=== PATIENT | female | born 1995 | race Caucasian/White ===

== ENCOUNTER 2022-12-24 21:18 | Emergency (ER) | payer OTHER, SELFPAY ==
[2022-12-24 21:26] VITALS: BP 116/85; PULSE 91; RESP 16; TEMP 37.3; O2SAT 99; BMI 40.0
--- NOTE | 2022-12-24 21:36 | ED_ITS ---
HPI - URI/Sore Throat General Chief Complaint: Upper Respiratory Infection Stated Complaint: URTI ISSUES Time Seen by Provider: 12/24/22 21:34 History of Present Illness HPI Narrative: one day history of sore throat. burning sensation in her throat. Low grade fever. dry cough. Not short of breath but chest feels heavy. No abdominal pain, nausea or vomiting. MD elicited complaint: Reports fever and cough Related Data Allergies Allergy/AdvReac Type Severity Reaction Status Date / Time acetaminophen [From Percocet] Allergy Mild Hives Verified 12/24/22 21:29 oxycodone [From Percocet] Allergy Mild Hives Verified 12/24/22 21:29 Review of Systems ROS Status of ROS 10 or more systems reviewed and unremarkable except as noted in history and below Constitutional Reports: fever Ears, nose, mouth, and throat Reports: throat pain Respiratory Reports: cough Exam Constitutional Vital Signs - 24 hr 12/24/22 21:26 Temperature 99.2 F Pulse Rate [Monitor] 91 H Respiratory Rate 16 Blood Pressure [Right Arm] 116/85 H Pulse Oximetry 99 Common normals: no apparent distress, oriented x3, alert and well nourished [facility] Common normals: normocephalic and head/scalp atraumatic Eye Common normals: PERRL, EOMs intact bilaterally and conjunctivae normal Chest Common normals: inspection of chest normal and palpation of chest normal Respiratory Common normals: normal respiratory effort, no retractions, no use of accessory muscles and clear to auscultation bilaterally Cardio Common normals: regular rate, regular rhythm, S1 normal heart sound and S2 normal heart sound GI Common normals: Normal to inspection, nondistended, normoactive bowel sounds present and non-tender Extremity Common normals: normal to inspection and full ROM Neuro Common normals: oriented x3, CN's II-XII intact bilaterally, moves all extremities and no focal motor deficits Psych Appearance: grossly normal Course Vital Signs Vital signs: Vital Signs Temperature 99.2 F 12/24/22 21:26 Pulse Rate 91 H 12/24/22 21:26 Respiratory Rate 16 12/24/22 21:26 Blood Pressure 116/85 H 12/24/22 21:26 Pulse Oximetry 99 12/24/22 21:26 Temperature 99.2 F 12/24/22 21:26 Pulse Rate 91 H 12/24/22 21:26 Respiratory Rate 16 12/24/22 21:26 Blood Pressure 116/85 H 12/24/22 21:26 Pulse Oximetry 99 12/24/22 21:26 MDM - URI/Sore Throat MDM Narrative Medical decision making narrative: patient presents complaining of mild cough and sore throat. left work to come in for evaluation. exam neg including her posterior pharynx. respiratory panel and strep screen neg. Patient informed of the neg workup . Discharged home with diagnosis of pharyngitis and is to follow up with her doctor Lab Data Labs: Lab Results 12/24/22 12/24/22 Range/Units 22:08 22:20 Adenovirus (PCR) Not detected (NOT DETECTE) C. pneumoniae DNA (PCR) Not detected (NOT DETECTE) Coronavirus Type OC43 Not detected (NOT DETECTE) Coronavirus Type HKU1 Not detected (NOT DETECTE) Coronavirus Type 229E Not detected (NOT DETECTE) Coronavirus Type NL63 Not detected (NOT DETECTE) Human Metapneumovir PCR Not detected (NOT DETECTE) M. pneumoniae (PCR) Not detected (NOT DETECTE) Parainfluenza PCR Not detected (NOT DETECTE) Parainfluenza 2 (PCR) Not detected (NOT DETECTE) Parainfluenza 3 (PCR) Not detected (NOT DETECTE) Parainfluenza 4 (PCR) Not detected (NOT DETECTE) RSV (RT-PCR) Not detected (NOT DETECTE) Entero/Rhino (PCR) Not detected (NOT DETECTE) SARS-CoV-2 (PCR) Not detected (NOT DETECTE) Streptococcus Screen Negative Bordetella pertussis (PCR) Not detected (NOT DETECTE) B parapertussis DNA PCR Not detected (NOT DETECTE) Influenza Type A (PCR) Not detected (NOT DETECTE) Influenza Type B (PCR) Not detected (NOT DETECTE) Discharge Plan Discharge Chief Complaint: Upper Respiratory Infection Clinical Impression: Pharyngitis Patient Disposition: Home, Self-Care Condition: Good Instructions: Pharyngitis (ED) Additional Instructions: follow up with family doctor for recheck Stand Alone Forms: Portal Instructions Referrals: Physician,Non-Staff, MD [Primary Care Provider] - 1 week
--- NOTE | 2022-12-24 21:59 | XR_ITS ---
The [address] [address] Patient Name: KAREN DODGE MRN: [id number] date: 1995 Sex: F Assigned Patient Location: ER Current Patient Location: ER Accession/Order Number: [id number] Exam Date: 12/24/2022 21:55 Report Date: 12/24/2022 22:08 At the request of: RANDA REYES Procedure: XR chest 2V EXAM: XR chest 2V REASON FOR EXAM: Female, 27 years, cough. TECHNIQUE: PA and lateral views of the chest are performed. COMPARISON: 06/11/2022. FINDINGS: The lungs are expanded and clear. Normal pleura. Normal size heart. Normal mediastinum and esau. Normal visualized pulmonary arteries. Normal visualized aortic arch and descending thoracic aorta. Normal visualized thoracic spine. Normal visualized ribs, clavicles, and shoulders. There is no demonstrated abnormality of the visualized soft tissue structures of the upper abdomen. IMPRESSION: Normal examination of the chest. Electronically authenticated by: DANAY VANG Date: 12/24/2022 22:08
--- NOTE | 2022-12-24 22:11 | PC.NURSE ---
pt presents to ED c/o runny nose, congestion, msucle aches, and sore throat. 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
[2022-12-24 22:15] LABS: Adenovirus NOT DETECTED (NOT DETECTE); Bordetella parapertussis NOT DETECTED (NOT DETECTE); Coronavirus 229E NOT DETECTED (NOT DETECTE); Coronavirus HKU1 NOT DETECTED (NOT DETECTE); Coronavirus NL63 NOT DETECTED (NOT DETECTE); Coronavirus OC43 NOT DETECTED (NOT DETECTE); Human Metapneumovirus NOT DETECTED (NOT DETECTE); Human Rhinovirus/Enterovirus NOT DETECTED (NOT DETECTE); Influenza A NOT DETECTED (NOT DETECTE); Influenza B NOT DETECTED (NOT DETECTE); Mycoplasma pneumoniae NOT DETECTED (NOT DETECTE); Parainfluenza Virus 1 NOT DETECTED (NOT DETECTE); Parainfluenza Virus 2 NOT DETECTED (NOT DETECTE); Parainfluenza Virus 3 NOT DETECTED (NOT DETECTE); Parainfluenza Virus 4 NOT DETECTED (NOT DETECTE); Respiratory Syncytial Virus NOT DETECTED (NOT DETECTE); SARS-CoV-2 NOT DETECTED (NOT DETECTE)
[2022-12-25] LABS: Internal Control Within Normal Limits; Strep A Antigen Screen Negative
== END 2022-12-25 00:21 | disposition home or self-care (01) ==
PROVIDERS: Emergency Provider Internal Medicine
DX: J02.9 Acute pharyngitis, unspecified (principal); Z20.822 Contact with and (suspected) exposure to COVID-19
CPT/HCPCS: 0202U; 71046; 87070; 87880; 99285

== ENCOUNTER 2023-09-02 00:56 | Emergency (ER) | payer OTHER, SELFPAY ==
[2023-09-02 01:06] VITALS: BP 142/97; PULSE 94; RESP 32; TEMP 36.8; O2SAT 97; BMI 41.8
--- NOTE | 2023-09-02 01:44 | ED_ITS ---
HPI - Abdominal Pain General Chief Complaint: Abdominal Pain Stated Complaint: vomiting abd pain Time Seen by Provider: 09/02/23 01:09 Source: patient Mode of arrival: walk-in Limitations: no limitations History of Present Illness HPI narrative: This 28-year-old female presents for evaluation of severe upper abdominal pain that radiates up into her chest and into her back. Symptoms started tonight around 8:30 PM. She had 4-5 episodes of vomiting. Prior to becoming sick with nausea, vomiting and abdominal pain she had a pork chop and corn for dinner. She denies that there was any heavy spices or gravy on the pork chop. She states that she has been on a semiglutide preparation prescribed by her weight management doctor, Kendall Song in [place], [place]. She states that she was told by Dr. Song that in her chart showed that she had fatty liver disease and a history of pancreatitis. She states that is the only time she has ever been told either of those things and does not recall ever having pancreatitis before. She has never had her gallbladder removed. She has not had any fever or cough. She has only been having small episodes of hard stool and has been only passing a small amount of gas. While in the emergency department she stated that she needed to use the restroom and had passage of a large amount of stool. She does not drink alcohol or smoke cigarettes. Related Data Home Medications Medication Instructions Recorded Confirmed ondansetron 4 mg disintegrating mg 09/02/23 tablet quetiapine 50 mg tablet,extended mg PO 09/02/23 release 24 hr Allergies Allergy/AdvReac Type Severity Reaction Status Date / Time acetaminophen [From Percocet] Allergy Mild Hives Verified 09/02/23 01:12 oxycodone [From Percocet] Allergy Mild Hives Verified 09/02/23 01:12 Review of Systems ROS Status of ROS 10 or more systems reviewed and unremark able except as noted in history and below PFSH PFSH Social History Smoking status: Current every day smoker Exam Narrative Exam Narrative: Nurses note and vital signs reviewed; She is afebrile with an elevated pulse, elevated respiratory rate and elevated blood pressure, she is not hypoxic with pulse ox of 97 percent on room air General: Anxious overweight female, upon arrival to the emergency department she is yelling and moaning with active vomiting of food products, no respiratory distress Skin: Warm, dry, no pallor noted. There is no rash noted. Head: Normocephalic, atraumatic Eye: Normal conjunctiva, no drainage, EOMI. PERRL. No scleral icterus Ears, Nose, Mouth, and Throat: oral mucosa is moist. Cardiovascular: Regular Rate and Rhythm S1S2, pulses are brisk and equal bilaterally Respiratory: Patient is in no distress, no accessory muscle use, lungs are clear to auscultation, no wheezing, rales or rhonchi Back: non-tender, no CVA tenderness bilaterally to percussion. GI: Obese, soft, non-distended, diffusely tender in RUQ, Epigastrium and LUQ Musculoskeletal: The patient has no evidence of calf tenderness, no pitting edema, symmetrical pulses noted bilaterally Neurological: A&O x4, normal speech Psychiatric: Cooperative, anxious, tearful Constitutional Vital Signs, click to edit/add: Last Vital Signs Temp 98.2 F 09/02/23 01:06 Pulse 94 H 09/02/23 01:06 Resp 32 H 09/02/23 01:06 BP 142/97 H 09/02/23 01:06 Pulse Ox 97 09/02/23 01:06 O2 Del Method Room Air 09/02/23 01:06 Course Vital Signs Vital signs: Vital Signs Temperature 98.2 F 09/02/23 01:06 Pulse Rate 94 H 09/02/23 01:06 Respiratory Rate 32 H 09/02/23 01:06 Blood Pressure 142/97 H 09/02/23 01:06 Pulse Oximetry 97 09/02/23 01:06 Oxygen Delivery Method Room Air 09/02/23 01:06 Temperature 98.2 F 09/02/23 01:06 Pulse Rate 94 H 09/02/23 01:06 Respiratory Rate 32 H 09/02/23 01:06 Blood Pressure 142/97 H 09/02/23 01:06 Pulse Oximetry 97 09/02/23 01:06 Oxygen Delivery Method Room Air 09/02/23 01:06 MDM - Abdominal Pain MDM Narrative Medical decision making narrative: This 28-year-old female presents for evaluation of upper abdominal pain with nausea vomiting. She has recently been on semiglutide medications and has lost 20 pounds. She was told that she has Pancreatitis after review of her chart on my chart at [facility] and she was also told that she has chronic pancreatitis. She has never been diagnosed with pancreatitis in the past. Her symptoms came on approximately 2 hours after eating dinner. She states she has not had a bowel movement recently but has been passing a small amount of gas. Upon arrival she was retching and moaning and yelling out. An IV was placed and she was medicated with Zofran and IV fluids and a dose of Dilaudid. Should clinical improvement with this. Routine labs are reviewed. She has a normal white count and hemoglobin. She was not . Urinalysis was negative. Liver function tests and lipase are normal. Lactic acid is normal. CT scan of the abdomen and pelvis was ordered and does not show any acute findings besides hepatic steatosis and assist in the patient's kidney. The results of CT scan were discussed at length with the patient and her . She is given a copy of the CAT scan to share with her family physician. After the CT scan she had recurrent nausea and episode of vomiting and pain and was remedicated with a dose of Zofran and Toradol. She states the Toradol helped her more than the Dilaudid and she will take ibuprofen at home. She will be discharged home with prescription for Zofran and Bentyl to use as needed. She does not plan on going back on the semiglutide medications and she was given reference materials on the side effects of these medications Medical Records Medical records narrative: The [address] [address] [address] Scan Report Signed Patient: Karen Liu MR#: [id number] : 1995 Acct:[id number] Age/Sex: 28 / F ADM Date: 09/02/23 Loc: ER Attending Dr: Ordering Physician: Estelita Mcneal Date of Service: 09/02/23 Procedure(s): CT abdomen pelvis w con Accession Number(s): [id number] cc: Physician,Non-Staff Olaf~ The [address] [address] Patient Name: KAREN LIU MRN: [id number] date: 1995 Sex: F Assigned Patient Location: ER Current Patient Location: ER Accession/Order Number: [id number] Exam Date: 09/02/2023 02:50 Report Date: 09/02/2023 04:51 At the request of: ESTELITA MARKER Procedure: CT abdomen pelvis w con CT OF THE ABDOMEN AND PELVIS WITH CONTRAST: 09/02/2023 2:50 AM EST CLINICAL HISTORY: abdpain ? pancreatitis COMPARISONS: None. TECHNIQUE: Thin section axial CT images were obtained from the lung bases to the pubis symphysis. This CT exam was performed using one or more of the following dose reduction techniques: Automated exposure control, adjustment of the mA and/or kV according to patient size, or use of iterative reconstruction technique. Thin section coronal and sagittal images were reconstructed from the axial data set. All images were reviewed and interpreted. CONTRAST: Intravenous contrast was administered. Type and amount is documented at the local institution. FINDINGS: LUNG BASES: No consolidation or pleural fluid. LIVER: Severe diffuse hepatic steatosis. No liver lesion otherwise. Normal portal vein enhancement. GALLBLADDER: Normal. BILIARY TREE: No ductal dilatation. PANCREAS: Normal. SPLEEN: Normal. ADRENALS: Normal. KIDNEYS: Simple right renal cyst measuring up to 2.5 cm. URINARY BLADDER: Grossly unremarkable. PELVIC STRUCTURES: Reproductive organs are within normal limits. BOWEL: No evidence of obstruction, gross mass, or inflammatory change. There is no significant diverticulosis. There is no evidence of diverticulitis. APPENDIX: Negative. LYMPH NODES: No pathologically enlarged lymph nodes identified. PERITONEUM: No intraperitoneal free air. No free intraperitoneal fluid. MESENTERY: Unremarkable. RETROPERITONEUM: The retroperitoneum is unremarkable. AORTA: Normal in caliber. BODY WALL: No body wall mass. OSSEOUS STRUCTURES: No destructive osseous lesion or displaced fracture. CT/CT abdomen pelvis w con IMPRESSION: 1. No acute abdominal or pelvic pathology. 2. Simple right renal cyst. 3. Severe hepatic steatosis. Lab Data Attestation: I reviewed the patient's lab results. Labs: Lab Results 09/02/23 09/02/23 Range/Units 02:00 02:34 WBC 9.1 (4.0-11.0) 10^3/uL RBC 4.36 (4.20-5.40) 10^6/uL Hgb 11.7 L (12.0-16.0) g/dL Hct 35.8 L (36.0-48.0) % MCV 82.1 (81.0-99.0) fL MCH 26.8 (26.7-34.0) pg MCHC 32.7 (29.9-35.2) g/dL RDW 14.6 (11.0-15.0) % Plt Count 193 (150-450) 10^3/uL MPV 14.1 H (9.5-13.5) fL Neut % (Auto) 61.8 (43.0-75.0) % Lymph % (Auto) 26.1 (20.5-60.0) % [place] % (Auto) 8.4 (1.7-12.0) % Eos % (Auto) 3.1 (0.9-7.0) % Baso % (Auto) 0.4 (0.2-2.0) % Neut # (Auto) 5.6 (1.4-6.5) 10^3/uL Lymph # (Auto) 2.4 (1.2-3.8) 10^3/uL [place] # (Auto) 0.8 (0.3-0.8) 10^3/uL Eos # (Auto) 0.3 (0.0-0.7) 10^3/uL Baso # (Auto) 0.0 (0.0-0.1) 10^3/uL Abs Immat Gran (auto) 0.02 (0.00-0.03) 10^3/uL Imm/Tot Granulo (auto) 0.2 (0.0-0.5) % Sodium 140 (136-145) mmol/L Potassium 3.5 (3.5-5.1) mmol/L Chloride 105 (98-107) mmol/L Carbon Dioxide 25.7 (21.0-32.0) mmol/L Anion Gap 12.8 BUN 16.0 (7.0-18.0) mg/dL Creatinine 0.78 (0.55-1.02) mg/dL Est GFR ( Amer) >60 (>=60) Est GFR (Non-Af Amer) >60 (>=60) BUN/Creatinine Ratio 20.5 Glucose 98 (74-106) mg/dL Lactate 1.6 (0.4-2.0) mmol/L Calcium 9.4 (8.5-10.1) mg/dL Total Bilirubin 0.7 (0.2-1.0) mg/dL AST 30 (15-37) U/L ALT 97 H (14-59) U/L Alkaline Phosphatase 71 (46-116) U/L Total Protein 7.6 (6.4-8.2) g/dL Albumin 3.9 (3.4-5.0) g/dL Globulin 3.7 g/dL Albumin/Globulin Ratio 1.1 Lipase 54.0 (16.0-77.0) U/L Urine Color Yellow (YELLOW) Urine Clarity Clear (CLEAR) Urine pH 6.0 (5.0-9.0) Ur Specific [place] 1.025 (1.005-1.025) Urine Protein Trace (NEG/TRACE) mg/dL Urine Glucose (UA) Negative (NEGATIVE) mg/dL Urine Ketones Trace A (NEGATIVE) mg/dL Urine Occult Blood Negative (NEGATIVE) Urine Nitrite Negative (NEGATIVE) Urine Bilirubin Negative (NEGATIVE) Urine Urobilinogen 0.2 (0.2-1.0) EU/dL Ur Leukocyte Esterase Trace A (NEGATIVE) Urine RBC 0-2 (0-2) #/HPF Urine WBC 0-2 A (NONE SEEN) #/HPF Ur Squamous Epith Cells Rare (NONE/RARE) #/LPF Urine Crystals None seen (None Seen) #/HPF Urine Bacteria None seen (NONE SEEN) #/HPF Urine Casts None seen (NONE SEEN) #/LPF Urine Mucus None seen (NONE SEEN) Urine HCG, Qual Negative (NEGATIVE) Discharge Plan Discharge Chief Complaint: Abdominal Pain Clinical Impression: Fatty liver disease, nonalcoholic, Abdominal pain, Constipation Patient Disposition: Home, Self-Care Time of Disposition Decision: 05:07 Condition: Good Prescriptions / Home Meds: No Action ondansetron 4 mg tablet,disintegrating quetiapine 50 mg tablet extended release 24 hr PO Instructions: Constipation (DC), Liver Disease Diet (DC), Non-Alcoholic Fatty Liver Disease (ED), Abdominal Pain (ED) Referrals: Physician,Non-Staff, MD [Primary Care Provider] - 1 week Stand Alone Forms: Portal Instructions
--- NOTE | 2023-09-02 01:52 | CT_ITS ---
The [address] [address] Patient Name: KAREN DODGE MRN: [id number] date: 1995 Sex: F Assigned Patient Location: ER Current Patient Location: Accession/Order Number: [id number] Exam Date: 09/02/2023 02:50 Report Date: 09/02/2023 04:51 At the request of: DUY MARKER Procedure: CT abdomen pelvis w con CT OF THE ABDOMEN AND PELVIS WITH CONTRAST: 09/02/2023 2:50 AM EST CLINICAL HISTORY: abdpain ? pancreatitis COMPARISONS: None. TECHNIQUE: Thin section axial CT images were obtained from the lung bases to the pubis symphysis. This CT exam was performed using one or more of the following dose reduction techniques: Automated exposure control, adjustment of the mA and/or kV according to patient size, or use of iterative reconstruction technique. Thin section coronal and sagittal images were reconstructed from the axial data set. All images were reviewed and interpreted. CONTRAST: Intravenous contrast was administered. Type and amount is documented at the local institution. FINDINGS: LUNG BASES: No consolidation or pleural fluid. LIVER: Severe diffuse hepatic steatosis. No liver lesion otherwise. Normal portal vein enhancement. GALLBLADDER: Normal. BILIARY TREE: No ductal dilatation. PANCREAS: Normal. SPLEEN: Normal. ADRENALS: Normal. KIDNEYS: Simple right renal cyst measuring up to 2.5 cm. URINARY BLADDER: Grossly unremarkable. PELVIC STRUCTURES: Reproductive organs are within normal limits. BOWEL: No evidence of obstruction, gross mass, or inflammatory change. There is no significant diverticulosis. There is no evidence of diverticulitis. APPENDIX: Negative. LYMPH NODES: No pathologically enlarged lymph nodes identified. PERITONEUM: No intraperitoneal free air. No free intraperitoneal fluid. MESENTERY: Unremarkable. RETROPERITONEUM: The retroperitoneum is unremarkable. AORTA: Normal in caliber. BODY WALL: No body wall mass. OSSEOUS STRUCTURES: No destructive osseous lesion or displaced fracture. CT/CT abdomen pelvis w con IMPRESSION: 1. No acute abdominal or pelvic pathology. 2. Simple right renal cyst. 3. Severe hepatic steatosis. 1. Electronically authenticated by: ALICE LOVETT Date: 09/02/2023 04:51
[2023-09-02] MEDS: 0.9 % SODIUM CHLORIDE 1,000 ML 1000 ML IV (02:20)
[2023-09-02] MEDS: ONDANSETRON PF 4 MG/2 ML VIAL IV ×2 (02:22→04:00)
[2023-09-02] MEDS: HYDROMORPHONE HCL 1 MG/ML CARTRIDGE IV (02:22)
[2023-09-02] MEDS: FAMOTIDINE/PF 20 MG/2 ML VIAL 40 MG IV (02:26)
[2023-09-02 02:41] LABS: Bilirubin Urine NEGATIVE (NEGATIVE); Blood Urine NEGATIVE (NEGATIVE); Clarity Urine CLEAR (CLEAR); Color Urine YELLOW (YELLOW); Glucose Urine UA NEGATIVE (NEGATIVE); Ketones Urine TRACE mg/dL (NEGATIVE); Leukocyte Esterase Urine TRACE (NEGATIVE); Nitrite Urine NEGATIVE (NEGATIVE); Protein Urine TRACE mg/dL (NEG/TRACE); Specific Gravity Urine 1.025 (1.005-1.025); Urobilinogen Urine 0.2 EU/dL (0.2-1.0)
[2023-09-02 02:43] LABS: HCG Qualitative Urine* NEGATIVE (NEGATIVE)
[2023-09-02 02:48] LABS: Bacteria Urine NONE SEEN #/HPF (NONE SEEN); Cast Seen? NONE SEEN #/LPF (NONE SEEN); Crystals Seen? None Seen #/HPF (None Seen); Mucus Urine NONE SEEN (NONE SEEN); RBC Urine 0-2 #/HPF (0-2); Squamous Epithelial Cell Urine RARE #/LPF (NONE/RARE); WBC Urine 0-2 #/HPF (NONE SEEN)
[2023-09-02 02:59] LABS: Basophils Percent Auto 0.4 % (0.2-2.0); Eosinophils Absolute Auto 0.3 10^3/uL (0.0-0.7); Eosinophils Percent Auto 3.1 % (0.9-7.0); Hematocrit 35.8 % (36.0-48.0); Hemoglobin 11.7 g/dL (12.0-16.0); Immature Granulocytes Abs Auto 0.02 10^3/uL (0.00-0.03); Immature Granulocytes Pct Auto 0.2 % (0.0-0.5); Lymphocytes Absolute Auto 2.4 10^3/uL (1.2-3.8); Lymphocytes Percent Auto 26.1 % (20.5-60.0); Mean Corpuscular HGB Conc 32.7 g/dL (29.9-35.2); Mean Corpuscular Hemoglobin 26.8 pg (26.7-34.0); Mean Corpuscular Volume 82.1 fL (81.0-99.0); Mean Platelet Volume 14.1 fL (9.5-13.5); Monocytes Absolute Auto 0.8 10^3/uL (0.3-0.8); Monocytes Percent Auto 8.4 % (1.7-12.0); Neutrophils Absolute Auto 5.6 10^3/uL (1.4-6.5); Neutrophils Percent Auto 61.8 % (43.0-75.0); Platelet Count 193 10^3/uL (150-450); Red Blood Count 4.36 10^6/uL (4.20-5.40); Red Cell Distribution Width 14.6 % (11.0-15.0); White Blood Count 9.1 10^3/uL (4.0-11.0)
[2023-09-02 03:08] LABS: Alanine Aminotransferase 97 U/L (14-59); Albumin Globulin Ratio 1.1; Albumin Level 3.9 g/dL (3.4-5.0); Alkaline Phosphatase 71 U/L (46-116); Anion Gap 12.8; Aspartate Amino Transferase 30 U/L (15-37); BUN Creatinine Ratio 20.5; Bilirubin Total 0.7 mg/dL (0.2-1.0); Calcium 9.4 mg/dL (8.5-10.1); Carbon Dioxide 25.7 mmol/L (21.0-32.0); Chloride 105 mmol/L (98-107); Estimated GFR (African America >60 (>=60); Estimated GFR (Non-African Ame >60 (>=60); Globulin 3.7 g/dL; Glucose 98 mg/dL (74-106); Potassium 3.5 mmol/L (3.5-5.1); Sodium 140 mmol/L (136-145); Total Protein 7.6 g/dL (6.4-8.2)
[2023-09-02 03:11] LABS: Lactate/Lactic Acid 1.6 mmol/L (0.4-2.0)
[2023-09-02] MEDS: KETOROLAC TROMETHAMINE 30 MG/ML VIAL IVP (04:04)
== END 2023-09-02 05:22 | disposition home or self-care (01) ==
PROVIDERS: Emergency Provider Emergency Medicine; PCP Nurse Practitioner Family
DX: R10.10 Upper abdominal pain, unspecified (principal); K59.00 Constipation, unspecified; K76.0 Fatty (change of) liver, not elsewhere classified; F17.200 Nicotine dependence, unspecified, uncomplicated; R11.2 Nausea with vomiting, unspecified; N28.1 Cyst of kidney, acquired
CPT/HCPCS: 36415; 74177; 80053; 81001; 83605; 83690; 84703; 85025; 96361; 96374; 96375; 96376; 99284; J1170; Q9967

== ENCOUNTER 2023-11-26 15:21 | Emergency (ER) | payer OTHER, SELFPAY ==
[2023-11-26 15:29] VITALS: BP 107/69; PULSE 94; TEMP 37.4; O2SAT 98; BMI 38.9
--- NOTE | 2023-11-26 15:34 | ED.GENADUL1 ---
HPI HPI - General Adult General Chief complaint: Abdominal Pain Stated complaint: Flank Pain Time Seen by Provider: 11/26/23 15:23 History of Present Illness HPI narrative: Patient is a 28-year-old female who presents to the emergency department for the evaluation of left flank pain that began this morning. She denies fevers, chills, nausea, vomiting, diarrhea. She states she did have urinary frequency last night and today seems to be urinating less than normal. She has not had any hematuria or dysuria. She is not concerned for . She took naproxen earlier this morning without improvement. She had a CT scan in this emergency department earlier this year showing a right renal cyst with no other evidence of kidney stones. She has had previous C-sections and no other abdominal surgeries. Related Data Home Medications ?Medication ?Instructions ?Recorded ?Confirmed ondansetron 4 mg disintegrating mg 09/02/23 tablet dicyclomine 20 mg tablet 20 mg PO .q8 PRN abdominal pain 11/26/23 11/26/23 lamotrigine 25 mg tablet (Lamictal) 50 mg PO DAILY 11/26/23 11/26/23 pantoprazole 20 mg tablet,delayed 20 mg PO QDAY 11/26/23 11/26/23 release Previous Rx's ?Medication ?Instructions ?Recorded dicyclomine 20 mg tablet 20 mg PO QID PRN abdominal pain 11/26/23 #12 tabs ketorolac 10 mg tablet 10 mg PO TID PRN pain #10 tabs 11/26/23 ondansetron 4 mg disintegrating 4 mg PO Q6H PRN nausea and 11/26/23 tablet vomiting #12 tabs Allergies Allergy/AdvReac Type Severity Reaction Status Date / Time acetaminophen [From Percocet] Allergy Mild Hives Verified 11/26/23 15:28 oxycodone [From Percocet] Allergy Mild Hives Verified 11/26/23 15:28 Opioid HPI Opioid Management Most Recent Opioid Data: Last Pain Scale 6 11/26/23 15:52 Last MAR Pain Assessment 11/26/23 15:53 Review of Systems ROS Constitutional Denies: fever or chills Ears, nose, mouth, and throat Denies: throat pain or nasal congestion Cardiovascular Denies: chest pain Respiratory Denies: shortness of breath Gastrointestinal Reports: abdominal pain; Denies: nausea, vomiting or diarrhea Genitourinary Reports: urinary frequency; Denies: painful urination Musculoskeletal Reports: back pain; Denies: neck pain Integumentary/Breast Denies: rash Neurological Denies: headache Hematologic/Lymphatic Denies: easy bruising or easy bleeding [facility] Social History Smoking status: Current every day smoker Exam Narrative Exam Narrative: Gen.: Awake, alert, in no distress Head: Normocephalic, atraumatic ENT: Moist mucous membranes Respiratory: No respiratory distress, lungs clear bilaterally Cardio: Regular rate and rhythm Gastrointestinal: Abdomen is soft, nondistended and nontender to palpation Back: No CVA tenderness Extremities: Moves extremities equally Psych: Normal mood and affect Neuro: No focal neuro deficit Skin: Warm, dry, intact Constitutional Vital Signs, click to edit/add: Last Vital Signs Temp 99.4 F 11/26/23 15:29 Pulse 94 H 11/26/23 15:29 Resp 14 11/26/23 15:29 BP 107/69 11/26/23 15:29 Pulse Ox 98 11/26/23 15:29 O2 Del Method Room Air 11/26/23 15:29 Course Vital Signs Vital signs: Vital Signs Temperature 99.4 F 11/26/23 15:29 Pulse Rate 94 H 11/26/23 15:29 Respiratory Rate 14 11/26/23 15:29 Blood Pressure 107/69 11/26/23 15:29 Pulse Oximetry 98 11/26/23 15:29 Oxygen Delivery Method Room Air 11/26/23 15:29 Temperature 99.4 F 11/26/23 15:29 Pulse Rate 94 H 11/26/23 15:29 Respiratory Rate 14 11/26/23 15:29 Blood Pressure 107/69 11/26/23 15:29 Pulse Oximetry 98 11/26/23 15:29 Oxygen Delivery Method Room Air 11/26/23 15:29 Medical Decision Making MDM Narrative Medical decision making narrative: Patient treated with IV Dilaudid, Zofran, Toradol and reported a return of her pain although she was noted to be resting comfortably on her cell phone when nursing remedicated her with Levsin. She had no episodes of emesis in the ER and her CT scan shows no evidence of acute process. Patient is discharged home with Zofran, Toradol, Levsin. Follow-up PCP and return to the ER if symptoms change or worsen Medical Records Medical records reviewed: Yes I reviewed the patient's medical records Lab Data Lab results reviewed: Yes I reviewed the patient's lab results Labs: Lab Results 11/26/23 11/26/23 Range/Units 15:44 15:46 WBC 11.2 H (4.0-11.0) 10^3/uL RBC 4.46 (4.20-5.40) 10^6/uL Hgb 11.7 L (12.0-16.0) g/dL Hct 36.1 (36.0-48.0) % MCV 80.9 L (81.0-99.0) fL MCH 26.2 L (26.7-34.0) pg MCHC 32.4 (29.9-35.2) g/dL RDW 14.2 (11.0-15.0) % Plt Count 257 (150-450) 10^3/uL MPV 12.9 (9.5-13.5) fL Neut % (Auto) 59.6 (43.0-75.0) % Lymph % (Auto) 29.6 (20.5-60.0) % Pepin % (Auto) 7.8 (1.7-12.0) % Eos % (Auto) 2.3 (0.9-7.0) % Baso % (Auto) 0.4 (0.2-2.0) % Neut # (Auto) 6.7 H (1.4-6.5) 10^3/uL Lymph # (Auto) 3.3 (1.2-3.8) 10^3/uL Pepin # (Auto) 0.9 H (0.3-0.8) 10^3/uL Eos # (Auto) 0.3 (0.0-0.7) 10^3/uL Baso # (Auto) 0.1 (0.0-0.1) 10^3/uL Abs Immat Gran (auto) 0.03 (0.00-0.03) 10^3/uL Imm/Tot Granulo (auto) 0.3 (0.0-0.5) % Sodium 136 (136-145) mmol/L Potassium 3.9 (3.5-5.1) mmol/L Chloride 103 (98-107) mmol/L Carbon Dioxide 24.0 (21.0-32.0) mmol/L Anion Gap 12.9 BUN 15.0 (7.0-18.0) mg/dL Creatinine 0.69 (0.55-1.02) mg/dL Est GFR ( Amer) >60 (>=60) Est GFR (Non-Af Amer) >60 (>=60) BUN/Creatinine Ratio 21.7 Glucose 91 (74-106) mg/dL Lactate 1.2 (0.4-2.0) mmol/L Calcium 8.6 (8.5-10.1) mg/dL Total Bilirubin 0.7 (0.2-1.0) mg/dL AST 33 (15-37) U/L ALT 64 H (14-59) U/L Alkaline Phosphatase 83 (46-116) U/L Total Protein 7.5 (6.4-8.2) g/dL Albumin 4.0 (3.4-5.0) g/dL Globulin 3.5 g/dL Albumin/Globulin Ratio 1.1 Lipase 69.0 (16.0-77.0) U/L Serum HCG, Qual Negative (NEGATIVE) Urine Color Lt. yellow (YELLOW) Urine Clarity Clear (CLEAR) Urine pH 6.0 (5.0-9.0) Ur Specific [place] 1.010 (1.005-1.025) Urine Protein Negative (NEG/TRACE) mg/dL Urine Glucose (UA) Negative (NEGATIVE) mg/dL Urine Ketones Negative (NEGATIVE) mg/dL Urine Occult Blood Negative (NEGATIVE) Urine Nitrite Negative (NEGATIVE) Urine Bilirubin Negative (NEGATIVE) Urine Urobilinogen 0.2 (0.2-1.0) EU/dL Ur Leukocyte Esterase Negative (NEGATIVE) Imaging Data CT scan - abdomen: Attestation: I have reviewed the pertinent imaging results. Radiologist's impression: ITS Impressions Abdomen/Pelvis CT 11/26/23 15:36 IMPRESSION: No acute abnormality in the abdomen or pelvis. No obstructive uropathy. Electronically authenticated by: PAOLA WISE Date: 11/26/2023 17:27 Discharge Plan Discharge Stand Alone Forms: Portal Instructions Chief Complaint: Abdominal Pain Clinical Impression: Abdominal pain Patient Disposition: Home, Self-Care Time of Disposition Decision: 17:37 Condition: Good Prescriptions / Home Meds: New ketorolac 10 mg tablet 10 mg PO TID PRN (Reason: pain) Qty: 10 0RF dicyclomine 20 mg tablet 20 mg PO QID PRN (Reason: abdominal pain) Qty: 12 0RF ondansetron 4 mg tablet,disintegrating 4 mg PO Q6H PRN (Reason: nausea and vomiting) Qty: 12 0RF No Action lamotrigine [Lamictal] 25 mg tablet 50 mg PO DAILY pantoprazole 20 mg tablet,delayed release (DR/EC) 20 mg PO QDAY dicyclomine 20 mg tablet 20 mg PO .q8 PRN (Reason: abdominal pain) Hold Instructions: has not taken it yet ondansetron 4 mg tablet,disintegrating Print Language: [place] African Instructions: Acute Abdominal Pain (ED) Referrals: Penny Aldrich NP [Primary Care Provider] - 1 week
--- NOTE | 2023-11-26 15:36 | CT_ITS ---
The [address] [address] Patient Name: KAREN DODGE MRN: [id number] date: 1995 Sex: F Assigned Patient Location: ER Current Patient Location: ER Accession/Order Number: [id number] Exam Date: 11/26/2023 16:46 Report Date: 11/26/2023 17:27 At the request of: ALBERTA RODNEY Procedure: CT abdomen pelvis wo con CT ABDOMEN/PELVIS WITHOUT IV CONTRAST. INDICATION: Left flank pain COMPARISON: There are no other studies available for comparison. TECHNIQUE: Contiguous axial images were obtained from the lung bases to the pelvic floor without intravenous or oral contrast. Coronal and sagittal reformations are provided. FINDINGS: LOWER LUNGS: Clear. LIVER/BILIARY TREE: No discrete lesion. No intrahepatic ductal dilatation. GALLBLADDER: No significant gallbladder wall thickening. No radiopaque stone. CBD: Normal CBD. SPLEEN: Normal in size. PANCREAS: No appreciable peripancreatic fluid. No pancreatic ductal dilatation. No discrete lesion. ADRENALS: Normal. KIDNEYS: No hydronephrosis. No radiopaque calculus. STOMACH AND BOWEL: Stomach is unremarkable. No dilated bowel loops. No bowel wall thickening. APPENDIX: Normal appendix. PERITONEAL CAVITY: No fluid. No fat stranding. ABDOMINAL WALL: No subcutaneous stranding. No subcutaneous fluid collection. There is a small umbilical hernia containing fat. LYMPH NODES: No mesenteric or retroperitoneal lymphadenopathy by CT criteria. ABDOMINAL AORTA: No aneurysm. PELVIS: No acute abnormality. MUSCULOSKELETAL: No acute osseous abnormality. CT/CT abdomen pelvis wo con IMPRESSION: No acute abnormality in the abdomen or pelvis. No obstructive uropathy. Electronically authenticated by: PAOLA WISE Date: 11/26/2023 17:27
[2023-11-26] MEDS: KETOROLAC TROMETHAMINE 30 MG/ML VIAL IVP (15:52)
[2023-11-26] MEDS: 0.9 % SODIUM CHLORIDE 1,000 ML 999 ML IV (15:52)
[2023-11-26] MEDS: HYDROMORPHONE HCL 0.5 MG/0.5 ML SYRINGE IVP (15:53)
[2023-11-26] MEDS: ONDANSETRON PF 4 MG/2 ML VIAL IV (15:53)
[2023-11-26 15:57] LABS: Basophils Absolute Auto 0.1 10^3/uL (0.0-0.1); Basophils Percent Auto 0.4 % (0.2-2.0); Eosinophils Absolute Auto 0.3 10^3/uL (0.0-0.7); Eosinophils Percent Auto 2.3 % (0.9-7.0); Hematocrit 36.1 % (36.0-48.0); Hemoglobin 11.7 g/dL (12.0-16.0); Immature Granulocytes Abs Auto 0.03 10^3/uL (0.00-0.03); Immature Granulocytes Pct Auto 0.3 % (0.0-0.5); Lymphocytes Absolute Auto 3.3 10^3/uL (1.2-3.8); Lymphocytes Percent Auto 29.6 % (20.5-60.0); Mean Corpuscular HGB Conc 32.4 g/dL (29.9-35.2); Mean Corpuscular Hemoglobin 26.2 pg (26.7-34.0); Mean Corpuscular Volume 80.9 fL (81.0-99.0); Mean Platelet Volume 12.9 fL (9.5-13.5); Monocytes Absolute Auto 0.9 10^3/uL (0.3-0.8); Monocytes Percent Auto 7.8 % (1.7-12.0); Neutrophils Absolute Auto 6.7 10^3/uL (1.4-6.5); Neutrophils Percent Auto 59.6 % (43.0-75.0); Platelet Count 257 10^3/uL (150-450); Red Blood Count 4.46 10^6/uL (4.20-5.40); Red Cell Distribution Width 14.2 % (11.0-15.0); White Blood Count 11.2 10^3/uL (4.0-11.0)
[2023-11-26 15:58] LABS: Bilirubin Urine NEGATIVE (NEGATIVE); Blood Urine NEGATIVE (NEGATIVE); Clarity Urine CLEAR (CLEAR); Color Urine LT. YELLOW (YELLOW); Glucose Urine UA NEGATIVE (NEGATIVE); Ketones Urine NEGATIVE (NEGATIVE); Leukocyte Esterase Urine NEGATIVE (NEGATIVE); Nitrite Urine NEGATIVE (NEGATIVE); Protein Urine NEGATIVE (NEG/TRACE); Urobilinogen Urine 0.2 EU/dL (0.2-1.0)
[2023-11-26 16:00] LABS: Urine Microscopic Indicated NO
[2023-11-26 16:10] LABS: HCG Qualitative NEGATIVE (NEGATIVE)
[2023-11-26 16:15] LABS: Alanine Aminotransferase 64 U/L (14-59); Albumin Globulin Ratio 1.1; Alkaline Phosphatase 83 U/L (46-116); Anion Gap 12.9; Aspartate Amino Transferase 33 U/L (15-37); BUN Creatinine Ratio 21.7; Bilirubin Total 0.7 mg/dL (0.2-1.0); Calcium 8.6 mg/dL (8.5-10.1); Chloride 103 mmol/L (98-107); Estimated GFR (African America >60 (>=60); Estimated GFR (Non-African Ame >60 (>=60); Globulin 3.5 g/dL; Glucose 91 mg/dL (74-106); Potassium 3.9 mmol/L (3.5-5.1); Sodium 136 mmol/L (136-145); Total Protein 7.5 g/dL (6.4-8.2)
[2023-11-26 16:18] LABS: Lactate/Lactic Acid 1.2 mmol/L (0.4-2.0)
[2023-11-26] MEDS: HYOSCYAMINE SULFATE 0.125 MG TAB.SUBL SL (16:59)
[2023-11-26 18:00] VITALS: PULSE 78; O2SAT 96
== END 2023-11-26 18:02 | disposition home or self-care (01) ==
PROVIDERS: Physician Assistant; Emergency Provider Emergency Medicine; PCP Nurse Practitioner Family
DX: R10.9 Unspecified abdominal pain (principal)
CPT/HCPCS: 36415; 74176; 80053; 81003; 83605; 83690; 84703; 85025; 96374; 96375; 99285; J1170

== ENCOUNTER 2024-03-22 08:25 | Emergency (ER) | payer OTHER, SELFPAY ==
[2024-03-22 08:29] VITALS: BP 120/90; PULSE 114; TEMP 37.1; O2SAT 98; BMI 41.6
--- NOTE | 2024-03-22 08:40 | XR_ITS ---
The [address] [address] Patient Name: KAREN DODGE MRN: [id number] date: 1995 Sex: F Assigned Patient Location: ER Current Patient Location: ER Accession/Order Number: [id number] Exam Date: 03/22/2024 09:18 Report Date: 03/22/2024 09:48 At the request of: NOEL CASTELLANOS Procedure: XR chest 1V EXAM: XR chest 1V HISTORY: . cough . COMPARISON: 16/01/2023 TECHNIQUE: Single view of the chest FINDINGS: Heart and vascularity are unremarkable. Lungs are free of focal infiltrates. Grossly no acute bony abnormality is appreciated. XR/XR chest 1V IMPRESSION: No acute heart or lung disease identified. Electronically authenticated by: SHANIA PALMER Date: 03/22/2024 09:48
--- NOTE | 2024-03-22 08:49 | ED.GENADUL1 ---
HPI HPI - General Adult General Chief complaint: Upper Respiratory Infection Stated complaint: WET COUGH Time Seen by Provider: 03/22/24 08:36 Source: patient Mode of arrival: walk-in Limitations: no limitations History of Present Illness HPI narrative: The patient presented to us with almost 1 week history of cough associated with shortness of breath, she has been having history of asthma and she is wheezing she mentioned that she presented to an urgent care and she was not provided with anything other than antibiotic, the patient has been taking the antibiotic with no improvement and she stopped using her inhaler because it not helping The patient has been having a productive cough of whitish sputum No nausea no vomiting and no abdominal pain Related Data Home Medications ?Medication ?Instructions ?Recorded ?Confirmed albuterol sulfate 90 mcg/actuation 2 puff inhalation Q4H PRN SOB 03/22/24 03/22/24 aerosol inhaler amoxicillin 500 mg capsule 1,000 mg PO BID 03/22/24 03/22/24 Previous Rx's ?Medication ?Instructions ?Recorded prednisone 50 mg tablet 50 mg PO DAILY 5 days #5 tabs 03/22/24 Allergies Allergy/AdvReac Type Severity Reaction Status Date / Time acetaminophen [From Percocet] Allergy Mild Hives Verified 03/22/24 08:36 oxycodone [From Percocet] Allergy Mild Hives Verified 03/22/24 08:36 Opioid HPI Opioid Management Most Recent Opioid Data: Last Pain Scale 6 11/26/23 15:52 Review of Systems ROS Status of ROS 10 or more systems reviewed and unremarkable except as noted in history and below PFSH PFSH Social History Smoking status: Current every day smoker Little interest or pleasure in doing things: not at all Feeling down, depressed, or hopeless: not at all Exam Narrative Exam Narrative: Nurses notes and vital signs reviewed and patient is not hypoxic. General: Well-appearing and in no apparent distress. Skin: Warm, dry, no pallor noted. No rash. Head: Normocephalic, atraumatic. Neck: Supple, non-tender. Eye: Pupils are equal, round and EOMI. No scleral icterus. Ears, Nose, Mouth, and Throat: TM are clear, no nasal mucosal hypertrophy. Oral mucosa is moist, no posterior oropharynx erythema, uvula is mid-line Cardiovascular: Regular Rate and Rhythm without murmur, gallop or rub. Respiratory: No accessory muscle use or respiratory distress. Lungs bilateral expiratory lung wheezes in both lung catnrell Chest Wall: no tenderness Back: No midline thoracic or lumbar vertebral tenderness. No CVA tenderness Musculoskeletal: normal ROM, no calf or popliteal tenderness, no lower extremity edema/swelling GI: Abdomen is soft, non-distended. Normal bowel sounds. No masses appreciated. No tenderness to palpation. No rebound, guarding, or rigidity noted. Neurological: A&O x4. No cranial nerve dysfunction observed. No truncal ataxia. Moves all extremities. Sensation intact. Psychiatric: Cooperative and interactive. Normal mood and affect. Constitutional Vital Signs, click to edit/add: Last Vital Signs Temp 98.7 F 03/22/24 08:29 Pulse 110 H 03/22/24 09:46 Resp 20 03/22/24 09:46 BP 120/90 03/22/24 08:29 Pulse Ox 97 03/22/24 09:46 O2 Del Method Room Air 03/22/24 08:29 Course Vital Signs Vital signs: Vital Signs Temperature 98.7 F 03/22/24 08:29 Pulse Rate 114 H 03/22/24 08:29 Respiratory Rate 20 03/22/24 08:29 Blood Pressure 120/90 03/22/24 08:29 Pulse Oximetry 98 03/22/24 08:29 Oxygen Delivery Method Room Air 03/22/24 08:29 Temperature 98.7 F 03/22/24 08:29 Pulse Rate 110 H 03/22/24 09:46 Respiratory Rate 20 03/22/24 09:46 Blood Pressure 120/90 03/22/24 08:29 Pulse Oximetry 97 03/22/24 09:46 Oxygen Delivery Method Room Air 03/22/24 08:29 Medical Decision Making MDM Narrative Medical decision making narrative: The patient CBC and chemistry showed no acute significant pathology X-ray of the chest showed no acute pathology as well Patient was feeling much better after being treated with the steroids as she was instructed to continue supportive care in addition to using her inhaler with prednisone The patient is to follow up with primary care physician in next 2-3 days or to return to the emergency department should any of the signs or symptoms worsen or new symptoms develop. The patient agrees with the following Diagnosis and Treatment plan and the patient will be discharged home. Lab Data Labs: Lab Results 03/22/24 Range/Units 08:50 WBC 7.1 (4.0-11.0) 10^3/uL RBC 4.51 (4.20-5.40) 10^6/uL Hgb 11.7 L (12.0-16.0) g/dL Hct 35.8 L (36.0-48.0) % MCV 79.4 L (81.0-99.0) fL MCH 25.9 L (26.7-34.0) pg MCHC 32.7 (29.9-35.2) g/dL RDW 14.1 (11.0-15.0) % Plt Count 273 (150-450) 10^3/uL MPV 11.8 (9.5-13.5) fL Neut % (Auto) 65.7 (43.0-75.0) % Lymph % (Auto) 25.1 (20.5-60.0) % [place] % (Auto) 4.2 (1.7-12.0) % Eos % (Auto) 4.3 (0.9-7.0) % Baso % (Auto) 0.4 (0.2-2.0) % Neut # (Auto) 4.7 (1.4-6.5) 10^3/uL Lymph # (Auto) 1.8 (1.2-3.8) 10^3/uL [place] # (Auto) 0.3 (0.3-0.8) 10^3/uL Eos # (Auto) 0.3 (0.0-0.7) 10^3/uL Baso # (Auto) 0.0 (0.0-0.1) 10^3/uL Abs Immat Gran (auto) 0.02 (0.00-0.03) 10^3/uL Imm/Tot Granulo (auto) 0.3 (0.0-0.5) % Sodium 136 (136-145) mmol/L Potassium 3.9 (3.5-5.1) mmol/L Chloride 103 (98-107) mmol/L Carbon Dioxide 26.7 (21.0-32.0) mmol/L Anion Gap 10.2 BUN 11.0 (7.0-18.0) mg/dL Creatinine 0.78 (0.55-1.02) mg/dL Est GFR ( Amer) >60 (>=60) Est GFR (Non-Af Amer) >60 (>=60) BUN/Creatinine Ratio 14.1 Glucose 140 H (74-106) mg/dL Calcium 9.2 (8.5-10.1) mg/dL Total Bilirubin 1.0 (0.2-1.0) mg/dL AST 27 (15-37) U/L ALT 51 (14-59) U/L Alkaline Phosphatase 92 (46-116) U/L Total Protein 7.2 (6.4-8.2) g/dL Albumin 3.8 (3.4-5.0) g/dL Globulin 3.4 g/dL Albumin/Globulin Ratio 1.1 Discharge Plan Discharge Chief Complaint: Upper Respiratory Infection Clinical Impression: Bronchitis Asthma exacerbation Qualifiers: Asthma severity: mild Asthma persistence: persistent Qualified Code(s): J45.31 - Mild persistent asthma with (acute) exacerbation Patient Disposition: Home, Self-Care Time of Disposition Decision: 09:54 Condition: Good Prescriptions / Home Meds: New prednisone 50 mg tablet 50 mg PO DAILY 5 Days Qty: 5 0RF No Action amoxicillin 500 mg capsule 1,000 mg PO BID albuterol sulfate 90 mcg/actuation HFA aerosol inhaler 2 puff INHALATION Q4H PRN (Reason: SOB) Print Language: Upper Sorbian Instructions: Asthma (ED), Acute Bronchitis (ED) Referrals: Penny Aldrich NP [Primary Care Provider] - 1 week
[2024-03-22 09:02] LABS: Basophils Percent Auto 0.4 % (0.2-2.0); Eosinophils Absolute Auto 0.3 10^3/uL (0.0-0.7); Eosinophils Percent Auto 4.3 % (0.9-7.0); Hematocrit 35.8 % (36.0-48.0); Hemoglobin 11.7 g/dL (12.0-16.0); Immature Granulocytes Abs Auto 0.02 10^3/uL (0.00-0.03); Immature Granulocytes Pct Auto 0.3 % (0.0-0.5); Lymphocytes Absolute Auto 1.8 10^3/uL (1.2-3.8); Lymphocytes Percent Auto 25.1 % (20.5-60.0); Mean Corpuscular HGB Conc 32.7 g/dL (29.9-35.2); Mean Corpuscular Hemoglobin 25.9 pg (26.7-34.0); Mean Corpuscular Volume 79.4 fL (81.0-99.0); Mean Platelet Volume 11.8 fL (9.5-13.5); Monocytes Absolute Auto 0.3 10^3/uL (0.3-0.8); Monocytes Percent Auto 4.2 % (1.7-12.0); Neutrophils Absolute Auto 4.7 10^3/uL (1.4-6.5); Neutrophils Percent Auto 65.7 % (43.0-75.0); Platelet Count 273 10^3/uL (150-450); Red Blood Count 4.51 10^6/uL (4.20-5.40); Red Cell Distribution Width 14.1 % (11.0-15.0); White Blood Count 7.1 10^3/uL (4.0-11.0)
[2024-03-22] MEDS: IPRATROPIUM/ALBUTEROL SULFATE 3 ML AMPUL.NEB IH (09:02)
[2024-03-22 09:18] VITALS: PULSE 97; O2SAT 98
[2024-03-22] MEDS: METHYLPREDNISOLONE SOD SUCC PF 125 MG/2 ML VIAL IVP (09:21)
[2024-03-22] MEDS: 0.9 % SODIUM CHLORIDE 1,000 ML 500 ML IV (09:21)
[2024-03-22 09:32] LABS: Alanine Aminotransferase 51 U/L (14-59); Albumin Globulin Ratio 1.1; Albumin Level 3.8 g/dL (3.4-5.0); Alkaline Phosphatase 92 U/L (46-116); Anion Gap 10.2; Aspartate Amino Transferase 27 U/L (15-37); BUN Creatinine Ratio 14.1; Calcium 9.2 mg/dL (8.5-10.1); Carbon Dioxide 26.7 mmol/L (21.0-32.0); Chloride 103 mmol/L (98-107); Estimated GFR (African America >60 (>=60); Estimated GFR (Non-African Ame >60 (>=60); Globulin 3.4 g/dL; Glucose 140 mg/dL (74-106); Potassium 3.9 mmol/L (3.5-5.1); Sodium 136 mmol/L (136-145); Total Protein 7.2 g/dL (6.4-8.2)
[2024-03-22] MEDS: FAMOTIDINE/PF 20 MG/2 ML VIAL IV (09:42)
[2024-03-22] MEDS: KETOROLAC TROMETHAMINE 30 MG/ML VIAL 15 MG IVP (09:42)
[2024-03-22 09:46] VITALS: PULSE 110; O2SAT 97
[2024-03-22 10:07] VITALS: BP 127/85; PULSE 105; O2SAT 99
== END 2024-03-22 10:07 | disposition home or self-care (01) ==
PROVIDERS: Emergency Provider Emergency Medicine; PCP Nurse Practitioner Family
DX: J45.31 Mild persistent asthma with (acute) exacerbation (principal); F17.200 Nicotine dependence, unspecified, uncomplicated
CPT/HCPCS: 36415; 71045; 80053; 85025; 94640; 96374; 96375; 99284; J1885; J2919

== ENCOUNTER 2024-04-21 08:32 | Emergency (ER) | payer OTHER, SELFPAY ==
[2024-04-21 08:36] VITALS: BP 117/85; PULSE 115; TEMP 37; O2SAT 97; BMI 41.6
--- OUTSIDE RECORDS SUMMARY | 2024-04-21 08:49 | XMS_ITS | CCD ---
Author Organization [facility] Care Team Providers Care Fluorescent Lighting Model Maker Name Role Phone Link, Russell Burnett Primary Care Physician [phone] Lou Arceo Primary Care Physician [phone] Florecita Haynes Primary Care Physician Unavail able Juarez Wang Attending Unavailable RONEL .SILVER Consulting UnavailDR NICOLLE Post Primary Care Unavailable DIAB ., NOEL Attending Unavailable DIAB ., NOEL Admitting Unavailable FLORECITA FROST Consulting Unavailable DIAB ., NOEL Consulting Unavailable DEVIN ., RAMAN Admitting Unavailable DR VANESSA ALVARADO Consulting Unavailable DEVIN ., RAMAN Attending Unavailable DEVIN Padron, RAMAN Consulting Unavailable ZEYAD FAM Admitting Unavailable REQUEST, NONE LISTED Primary Care Unavaila ble ZEYAD FAM Attending Unavailable ZEYAD FAM Consulting Unavailable REQUEST, NONE LISTED Primary Care Unavaila ble FREDDY YOUNG Admitting Unavailable FREDDY YOUNG Attending Unavailable FREDDY YOUNG Consulting Unavailable NONE, XXXX Primary Care Physician Unavailab le NO, PCP Primary Care Unavailable [place] NEGOTIATOR-JAILYN, Gaetano Primary Care Provider Easterwood, Gaetano Unavailable EASTERWOOD, GAETANO Primary Care Unavailable LUCINDA ARIAS Attending Unavailable EASTERWOOD, GAETANO Referring Unavailable EASTERWOOD, GAETANO Primary Care Unavailable EASTERWOOD, GAETANO Referring Unavailable EASTERWOOD, GAETANO Primary Care Unavailable LUCINDA ARIAS Attending Unavailable EASTERWOOD, GAETANO Referring Unavailable EASTERWOOD, GAETANO Primary Care Unavailable KARLA PEGUERO Attending Unavailable LUCINDA ARIAS Referring Unavailable EASTERWOOD, GAETANO Primary Care Unavailable Luna Alvarez Attending Unavailable EASTERWOOD, GAETANO Primary Care Unavailable TEDDY PEREZ Attending Unavailable BRODY YUAN Admitting Unavailable TEDDY PEREZ Attending Unavailable TEDDY PEREZ Referring Unavailable EASTERWOOD, GAETANO Primary Care Unavailable NO PCP, NO PCP Primary Care Unavailable DIA TAM Referring Unavailable EASTERWOOD, GAETANO Primary Care Unavailable DIA TAM Attending Unavailable DIA TAM Referring Unavailable EASTERWOOD, GAETANO Primary Care Unavailable EASTERWOOD, GAETANO Primary Care Unavailable NADINE AU Attending Unavailable YASMANY COLBERT Attending UnavailYASMANY Mendez Referring Unavailabl e EASTERWOOD, GAETANO Primary Care Unavailable DIA TAM Referring Unavailable EASTERWOOD, GAETANO Primary Care Unavailable Easterwood, NEGOTIATOR Gaetano J Primary Care Provider MD Jos Lund Attending Provider Easterrafaela, Gaetano J Primary Care Unavailable Asaad, Imad Admitting Unavailable Asaad, Imad Attending Unavailable Easterwood, Gaetano J Primary Care Unavailable Asaad, Imad Admitting Unavailable Asaad, Imad Attending Unavailable Allergies Allergy Classification Reported Allergen(s) Allergy Type Date of Onset Reaction(s) Facility Acetaminophen (1 source) Acetaminophen Drug Allergy 4 [facility] Aminoketones (1 source) buPROPion Drug Allergy 4 [facility] Opioid Agonists (1 source) [facility] Acetaminophen / oxyCODONE; Translations: [acetaminophen-ox ycodone] Drug Allergy 2 [facility] (3 sources) Acetaminophen / oxyCODONE; Translations: [Percocet] Drug Allergy 2 [facility] (4 sources) Acetaminophen / oxyCODONE; Translations: [OXYCODONE-ACETAM INOPHEN] Drug Allergy 2 [facility] Rep[facility] (5 sources) Acetaminophen; Translations: [acetaminophen] [facility] bu[facility]ion; Translations: [bupropion] Drug Allergy 4 Agitated [facility] (5 sources) oxyCODONE; Translations: [oxycodone] Drug Allergy 4 hives, itching [facility] (6 sources) semaglutide; Translations: [semaglutide] Allergy to substance 4 pancreatitis [facility] Medications Current Medications Medication Drug Class(es) Dates Sig (Normalized) Sig (Original) acetaminophen 325 mg / butalbital 50 mg / caffeine 40 mg oral tablet (3 sources) Barbiturate, Central Nervous System Stimulant, Methylxanthine Start: 09-25-2021 take 1 tablet by mouth every four hours for headache APAP/butalbital /caffeine 325 mg-50 mg-40 mg Tab 1 tab(s), Oral, q4hr for headache, 15 tab(s), Refill(s) 0 Start Date: 09/25/21 Status: Ordered acetaminophen 300 mg / codeine phosphate 30 mg oral tablet (3 sources) Opioid Agonist Start: 06-20-2020 Tylenol with Codeine 300 mg-30 mg Tab 1 tab(s), Oral, q6hr as needed for pain, 7 tab(s), Refill(s) 0 Start Date: 06/20/20 Status: Ordered brompheniramine maleate 0.4 mg/ml / dextromethorphan hydrobromide 2 mg/ml / pseudoephedrine hydrochloride 6 mg/ml oral solution (1 source) alpha-Adrenergic Agonist, Uncompetitive N-xpjwca-[id number]-aspartate Receptor Antagonist, Sigma-1 Agonist Start: 06-14-2022 End: 06-21-2022 take 10 mL by mouth four times daily for cough and congestion Bromfed DM oral syrup 10 mL, Oral, QID for cough and congestion for 7 day(s), 280 mL, Refill(s) 0, [facility]/pharmacy #[id number], 165, cm, 06/14/22 8:50:00 EST, Height/Length Dosing, 105, kg, 06/14/22 8:50:00 EST, Weight Dosing Start Date: 06/14/22 Stop Date: 06/21/22 Status: Ordered 12 hr buPROPion hydrochloride 150 mg extended release oral tablet (3 sources) Aminoketone Start: 05-31-2022 take 1 tablet by mouth once daily Wellbutrin SR 150 mg Tab-ER 150 mg = 1 tab(s), Oral, Daily, # 30 tab(s), Refills(s) 2, Pharmacy: [facility]/pharmacy #[id number], 165, cm, 04/05/22 9:43:00 EDT, Height/Length Dosing, 111.3, kg, 04/05/22 9:43:00 EDT, Weight Dosing Start Date: 05/31/22 Status: Ordered Start: 03-06-2022 take 1 tablet by lisa th once daily, then take 2 tablets by mouth once daily Wellbutrin SR 150 mg Tab-ER See Instructions, 1 tab(s) Oral once daily for one week, then increase to 2 tabs oral daily, # 60 tab(s), Refills(s) 1, Pharmacy: [facility]/pharmacy #[id number], 165, aurelia, 03/06/22 14:45:00 EDT, Height/Length Dosing, 113.7, kg, 03/06/22 14:45:00 EDT, Weight Dosing Start Date: 03/06/22 Status: Ordered cyclobenzaprine hydrochloride 10 mg oral tablet (3 sources) Muscle Relaxant Start: 12-09-2023 take 10 mg by mouth once daily at bedtime Cyclobenzaprine Active 10 MG PO Daily at bedtime 14 14 December 09, 2023 12:00am dicyclomine hydrochloride 20 mg oral tablet (5 sources) Anticholinergic Start: 12-09-2023 take 20 mg by mouth twice daily Dicyclomine Active 20 MG PO Twice daily December 09, 2023 12:00am Start: 11-13-2021 End: 11-20-2021 take 1 capsule by mouth four times daily as needed for pain Bentyl 10 mg Cap 10 mg = 1 cap(s), Oral, QID, PRN Pain, X 7 day(s), # 12 cap(s), Refills(s) 0 Start Date: 11/13/21 Stop Date: 11/20/21 Status: Ordered famotidine 40 mg oral tablet (3 sources) Histamine-2 Receptor Antagonist Start: 05-02-2020 take 1 tablet by mouth once daily at bedtime Pepcid 40 mg Tab 40 mg = 1 tab(s), Oral, Once a day (at bedtime), # 20 tab(s), Refills(s) 0, Pharmacy: [facility]/pharmacy #[id number], 165, cm, 05/02/20 11:30:00 EST, Height/Length Dosing, 109, kg, 05/02/20 11:30:00 EST, Weight Dosing Start Date: 05/02/20 Status: Ordered FLUoxetine 40 mg oral capsule (3 sources) Serotonin Reuptake Inhibitor Start: 11-09-2018 take 1 capsule by mouth once daily FLUoxetine 40 mg Cap TAKE 1 CAPSULE BY MOUTH EVERY DAY Start Date: 11/09/18 Status: Ordered hydrOXYzine hydrochloride 10 mg oral tablet (3 sources) Antihistamine Start: 04-05-2022 take 1 tablet by mouth four times daily as needed for anxiety hydrOXYzine hydrochloride 10 mg Tab 10 mg = 1 tab(s), Oral, QID, PRN as needed for anxiety, # 56 tab(s), Refills(s) 2, Pharmacy: [facility]/pharmacy #[id number], 165, cm, 04/05/22 9:43:00 EDT, Height/Length Dosing, 111.3, kg, 04/05/22 9:43:00 EDT, Weight Dosing Start Date: 04/05/22 Status: Ordered Start: 03-06-2022 End: 03-27-2022 take 1 tablet by mouth four times daily as needed for anxiety hydrOXYzine hydrochloride 10 mg Tab 10 mg = 1 tab(s), Oral, QID, PRN as needed for anxiety, X 21 day(s), # 86 tab(s), Refills(s) 0, Pharmacy: [facility]/pharmacy #[id number], 165, cm, 03/06/22 14:45:00 EDT, Height/Length Dosing, 113.7, kg, 03/06/22 14:45:00 EDT, Weight Dosing Start Date: 03/06/22 Stop Date: 03/27/22 Status: Ordered ibuprofen 600 mg oral tablet (3 sources) Nonsteroidal Anti-inflammatory Drug Start: 12-17-2020 take 1 tablet by mouth every six hours ibuprofen 600 mg Tab 600 mg = 1 tab(s), Oral, q6hr, # 10 tab(s), Refills(s) 0, Pharmacy: [facility]/pharmacy #[id number], 165.1, cm, 12/15/20 4:59:00 EDT, Height/Length Dosing, 128.2, kg, 12/15/20 5:39:00 EDT, Weight Dosing Start Date: 12/17/20 Status: Ordered lamoTRIgine 100 mg oral tablet (13 sources) Mood Stabilizer, Anti-epileptic Agent Start: 01-05-2024 take 100 mg by mouth once daily Lamotrigine Active 100 MG PO Daily January 05, 2024 4:48pm Start: 09-25-2023 End: 01-05-2024 take 3 tablets by mouth once daily, then take 4 tablets by mouth once daily Lamotrigine Discontinued 0 PO Daily November 25, 2023 9:36am January 05, 2024 4:48pm 3 tabs QD x 14 days then 4 tabs QD x 14 days orally daily; lidocaine 0.05 mg/mg medicated patch (1 source) Antiarrhythmic, Amide Local Anesthetic Start: 12-11-2022 Lidoderm 5% Patch 1 patch(es), Topical, Daily, 7 EA, Refill(s) 0, apply 12 hours on and 12 hours off daily, [facility]/pharmacy #[id number], 165, cm, 12/11/22 20:29:00 EDT, Height/Length Dosing, 120, kg, 12/11/22 20:29:00 EDT, Weight Dosing Start Date: 12/11/22 Status: Ordered naproxen sodium 550 mg oral tablet (9 sources) Nonsteroidal Anti-inflammatory Drug Start: 11-06-2023 End: 11-27-2023 take 550 mg by mouth every twelve hours Naproxen Sodium Active 550 MG PO Every 12 hours 20 November 27, 2023 4:59pm Start: 12-11-2022 take 1 tablet by ilsa th twice daily Naprosyn 500 mg Tab 500 mg = 1 tab(s), Oral, BID, # 20 tab(s), Refills(s) 0, Pharmacy: [facility]/pharmacy #[id number], 165, cm, 12/11/22 20:29:00 EDT, Height/Length Dosing, 120, kg, 12/11/22 20:29:00 EDT, Weight Dosing Start Date: 12/11/22 Status: Ordered NON FORMULARY (1 source) NON FORMULARY SEMIGLUTIDE INJECTIONS WEEKLY 0 Active ondansetron 4 mg disintegrating oral tablet (11 sources) Serotonin-3 Receptor Antagonist Start: 12-09-2023 Ondansetron Active 4 MG PO As Directed December 09, 2023 12:00am Start: 08-20-2023 take 1 tablet by lisa th every eight hours as needed for nausea ondansetron ODT (ZOFRAN ODT) 4 mg disintegrating tablet Dissolve 1 tablet (4 mg total) on tongue every 8 (eight) hours as needed for nausea for up to 10 doses. 10 tablet 0 08/20/2023 Active Start: 11-13-2021 take 1 tablet by lisa th every eight hours as needed for nausea Zofran 4 mg Tab 4 mg = 1 tab(s), Oral, q8hr, PRN Nausea/Vomiting, # 12 tab(s), Refills(s) 0 Start Date: 11/13/21 Status: Ordered Start: 12-04-2017 End: 12-23-2017 take 4 mg by mouth twice daily Ondansetron Discontinue d 4 MG PO Twice daily December 04, 2017 12:00am December 23, 2017 9:18pm penicillin V potassium 500 mg Tab (3 sources) Start: 06-20-2020 take 1 tablet by mouth every six hours penicillin V potassium 500 mg Tab 500 mg = 1 tab(s), Oral, q6hr, # 40 tab(s), Refills(s) 0 Start Date: 06/20/20 Status: Ordered Complete with DHA (3 sources) Start: 11-05-2020 Compl ete with DHA Refill(s) 0 Start Date: 11/05/20 Status: Ordered promethazine hydrochloride 25 mg rectal suppository (4 sources) Phenothiazine Start: 11-13-2021 take 25 mg rectal route every six hours as needed for nausea Phenergan 25 mg Supp 25 mg = 1 supp, Rectal, q6hr, PRN Nausea/Vomiting, # 6 EA, Refills(s) 0 Start Date: 11/13/21 Status: Ordered Start: 04-08-2020 take 1 tablet by lisa th four times daily as needed for nausea promethazine 25 mg Tab 25 mg = 1 tab(s), Oral, QID, PRN for nausea/vomiting, # 12 tab(s), Refills(s) 0 Start Date: 04/08/20 Status: Ordered Semaglutide(0.25 or 0.5MG/DOS) 2 MG/3ML (1 source) inject 0.5 mg by subcutaneous injection every week Semaglutide(0.25 or 0.5MG/DOS) 2 MG/3ML as directed Subcutaneous weekly Active silver sulfADIAZINE 10 mg/ml topical cream (3 sources) Sulfonamide Antibacterial Start: 2023 Silver Sulfadiazine (Silvadene) 1 % cream Active 1 APPLIC TOPICAL Twice daily 25 7 December 09, 2023 12:00am Completed/Discontinued Medications Medication Drug Class(es) Dates Sig (Normalized) Sig (Original) Biotin (4 sources) Start: 11-13-2023 End: 12-09-2023 take 3 tablets by mouth once daily biotin (Hair, Skin and Nails (biotin)) Discontinued PO November 13, 2023 12:00am December 09, 2023 10:06am 3 tablets Once daily cephalexin 500 mg oral capsule (8 sources) Cephalosporin Antibacterial Start: 03-15-2019 take 1 capsule by mouth three times daily Keflex 500 mg Cap 500 mg = 1 cap(s), Oral, TID, Take one capsule by mouth three times a day for ten days, # 30 cap(s), Refills(s) 0, Pharmacy: [facility]/pharmacy #[id number] Start Date: 03/15/19 Status: Ordered Start: 12-04-2017 End: 12-14-2017 take 500 mg by mouth four times daily Cephalexin Discontinued 500 MG PO Four times daily 40 10 December 04, 2017 12:00am December 14, 2017 12:02am ciprofloxacin 500 mg oral tablet (5 sources) Quinolone Antimicrobial Start: 12-04-2017 End: 12-23-2017 take 500 mg by mouth twice daily Ciprofloxacin Hcl Discontinued 500 MG PO Twice daily December 04, 2017 12:00am December 23, 2017 9:18pm clindamycin 150 mg oral capsule (5 sources) Lincosamide Antibacterial Start: 12-29-2017 End: 08-25-2023 take 450 mg by mouth three times daily Clindamycin Hcl Discontinued 450 MG PO Three times daily 90 10 December 29, 2017 12:00am August 25, 2023 1:04pm Milk Thistle (4 sources) Start: 11-13-2023 End: 12-09-2023 take 2000 mg by mouth once daily Milk Thistle Discontinued 2000 MG PO Daily November 13, 2023 12:00am December 09, 2023 10:06am give with meal/snack mupirocin 20 mg/ml topical cream (5 sources) RNA Synthetase Inhibitor Antibacterial Start: 12-04-2017 End: 12-23-2017 Mupirocin Calcium (Bactroban) 2 % cream Discontinued 1 APPLIC TOPICAL Twice daily 15 December 04, 2017 12:00am December 23, 2017 9:18pm nitrofurantoin, macrocrystals 25 mg / nitrofurantoin, monohydrate 75 mg oral capsule (5 sources) Nitrofuran Antibacterial Start: 12-24-2017 End: 12-29-2017 take 1 capsule by mouth every twelve hours at mealtime Nitrofurantoin Monohyd/M-Cryst (Macrobid) 100 mg capsule Discontinued 100 MG PO Q12H December 24, 2017 12:00am December 29, 2017 5:09pm administer with a meal/food; swallow whole; do not open, crush, dissolve , or chew pantoprazole 20 mg delayed release oral tablet (8 sources) Proton Pump Inhibitor Start: 11-06-2023 End: 01-08-2024 take 1 tablet by mouth once daily Pantoprazole (Protonix) 20 mg tablet,delayed release (DR/EC) Discontinued 20 MG PO Daily December 01, 2023 9:33am January 08, 2024 12:38pm Pnv Cmb#95-Ferrous Fumarate-Fa () 28 mg iron- 800 mcg Tablet (5 sources) Start: 12-23-2017 End: 08-25-2023 take 1 tablet by mouth once daily Pnv Cmb#95-Ferrous Fumarate-Fa () 28 mg iron- 800 mcg Tablet Discontinued 28 MG PO Daily December 23, 2017 12:00am August 25, 2023 1:04pm 24 hr QUEtiapine 50 mg extended release oral tablet (10 sources) Atypical Antipsychotic Start: 08-25-2023 End: 09-25-2023 take 2 tablets by mouth once daily Quetiapine Discontinued 50 MG PO Daily August 25, 2023 1:00am September 25, 2023 4:48pm 2 tablets daily Start: 07-29-2023 take 5 tablets by mo uth once daily QUEtiapine fumarate ER (SEROquel XR) 50 mg tablet extended release 24 hr Take 5 tablets (250 mg total) by mouth nightly. 0 07/29/2023 Active Start: 04-04-2023 End: 07-28-2023 take 1 tablet by mouth once daily QUEtiapine fumarate ER (SEROquel XR) 50 mg tablet extended release 24 hr Take 1 tablet (50 mg total) by mouth nightly. 0 04/04/2023 07/28/2023 Discontinued take 2 tablets by mo ut once daily QUEtiapine Fumarate ER 50 MG 2 tabs Orally Once a day for 30 days Active Semaglutide (5 sources) Start: 08-25-2023 End: 09-25-2023 inject 0.25 mg by subcutaneous injection every week Semaglutide Discontinued 0.25 MG SUBCUT every week August 25, 2023 1:00am September 25, 2023 4:20pm for 4 weeks sulfamethoxazole 800 mg / trimethoprim 160 mg oral tablet (5 sources) Dihydrofolate Reductase Inhibitor Antibacterial, Sulfonamide Antimicrobial Start: 12-04-2017 End: 12-14-2017 take 1 tablet by mouth twice daily Sulfamethoxazole -Trimethoprim (Bactrim Ds) 800-160 mg tablet Discontinued 1 TAB PO Twice daily 18 04December 04, 2017 12:00am December 14, 2017 12:02am Problems Active Problems Problem Classification Problem Date Documented Da te Episodic/Chronic Abdominal pain (8 sources) Abdominal pain; Translations: [Unspecified abdominal pain] Onset: 07-21-2022 Episodic Administrative/social admission (4 sources) Social exclusion and rejection; Translations: [Other psychological or physical stress, not elsewhere classified] 11-13-2023 Episodic Anal and rectal conditions (12 sources) Anal fissure; Translations: [Anal fissure, unspecified] 08-26-2016 Episodic Anxiety disorders (20 sources) Anxiety; Translations: [Anxiety disorder] Onset: 03-06-2022 01-24-2017 Chronic Attention-deficit, conduct, and disruptive behavior disorders (6 sources) Attention deficit hyperactivity disorder; Translations: [Attention-deficit hyperactivity disorder, unspecified type] 08-25-2023 Chronic Bacterial infection; unspecified site (6 sources) History of methicillin resistant Staphylococcus aureus infection; Translations: [Personal history of Methicillin resistant Staphylococcus aureus infection] 08-25-2023 Episodic Diabetes mellitus without complication (6 sources) Prediabetes; Translations: [Other abnormal glucose] 08-25-2023 Episodic E Codes: Cut/pierceb (2 sources) Contact with contaminated hypodermic needle, initial encounter; Translations: [Contact with hypodermic needle, initial encounter] Onset: 11-21-2022 07-15-2023 Episodic Gastritis and duodenitis (6 sources) Gastritis; Translations: [Gastritis, unspecified, without bleeding] 12-10-2023 Episodic Headache; including migraine (2 sources) Headache; Translations: [Headache, unspecified] Onset: 09-25-2021 Episodic Hepatitis (14 sources) Viral hepatitis C; Translations: [Unspecified viral hepatitis C without hepatic coma] Onset: 12-12-2023 Episodic Immunizations and screening for infectious disease (8 sources) Encounter for immunization; Translations: [Patient encounter status] Onset: 11-21-2022 07-15-2023 Episodic Mood disorders (20 sources) Bipolar I disorder; Translations: [Bipolar disorder, unspecified] Chronic Nonmalignant breast conditions (6 sources) Large breast; Translations: [Hypertrophy of breast] 12-10-2023 Episodic Open wounds of extremities (4 sources) Puncture wound without foreign body of right middle finger without damage to nail, initial encounter; Translations: [PW W/O FB RT MF W/O DMG NAIL INIT] Onset: 11-20-2022 Episodic Other bone disease and musculoskeletal deformities (7 sources) Idiopathic scoliosis of thoracic and lumbar spine; Translations: [Other idiopathic scoliosis, thoracolumbar region] Onset: 07-14-2023 07-14-2023 Chronic Other complications of (18 sources) Maternal tobacco use 08-25-2020 Episodic Other connective tissue disease (7 sources) Myofascial pain; Translations: [Myalgia, other site] Onset: 07-14-2023 07-14-2023 Episodic Other diseases of kidney and ureters (5 sources) Cyst of kidney; Translations: [Cyst of kidney, acquired] 09-25-2023 Episodic Other female genital disorders (7 sources) Abnormal uterine bleeding; Translations: [Abnormal uterine and vaginal bleeding, unspecified] 07-14-2023 Chronic Other female genital disorders (2 sources) Abnormal uterine and vaginal bleeding, unspecified; Translations: [Abnormal uterine and vaginal bleeding, unspecified] Onset: 07-14-2023 Chronic Other injuries and conditions due to external causes (6 sources) Nerve injury; Translations: [Other injury of unspecified body region, initial encounter] 08-25-2023 Episodic Other injuries and conditions due to external causes (1 source) Other injury of unspecified body region, initial encounter Episodic Other liver diseases (11 sources) Fatty (change of) liver, not elsewhere classified; Translations: [Nonalcoholic fatty liver disease] 08-25-2023 Chronic Other nervous system disorders (6 sources) Paresthesia; Translations: [Paresthesia of skin] 08-25-2023 Episodic Other nutritional; endocrine; and metabolic disorders (7 sources) Obese class II; Translations: [Obesity, unspecified] Onset: 07-14-2023 07-14-2023 Chronic Other nutritional; endocrine; and metabolic disorders (7 sources) Severe obesity; Translations: [Morbid (severe) obesity due to excess calories] 07-28-2023 Chronic Other nutritional; endocrine; and metabolic disorders (2 sources) Body mass index 40+ - severely obese; Translations: [Body mass index (BMI) 45.0-49.9, adult] Onset: 07-14-2023 07-30-2023 Chronic Other nutritional; endocrine; and metabolic disorders (6 sources) Morbid (severe) obesity due to excess calories; Translations: [Morbid obesity] Onset: 07-28-2023 Chronic Other nutritional; endocrine; and metabolic disorders (1 source) Body mass index (BMI) 45.0-49.9, adult; Translations: [Body mass index (BMI) 45.0-49.9, adult] Onset: 07-28-2023 Chronic Other nutritional; endocrine; and metabolic disorders (1 source) Weight loss Onset: 07-28-2023 Episodic Other screening for suspected conditions (not mental disorders or infectious disease) (6 sources) Culture positive for methicillin resistant Staphylococcus aureus 01-01-2018 Episodic Comment on above: MRSA chest abscess Other upper respiratory infections (2 sources) Acute pharyngitis; Translations: [Acute pharyngitis, unspecified] Onset: 06-14-2022 Episodic Pancreatic disorders (not diabetes) (15 sources) Pancreatitis; Translations: [Acute pancreatitis without necrosis or infection, unspecified] 08-25-2023 Episodic Personality disorders (6 sources) Borderline personality disorder; Translations: [Borderline personality disorder] 08-25-2023 Chronic Residual codes; unclassified (1 source) Chill; Translations: [Chills (without fever)] Onset: 11-13-2021 Episodic Residual codes; unclassified (1 source) Contact with and (suspected) exposure to potentially hazardous body fluids; Translations: [CONTACT AND EXPOS POTENTL HAZ BDY FLUID] Onset: 11-21-2022 Episodic Residual codes; unclassified (7 sources) Nicotine-filled electronic cigarette user; Translations: [Tobacco use] Onset: 07-14-2023 07-14-2023 Episodic Residual codes; unclassified (1 source) Other specified personal risk factors, not elsewhere classified; Translations: [Other specified personal risk factors, not elsewhere classified] Onset: 11-20-2023 Episodic Screening and history of mental health and substance abuse codes (1 source) Standardized adult depression screening tool completed ; Translations: [Encounter for screening for depression] 08-21-2023 Episodic Spondylosis; intervertebral disc disorders; other back problems (13 sources) Degeneration of lumbosacral intervertebral disc; Translations: [Other intervertebral disc degeneration, lumbosacral region] Onset: 07-14-2023 07-14-2023 Chronic Spondylosis; intervertebral disc disorders; other back problems (11 sources) Dorsalgia, unspecified; Translations: [Sciatica] Onset: 07-17-2022 Episodic Substance-related disorders (16 sources) Nicotine dependence; Translations: [Nicotine dependence, unspecified, uncomplicated] Onset: 07-19-2022 Chronic Comment on above: Added secondary to d ocumentation in Social History. Substance-related disorders (1 source) Cannabis use, unspecified, uncomplicated; Translations: [Cannabis use, unspecified, uncomplicated] Onset: 11-20-2023 Episodic Unclassified (4 sources) Late care( Confirmed ) 09-19-2015 Unclassified (4 sources) Previous uterine scarring( Confirmed ) 11-05-2020 Unclassified (2 sources) Late care 09-19-2015 Unclassified (2 sources) Previous uterine scarring 11-05-2020 Unclassified (1 source) LOW BACK PAIN, UNSPECIFIED; Translations: [LOW BACK PAIN, UNSPECIFIED] Onset: 07-19-2022 Unclassified (2 sources) COUGH, UNSPECIFIED; Translations: [COUGH, UNSPECIFIED] Onset: 06-13-2022 Unclassified (1 source) UNVACCINATED FOR COVID-19; Translations: [UNVACCINATED FOR COVID-19] Onset: 06-13-2022 Unclassified (1 source) CONTACT W/AND (SUSP) EXPOS COVID-19; Translations: [CONTACT W/AND (SUSP) EXPOS COVID-19] Onset: 06-13-2022 Unclassified (1 source) Gynecologic Exam Onset: 08-21-2023 Unclassified (6 sources) Superficial injury; Translations: [Superficial wound] 12-10-2023 Past or Other Problems Problem Classification Problem Date Documented Da te Episodic/Chronic Acute bronchitis (1 source) Acute bronchitis, unspecified; Translations: [ACUTE BRONCHITIS UNSPECIFIED] Onset: 06-13-2022 Episodic E Codes: Adverse effects of medical drugs (1 source) Adverse effect of unspecified drugs, medicaments and biological substances, initial encounter; Translations: [Adverse effect of unspecified drugs, medicaments and biological substances, initial encounter] Onset: 08-20-2023 Episodic Mood disorders (1 source) Mood disorders Onset: 08-21-2023 08-21-2023 Nausea and vomiting (5 sources) Nausea and vomiting; Translations: [Nausea with vomiting, unspecified] Onset: 11-13-2021 Episodic Other gastrointestinal disorders (2 sources) Diarrhea; Translations: [Diarrhea, unspecified] Onset: 11-13-2021 Episodic Other lower respiratory disease (1 source) Shortness of breath; Translations: [SHORTNESS OF BREATH] Onset: 06-13-2022 Episodic Other nervous system disorders (1 source) Paresthesia of skin; Translations: [PARESTHESIA OF SKIN] Onset: 07-19-2022 Episodic Unclassified (1 source) History of SARS-CoV-2; Translations: [Personal history of COVID-19] Unclassified (18 sources) Onset: 12-19-2014 Resolved: 12-15-2020 10-09-2020 Unclassified (1 source) Exposure to 2019 novel coronavirus; Translations: [Contact with and (suspected) exposure to COVID19] Unclassified (1 source) COUGH, UNSPECIFIED; Translations: [COUGH, UNSPECIFIED] Onset: 06-11-2022 Unclassified (1 source) Onset: 08-21-2023 08-21-2023 Results Test Name Value Interpretation Reference Range Facility Amphetamine Screen Ql (U)Ord ered By: Jos Lund on 07-11-2024 Amphetamines Ql (U) Negative Negative [facility] Barbiturates [Presence] in U rine by Screen methodOrdered By: Imad Asaad on 01-08-2024 Barbiturates Screen Ql (U) Negative Negative [facility] Benzodiazepines Screen Ql (U )Ordered By: Imad Asaad on 01-08-2024 Benzodiazepines Ql (U) Negative Negative [facility] Benzoylecgonine [Presence] i n Urine by Screen methodOrdered By: Imad Asaad on 01-08-2024 Benzoylecgonine Screen Ql (U) Negative Negative [facility] Cannabinoids [Presence] in U rine by Screen methodOrdered By: Imad Asaad on 01-08-2024 Cannabinoids Screen Ql (U) Positive High Negative [facility] Comment on above: These are unconfirme d results and should not be used for legal purposes. Drug Cut-Off Concentration: AMPH 1000 ng/mL SARAH 200 ng/mL FRANCISCO J 200 ng/mL COCM 300 ng/mL OP 300 ng/mL PCP 25 ng/mL THC 20 ng/mL Drug Screen,Urineon 01-08-20 24 Amphetamine Screen,Urine Negative Normal Negative [facility] Comment on above: Performed By: #### U RDS #### [address] Barbiturate Screen,Urine Negative Normal Negative [facility] Comment on above: Performed By: #### U RDS #### [facility] [address] [place] [address] [place] Benzodiazepines Screen,Urine Negative Normal Negative [facility] Comment on above: Performed By: #### U RDS #### [facility] [address] [place] [address] [place] Cannabinoid Screen,Urine Positive High Negative [facility] Comment on above: Result Comment: Thes e are unconfirmed results and should not be used for legal purposes. Drug Cut-Off Concentration: AMPH 1000 ng/mL SARAH 200 ng/mL FRANCISCO J 200 ng/mL COCM 300 ng/mL OP 300 ng/mL PCP 25 ng/mL THC 20 ng/mL PERFORMED BY: [place] [address] PATHOLOGIST FIRE HOSE CURER CORA SLATER M.D. Performed By: #### U RDS #### [address] Cocaine Screen,Urine Negative Normal Negative [facility] Comment on above: Performed By: #### U RDS #### [facility] [address] Opiate Screen,Urine Negative Normal Negative [facility] Comment on above: Performed By: #### U RDS #### [address] Phencyclidine Screen,Urine Negative Normal Negative [facility] Comment on above: Performed By: #### U RDS #### [address] HCG ( test) IA.rapi d Ql (U)Ordered By: Jos Lund on 01-08-2024 HCG ( test) Ql (U) Negative [facility] HCG,Urineon 01-08-2024 Beta HCG ( test) Ql (U) Negative Normal [facility] Comment on above: Result Comment: PERF ORMED BY: [place] [address] PATHOLOGIST FIRE HOSE CURER CORA SLATER M.D. Performed By: #### U HCG #### [address] Theodore 01-08-2024 L Specimen: [id number] Received: 01/09/24 Status: JACQUI Fowler Num: [id number] Spec Type: Surgical Subm Dr: Jos Lund MD Tissues: A GASTRIC FOR HP (GASTRIC HP) B Esophagus Biopsy (ESOPHAGUS) Procedures: HE/4, Gross/Micro L4/2, H PYLORI, IHC First AB Age/ Patient Sex Location Account Attending Physician Karen Liu 28/F [id number] Jos Lund MD SPEC NUM: [id number] RECD: 01/09/24 STATUS: JACQUI FOWLER NUM: [id number] KELSEY: 01/08/24- [facility] DR: Jos Lund MD ENTERED: 01/09/[address] [facility] [address]: SPEC TYPE: Surgical DEPT: S ORDERED: HE/4, Gross/Micro L4/2, H PYLORI, IHC First AB ORDERED: HE/4, Gross/Micro L4/2, H PYLORI, IHC First AB Pathological Diagnosis A, gastric biopsy: -Antral mucosa with mild chronic gastritis of the mild active type, including minor associated active erosion in both fragments, otherwise without any other specific mor phological alteration observed -H. pylori immunostain with appropriate control is negative for identified Helicobacter organism or infection B, esophagus biopsy: -Squamocolumnar mucosa with at least occasional eosinophilic exocytosis on the squamous epithelial surface, consistent with mild chronic GERD with minor associated active reflux activity, otherwise without any other specific or significant histopathological alterations identified Clinical Information Abdominal pain, nausea/vomiting. Rule out H. pylori. -------- Specimen: [id number] Received: 01/09/24 Status: JACQUI Moniqueandrzej Num: [id number] Spec Type: Surgical Subm Dr: Jos Lund MD Tissues: A GASTRIC FOR HP (GASTRIC HP) B Esophagus Biopsy (ESOPHAGUS) Procedures: HE/4, Gross/Micro L4/2, H PYLORI, IHC First AB -------- Patient: Karen Liu [id number] (Continued) -------- Specimen: [id number] Received: 01/09/24 (Continued) Signed (signature on file) Jose Guillermo MD 01/12/24 1907 -------- Specimen: [id number] Received: 01/09/24 Status: JACQUI Moniqueandrzej Num: [id number] Spec Type: Surgical Subm Dr: Jos Lund MD Tissues: A GASTRIC FOR HP (GASTRIC HP) B Esophagus Biopsy (ESOPHAGUS) Procedures: HE/4, Gross/Micro L4/2, H PYLORI, IHC First AB -------- Patient: Karen Liu [id number] (Continued) -------- Specimen: [id number] Received: 01/09/24 (Continued) Gross Description Received are 2 formalin filled containers each labeled with the patient's name, date of and specific specimen site. A. Further labeled gastric biopsy are 2 owen mucosal tissue fragments each measuring 0.2 x 0.2 x 0.1 cm, entirely submitted in A1. B. Further labeled esophagus biopsy is a 0.2 x 0.1 x 0.1 cm owen mucosal tissue fragment, entirely submitted in B1. Microscopic Description Microscopic examinations are performed supporting the above interpretation CPT Codes [id number] -------- -------- Specimen: [id number] Received: 01/09/24 Status: JACQUI Moniqueandrzej Num: [id number] Spec Type: Surgical Subm Dr: Jos Lund MD Tissues: A GASTRIC FOR HP (GASTRIC HP) B Esophagus Biopsy (ESOPHAGUS) Procedures: HE/4, Gross/Micro L4/2, H PYLORI, IHC First AB -------- Patient: Karen Liu [id number] (Continued) -------- Signed (signature on file) Jose Guillermo MD 01/12/24 1907 Normal [facility] Opiates [Presence] in Urine by Screen methodOrdered By: Imad Kevon on 01-08-2024 Opiates Screen Ql (U) Negative Negative [facility] Phencyclidine Screen Ql (U)O rdered By: Imshruti Lund on 01-08-2024 Phencyclidine Ql (U) Negative Negative [facility] Diagnostic impression [Inter pretation] in Specimen NarrativeOrdered By: Jos Lund on 12-12-2023 Diagnostic impression Mol[employer] Param (Unsp spec) [Interp] See comment . [facility] Comment on above: Positive HCV antibod y screen without the presence of HCVRNA is consistent with a resolved past infection or a falsepositive HCV antibody. Consider repeat testing after onemonth.Performed at: [facility] [id number] Director: Ronen Potts PhD, Phone: [phone] at: [address] [id number] Director: Nolan Desir MD, Phone: [phone] HIV 1/O/2 Antigen/Antibodyon 12-12-2023 HIV Screen 4th Generation Non-Reactive Normal Non Reactive [facility] Comment on above: Result Comment: HIV Negative HIV-1/HIV-2 antibodies and HIV-1 p24 antigen were NOT detected. There is no laboratory evidence of HIV infection. Performed at: [facility] [id number] Family Health Nurse Practitioner: Ronen Potts PhD, Phone: [phone] PERFORMED BY: [place] [address] [place] [address] PATHOLOGIST FIRE HOSE CURER CORA SLATER M.D. Performed By: #### H IV SCREEN, HAABT, HBSAG, HBCAB, HCV RX PCR, HBSAB #### [facility] , HIV 1 and HIV-2 antibody ass ay with HIV-1 p24 antigen detectionOrdered By: Jos Lund on 12-12-2023 HIV 1+2 Ab+HIV1 p24 Ag IA Ql Non-Reactive Non Reactive [facility] Comment on above: HIV NegativeHIV-1/HI V-2 antibodies and HIV-1 p24 antigen were NOTdetected. There is no laboratory evidence of HIV infection.Performed at: [facility] [id number] Director: Ronen Potts PhD, Phone: [phone] Hep C Ab wRfx to Qnt PCRon 0 12-12-2023 Hepatitis C Quantitation Not detected Normal . [facility] Comment on above: Performed By: #### H IV SCREEN, HAABT, HBSAG, HBCAB, HCV RX PCR, HBSAB #### [facility] , Hepatitis C Virus Antibody Reactive Critically abnormal Non Reactive [facility] Comment on above: Performed By: #### H IV SCREEN, HAABT, HBSAG, HBCAB, HCV RX PCR, HBSAB #### [facility] , Interpretation Normal . [facility] Comment on above: Result Comment: Posi tive HCV antibody screen without the presence of HCV RNA is consistent with a resolved past infection or a false positive HCV antibody. Consider repeat testing after one month. Performed at: [facility] [address] [place] [id number] Family Health Nurse Practitioner: Ronen Potts PhD, Phone: [phone] Performed at: [facility] [employer] [id number] Family Health Nurse Practitioner: Nolan Desir MD, Phone: [phone] Performed By: #### H IV SCREEN, HAABT, HBSAG, HBCAB, HCV RX PCR, HBSAB #### [facility] , Test Information: Normal . [facility] Comment on above: Result Comment: The quantitative range of this assay is 15 IU/mL to 100 million IU/mL. Performed By: #### H IV SCREEN, HAABT, HBSAG, HBCAB, HCV RX PCR, HBSAB #### [facility] , Hepatitis A Antibody Totalon 12-12-2023 Hepatitis A Antibody Total Positive Critically abnormal Negative [facility] Comment on above: Result Comment: Comm ent: The HAV total antibody assay detects both IgG and IgM but does not differentiate between them. A negative result suggests susceptibility to infection. A positive result could be due to vaccination, previously resolved infection or active infection. Testing for HAV IgM should be performed if active HAV infection is suspected. [facility] offers profiles that will automatically reflex positive HAV total antibody results to IgM (e.g., panel #[id number] HAV Antibody w/ Rfx). Performed at: [facility] [id number] Family Health Nurse Practitioner: Ronen Potts PhD, Phone: [phone] Performed By: #### H IV SCREEN, HAABT, HBSAG, HBCAB, HCV RX PCR, HBSAB #### [facility] , Hepatitis A virus Ab [Presen ce] in Serum by ImmunoassayOrdered By: Jos Lund on 12-12-2023 HAV Ab IA Ql (S) Positive Abnormal Negative [facility] Comment on above: Comment: The HAV tot al antibody assay detects both IgG andIgM but does not differentiate between them. A negativeresult suggests susceptibility to infection. A positiveresult could be due to vaccination, previously resolvedinfection or active infection. Testing for HAV IgM shouldbe performed if active HAV infection is suspected. [facility] that will automatically reflex positive HAVtotal antibody results to IgM (e.g., panel #[id number] HAVAntibody w/ Rfx).Performed at: [facility] [id number] Director: Ronen Potts PhD, Phone: [phone] Hepatitis B Core Antibodyon 12-12-2023 Hepatitis B Core Antibody Negative Normal Negative [facility] Comment on above: Performed By: #### H IV SCREEN, HAABT, HBSAG, HBCAB, HCV RX PCR, HBSAB #### [facility] , Hepatitis B Surface Antibody on 12-12-2023 Hepatitis B Surface Antibody Reactive Normal . [facility] Comment on above: Result Comment: Non Reactive: Inconsistent with immunity, less than 10 mIU/mL Reactive: Consistent with immunity, greater than 9.9 mIU/mL Performed By: #### H IV SCREEN, HAABT, HBSAG, HBCAB, HCV RX PCR, HBSAB #### [facility] , Hepatitis B Surface Antigeno n 12-12-2023 HBsAg Screen Negative Normal Negative [facility] Comment on above: Result Comment: PERF ORMED BY: [facility] [address] [place] [address] PATHOLOGIST FIRE HOSE CURER CORA SLATER M.D. Performed By: #### H IV SCREEN, HAABT, HBSAG, HBCAB, HCV RX PCR, HBSAB #### [facility] , Hepatitis B virus surface Ab [Presence] in SerumOrdered By: Imad Asaad on 12-12-2023 HBV surface Ab Ql (S) Reactive . [facility] Comment on above: Non Reactive: Incons istent with immunity, less than 10 mIU/mL Reactive: Consistent with immunity, greater than 9.9 mIU/mL Hepatitis B virus surface Ag [Presence] in Serum or Plasma by ImmunoassayOrdered By: Imad Asaad on 12-12-2023 HBV surface Ag IA Ql Negative Negative [facility] Hepatitis C virus IgG Ab [Pr esence] in Serum or Plasma by ImmunoassayOrdered By: Imad Asaad on 12-12-2023 HCV IgG IA Ql Reactive Abnormal Non Reactive [facility] Hepatitis C virus RNA [log u nits/volume] (viral load) in Serum or Plasma by CHELE withOrdered By: Imshruti Fungad on 12-12-2023 HCV RNA CHELE+probe [Log units/Vol] Not detected . [facility] No Panel InformationOrdered By: Imshruti Fungad on 12-12-2023 Hepatitis B Core Total Antibody Negative Negative [facility] Hepatitis C RNA Qnt (PCR) Test Info See comment . [facility] Comment on above: The quantitative ran ge of this assay is 15 IU/mL to 100million IU/mL. Basophils Auto (Bld) [#/Vol] on 11-26-2023 Basophils (Bld) [#/Vol] 0.1 10 3/uL 0.0-0.1 [facility] Basophils/100 WBC Auto (Bld) on 11-26-2023 Basophils/100 WBC (Bld) 0.4 % 0.2-2.0 [facility] Eosinophils/100 WBC Auto (Bl d)on 11-26-2023 Eosinophils/100 WBC (Bld) 2.3 % 0.9-7.0 [facility] Erythrocyte distribution wid th Auto (RBC) [Ratio]on 11-26-2023 Erythrocyte distribution width (RBC) [Ratio] 14.2 % 11.0-15.0 [facility] Estimated glomerular filtrat ion rate (GFR) non- Americanon 11-26-2023 GFR/1.73 sq M.predicted among non-blacks MDRD (S/P/Bld) [Vol rate/Area] mL/min/{1.73_m2} >=60 [facility] Globulin Calc (S) [Mass/Vol] on 11-26-2023 Globulin (S) [Mass/Vol] 3.5 g/dL [facility] HCG ( test) IA.rapi d Ql (U)on 11-26-2023 Beta HCG ( test) Ql (U) Negative NEGATIVE [facility] Hematocrit Auto (Bld) [Volum e fraction]on 11-26-2023 Hematocrit (Bld) [Volume fraction] 36.1 % 36.0-48.0 [facility] Hemoglobin [Mass/volume] in Bloodon 11-26-2023 Hemoglobin (Bld) [Mass/Vol] 11.7 g/dL Low 12.0-16.0 [facility] Laboratory - Chemistry and C hemistry - challengeon 11-26-2023 Albumin [Mass/Vol] 4.0 g/dL 3.4-5.0 [facility] ALP [Catalytic activity/Vol] 83 U/L 46-116 [facility] ALT [Catalytic activity/Vol] 64 U/L High 14-59 [facility] AST [Catalytic activity/Vol] 33 U/L 15-37 [facility] Bilirubin [Mass/Vol] 0.7 mg/dL 0.2-1.0 [facility] Calcium [Mass/Vol] 8.6 mg/dL 8.5-10.1 [facility] Chloride [Moles/Vol] 103 mmol/L 98-107 [facility] CO2 [Moles/Vol] 24.0 mmol/L 21.0-32.0 [facility] Creatinine [Mass/Vol] 0.69 mg/dL 0.55-1.02 [facility] GFR/1.73 sq M.predicted MDRD (S/P/Bld) [Vol rate/Area] mL/min/{1.73_m2} >=60 [facility] Glucose [Mass/Vol] 91 mg/dL 74-106 [facility] Lactate [Moles/Vol] 1.2 mmol/L 0.4-2.0 [facility] Lipase [Catalytic activity/Vol] 69.0 U/L 16.0-77.0 [facility] Potassium [Moles/Vol] 3.9 mmol/L 3.5-5.1 [facility] Protein [Mass/Vol] 7.5 g/dL 6.4-8.2 [facility] Sodium [Moles/Vol] 136 mmol/L 136-145 [facility] Urea nitrogen [Mass/Vol] 15.0 mg/dL 7.0-18.0 [facility] Urea nitrogen/Creatinine [Mass ratio] 21.7 mg/mg [facility] Bilirubin Ql (U) Negative NEGATIVE [facility] Glucose (U) [Mass/Vol] Negative NEGATIVE [facility] Ketones Ql (U) Negative NEGATIVE [facility] pH (U) 6.0 [pH] 5.0-9.0 [facility] Specific gravity (U) [Rel density] 1.010 1.005-1.025 [facility] Urobilinogen Qn (U) 0.2 {Onur'U}/dL 0.2-1.0 [facility] - Hematology and Cell countson 11-26-2023 Immature granulocytes/100 WBC (Bld) 0.3 % 0.0-0.5 [facility] - Specimen inform ationon 11-26-2023 Appearance (U) CLEAR CLEAR [facility] Color (U) LT. YELLOW YELLOW [facility] - Urinalysison Leukocyte esterase Test strip Ql (U) Negative NEGATIVE [facility] Nitrite Ql (U) Negative NEGATIVE [facility] Protein Ql (U) Negative NEG/TRACE [facility] Leukocytes [#/volume] correc lyudmila for nucleated erythrocytes in Blood by Automated counon 11-26-2023 WBC corrected for nucl RBC Auto (Bld) [#/Vol] 11.2 10 3/uL High 4.0-11.0 [facility] Lymphocytes Auto (Bld) [#/Vo l]on 11-26-2023 Lymphocytes (Bld) [#/Vol] 3.3 10 3/uL 1.2-3.8 [facility] Lymphocytes/100 WBC Auto (Bl d)on 11-26-2023 Lymphocytes/100 WBC (Bld) 29.6 % 20.5-60.0 [facility] MCH Auto (RBC) [Entitic mass ]on 11-26-2023 MCH (RBC) [Entitic mass] 26.2 pg Low 26.7-34.0 [facility] MCHC Auto (RBC) [Mass/Vol]on 11-26-2023 MCHC (RBC) [Mass/Vol] 32.4 g/dL 29.9-35.2 [facility] MCV Auto (RBC) [Entitic vol] on 11-26-2023 MCV (RBC) [Entitic vol] 80.9 fL Low 81.0-99.0 [facility] Monocytes Auto (Bld) [#/Vol] on 11-26-2023 Monocytes (Bld) [#/Vol] 0.9 10 3/uL High 0.3-0.8 [facility] Monocytes/100 WBC Auto (Bld) on 11-26-2023 Monocytes/100 WBC (Bld) 7.8 % 1.7-12.0 [facility] Neutrophils Auto (Bld) [#/Vo l]on 11-26-2023 Neutrophils (Bld) [#/Vol] 6.7 10 3/uL High 1.4-6.5 [facility] Neutrophils/100 WBC Auto (Bl d)on 11-26-2023 Neutrophils/100 WBC (Bld) 59.6 % 43.0-75.0 [facility] No Panel Informationon 11-25 Eosinophils # (Auto) 0.3 10 3/uL 0.0-0.7 [facility] Immature Granulocyte # (Auto) 0.03 10 3/uL 0.00-0.03 [facility] Urine Microscopic Review NO [facility] Urine Occult Blood Negative NEGATIVE [facility] Platelet mean volume Auto (B ld) [Entitic vol]on 11-26-2023 Platelet mean volume (Bld) [Entitic vol] 12.9 fL 9.5-13.5 [facility] Platelets Auto (Bld) [#/Vol] on 11-26-2023 Platelets (Bld) [#/Vol] 257 10 3/uL 150-450 [facility] RBC Auto (Bld) [#/Vol]on RBC (Bld) [#/Vol] 4.46 10 6/uL 4.20-5.40 [facility] Serum or plasma albumin/glob ulin mass ratioon 11-26-2023 Albumin/Globulin [Mass ratio] 1.1 {ratio} [facility] Serum or plasma anion gap de terminationon 11-26-2023 Anion gap [Moles/Vol] 12.9 mmol/L [facility] AND AUTO DIFFon 11-20-19 24 ABSOLUTE BASOPHIL 0.1 X10E9/L Normal 0.0-0.2 [facility] Comment on above: Performed By: #### C BC, CMP, 69474-1, 2986-8, THYR, 2842-3 #### [facility] ([id number]) [address], [address] [place] [address] ABSOLUTE NEUTROPHIL 6.5 X10E9/L Normal 1.5-6.6 [facility] Comment on above: Performed By: #### C BC, CMP, 42567-6, 2986-8, THYR, 2842-3 #### [facility] ([id number]) [address], [address] [place] [address] Basophils/100 WBC (Bld) 0.5 % Normal [place] Comment on above: Performed By: #### C BC, CMP, 66383-9, 2986-8, THYR, 2842-3 #### [facility] ([id number]) [address], [address] [place] [address] Eosinophils (Bld) [#/Vol] 0.1 10*3/uL Normal 0.0-0.4 [place] Comment on above: Performed By: #### C BC, CMP, 84057-0, 2986-8, THYR, 2842-3 #### [facility] ([id number]) [address], [address] [place] [address] Eosinophils/100 WBC (Bld) 1.2 % Normal [place] Comment on above: Performed By: #### C BC, CMP, 10765-0, 2986-8, THYR, 2842-3 #### [facility] ([id number]) [address], [address] [place] [address] Erythrocyte distribution width (RBC) [Ratio] 14.7 % Normal 11.5-15.0 [place] Comment on above: Performed By: #### C BC, CMP, 58448-9, 2986-8, THYR, 2842-3 #### [facility] ([id number]) [address] [address] [place] [address] Hematocrit (Bld) [Volume fraction] 34.2 % Low 35-47 [place] Comment on above: Performed By: #### C BC, CMP, 21862-8, 2986-8, THYR, 2842-3 #### [facility] ([id number]) [address], [address] [place] [address] Hemoglobin (Bld) [Mass/Vol] 11.4 g/dL Low 11.7-15.5 [place] Comment on above: Performed By: #### C BC, CMP, 46773-0, 2986-8, THYR, 2842-3 #### [facility] ([id number]) [address], [address] [place] [address] Lymphocytes (Bld) [#/Vol] 3.1 10*3/uL Normal 1.0-3.5 [place] Comment on above: Performed By: #### C BC, CMP, 25575-4, 2986-8, THYR, 2842-3 #### [facility] ([id number]) [address] [address] [place] [address] Lymphocytes/100 WBC (Bld) 29.6 % Normal [place] Comment on above: Performed By: #### C BC, CMP, 39449-3, 2986-8, THYR, 2842-3 #### [facility] ([id number]) [address] [address] [place] [address] MCH (RBC) [Entitic mass] 26.3 pg Low 27-34 [place] Comment on above: Performed By: #### C BC, CMP, 98446-9, 2986-8, THYR, 2842-3 #### [facility] ([id number]) [address] [place] [address] MCHC (RBC) [Mass/Vol] 33.2 g/dL Normal 32-36 [facility] Comment on above: Performed By: #### C BC, CMP, 99778-1, 2986-8, THYR, 2842-3 #### [facility] ([id number]) [address], [address] [place] [address] MCV (RBC) [Entitic vol] 79 fL Low 80-100 [place] Comment on above: Performed By: #### C BC, CMP, 84546-9, 2986-8, THYR, 2842-3 #### [facility] ([id number]) [address], [address] [place] [address] Monocytes (Bld) [#/Vol] 0.8 10*3/uL Normal 0-0.9 [place] Comment on above: Performed By: #### C BC, CMP, 86945-2, 2986-8, THYR, 2842-3 #### [facility] ([id number]) [address], [address] [place] [address] Monocytes/100 WBC (Bld) 7.3 % Normal [place] Comment on above: Performed By: #### C BC, CMP, 00351-9, 2986-8, THYR, 2842-3 #### [facility] ([id number]) [address], [address] [place] [address] Neutrophils/100 WBC (Bld) 61.4 % Normal [place] Comment on above: Performed By: #### C BC, CMP, 35036-1, 2986-8, THYR, 2842-3 #### [facility] ([id number]) [address], [address] [place] [address] Platelet mean volume (Bld) [Entitic vol] 11.7 fL Normal 7-12 [place] Comment on above: Performed By: #### C BC, CMP, 08868-2, 2986-8, THYR, 2842-3 #### [facility] ([id number]) [address], [address] [place] [address] Platelets (Bld) [#/Vol] 235 10*3/uL Normal 150-450 [place] Comment on above: Performed By: #### C BC, CMP, 46424-4, 2986-8, THYR, 2842-3 #### [facility] ([id number]) [address], [address] [place] [address] RBC COUNT 4.32 X10E12/L Normal 3.80-5.20 [place] Comment on above: Performed By: #### C BC, CMP, 62266-6, 2986-8, THYR, 2842-3 #### [facility] ([id number]) [address], [address] [place] [address] WBC (Bld) [#/Vol] 10.6 10*3/uL Normal 4.0-11.0 [facility] Comment on above: Performed By: #### C BC, CMP, 40992-6, 2986-8, THYR, 2842-3 #### [facility] ([id number]) [address], [address] [place] [address] COMPREHENSIVE METABOLIC PANE Theodore 11-20-2023 Albumin [Mass/Vol] 4.4 g/dL Normal 3.2-5.3 [facility] Comment on above: Performed By: #### 2 106-3 #### [facility] ([id number]) [address] [place] [address] ALP [Catalytic activity/Vol] 76 U/L Normal 39-130 [place] Comment on above: Performed By: #### 2 106-3 #### [facility] ([id number]) [address] [place] [address] [place] [address] ALT [Catalytic activity/Vol] 67 U/L High 0-31 [place] Comment on above: Performed By: #### 2 106-3 #### [facility] ([id number]) [address] [place] [address] Anion gap [Moles/Vol] 6 mmol/L Normal 5-15 [facility] Comment on above: Performed By: #### 2 106-3 #### [facility] ([id number]) [address] [place] [address]83 AST [Catalytic activity/Vol] 36 U/L Normal 0-41 [place] Comment on above: Performed By: #### 2 106-3 #### [facility] ([id number]) [address] [place] [address]709 Bilirubin [Mass/Vol] 0.6 mg/dL Normal 0.3-1.2 [facility] Comment on above: Performed By: #### 2 106-3 #### [facility] ([id number]) [address] [place] [address] Calcium [Mass/Vol] 8.7 mg/dL Normal 8.5-10.5 [facility] Comment on above: Performed By: #### 2 106-3 #### [facility] ([id number]) [address] [place] [address] Chloride [Moles/Vol] 108 mmol/L Normal 98-109 [facility] Comment on above: Performed By: #### 2 106-3 #### [facility] ([id number]) [address] [place] [address]157 CO2 [Moles/Vol] 26 mmol/L Normal 22-32 [place] Comment on above: Performed By: #### 2 106-3 #### [facility] ([id number]) [address] [place] [address] Creatinine [Mass/Vol] 0.54 mg/dL Normal 0.40-1.00 [facility] Comment on above: Result Comment: METH OD TRACEABLE TO IDMS STANDARD Performed By: #### 2 106-3 #### [facility] ([id number]) [address] [place] [address] eGFR (CKD-EPI) NON-RACE DEPENDENT >90 Normal >59 [place] Comment on above: Result Comment: Reported eGFR is based on the CKD-EPI 2020 equation that does not use a race coefficient. Performed By: #### 2 106-3 #### [facility] ([id number]) [address] [place] [address] Glucose [Mass/Vol] 107 mg/dL High 65-99 [facility] Comment on above: Performed By: #### 2 106-3 #### [facility] ([id number]) [address] [place] [address]274 Potassium [Moles/Vol] 3.5 mmol/L Normal 3.5-5.0 [facility] Comment on above: Performed By: #### 2 106-3 #### [facility] ([id number]) [address] [place] [address] Protein [Mass/Vol] 7.8 g/dL Normal 6.0-8.0 [facility] Comment on above: Performed By: #### 2 106-3 #### [facility] ([id number]) [address] [place] [address] Sodium [Moles/Vol] 140 mmol/L Normal 134-146 [facility] Comment on above: Performed By: #### 2 106-3 #### [facility] ([id number]) [address] [place] [address] 47017 Urea nitrogen [Mass/Vol] 14 mg/dL Normal 5-23 [place] Comment on above: Performed By: #### 2 106-3 #### [facility] ([id number]) [address] [place] [address] ABDOMEN AND PELVIS W CONT on 11-20-2023 CT ABDOMEN AND PELVIS W CONT CT ABDOMEN AND PELVIS W CONT History: Abdominal pain Technique: Contiguous axial images through the abdomen pelvis were obtained following the administration of intravenous contrast material. Automated exposure control was utilized. Comparison: 08/20/2023 Findings: There is no evidence of any hepatic, splenic, adrenal, renal, pancreatic, or gallbladder abnormalities. No abdominal or retroperitoneal masses or adenopathy are seen. No pelvic masses, adenopathy, or fluid collections are identified. The appendix is normal in appearance. Limited images of lung bases are unremarkable. Impression: Normal CT abdomen and pelvis. All CT scans at this facility use dose modulation, iterative reconstruction, and/or weight based dosing when appropriate to reduce radiation dose to as low as reasonably achievable Finalized by Prasad Myrick MD on 11/20/2023 1:25 AM Normal [place] DRUG SCREEN, URINEon 024 AMPHETAMINE/METHAMP Negative Normal NEG [facility] Comment on above: Result Comment: AMPH /METH screening cut off = 1000 ng/mL Performed By: #### C BC, CMP, 60587-0, 2986-8, THYR, 2842-3 #### [facility] ([id number]) [address], [address] [place] [address] BARBITURATES Negative Normal NEG [place] Comment on above: Result Comment: Sarah iturates screening cut off value = 200 ng/mL Performed By: #### C BC, CMP, 61345-8, 2986-8, THYR, 2842-3 #### [facility] ([id number]) [address], [address] [place] [address] BENZODIAZEPINES Negative Normal NEG [place] Comment on above: Result Comment: Francisco J odiazepines screening cut off value = 200 ng/mL Performed By: #### C BC, CMP, 44629-8, 2986-8, THYR, 2842-3 #### [facility] ([id number]) [address], [address] [place] [address] CANNABINOIDS Positive Abnormal NEG [place] Comment on above: Result Comment: Conf irmation available upon request. Cannabinoids/THC screening cut off value = 50 ng/mL Performed By: #### C BC, CMP, 59605-5, 2986-8, THYR, 2842-3 #### [facility] ([id number]) [address], [address] [place] [address] COCAINE METABOLITE Negative Normal NEG [facility] Comment on above: Result Comment: Coca ine screening cut off value = 300 ng/mL Performed By: #### Lex BC, CMP, 72493-4, 2986-8, THYR, 2842-3 #### [facility] ([id number]) [address] [place] [address] ECSTASY Negative Normal NEG [place] Comment on above: Result Comment: Ecst asy screening cut off value = 500 ng/mL This report is intended for use in clinical monitoring or management of patients. Performed By: #### Lex CARSON, CMP, 41338-6, 2986-8, THYR, 2842-3 #### [facility] ([id number]) [address], [address] [place] [address] METHADONE Negative Normal [facility] Comment on above: Result Comment: Meth adone screening cut off value = 300 ng/mL. Performed By: #### Lex CARSON, [facility], 69974-7, 2986-8, THYR, 2842-3 #### [facility] ([id number]) [address], [address] [place] [address] OPIATES Negative Normal NEG [place] Comment on above: Result Comment: Opia aletha screening cut off value = 300 ng/mL NOTE: This test is used for the detection of codeine, hydrocodone (>1000 ng/mL), morphine and hydromorphone (>900 ng/mL) in urine. Performed By: #### Lex BC, CMP, 60551-4, 2986-8, THYR, 2842-3 #### [facility] ([id number]) [address], [address] [place] [address] OXYCODONE Negative Normal NEG [place] Comment on above: Result Comment: Oxyc odone screening cut off value = 300 ng/mL NOTE: This test is used for the detection of oxycodone and oxymorphone in urine. Performed By: #### C BC, [facility], 77614-5, 2986-8, THYR, 2842-3 #### [facility] ([id number]) [address], [address] [place] [address] PHENCYCLIDINE Negative Normal NEG [place] Comment on above: Result Comment: Phen cyclidine screening cut off value = 25 ng/mL Performed By: #### C BC, CMP, 74278-7, 2986-8, THYR, 2842-3 #### [facility] ([id number]) [address], [address] [place] [address] HCG ( test) Ql (U)o n 11-20-2023 Beta HCG ( test) Ql (U) Negative Normal NEG [place] Comment on above: Performed By: #### 2 106-3 #### [facility] ([id number]) [address] [place] [address] LIPASEon 11-20-2023 Lipase [Catalytic activity/Vol] 39 U/L Normal 17-40 [place] Comment on above: Performed By: #### 2 106-3 #### [facility] ([id number]) [address] [place] [address] URINALYSISon 11-20-2023 Bilirubin Ql (U) REQUEST CREDITED Abnormal NEG [facility] Comment on above: Result Comment: Hoda ected on 11/20 AT 1024: Previously reported as DUPLICATE ORDER BLOOD/HGB REQUEST CREDITED Abnormal NEG [facility] Comment on above: Result Comment: Hoda ected on 11/20 AT 1024: Previously reported as DUPLICATE ORDER Color (U) REQUEST CREDITED Abnormal YELLOW [facility] Comment on above: Result Comment: Hoda ected on 11/20 AT 1024: Previously reported as DUPLICATE ORDER Glucose Ql (U) REQUEST CREDITED Abnormal NEG [facility] Comment on above: Result Comment: Hoda ected on 11/20 AT 1024: Previously reported as DUPLICATE ORDER Ketones Ql (U) REQUEST CREDITED Abnormal NEG [facility] Comment on above: Result Comment: Hoda ected on 11/20 AT 1024: Previously reported as DUPLICATE ORDER Leukocyte esterase Test strip Ql (U) REQUEST CREDITED Abnormal NEG [place] Comment on above: Result Comment: Hoda ected on 11/20 AT 1024: Previously reported as DUPLICATE ORDER Nitrite Ql (U) REQUEST CREDITED Abnormal NEG [facility] Comment on above: Result Comment: Hoda ected on 11/20 AT 1024: Previously reported as DUPLICATE ORDER PH,URINE REQUEST CREDITED Normal 5.0-8.5 [facility] Comment on above: Result Comment: Hoda ected on 11/20 AT 1024: Previously reported as DUPLICATE ORDER Protein Ql (U) REQUEST CREDITED Abnormal NEG [facility] Comment on above: Result Comment: Hoda ected on 11/20 AT 1024: Previously reported as DUPLICATE ORDER Specific gravity (U) [Rel density] REQUEST CREDITED Normal 1.003-1.035 [place] Comment on above: Result Comment: Hoda ected on 11/20 AT 1024: Previously reported as DUPLICATE ORDER TURBIDITY REQUEST CREDITED Abnormal CLEAR [facility] Comment on above: Result Comment: Hoda ected on 11/20 AT 1024: Previously reported as DUPLICATE ORDER Urinalysis dipstick W Reflex Microscopic panel (U) REQUEST CREDITED Normal [place] Comment on above: Result Comment: Hoda ected on 11/20 AT 1024: Previously reported as DUPLICATE ORDER UROBILINOGEN REQUEST CREDITED Normal <1.1 [facility] Comment on above: Result Comment: Hoda ected on 11/20 AT 1024: Previously reported as DUPLICATE ORDER Bilirubin Ql (U) Negative Normal NEG [facility] Comment on above: Performed By: #### C BC, CMP, 78482-8, 2986-8, THYR, 2842-3 #### [facility] ([id number]) [address] [place] [address] BLOOD/HGB Negative Normal NEG [place] Comment on above: Performed By: #### C BC, CMP, 60965-2, 2986-8, THYR, 2842-3 #### [facility] ([id number]) [address], [address] [place] [address] Color (U) YELLOW Normal YELLOW [place] Comment on above: Performed By: #### C BC, CMP, 23774-2, 2986-8, THYR, 2842-3 #### [facility] ([id number]) [address], [address] [place] [address] Glucose Ql (U) Negative Normal NEG [place] Comment on above: Performed By: #### Lex BC, CMP, 56836-6, 2986-8, THYR, 2842-3 #### [facility] ([id number]) [address], [address] [place] [address] Ketones Ql (U) Negative Normal NEG [place] Comment on above: Performed By: #### Lex BC, CMP, 44103-1, 2986-8, THYR, 2842-3 #### [facility] ([id number]) [address], [address] [place] [address] Leukocyte esterase Test strip Ql (U) Negative Normal NEG [place] Comment on above: Performed By: #### Lex BC, CMP, 14760-4, 2986-8, THYR, 2842-3 #### [facility] ([id number]) [address], [address] [place] [address] Nitrite Ql (U) Negative Normal NEG [place] Comment on above: Performed By: #### C BC, CMP, 72601-6, 2986-8, THYR, 2842-3 #### [facility] ([id number]) [address], [address] [place] [address] pH (U) 6.0 [pH] Normal 5.0-8.5 [place] Comment on above: Performed By: #### C BC, CMP, 16117-6, 2986-8, THYR, 2842-3 #### [facility] ([id number]) [address], [address] [place] [address] Protein Ql (U) Negative Normal NEG [place] Comment on above: Performed By: #### C BC, CMP, 41867-2, 2986-8, THYR, 2842-3 #### [facility] ([id number]) [address], [address] [place] [address] Specific gravity (U) [Rel density] >1.030 Normal 1.003-1.035 [place] Comment on above: Performed By: #### C BC, CMP, 65431-3, 2986-8, THYR, 2842-3 #### [facility] ([id number]) [address] [address] [address] [place] [address] TURBIDITY CLEAR Normal CLEAR [place] Comment on above: Performed By: #### C BC, CMP, 80908-1, 2986-8, THYR, 2842-3 #### [facility] ([id number]) [address] [place] [address] Urobilinogen Qn (U) 0.2 {Onur'U}/dL Normal <1.1 [place] Comment on above: Performed By: #### C BC, CMP, 28332-8, 2986-8, THYR, 2842-3 #### [facility] ([id number]) [address], [address] [place] [address] Cytologyon 08-21-2023 Cytology Normal [place] Comment on above: Result Comment: [facility] [address] [place] [address] Gynecologic Cytology Consultation Patient Name:KAREN LIU.:1995 (Age: 28)Gender:FTaken:4Reported:09/01/2023hysician(s):Dia Tam APRN-CNPCopy To: Rec. #:[id number]: #[id number] Final Cytologic Interpretation ThinPrep Pap Test (Cervical): Satisfactory for evaluation. A transformation zone component is present. NEGATIVE FOR INTRAEPITHELIAL LESION OR MALIGNANCY. [facility]/09/01/2023 Interpretation performed at [facility], [address] [place] [address], License number: [id number]. 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 Source of Specimen ThinPrep Pap Test (Cervical) Thin Prep Pap ([employer]) Fee Code(s): G0145 CBC AND AUTO DIFFon 08-20-19 ABSOLUTE BASOPHIL 0.1 X10E9/L Normal 0.0-0.2 [facility] Comment on above: Performed By: #### 2 106-3 #### [facility] ([id number]) [address] [place] [address] ABSOLUTE NEUTROPHIL 3.4 X10E9/L Normal 1.5-6.6 [facility] Comment on above: Performed By: #### 2 106-3 #### [facility] ([id number]) [address] [place] [address]453 Basophils/100 WBC (Bld) 0.8 % Normal [place] Comment on above: Performed By: #### 2 106-3 #### [facility] ([id number]) [address] [place] [address]00 Eosinophils (Bld) [#/Vol] 0.5 10*3/uL High 0.0-0.4 [place] Comment on above: Performed By: #### 2 106-3 #### [facility] ([id number]) [address] [place] [address]8729 Eosinophils/100 WBC (Bld) 7.0 % Normal [place] Comment on above: Performed By: #### 2 106-3 #### [facility] ([id number]) [address] [place] [address]336 Erythrocyte distribution width (RBC) [Ratio] 15.0 % Normal 11.5-15.0 [place] Comment on above: Performed By: #### 2 106-3 #### [facility] ([id number]) [address] [place] [address]136 Hematocrit (Bld) [Volume fraction] 35.2 % Normal 35-47 [place] Comment on above: Performed By: #### 2 106-3 #### [facility] ([id number]) [address] [place] [address]183 Hemoglobin (Bld) [Mass/Vol] 11.9 g/dL Normal 11.7-15.5 [place] Comment on above: Performed By: #### 2 106-3 #### [facility] ([id number]) [address] [place] [address]27 Lymphocytes (Bld) [#/Vol] 2.6 10*3/uL Normal 1.0-3.5 [place] Comment on above: Performed By: #### 2 106-3 #### [facility] ([id number]) [address] [place] [address] 18212 Lymphocytes/100 WBC (Bld) 37.0 % Normal [place] Comment on above: Performed By: #### 2 106-3 #### [facility] ([id number]) [address] [place] [address]13 MCH (RBC) [Entitic mass] 26.9 pg Low 27-34 [place] Comment on above: Performed By: #### 2 106-3 #### [facility] ([id number]) [address] [place] [address]882 MCHC (RBC) [Mass/Vol] 33.9 g/dL Normal 32-36 [facility] Comment on above: Performed By: #### 2 106-3 #### [facility] ([id number]) [address] [place] [address]2451 MCV (RBC) [Entitic vol] 79 fL Low 80-100 [place] Comment on above: Performed By: #### 2 106-3 #### [facility] ([id number]) [address] [place] [address]9577 Monocytes (Bld) [#/Vol] 0.5 10*3/uL Normal 0-0.9 [place] Comment on above: Performed By: #### 2 106-3 #### [facility] ([id number]) [address] [place] [address] 25266 Monocytes/100 WBC (Bld) 7.1 % Normal [place] Comment on above: Performed By: #### 2 106-3 #### [facility] ([id number]) [address] [place] [address] 70285 Neutrophils/100 WBC (Bld) 48.1 % Normal [place] Comment on above: Performed By: #### 2 106-3 #### [facility] ([id number]) [address] [place] [address] 37147 Platelet mean volume (Bld) [Entitic vol] 10.8 fL Normal 7-12 [place] Comment on above: Performed By: #### 2 106-3 #### [facility] ([id number]) [address] [place] [address]504 Platelets (Bld) [#/Vol] 207 10*3/uL Normal 150-450 [place] Comment on above: Performed By: #### 2 106-3 #### [facility] ([id number]) [address] [place] [address] 21938 RBC COUNT 4.44 X10E12/L Normal 3.80-5.20 [place] Comment on above: Performed By: #### 2 106-3 #### [facility] ([id number]) [address] [place] [address] 01327 WBC (Bld) [#/Vol] 7.0 10*3/uL Normal 4.0-11.0 [facility] Comment on above: Performed By: #### 2 106-3 #### [facility] ([id number]) [address] [place] [address] COMPREHENSIVE METABOLIC PANE Theodore 08-20-2023 Albumin [Mass/Vol] 4.4 g/dL Normal 3.2-5.3 [facility] Comment on above: Performed By: #### 2 106-3 #### [facility] ([id number]) [address] [place] [address] 91618 ALP [Catalytic activity/Vol] 65 U/L Normal 39-130 [place] Comment on above: Performed By: #### 2 106-3 #### [facility] ([id number]) [address] [place] [address] 11318 ALT [Catalytic activity/Vol] 125 U/L High 0-31 [place] Comment on above: Performed By: #### 2 106-3 #### [facility] ([id number]) [address] [place] [address]7924 Anion gap [Moles/Vol] 5 mmol/L Normal 5-15 [facility] Comment on above: Performed By: #### 2 106-3 #### [facility] ([id number]) [address] [place] [address] 38080 AST [Catalytic activity/Vol] 65 U/L High 0-41 [place] Comment on above: Performed By: #### 2 106-3 #### [facility] ([id number]) [address] [place] [address] 30454 Bilirubin [Mass/Vol] 1.0 mg/dL Normal 0.3-1.2 [facility] Comment on above: Performed By: #### 2 106-3 #### [facility] ([id number]) [address] [place] [address] 19700 Calcium [Mass/Vol] 9.0 mg/dL Normal 8.5-10.5 [facility] Comment on above: Performed By: #### 2 106-3 #### [facility] ([id number]) [address] [place] [address] 12746 Chloride [Moles/Vol] 107 mmol/L Normal 98-109 [facility] Comment on above: Performed By: #### 2 106-3 #### [facility] ([id number]) [address] [place] [address] 65745 CO2 [Moles/Vol] 26 mmol/L Normal 22-32 [place] Comment on above: Performed By: #### 2 106-3 #### [facility] ([id number]) [address] [place] [address] 59618 Creatinine [Mass/Vol] 0.69 mg/dL Normal 0.40-1.00 [facility] Comment on above: Result Comment: METH OD TRACEABLE TO IDMS STANDARD Performed By: #### 2 106-3 #### [facility] ([id number]) [address] [place] [address]18 eGFR (CKD-EPI) NON-RACE DEPENDENT >90 Normal >59 [place] Comment on above: Result Comment: Reported eGFR is based on the CKD-EPI 2020 equation that does not use a race coefficient. Performed By: #### 2 106-3 #### [facility] ([id number]) [address] [place] [address] 56181 Glucose [Mass/Vol] 100 mg/dL High 65-99 [facility] Comment on above: Performed By: #### 2 106-3 #### [facility] ([id number]) [address] [place] [address] 79093 Potassium [Moles/Vol] 3.0 mmol/L Low 3.5-5.0 [facility] Comment on above: Performed By: #### 2 106-3 #### [facility] ([id number]) [address] [place] [address] 19677 Protein [Mass/Vol] 7.3 g/dL Normal 6.0-8.0 [facility] Comment on above: Performed By: #### 2 106-3 #### [facility] ([id number]) [address] [place] [address] 26550 Sodium [Moles/Vol] 138 mmol/L Normal 134-146 [facility] Comment on above: Performed By: #### 2 106-3 #### [facility] ([id number]) [address] [place] [id number] Urea nitrogen [Mass/Vol] 14 mg/dL Normal 5-23 [place] Comment on above: Performed By: #### 2 106-3 #### [facility] ([id number]) [address] [place] [id number] ABDOMEN AND PELVIS W CONT on 08-20-2023 CT ABDOMEN AND PELVIS W CONT CT ABDOMEN AND PELVIS W CONT ABDOMEN AND PELVIS CT WITH CONTRAST HISTORY: Acute epigastric pain COMPARISON: None. TECHNIQUE: CT abdomen and pelvis was performed. Axial images were obtained following the uneventful administration of 100 cc Omnipaque 300 nonionic intravenous contrast. Coronal and sagittal reformatted images were obtained and reviewed. Automated exposure control was utilized. FINDINGS: Lung bases are clear. No pleural fluid collection. Visible heart is within normal limits. Low-attenuation liver compatible with steatosis. No biliary ductal dilatation. Portal vein is patent. Contracted gallbladder. Pancreas and adrenal glands are unremarkable. Liver is enlarged, measuring 15.5 cm craniocaudal. Symmetric renal enhancement. Simple right renal cyst requires no additional evaluation. No hydronephrosis or perinephric fluid collection. Unremarkable bladder. Normal appearance of the uterus and adnexal structures. Bowel demonstrates no obstruction or acute inflammatory change. Normal appendix. No free air or fluid. No mesenteric lymphadenopathy. Mesenteric vessels are patent. Normal caliber aorta and iliac arteries. Right-sided IVC. No retroperitoneal lymph node enlargement. No pelvic adenopathy. Small fat-containing umbilical hernia. No acute osseous abnormality. IMPRESSION: * No acute pathologic process. * Splenomegaly. * Hepatic steatosis. All CT scans at this facility use dose modulation, iterative reconstruction, and/or weight based dosing when appropriate to reduce radiation dose to as low as reasonably achievable. Finalized by Armen Goldstein MD on 08/20/2023 9:22 PM Normal [place] LIPASEon 08-20-2023 Lipase [Catalytic activity/Vol] 45 U/L High 17-40 [place] Comment on above: Performed By: #### 2 106-3 #### [facility] ([id number]) [address] [place] [address] Lactate (P shaneka) [Moles/Vol]o n 08-20-2023 LACTATE W/REFLEX 0.9 mmol/L Normal 0.4-2.0 [facility] Comment on above: Result Comment: Result did not trigger repeat Lactate, re-order if needed. Performed By: #### 2 106-3 #### [facility] ([id number]) [address] [place] [address] US PELVIC WITH TRANSVAGINALo n 07-15-2023 US PELVIC WITH TRANSVAGINAL US PELVIC WITH TRANSVAGINAL PELVIC ULTRASOUND INCLUDING TRANSVAGINAL COMPARISON: None. HISTORY: Abnormal uterine bleeding. TECHNIQUE: Transabdominal scanning of the pelvis initially performed. Transvaginal scanning performed for better evaluation of the endometrium and adnexa. FINDINGS: Measurements are as follows: Uterus measured 10.6 x 4.0 x 5.9 cm in size. The myometrium is homogeneous. The endometrium measured 8.9 mm in thickness. The right ovary measured 3.1 x 2.6 x 2.5 cm in size in the left ovary measured 2.4 x 1.9 x 2.7 cm in size. Both ovaries are unremarkable. There is no free fluid IMPRESSION: Unremarkable pelvic ultrasound. Finalized by Tawana Peck DO on 07/15/2023 4:26 PM Normal [place] COMPLETE BLOOD COUNTon 07-14 Erythrocyte distribution width (RBC) [Ratio] 14.7 % Normal 11.5-15.0 [place] Comment on above: Performed By: #### C BC, CMP, 26978-0, 2986-8, THYR, 2842-3 #### [facility] ([id number]) [address] [place] [address] Hematocrit (Bld) [Volume fraction] 38.9 % Normal 35-47 [place] Comment on above: Performed By: #### C BC, CMP, 68574-8, 2986-8, THYR, 2842-3 #### [facility] ([id number]) [address] [place] [address] Hemoglobin (Bld) [Mass/Vol] 12.8 g/dL Normal 11.7-15.5 [place] Comment on above: Performed By: #### C BC, CMP, 57248-0, 2986-8, THYR, 2842-3 #### [facility] ([id number]) [address] [place] [address] MCH (RBC) [Entitic mass] 26.5 pg Low 27-34 [place] Comment on above: Performed By: #### C BC, CMP, 45512-1, 2986-8, THYR, 2842-3 #### [facility] ([id number]) [address] [place] [address] MCHC (RBC) [Mass/Vol] 32.9 g/dL Normal 32-36 [facility] Comment on above: Performed By: #### C BC, CMP, 38032-8, 2986-8, THYR, 2842-3 #### [facility] ([id number]) [address] [place] [address] MCV (RBC) [Entitic vol] 80 fL Normal 80-100 [place] Comment on above: Performed By: #### C BC, CMP, 48088-4, 2986-8, THYR, 2842-3 #### [facility] ([id number]) [address] [place] [address] Platelet mean volume (Bld) [Entitic vol] 11.6 fL Normal 7-12 [place] Comment on above: Performed By: #### C BC, CMP, 08266-3, 2986-8, THYR, 2842-3 #### [facility] ([id number]) [address] [place] [address] Platelets (Bld) [#/Vol] 232 10*3/uL Normal 150-450 [place] Comment on above: Performed By: #### C BC, CMP, 68211-0, 2986-8, THYR, 2842-3 #### [facility] ([id number]) [address] [place] [address] RBC COUNT 4.84 X10E12/L Normal 3.80-5.20 [place] Comment on above: Performed By: #### C BC, CMP, 98542-5, 2986-8, THYR, 2842-3 #### [facility] ([id number]) [address] [address] [place] [address] WBC (Bld) [#/Vol] 8.6 10*3/uL Normal 4.0-11.0 [facility] Comment on above: Performed By: #### C BC, CMP, 59784-1, 2986-8, THYR, 2842-3 #### [facility] ([id number]) [address] [place] [address] COMPREHENSIVE METABOLIC PANE Theodore 07-14-2023 Albumin [Mass/Vol] 4.9 g/dL Normal 3.2-5.3 [facility] Comment on above: Performed By: #### C BC, CMP, 22723-9, 2986-8, THYR, 2842-3 #### [facility] ([id number]) [address] [place] [address] ALP [Catalytic activity/Vol] 63 U/L Normal 39-130 [place] Comment on above: Performed By: #### C BC, CMP, 56348-8, 2986-8, THYR, 2842-3 #### [facility] ([id number]) [address] [place] [address] ALT [Catalytic activity/Vol] 91 U/L High 0-31 [place] Comment on above: Performed By: #### C BC, CMP, 34674-5, 2986-8, THYR, 2842-3 #### [facility] ([id number]) [address] [place] [address] Anion gap [Moles/Vol] 12 mmol/L Normal 5-15 [facility] Comment on above: Performed By: #### C BC, CMP, 77167-7, 2986-8, THYR, 2842-3 #### [facility] ([id number]) [address] [place] [address] AST [Catalytic activity/Vol] 65 U/L High 0-41 [place] Comment on above: Performed By: #### C BC, CMP, 12151-5, 2986-8, THYR, 2842-3 #### [facility] ([id number]) [address] [place] [address] Bilirubin [Mass/Vol] 0.8 mg/dL Normal 0.3-1.2 [facility] Comment on above: Performed By: #### C BC, CMP, 40488-6, 2986-8, THYR, 2842-3 #### [facility] ([id number]) [address] [place] [address] Calcium [Mass/Vol] 9.5 mg/dL Normal 8.5-10.5 [facility] Comment on above: Performed By: #### C BC, CMP, 33422-4, 2986-8, THYR, 2842-3 #### [facility] ([id number]) [address] [place] [address] Chloride [Moles/Vol] 104 mmol/L Normal 98-109 [facility] Comment on above: Performed By: #### C BC, CMP, 04127-4, 2986-8, THYR, 2842-3 #### [facility] ([id number]) [address] [place] [address] CO2 [Moles/Vol] 26 mmol/L Normal 22-32 [place] Comment on above: Performed By: #### C BC, CMP, 80257-6, 2986-8, THYR, 2842-3 #### [facility] ([id number]) [address] [place] [address] Creatinine [Mass/Vol] 0.68 mg/dL Normal 0.40-1.00 [facility] Comment on above: Result Comment: METH OD TRACEABLE TO IDMS STANDARD Performed By: #### C BC, CMP, 92795-6, 2986-8, THYR, 2842-3 #### [facility] ([id number]) [address] [address] [place] [address] eGFR (CKD-EPI) NON-RACE DEPENDENT >90 Normal >59 [place] Comment on above: Result Comment: Reported eGFR is based on the CKD-EPI 2020 equation that does not use a race coefficient. Performed By: #### C BC, CMP, 99850-3, 2986-8, THYR, 2842-3 #### [facility] ([id number]) [address] [address] [place] [address] Glucose [Mass/Vol] 87 mg/dL Normal 65-99 [facility] Comment on above: Performed By: #### Lex BC, CMP, 77891-1, 2986-8, THYR, 2842-3 #### [facility] ([id number]) [address] [address] [place] [address] Potassium [Moles/Vol] 3.1 mmol/L Low 3.5-5.0 [facility] Comment on above: Performed By: #### Lex BC, CMP, 05040-1, 2986-8, THYR, 2842-3 #### [facility] ([id number]) [address] [address] [place] [address] Protein [Mass/Vol] 7.7 g/dL Normal 6.0-8.0 [facility] Comment on above: Performed By: #### Lex BC, CMP, 67988-1, 2986-8, THYR, 2842-3 #### [facility] ([id number]) [address] [address] [place] [address] Sodium [Moles/Vol] 142 mmol/L Normal 134-146 [facility] Comment on above: Performed By: #### C BC, CMP, 89299-4, 2986-8, THYR, 2842-3 #### [facility] ([id number]) [address] [address] [place] [address] Urea nitrogen [Mass/Vol] 12 mg/dL Normal 5-23 [place] Comment on above: Performed By: #### C BC, CMP, 03215-7, 2986-8, THYR, 2842-3 #### [facility] ([id number]) [address] [place] [address] HGB A1C (GLYCO-HGB)on 2023 Glucose [Mass/Vol] 108 mg/dL Normal [facility] Comment on above: Performed By: #### C BC, CMP, 66996-8, 2986-8, THYR, 2842-3 #### [facility] ([id number]) [address] [place] [address] HbA1c (Bld) [Mass fraction] 5.4 % Normal 4.4-5.6 [place] Comment on above: Result Comment: NOTE ADA Guidelines Result HgbA1c Normal : less than 5.7 % Prediabetes : 5.7 % to 6.4 % Diabetes : > 6.4 % Use with caution in patients with abnormal hemoglobin variants as the half-life of red blood cells and in vivo glycation rates are affected. Performed By: #### C BC, CMP, 37261-4, 2986-8, THYR, 2842-3 #### [facility] ([id number]) [address] [place] [address] Lipid 1996 panelon Cholesterol [Mass/Vol] 160 mg/dL Normal 150-200 [facility] Comment on above: Performed By: #### C BC, CMP, 97150-9, 2986-8, THYR, 2842-3 #### [facility] ([id number]) [address] [place] [address] Cholesterol in HDL [Mass/Vol] 29 mg/dL Low >39 [place] Comment on above: Result Comment: HDL <40 mg/dL - High Risk HDL > or = 40mg/dL- Desirable HDL >60 mg/dL - Negative Risk Performed By: #### Lex BC, CMP, 21775-6, 2986-8, THYR, 2842-3 #### [facility] ([id number]) [address] [place] [address] Cholesterol in LDL [Mass/Vol] 105 mg/dL Normal <130 [place] Comment on above: Result Comment: LDL <100 mg/dL - Desirable LDL >160 mg/dL - High Risk Performed By: #### Lex BC, CMP, 24204-6, 2986-8, THYR, 2842-3 #### [facility] ([id number]) [address] [place] [address] Cholesterol in VLDL [Mass/Vol] 26 mg/dL Normal 0-30 [place] Comment on above: Performed By: #### Lex CARSON, CMP, 89935-5, 2986-8, THYR, 2842-3 #### [facility] ([id number]) [address] [place] [address] CHOLESTEROL:HDL 5.5 High 1.0-5.0 [place] Comment on above: Performed By: #### Lex BC, CMP, 00193-3, 2986-8, THYR, 2842-3 #### [facility] ([id number]) [address] [place] [address] Triglyceride [Mass/Vol] 132 mg/dL Normal 27-150 [place] Comment on above: Performed By: #### Lex BC, CMP, 98280-5, 2986-8, THYR, 2842-3 #### [facility] ([id number]) [address] [place] [address] Prolactin [Mass/Vol]on 07-14 PROLACTIN 10.3 ng/mL Normal 3.3-26.7 [place] Comment on above: Performed By: #### C BC, [facility], 63902-6, 2986-8, THYR, 2842-3 #### [facility] ([id number]) [address] [place] [address] THYROID PROFILEon 07-14-2023 Free T4 [Mass/Vol] 1.06 ng/dL Normal 0.61-1.60 [facility] Comment on above: Performed By: #### Lex BC, [facility], 43481-5, 2986-8, THYR, 2842-3 #### [facility] ([id number]) [address] [place] [address] TSH 0.40 uIU/mL Low 0.49-4.67 [place] Comment on above: Performed By: #### C BC, [facility], 23959-9, 2986-8, THYR, 2842-3 #### [facility] ([id number]) [address] [place] [address] Testosterone [Mass/Vol]on TESTOSTERONE 0.44 ng/mL Normal 0.00-0.70 [place] Comment on above: Performed By: #### C BC, [facility], 46745-7, 2986-8, THYR, 2842-3 #### [facility] ([id number]) [address] [place] [address] HCG ( test) Ql (U)o n 06-17-2023 Beta HCG ( test) Ql (U) Negative Normal NEG [place] Comment on above: Performed By: #### 2 106-3 #### [facility] ([id number]) [address] [place] [address] [place] [address] URN MACROSCOPIC NURon 2022 BILIRUBIN COURTNEY Negative Normal NEG [place] Comment on above: Performed By: #### N UM #### [facility] ([id number]) [address] [place] [address] [place] [address] BLOOD/HGB COURTNEY Negative Normal NEG [place] Comment on above: Performed By: #### N UM #### [facility] ([id number]) [address] [place] [address] [place] [address] GLUCOSE COURTNEY Negative Normal NEG [place] Comment on above: Performed By: #### N UM #### [facility] ([id number]) [address] [place] [address] [place] [address] KETONES COURTNEY Negative Normal NEG [place] Comment on above: Performed By: #### N UM #### [facility] ([id number]) [address] [place] [address] [place] [address] LEUKOCYTE ESTERASE COURTNEY Negative Normal NEG [facility] Comment on above: Performed By: #### N UM #### [facility] ([id number]) [address] [place] [address] [place] [address] NITRITE COURTNEY Negative Normal NEG [place] Comment on above: Performed By: #### N UM #### [facility] ([id number]) [address] [place] [address] [place] [address] PH COURTNEY 5.5 Normal 5.0-8.5 [place] Comment on above: Performed By: #### N UM #### [facility] ([id number]) [address] [place] [address] [place] [address] PROTEIN COURTNEY Negative Normal NEG [place] Comment on above: Performed By: #### N UM #### [facility] ([id number]) [address] [place] [address], [place] [address] SPECIFIC GRAVITY COURTNEY >=1.030 Normal 1.003-1.035 [facility] Comment on above: Performed By: #### N UM #### [facility] ([id number]) [address] [place] [address], [place] [address] UROBILINOGEN COURTNEY 0.2 eu/dL Normal <1.1 [facility] Comment on above: Performed By: #### N UM #### [facility] ([id number]) [address] [place] [address], [place] [address] Discharge Instructionson Discharge Instructions [id number]# 1.00CD:127 Normal [facility] Prescriptions/Work Noteson 0 12-12-2022 Prescriptions/Work Notes [id number]# 1.00CD:127 Normal [facility] Consent for Treatmenton 11-28 Consent for Treatment [id number]#1 .00CD:127 Normal [facility] ED Clinical Summaryon 2022 ED Clinical Summary [address] [address] ED Clinical Summary Person Information Name: KAREN LIU [facility]d [facility] Age: 27 Years : 1995 Sex: Female Language: Mongolian PCP: NONE, XXXX Marital Status: Phone: [phone] Visit Id: Visit Reason: Leg pain-swelling; NUMBNESS IN FEET, BURNING IN LEGS Speciality: Acuity: 3 Enc Type: Emergency Med Service: Emergency Arrival: 12/11/2022 20:17:49 Discharge: 12/11/2022 21:17:19 LOS: 000 01:00 Checkin: 12/11/2022 20:17:49 Checkout: 12/11/2022 21:17:19 Dispo Type: Home (Routine DC) EVENTS: Event Name Event Status Request Date/Time Start Date/Time Complete Date/Time Arrive Complete 12/11/2022 20:17:49 12/11/2022 20:17:49 12/11/2022 20:17:49 Document Home Meds Request 12/11/2022 20:17:49 Triage Complete 12/11/2022 20:17:49 12/11/2022 20:29:27 12/11/2022 20:29:27 Registration Complete 12/11/2022 20:23:09 12/11/2022 20:23:09 12/11/2022 20:23:09 Reg Complete Request 12/11/2022 20:23:09 Reg Bed Request Complete 12/11/2022 20:23:09 12/11/2022 20:23:09 12/11/2022 20:23:09 Isolation Screening Request 12/11/2022 20:29:28 Bed Assign Complete 12/11/2022 20:29:42 12/11/2022 20:29:42 12/11/2022 20:29:42 Dr Exam Complete 12/11/2022 20:29:42 12/11/2022 20:30:31 12/11/2022 20:30:31 RN Exam Complete 12/11/2022 20:29:42 12/11/2022 21:12:49 12/11/2022 21:12:49 Registration Complete 12/11/2022 20:30:31 12/11/2022 20:36:13 12/11/2022 20:36:13 Dr Exam Complete 12/11/2022 20:35:15 12/11/2022 20:35:15 12/11/2022 20:35:15 Meds Admin Complete 12/11/2022 20:56:16 12/11/2022 21:07:46 Discharge Complete 12/11/2022 20:58:11 12/11/2022 21:17:28 12/11/2022 21:17:28 Transfer Complete 12/11/2022 21:17:28 12/11/2022 21:17:28 12/11/2022 21:17:28 ADDRESS: [address] [place] [address] PHYS DOC NOTES: MEDICAL INFORMATION: Prescriptions Given: New Medications [id number], [address] [place] [id number], [phone] lidocaine topical (Lidoderm 5% Patch) 1 Patches Topical every day. apply 12 hours on and 12 hours off daily. Refills: 0. naproxen (Naprosyn 500 mg Tab) 1 Tablets By Mouth 2 times a day. Refills: 0. Medications to Continue with No Changes Other Medications buPROPion (Wellbutrin SR 150 mg Tab-ER) 1 Tablets By Mouth every day. Refills: 2. hydrOXYzine (hydrOXYzine hydrochloride 10 mg Tab) 1 Tablets By Mouth 4 times a day as needed as needed for anxiety. Refills: 2. PATIENT EDUCATION INFORMATION: Instructions: Sciatica Follow up: With: Address: When: XXXX NONE , [place] In 3 days DIAGNOSIS: Sciatica Normal [facility] ED Note-Physicianon 12-12-19 ED Note-Physician Basic Information Time Seen: Brian BOOTHE, Taran Burnett 12/11/2022 20:30 Chief Complaint Pt c/o bilateral leg pain, numbness, burning, and tingling that started at 1900. Pt has a h/o sciatica. Pt able to ambulate to room. 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 History of Present Illness 27-year-old female presents the ED with complaint of low back pain which radiates down her legs. Patient denies any injury, does report that she was ill over the last few days having frequent bowel movements and abdominal pain. Patient does report this resolved on a day and half ago. Yesterday, patient reports that she began to have low back pain bilaterally which radiates down her buttocks thighs and to her toes. Patient does report this is worse on the left. Patient report a past history of sciatica which felt very similar to this. Patient reports that she took ibuprofen with some relief for pain. Patient reports she does not take anything stronger than this because she is in recovery. Patient has any saddle anesthesia. Patient denies any loss of bowel or bladder function. Patient [place] any fevers or chills. Review of Systems Full 10 system ROS performed. Pt denies symptoms except as noted above in the HPI. Physical Exam Vitals & Measurements T: 36.7 ?C(Oral) HR: 104(Peripheral) RR: 20 BP: 120/81 SpO2: 99% HT: 165 cm WT: 120 kg BMI: 44.08 General: Pt is in NAD, nontoxic appearing. Afebrile. Skin: Pt skin is warm and dry, no rashes or lesions appreciated. No appreciable track lyn or any other gross sign of IV drug use. HEENT: Atraumatic, normocephalic. Pulmonary: Breathing normally, no respiratory distress Cardiovascular: Distal pulses palpable in upper and lower extremities bilaterally Gastrointestinal: +BSX4. Abdomen soft, nondistended, nontender. No peritoneal signs present. Musculoskeletal: Pt has full ROM. Patient is 5 out of 5 strength in lower extremities bilaterally. Patient has no midline bony tenderness of the spine. Patient has pain on palpation of her lumbar paraspinous muscles. Neurological: Pt is alert and oriented. Sensation grossly intact in upper and lower extremities bilaterally. Patient with intact reflexes in upper and lower extremities bilaterally. Lymphatic: No lymphadenopathy appreciated. No peripheral edema appreciated Psychiatric: Pt is cooperative, communicative, appropriately reactive Medical Decision Making Number and Complexity of Problems Differential Diagnosis: [] [facility] Data External documents reviewed: Not applicable My EKG interpretation: Not applicable My CT interpretation: Not applicable My X-ray interpretation: Not applicable My Ultrasound interpretation: Not applicable Decision rules/scores evaluated: Not applicable Discussed with: Not applicable Treatment and Disposition Patient presents the ED with acute on chronic back pain. Patient has no saddle anesthesia, loss of bowel or bladder function or other alarm symptoms of cauda equina or mass-effect on spinal cord. Patient without history of vascular disease or alarming aspects of history (such as associated abdominal pain, or syncope) to raise red flags for AAA. patient with no alarm aspects of history (no IV drug use, no history indicating immunocompromised) or signs/symptoms (fever or other symptoms of infectious illness) of systemic infectious process indicating possible infectious lesion affecting spine. Patient without history or physical exam findings concerning for possible fracture. Patient without history or physical exam findings concerning for possible cancerous process. Patient given appropriate analgesia in the ED as well as prescription and instructions on appropriate analgesia at home. Patient instructed on return precautions to the ED including any alarm symptoms of cauda equina or spinal stenosis, infectious process, malignancy, fracture, or any other alarming signs or symptoms. Patient instructed to resume normal activity as tolerated as soon as possible. Patient to follow-up with primary care for ongoing management of chronic pain if necessary. Patient discharged home. Shared decision making: As above Code status: Not addressed during this visit Assessment/Plan Sciatica (M54.30: Sciatica, unspecified side) Orders: ketorolac, 30 mg = 1 mL, Injection, IntraMuscular, Once, Stop date 12/11/22 20:55:00 EDT, STAT, Start date 12/11/22 20:55:00 EDT, 12/11/22 20:55:00 EDT lidocaine topical, 1 patch(es), Patch, TransDermal, Once, Stop date 12/11/22 20:55:00 EDT, STAT, Start date 12/11/22 20:55:00 EDT lidocaine topical, 1 patch(es), Topical, Daily, 7 EA, Refill(s) 0, apply 12 hours on and 12 hours off daily, [id number], 165, cm, 12/11/22 20:29:00 EDT, Height/Length Dosing, 120, kg, 12/11/22 20:29:00 EDT, Weight Dosing naproxen, 500 mg = 1 tab(s), Oral, BID, # 20 tab(s), Refills(s) 0, Pharmacy: [id number], 165, cm, 12/11/22 20:29:00 EDT, Height/Length Dosing, 120, kg, 12/11/22 20:29:00 EDT, Weight Dosing Dis (more content not included)... Normal [facility] Comment on above: Result Comment: Elec tronically Signed By: Taran Torres PA-C\.br\Date and Time Signed: 12/11/22 21:05 EDT\.br\Electronically Co-Signed By: Luna Alvarez DO\.br\Date and Time Co-Signed: 12/11/22 21:24 EDT ED Patient Education Noteon 12-11-2022 ED Patient Education Note Orthopedics Sciatica Sciatica is pain, numbness, weakness, or tingling along the path of the sciatic nerve. The sciatic nerve starts in the lower back and runs down the back of each leg. The nerve controls the muscles in the lower leg and in the back of the knee. It also provides feeling (sensation) to the back of the thigh, the lower leg, and the sole of the foot. Sciatica is a symptom of another medical condition that pinches or puts pressure on the sciatic nerve. Sciatica most often only affects one side of the body. Sciatica usually goes away on its own or with treatment. In some cases, sciatica may come back (recur). What are the causes? This condition is caused by pressure on the sciatic nerve or pinching of the nerve. This may be the result of: ? A disk in between the bones of the spine bulging out too far (herniated disk). ? Age-related changes in the spinal disks. ? A pain disorder that affects a muscle in the buttock. ? Extra bone growth near the sciatic nerve. ? A break (fracture) of the pelvis. ? . ? Tumor. This is rare. What increases the risk? The following factors may make you more likely to develop this condition: ? Playing sports that place pressure or stress on the spine. ? Having poor strength and flexibility. ? A history of back injury or surgery. ? Sitting for long periods of time. ? Doing activities that involve repetitive bending or lifting. ? Obesity. What are the signs or symptoms? Symptoms can vary from mild to very severe, and they may include: ? Any of these problems in the lower back, leg, hip, or buttock: ? Mild tingling, numbness, or dull aches. ? Burning sensations. ? Sharp pains. ? Numbness in the back of the calf or the sole of the foot. ? Leg weakness. ? Severe back pain that makes movement difficult. Symptoms may get worse when you cough, sneeze, or laugh, or when you sit or stand for long periods of time. How is this diagnosed? This condition may be diagnosed based on: ? Your symptoms and medical history. ? A physical exam. ? Blood tests. ? Imaging tests, such as: ? X-rays. ? MRI. ? CT scan. How is this treated? In many cases, this condition improves on its own without treatment. However, treatment may include: ? Reducing or modifying physical activity. ? Exercising and stretching. ? Icing and applying heat to the affected area. ? Medicines that help to: ? Relieve pain and swelling. ? Relax your muscles. ? Injections of medicines that help to relieve pain, irritation, and inflammation around the sciatic nerve (steroids). ? Surgery. Follow these instructions at home: Medicines ? Take pakk-flj-krygicv and prescription medicines only as told by your health care provider. ? Ask your health care provider if the medicine prescribed to you: ? Requires you to avoid driving or using heavy machinery. ? Can cause constipation. You may need to take these actions to prevent or treat constipation: ? Drink enough fluid to keep your urine pale yellow. ? Take wmqz-swe-lozjvch or prescription medicines. ? Eat foods that are high in fiber, such as beans, whole grains, and fresh fruits and vegetables. ? Limit foods that are high in fat and processed sugars, such as fried or sweet foods. Managing pain ? If directed, put ice on the affected area. ? Put ice in a plastic bag. ? Place a towel between your skin and the bag. ? Leave the ice on for 20 minutes, 2?3 times a day. ? If directed, apply heat to the affected area. Use the heat source that your health care provider recommends, such as a moist heat pack or a heating pad. ? Place a towel between your skin and the heat source. ? Leave the heat on for 20?30 minutes. ? Remove the heat if your skin turns bright red. This is especially important if you are unable to feel pain, heat, or cold. You may have a greater risk of getting burned. Activity ? Return to your normal activities as told by your health care provider. Ask your health care provider what activities are safe for you. ? Avoid activities that make your symptoms worse. ? Take brief periods of rest throughout the day. ? When you rest for longer periods, mix in some mild activity or stretching between periods of rest. This will help to prevent stiffness and pain. ? Avoid sitting for long periods of time without moving. Get up and move around at least one time each hour. ? Exercise and stretch regularly, as told by your health care provider. ? Do not lift anything that is heavier than 10 lb (4.5 kg) while you have symptoms of sciatica. When you do not have symptoms, you should still avoid heavy lifting, especially repetitive heavy lifting. ? When you lift objects, always use proper lifting technique, which includes: ? Bending your knees. ? Keeping the load close to your body. (more content not included)... Normal [facility] ED Patient Summaryon 023 ED Patient Summary [address] [address] Patient Discharge Instructions Person Information Name: KAREN LIU Age: 27 Years Arrival Date: 12/11/2022 20:17:49 Discharge Diagnosis: Sciatica Primary Care Physician: NONE, XXXX Provider Information Primary Provider: Luna Alvarez DO [employer] Teacher:Taran Torres PA-C The exam and treatment you received in the Emergency Department were for an urgent problem and are not intended as complete care. It is important that you follow up with a doctor, nurse practitioner, or physician?s assistant professor of psychology for ongoing care. If your symptoms become worse or you do not improve as expected and you are unable to reach your usual health care provider, you should return to the Emergency Department. We are available 24 hours a day. KAREN LIU has been given the following list of patient education materials, prescriptions and follow-up instructions: Follow-up Instructions: With: Address: When: XXXX NONE , [place] In 3 days In the event that this physician does not participate in your insurance network, please consult with your insurance company to find a nearby participating provider. Patient Education Materials: Sciatica A MESSAGE TO ALL PATIENTS REGARDING OPIOIDS PRESCRIPTION OPIOIDS: WHAT YOU NEED TO KNOW Prescription opioids can be used to help relieve njxqihft-ec-readse pain and are often prescribed following a surgery or injury, or for certain health conditions. These medications can be an important part of the treatment but also come with serious risks. It is important to work with your healthcare provider to make sure you are getting the safest, most effective care. WHAT ARE THE RISKS AND SIDE EFFECTS OF OPIOID USE? Prescription opioids carry serious risks of addiction and overdose, especially with prolonged use. An opioid overdose, often marked by slowed breathing, can cause sudden . The use of prescription opioids can have a number of side effects as well, even when taken as directed: ? Tolerance?meaning you might need to take more of the medication for the same pain relief ? Physical dependence?meaning you have symptoms of withdrawal when a medication is stopped ? Increased sensitivity to pain ? Constipation ? Nausea, vomiting, and dry mouth ? Sleepiness and dizziness ? Confusion ? Depression ? Low levels of testosterone that can result in lower sex drive, energy, and strength ? Itching and sweating RISKS ARE GREATER WITH: ? History of drug misuse, substance use disorder, or overdose ? Mental health conditions (such as depression or anxiety) ? Sleep apnea ? Older age (65 years and older) ? Avoid alcohol while taking prescription opioids. Also, unless specifically advised by your health care provider, medications to avoid include: ? Benzodiazepines (such as Xanax or Valium) ? Muscle relaxants (such as Soma or Flexeril) ? Hypnotics (such as Ambien or Lunesta) ? Other prescription opioids KNOW YOUR OPTIONS Talk to your health care provider about ways to manage your pain that don?t involve prescription opioids. Some of these options may actually work better and have fewer risks and side effects. Options may include: ? Pain relievers such as acetaminophen, ibuprofen, and naproxen ? Some medication that are also used for depression or seizures ? Physical therapy and exercise ? Cognitive behavioral therapy, a psychological, goal-directed approach, in which patients learn how to modify physical, behavioral, and emotional triggers of pain and stress. IF YOU ARE PRESCRIBED OPIOIDS FOR PAIN: ? Never take opioids in greater amounts or more often than prescribed. ? Follow up with your primary health care provider. o Work together to create a plan on how to manage your pain. o Talk about ways to help manage your pain that don?t involve prescription opioids. o Talk about any and all concerns and side effects. ? Help prevent misuse and abuse o Never sell or share prescription opioids. o Never use another person?s prescription opioids. ? Store prescription opioids in a secure place and out of reach of others (this may include visitors, children, friends, and family). ? Safely dispose of unused prescription opioids: Find your community drug take-back program or your pharmacy mail-back program, or flush them down the toilet, following guidance from the Food and Drug Administration (www.fda.gov/Drugs/Re sourcesForYou). ? Visit www.cdc.gov/drugoverd ose to learn about the risks of opioids abuse and overdose. ? If you believe you may be struggling with addiction, tell your health director medicare sales and ask for guidance or call SAMHSA?S National Helpline at 5-728-969-HELP. v Source: [place] Department of Health and Human Services/Center for Disease Control & Prevention [facility] (more content not included)... Normal [facility] SGPTon 11-27-2022 ALT [Catalytic activity/Vol] 53 U/L Normal 14-59 [facility] Comment on above: Performed By: #### C VDTBH #### [facility] [address] [place] [address] Dr. Melchor Guillermo HEP B SURFACE ANTIGEN SCREEN on 11-21-2022 HBsAg Screen Negative Normal Negative [facility] Comment on above: Performed By: #### H BSANS #### [facility] [address] [place] [address] Dr. Melchor Guillermo HEPATITIS C ANTIBODYon 11-21 Hep C Virus Ab Reactive Abnormal Non Reactive [facility] Comment on above: Result Comment: HCV antibody alone does not differentiate between previously resolved infection and active infection. Equivocal and Reactive HCV antibody results should be followed up with an HCV RNA test to support the diagnosis of active HCV infection. Performed By: #### C VDTBH #### [facility] [address] [address] [address] Melchor Guillermo HIV 1 AND 2 WITH REFLEXon HIV Screen 4th Generation wRfx Non-Reactive Normal Non Reactive [facility] Comment on above: Result Comment: HIV Negative HIV-1/HIV-2 antibodies and HIV-1 p24 antigen were NOT detected. There is no laboratory evidence of HIV infection. Performed By: #### H IV12 #### [facility] [address] [place] [address] Dr. Melchor Guillermo RPR QUANTon 11-21-2022 Rapid Plasma Reagin, Quant Non-Reactive Normal NonRea<1:1 [facility] Comment on above: Result Comment: Lisa mcgowan Note: This test does not meet current guidelines for screening and diagnosis of syphilis. This test is intended for following treatment response in patients being treated for syphilis infection. To screen for syphilis infection, a reflex cascade that includes both RPR and a treponema-specific assay should be utilized, such as Treponema pallidum (Syphilis) Screening [place] (542312) or Rapid Plasma Reagin (RPR) Test With Reflex to Quantitative RPR and Confirmatory Treponema pallidum Antibodies (741131). Performed By: #### R PRQ #### [facility] [address] [place], [place] [address] Dr. Melchor Guillermo Cult,Urineon 07-22-2022 Cult,Urine Specimen Description .CLEAN CATCH URINE Culture NO SIGNIFICANT GROWTH Report Status FINAL 07/22/2022 Normal [facility] Comment on above: Performed By: #### U RC #### [facility] [address] [place] [address] Family Health Nurse Practitioner: Mathew Martin MD [facility] [address] [place] [address] [place] [address] Family Health Nurse Practitioner: Prasad Matute MD CBC with Diffon 07-21-2022 Abs. Basophil 0.03 k/uL Normal 0.00-0.20 [facility] Comment on above: Performed By: #### I PF, LIP, CDP, CP #### [address] [place], [place] [id number] Family Health Nurse Practitioner: Prasad Matute MD Abs. Eosinophil <0.03 Normal 0.00-0.44 [facility] Comment on above: Performed By: #### I PF, LIP, CDP, CP #### [address] [place] [address] Family Health Nurse Practitioner: Prasad Matute MD Abs.Imm.Granulocyte 0.06 k/uL Normal 0.00-0.30 [facility] Comment on above: Performed By: #### I PF, LIP, CDP, CP #### [address] [place], [place] [id number] Family Health Nurse Practitioner: Prasad Matute MD Abs.Neutrophil (Seg) 15.01 k/uL High 1.50-8.10 [facility] Comment on above: Performed By: #### I PF, LIP, CDP, CP #### [address] [place], [facility] Family Health Nurse Practitioner: Prasad Matute MD Basophils/100 WBC (Bld) 0 % Normal 0-2 [facility] Comment on above: Performed By: #### I PF, LIP, CDP, CP #### [address] [place], [facility] [address] Family Health Nurse Practitioner: Prasad Matute MD Eosinophils/100 WBC (Bld) 0 % Low 1-4 [facility] Comment on above: Performed By: #### I PF, LIP, CDP, CP #### [address] [place], [facility] [address] Family Health Nurse Practitioner: Prasad Matute MD Erythrocyte distribution width (RBC) [Ratio] 14.4 % Normal 11.8-14.4 [facility] Comment on above: Performed By: #### I PF, LIP, CDP, CP #### [address] [place], [facility] [address] Family Health Nurse Practitioner: Prasad Matute MD Hematocrit (Bld) [Volume fraction] 42.3 % Normal 36.3-47.1 [facility] Comment on above: Performed By: #### I PF, LIP, CDP, CP #### [address] [place], [facility] [address] Family Health Nurse Practitioner: Prasad Matute MD Hemoglobin (Bld) [Mass/Vol] 14.0 g/dL Normal 11.9-15.1 [facility] Comment on above: Performed By: #### I PF, LIP, CDP, CP #### [address] [place], [facility] [address] Family Health Nurse Practitioner: Prasad Matute MD Immature granulocytes/100 WBC (Bld) 0 % Normal 0 [facility] Comment on above: Performed By: #### I PF, LIP, CDP, CP #### [address] [place], [facility] [address] Family Health Nurse Practitioner: Prasad Matute MD Lymphocytes (Bld) [#/Vol] 0.67 10*3/uL Low 1.10-3.70 [facility] Comment on above: Performed By: #### I PF, LIP, CDP, CP #### [address] [place], [place] [id number] Family Health Nurse Practitioner: Praasd Matute MD Lymphocytes/100 WBC (Bld) 4 % Low 24-43 [facility] Comment on above: Performed By: #### I PF, LIP, CDP, CP #### [address] [place], [facility] [address] Family Health Nurse Practitioner: Prasad Matute MD MCH (RBC) [Entitic mass] 26.9 pg Normal 25.2-33.5 [facility] Comment on above: Performed By: #### I PF, LIP, CDP, CP #### [address] [place], [facility] Family Health Nurse Practitioner: Prasad Matute MD MCHC (RBC) [Mass/Vol] 33.1 g/dL Normal 28.4-34.8 [facility] Comment on above: Performed By: #### I PF, LIP, CDP, CP #### [address] [place], [place] [id number] Family Health Nurse Practitioner: Prasad Matute MD MCV (RBC) [Entitic vol] 81.3 fL Low 82.6-102.9 [facility] Comment on above: Performed By: #### I PF, LIP, CDP, CP #### [address] [place], [place] [id number] Family Health Nurse Practitioner: Prasad Matute MD Monocytes (Bld) [#/Vol] 0.48 10*3/uL Normal 0.10-1.20 [facility] Comment on above: Performed By: #### I PF, LIP, CDP, CP #### [address] [place], [place] [id number] Family Health Nurse Practitioner: Prasad Matute MD Monocytes/100 WBC (Bld) 3 % Normal 3-12 [facility] Comment on above: Performed By: #### I PF, LIP, CDP, CP #### [facility] [address] [place], [place] [id number] Family Health Nurse Practitioner: Prasad Matute MD Neutrophil (Seg) 92 % High 36-65 [facility] Comment on above: Performed By: #### I PF, LIP, CDP, CP #### [facility] [address] [place], [place] [id number] Family Health Nurse Practitioner: Prasad Matute MD NRBC Automated 0.0 per 100 WBC Normal 0.0 [facility] Comment on above: Performed By: #### I PF, LIP, CDP, CP #### [address] [place], [place] [id number] Family Health Nurse Practitioner: Prasad Matute MD Platelet Count See Reflexed IPF Result Normal 138-453 [facility] Comment on above: Performed By: #### I PF, LIP, CDP, CP #### [address] [place], [place] [id number] Family Health Nurse Practitioner: Prasad Matute MD RBC (Bld) [#/Vol] 5.20 10*6/uL High 3.95-5.11 [facility] Comment on above: Performed By: #### I PF, LIP, CDP, CP #### [address] [place], [place] [id number] Family Health Nurse Practitioner: Prasad Matute MD WBC (Bld) [#/Vol] 16.3 10*3/uL High 3.5-11.3 [facility] Comment on above: Performed By: #### I PF, LIP, CDP, CP #### [address] [place], [place] [id number] Family Health Nurse Practitioner: Prasad Matute MD CT ABDOMEN PELVIS W IV CONTR [place] 07-21-2022 CT ABDOMEN PELVIS W IV CONTRAST EXAMINATION: CT OF THE ABDOMEN AND PELVIS WITH CONTRAST 07/21/2022 12:04 pm TECHNIQUE: CT of the abdomen and pelvis was performed with the administration of intravenous contrast. Multiplanar reformatted images are provided for review. Automated exposure control, iterative reconstruction, and/or weight based adjustment of the mA/kV was utilized to reduce the radiation dose to as low as reasonably achievable. COMPARISON: None. HISTORY: ORDERING SYSTEM PROVIDED HISTORY: [facility] pain TECHNOLOGIST PROVIDED HISTORY: [facility] pain Decision Support Exception - unselect if not a suspected or confirmed emergency medical condition->Emergency Medical Condition (MA) FINDINGS: Lower Chest: Visualized portion of the lower chest demonstrates no acute abnormality. Organs: Liver is unremarkable. Spleen is enlarged at 13 cm maximum diameter. No focal lesion. Pancreas adrenal glands gallbladder unremarkable. Rounded hypodensities right kidney most likely cyst. Left kidney unremarkable. No hydronephrosis. GI/Bowel: Stomach and small bowel unremarkable. Appendix normal. Large bowel not well-distended distally otherwise unremarkable. No inflammatory change, free fluid or air within the abdomen or pelvis. Pelvis: Urinary bladder not well-distended otherwise unremarkable. Uterus unremarkable. Peritoneum/Retroperit oneum: Negative Bones/Soft Tissues: Negative IMPRESSION: No acute findings. Probable right renal cysts. Splenomegaly. Interpreted by: Jose Maria Epstein DO Signed by: Jose Maria Epstein DO 07/21/22 Final result Normal [facility] Comp Metabolic Profon 2022 Albumin [Mass/Vol] 4.9 g/dL Normal 3.5-5.2 [facility] Comment on above: Performed By: #### I SHASHA CERON, RADHA, CP #### [facility] [address] [place] [address] Family Health Nurse Practitioner: Prasad Matute MD Albumin/Glob Ratio 1.5 Normal 1.0-2.5 [facility] Comment on above: Performed By: #### I SHASHA CERON, RADHA, CP #### [facility] [address] [place] [address] Family Health Nurse Practitioner: Prasad Matute MD Alkaline Phos 89 U/L Normal 35-104 [facility] Comment on above: Performed By: #### I PF, LIP, CDP, CP #### [facility] [address] [place], [place] [phone] Family Health Nurse Practitioner: Prasad Matute MD ALT [Catalytic activity/Vol] 46 U/L High 5-33 [facility] Comment on above: Performed By: #### I PF, LIP, CDP, CP #### [facility] [address] [place], [place] [id number] Family Health Nurse Practitioner: Prasad Matute MD Anion gap [Moles/Vol] 11 mmol/L Normal 9-17 [facility] Comment on above: Performed By: #### I PF, LIP, CDP, CP #### [address] [place], [place] [id number] Family Health Nurse Practitioner: Prasad Matute MD AST [Catalytic activity/Vol] 20 U/L Normal <32 [facility] Comment on above: Performed By: #### I PF, LIP, CDP, CP #### [facility] [address] [place] [address] Dr. [place], [place] [id number] Family Health Nurse Practitioner: Prasad Matute MD Bilirubin [Mass/Vol] 1.7 mg/dL High 0.3-1.2 [facility] Comment on above: Performed By: #### I PF, LIP, CDP, CP #### [address] [place], [place] [id number] Family Health Nurse Practitioner: Prasad Matute MD BUN/CRE Ratio 24 High 9-20 [facility] Comment on above: Performed By: #### I PF, LIP, CDP, CP #### [facility] [address] [place], [place] [id number] Family Health Nurse Practitioner: Prasad Matute MD Calcium [Mass/Vol] 10.1 mg/dL Normal 8.6-10.4 [facility] Comment on above: Performed By: #### I PF, LIP, CDP, CP #### [facility] [address] [place], [place] [id number] Family Health Nurse Practitioner: Prasad Matute MD Chloride [Moles/Vol] 103 mmol/L Normal 98-107 [facility] Comment on above: Performed By: #### I PF, LIP, CDP, CP #### [facility] [address] [place], [place] [phone] Family Health Nurse Practitioner: Prasad Matute MD CO2 [Moles/Vol] 23 mmol/L Normal 20-31 [facility] Comment on above: Performed By: #### I PF, LIP, CDP, CP #### [facility] [address] [place], [place] [address] Family Health Nurse Practitioner: Prasad Matute MD Creatinine [Mass/Vol] 0.70 mg/dL Normal 0.50-0.90 [facility] Comment on above: Performed By: #### I PF, LIP, CDP, CP #### [address] [place], [facility] Family Health Nurse Practitioner: Prasad Matute MD GFR/1.73 sq M.predicted among non-blacks MDRD (S/P/Bld) [Vol rate/Area] mL/min/{1.73_m2} Normal >60 [facility] Comment on above: Result Comment: Effective Apr 01, 2022 These results are not intended for use in patients <18 years of age. eGFR results are calculated without a race factor using the 2020 CKD-EPI equation. Careful clinical correlation is recommended, particularly when comparing to results calculated using previous equations. The CKD-EPI equation is less accurate in patients with extremes of muscle mass, extra-renal metabolism of creatine, excessive creatine ingestion, or following therapy that affects renal tubular secretion. Performed By: #### I PF, LIP, CDP, CP #### [facility] [address] [place] [address] Family Health Nurse Practitioner: Prasad Matute MD Glucose [Mass/Vol] 117 mg/dL High 70-99 [facility] Comment on above: Performed By: #### I PF, LIP, CDP, CP #### [facility] [address] [place], [place] [phone] Family Health Nurse Practitioner: Prasad Matute MD Potassium [Moles/Vol] 4.2 mmol/L Normal 3.7-5.3 [facility] Comment on above: Performed By: #### I PF, LIP, CDP, CP #### [facility] [address] [place], [place] [id number] Family Health Nurse Practitioner: Prasad Matute MD Protein [Mass/Vol] 8.1 g/dL Normal 6.4-8.3 [facility] Comment on above: Performed By: #### I PF, LIP, CDP, CP #### [facility] [address] [place] [address] Dr. [place], [place] [id number] Family Health Nurse Practitioner: Prasad Matute MD Sodium [Moles/Vol] 137 mmol/L Normal 135-144 [facility] Comment on above: Performed By: #### I PF, LIP, CDP, CP #### [facility] [address] [place] [address] Dr. [place], [place] [id number] Family Health Nurse Practitioner: Prasad Matute MD Urea nitrogen [Mass/Vol] 17 mg/dL Normal 6-20 [facility] Comment on above: Performed By: #### I PF, LIP, CDP, CP #### [address] [place] [address] Family Health Nurse Practitioner: Prasad Matute MD HCG, ,Urineon 07-21 Beta HCG ( test) Ql (U) Negative Normal NEG [facility] Comment on above: Result Comment: Spec imens with hCG levels near the threshold of the test (25 mIU/mL) may give a negative or indeterminate result. In such cases, another test should be performed with a new specimen in 48-72 hours. If early is suspected clinically in this setting, correlation with quantitative serum b-hCG level is suggested. [facility] the use of plasma for this test. This has not been cleared or approved by the U.S. Food and Drug Administration. The FDA has determined that such clearance is not necessary. Performed By: #### U HCG, UA, UMICAO #### [facility] [address] [place] [address] Family Health Nurse Practitioner: Prasad Matute MD Lactic Acidon 07-21-2022 Lactate [Moles/Vol] 1.6 mmol/L Normal 0.5-2.2 [facility] Comment on above: Performed By: #### L ACTIC #### [facility] [address] [place], [place] [id number] Family Health Nurse Practitioner: Prasad Matute MD Lipaseon 9 Lipase [Catalytic activity/Vol] 18 U/L Normal 13-60 [facility] Comment on above: Performed By: #### I PF, LIP, CDP, CP #### [address] [place], [place] [id number] Family Health Nurse Practitioner: Prasad Matute MD PLT, Immature Fract.on 07-21 Platelet, Fluoresc. 237 k/uL Normal 138-453 [facility] Comment on above: Performed By: #### I PF, LIP, CDP, CP #### [address] [place], [place] [id number] Family Health Nurse Practitioner: Prasad Matute MD PLT, Immature Fract. 14.9 % High 1.1-10.3 [facility] Comment on above: Performed By: #### I PF, LIP, CDP, CP #### [facility] [address] [place], [place] [id number] Family Health Nurse Practitioner: Prasad Matute MD Urinalysis, Routineon 2022 Bilirubin, SemiQt,Ur SMALL Abnormal NEG [facility] Comment on above: Performed By: #### U HCG, UA, UMICAO #### [facility] [address] [place] [address] Family Health Nurse Practitioner: Prasad Matute MD Blood, Urine Negative Normal NEG [facility] Comment on above: Performed By: #### U HCG, UA, UMICAO #### [facility] [address] [place], [place] [id number] Family Health Nurse Practitioner: Prasad Matute MD Clarity (U) SLIGHTLY CLOUDY Abnormal CLEAR [facility] Comment on above: Performed By: #### U HCG, UA, UMICAO #### [facility] [address] [place], [place] [id number] Family Health Nurse Practitioner: Prasad Matute MD Color (U) Yellow Normal YEL [facility] Comment on above: Performed By: #### U HCG, UA, UMICAO #### [address] [place], [place] [id number] Family Health Nurse Practitioner: Prasad Matute MD Glucose Ql (U) Negative Normal NEG [facility] Comment on above: Performed By: #### U HCG, UA, UMICAO #### [address] [place], [place] [id number] Family Health Nurse Practitioner: Prasad Matute MD Ketones Ql (U) Negative Normal NEG [facility] Comment on above: Performed By: #### U HCG, UA, UMICAO #### [address] [place] [address] Family Health Nurse Practitioner: Prasad Matute MD Leukocyte esterase Test strip Ql (U) Negative Normal NEG [facility] Comment on above: Performed By: #### U HCG, UA, UMICAO #### [facility] [address] [place], [place] [id number] Family Health Nurse Practitioner: Prasad Matute MD Nitrite,Ur Negative Normal [facility] Comment on above: Performed By: #### U HCG, UA, UMICAO #### [facility] [address] [place], [place] [id number] Family Health Nurse Practitioner: Prasad Matute MD PH,Ur 5.5 Normal 5.0-9.0 [facility] Comment on above: Performed By: #### U HCG, UA, UMICAO #### [facility] [address] [place], [place] [id number] Family Health Nurse Practitioner: Prasad Matute MD Protein Ql (U) TRACE Abnormal NEG [facility] Comment on above: Performed By: #### U HCG, UA, UMICAO #### [facility] [address] [place], [place] [address] Family Health Nurse Practitioner: Prasad Matute MD Spec. [place],Ur >1.030 High 1.010-1.020 [facility] Comment on above: Performed By: #### U HCG, UA, UMICAO #### [address] [place] [id number] Family Health Nurse Practitioner: Prasad Matute MD Urobilinogen,Ur Normal Normal NORM [facility] Comment on above: Performed By: #### U HCG, UA, UMICAO #### [address] [place], [facility] Family Health Nurse Practitioner: Prasad Matute MD Urinalysis,Microon 3 Bacteria 4+ Abnormal NONE [facility] Comment on above: Performed By: #### U HCG, UA, UMICAO #### [facility] [address] [place] [address] Dr. [place], [place] [address] Family Health Nurse Practitioner: Prasad Matute MD Epithelial cells LM Ql (Urine sed) 20 TO 50 Normal 0-25 [facility] Comment on above: Performed By: #### U HCG, UA, UMICAO #### [facility] [address] [place] [address] Family Health Nurse Practitioner: Prasad Matute MD Mucus Strands 2+ Abnormal [facility] Comment on above: Performed By: #### U HCG, UA, UMICAO #### [facility] [address] [place] [address] Family Health Nurse Practitioner: Prasad Matute MD Urine RBC's None Normal 0-2 [facility] Comment on above: Performed By: #### U HCG, UA, UMICAO #### [facility] [address] [place] [address] Family Health Nurse Practitioner: Prasad Matute MD Urine WBC's 0 TO 2 Normal 0-5 [facility] Comment on above: Performed By: #### U HCG, UA, UMICAO #### [facility] [address] [place] [address] Family Health Nurse Practitioner: Prasad Matute MD POINT OF CARE GLUCOSEon 06-30 Glucose [Mass/Vol] 91 mg/dL Normal 74-106 [facility] Comment on above: Performed By: #### P OCGLUC #### [facility] [address] [place], [place] [address] TSPINE WO CONon 3 CT TSPINE WO CON EXAMINATION: CT TSPINE WO CON, CT LSPINE WO CON HISTORY: DORSALGIA, UNSPECIFIED mid back pain. COMPARISON: Chest x-ray 06/11/2022 TECHNIQUE: CT examination of the thoracic spine without IV contrast. Coronal and sagittal reformations were performed. CT lumbar spine with IV contrast. Multiple axial views coronal sagittal reformats. Dose reduction techniques were achieved by using automated exposure control and/or adjustment of mA and/or kV according to patient size and/or use of iterative reconstruction technique. FINDINGS: Thoracic: No vertebral body height loss, acute fracture line, traumatic subluxation, focal osseous erosion, or aggressive lytic destructive lesion. Unremarkable thoracic alignment. Intervertebral disc space height is preserved. No severe bony canal narrowing. Lumbar: No vertebral body height loss, acute fracture line, traumatic subluxation, focal osseous erosion, or aggressive lytic destructive lesion. Unremarkable lumbar alignment. Minimal intervertebral disc space height loss at L5-S1. Mild broad-based annular disc bulge at L4-L5 without severe bony spinal canal narrowing. IMPRESSION: No CT evidence for acute thoracic or lumbar osseous injury. The thoracic and lumbar spine is normal in alignment. Mild broad-based disc bulge at L4-L5 without severe bony spinal canal or bony foraminal narrowing. If there is persistent clinical concern for any neurological symptoms, MRI can better evaluate for any cord inflammation or myelitis as clinically indicated. Electronically authenticated by: FLORECITA FROST Date: 2022-07-17 21:43 Normal [facility] ER URINE PROFILEon 3 Bilirubin Ql (U) Negative Normal NEGATIVE [facility] Comment on above: Performed By: #### P REGU, ERUR #### [facility] [address] [place] [address] [address] Melchor Guillermo Clarity (U) CLEAR Normal CLEAR [facility] Comment on above: Performed By: #### P REGU, ERUR #### [facility] [address] [place] [address] Dr. Melchor Guillermo Color (U) YELLOW Normal YELLOW [facility] Comment on above: Performed By: #### P REGU, ERUR #### [facility] [address] [place] [address] Dr. Melchor HALLAHD A micrscopic examination will be performed if indicated. Normal [facility] Comment on above: Performed By: #### P REGU, ERUR #### [facility] [address] [place] [address] [address] Melchor Guillermo Glucose Ql (U) Negative Normal NEGATIVE [facility] Comment on above: Performed By: #### P REGU, ERUR #### [facility] [address] [place] [address] [address] Melchor Guillermo Hemoglobin Ql (U) Negative Normal NEGATIVE The [facility] Comment on above: Performed By: #### P REGU, ERUR #### [facility] [address] [place] [address] [address] Melchor Guillermo Ketones Ql (U) Negative Normal NEGATIVE [facility] Comment on above: Performed By: #### P REGU, ERUR #### [facility] [address] [place] [address] Dr. Melchor Guillermo LEUKOCYTES Negative Normal NEGATIVE [facility] Comment on above: Performed By: #### P REGU, ERUR #### [facility] [address] [place] [address] Dr. Melchor Guillermo Nitrite Ql (U) Negative Normal NEGATIVE [facility] Comment on above: Performed By: #### P RMU, ERUR #### [facility] [address] [place] [address] Dr. Melchor Guillermo pH (U) 5.5 [pH] Normal 5-9 [facility] Comment on above: Performed By: #### P RMU, ERUR #### [facility] [address] [place] [address] Dr. Melchor Guillermo SPEC GRAVITY 1.025 Normal 1.005-<=1.02 5 [facility] Comment on above: Performed By: #### P RMU, ERUR #### [facility] [address] [place] [address] Dr. Melchor Guillermo UA PROTEIN Negative Normal NEGATIVE/ TRACE [facility] Comment on above: Performed By: #### P ELMA, ERUR #### [facility] [address] [place] [address] Dr. Melchor Guillermo UR MICRO IND NOT INDICATED Normal [facility] Comment on above: Performed By: #### P ELMA, ERUR #### [facility] [address] [place] [address] Dr. Melchor Guillermo Urobilinogen Qn (U) 0.2 {Onur'U}/dL Normal 0.2 - 1. 0 [facility] Comment on above: Performed By: #### P RMU, ERUR #### [facility] [address] [place] [address] Dr. Melchor Guillermo URon 07-17-2022 , QUAL Negative Normal NEGATIVE [facility] Comment on above: Performed By: #### C VDTBH #### [facility] [address] [place] [address] Dr. Melchor Guillermo Coding Summary.on 06-17-2022 Coding Summary. CD:[id number] G h0bWw+PGhlYWQ+MJ6DJKA eH93zzMOkrT9LT3gMJK3W ZKKGELXKMR4HJI5nhXM4O YzoQ2GejoSh WprtkBYzKD29NPo9FHR4y XfxIGjpsB9flDMdA7o3Mw NfRT76rI01PHswIXKoTrM 3LjZpbjsgbWFy B1qaSqLesRWtHng+PHRhY mxlIHdpZHRoPScxMDAlJy JmxCkoZD5eRd6nPWLwJHN vbGxhcHNlOiBj o4faDIUzYArzDG9voKeyM 4TfuKP6ANVtk2n3Py33mU I+IJKzOEX5dMnwHYgdk08 1EnNeb0ikXBU7 yXEzZRlgZRL6F32yj2Z9E SNjSETpEEK7mCE1lV1rxY nlffrxS5CcqUJbPaL7LNJ 1hBHokR5hrCbr dumriE9gWou+B20EHZ8WH NEKPM2IQkn4L5GnUurpsG I+UV06NIKiIT10tWEmnQH mu9ukiOw4JjKc GVBiMEO8qXafNLxuk9ZvU BAdU41njRXhk9F9YUVhhU jlhBNhScUvsKB2hL9dUWb vlqcbk4xgatfq Hcicr2edts70eZ27A42rN CnzDLVjPYV7VGXoRDOmhL lwpw3fvA0tJl4+DNycf7g mz9uiwLj2DgQs PRMcjiLmcXruNCK6k7GfI g16N7ZhsVblg8EaFju6ov 85uBZjc9I5lHR6HSvpRCU luO0qYKvyAzJ8 UKWlVjXwuT88kXWtSSttD v8cuSkhmGonLF5nJSXfts qkHREocQ1dAQDreZYlcNw vGT2nEMKpmjjc v781PyMzOLT6RCAtjBQiN 0QmhE7uVtAeOVJuCLZlD4 LcdFVgKJqrL923ACtvBgA 0EZBokuEyS4Yy MPCmlReiEaW2z0Y5Zs3Gs 4HygejqDGS6DXwmSJPpIy V3CiIeTcX5W3YiGyv0ABW xyZetCN0gN3Ii VONypjnomqwdlZN5BDOaF CAliB95uLQjWFjqKc9iu4 T8m340FBEzKUGauH84Yg9 udDogMTBwdCBU jQ1dkpgoe3mdxaoiAgMoG LLaQRb5GNg2HRWizWmqWd LaLTL8ZhJ0BDK9gSKxyD7 ctHdyhhomqR5u Oyc+P67dcP1hPPE5TXJ4n zacLDKquzUrDT45YW85X2 RyPjwvdGFibGU+PGRpdiB lvAtqLX1iAzSh f8omt6XiSPjkG0MjDMOfE MboQcp4ZHYmMAC9pEU6xK 9cBHDtRYsmw1Q6hQA7Z3A mruZlxs0ha6hm MXSbPYwzM24fdYYmd5J8Q GWebDO9VICttIjaTySfyM 93Oyc+MLZklNdjo1RfKvc tg0gzo0sfyJm1 XwYiNUFjddTxqXbyFVD5m 2AaBt49J43nNUciSPDaOV VuHAIkMEEykMysuo2hbF1 wIi8+PGNvbCB3 mZL4lJ9qFTToHdL6RLinZ 149AmKdpNJvGtspx2nsj6 krjIy5EpXhZENhzhMytSc aOFE7b2UzSc44 W72xTIntXQYqGMXtHQSgT JJmeEywnl5vyA0tNg1+PC 5ue3rtgi91vT71iFY+PHR jICJ3sHuoYPgr GTSvaS0yALozKjZ2BCLiU bMxkZ18iORlINhnMr6gnH augPayIK8mGNDbbeegu59 6HrBbd1gfCVYr yZGzSTpgPRH3R52cv3E1G FWeVWDaFSR4bXI3cB1nbT lnbjogbGVmdDsgdmVydGl aBEwqJUoiL809 IHRvcDsnPlBhdGllbnQgT kTbTOm5Q9KgBcq6WXVmhY bePC4vaTXbOJbgXr6vqIv fyMgwYE4aJFXd iryhp757MrJxo4xrQDTrb NLrRMipZPK7E44nk4E4QQ TxIPVpJPM6jLO9hX6nhYq nbjogbGVmdDsg zaCrvGgxNHauIDliX327A HRvcDsnPkJpcnRoIERhdG B6HE73QQ10oHFjk8G9vJK 5M7FlMPCsbngh mmytwMB7DDWvVABisA73U f4jbIbyJi4tYXKxRUT8AR SqlEBeO6PnzM9jEhVxNAN nWFTpI6JjgUSw SZmgZ444ZLwqLdA3HDMla fLwW4ViYYWtvNxoApL7j8 N1Ev6BG8X9AI71SX66iWJ lv8C6mCR8A9Ri MDFvdmqhprlviLZ3IPFeO PYudP13Qr8moIvzZf7tVY HjEHM4ICBqfBInD1FfmG7 yOiAjMDAwMDAw Q4ZscIErXKwuG763UMkpZ qK3CCZxvcQmO8ZxTEXhaH drGsP8f0I6Sx5IRSf6DI5 1FB75nFWxh8B9 aHV9G1DiYWCfsbzwvkydy PA2SFKxMGFuwS89Yz1jvH tzTz9zSRXmKLN2KPIjgVJ jR6SocU5cRoXx ZDTgBBHfE0DdgWStZXodA 966MJxjPzG7HWGdjoPbN1 BnKUNupIflOyD4l6G3Qu0 OXEFtQS50MWX7 nIS4MC59NV65E2BlMoykd GFibGU+PHRhYmxlIHdpZH RoPScxMDAlJyBzdHlsZT0 uGo7mLWNpVAYu zAgraENyNoVtj7sfCDWtW OhsON0xmJlxM2NdcKB2NO Zgc2z1Kc53L14bN9GcbME +SATbrUZ5hXI4 oU9tOcVzYzW3TTuzG244W sMviVFoHuzej4whs8zogI w5ExE0YAZrckYvkKyvBWH 1h9RlUt92G64g IHdpZHRoPSIxNSUiIHZhb Bjynn4shC2jNx4+PGNvbC V1aAH2uC6gIwZnPhZ2UEq oQ391SpCccXYb Myror0bny2pxuAp2KtPnE PBnmcDbjIoqXAS0i6AgFc 60N7HqpOguy9DgVuk2fu9 8dIRxa4O5qDV6 X8TwYVMahirjcVOqgQnpG I4lVHYllfweJWVaeO2kHT XlN2d7RdNdVnO8EOdkA5Q uspL9ETQebMCt IGhbSVQ7Q95xh7U2TYDkK PXmOLN1lVZ6sF2rnXssxm ogbGVmdDsgdmVydGljYWw cPKsgB389NZFi rPzaRMMfpV9aVJIfnUWjf WjiEL1lBJQkjdvhAaXUDV YMHUkOUhwmA0OYFuR6G7X kXhc5KRYtvZwj WR0lxIPdJDfsRn9qcAvtk JfeTB3hHRLjuptqUBWvqY 0lFLHbcWZnuEbhLA8xNAT jrroig740AbHq NOZ6AYNqbXSqF7RgsI6bU wHyJJBrGCVpW3DjzRWyXQ hrK174FTmnSyK9RYFjrnU nL3LrSAFljPna YcM8w2T1Ls9gUr4tUP4vO Bk5IA98XD93lQRll7P8rG W2M8BcBNRutemeqowqzPS 5ITEjYKGaqH97 jUGzCZdrWb2ir0B3i419R DAwWQRumD98Sb4pnPlgNP DolPLJyM9enbetf1flgmx gIzAwMDAwMDt0 QRw3JIAavNjvAmVcETZ2K dP1NCZ0fLVuxY4alKqmqb enmW7wAas+MjQgWWVhcnM 8H3CjMnc6SHQc iWklNU9miWVxWJpiMa0ei OwxvIgcGI5wYYOihaouRB TgmW1gSQOgaSLufFwlUZ8 pWJGgkxqfl924 VbNuCQH1WAIzcRWhV9Kbj Y7uGyQdXZUbLQSqF4TomE VqFIrxH994PLtgEuI6FMI tkgNrG9FkGHFa vFnbCbK0p3Y4Ji6YZB4ty ZB7S3ZfYut8SWZxwQrtOP 4zaXXkUMtqNh6zhIyovZd jHD7bVTXkpwwq SCZshT7cGDEgnFDmhZywB O8pCBNhufsbi146XnGiPQ A7LOMlrJGaL9CngJ7rYaD iVVGmBGBnN0Xe aRQjRFtnS245YHorHzH7R HVqikYrO0FhUBJsbQsgQm W0y4O0Wj2PmYXoS6DtX4x 2E8MiGqugaHI+ WB08TZPuQW41hIYrdCJid 3fijEa2UpElDDGvOQX9oF wjHKzeo8VmMWUsH61dtPK fj1L8RVYkuEdb fXAfRdArwND4qK7zLGlaw broc1wdixsnMmqgs4cbdu 11nF92W81wASfrHJXpPDB zMCUiIHZhbGln ma6jwH2vFv7+ZUQyzPQ7q ZI8mQ3cSeUnIxP3VMhyA6 23DbIhmYNgHwqtf8qoz5q sgWu9JjQlFEJe oaPdgMutNGT6n3IkBe25B 29sIHdpZHRoPSIyMCUiIH TlmErwfk1vsV8tKn3+PC9 ny0kljm65iX50 dHI+YMUwFGO2lLufNFigM KQocM9kQKnkNhS6SBKiSx KimY13hTWsZJnmEx8vgDa bdYytJK2rFKEs klxay178HiMrq0frVAKnq AHhTCvgHSK0R85kd5H9CJ WiDQIrTGW2fLC7mA6itCi nbjogbGVmdDsg kjPpnGcdPClbZCblK825Q YNatYwvElNxaNIwS3iwan BZAB3wHzsunQN+PHRkIHN 0eWxlPSdwYWRk xT4jQJKkF3e4RuVaNaB7Q LklN2RgcaQ0KENviJXpCV CmkESTaV3kvjmhh0lgnzz gIzAwMDAwMDt0 PNi1TDZqzLcmQjOvAPI2V eA4CDI9aBXslR9bjOimnp jfeY4lZdv+RklOOjwvdGQ +TLMoNIH3hAsv QTgaWNBbwK8xNHTiY9t7J iCzKvR0YMgwF2QjuvE9ND WxiCZiZWShyWGVhL2ilks ou8nolskzKePm MHVmJKw2MOu8THMnfEcuB xKoSES6EuE5IWE9jOZrkI 9ysIbybgaqiK0sKfu+TVJ OOjwvdGQ+PHRk AIB0kHyoBJpiGHYjmM6rW HOuH7r1TuRaShC4PZbmL6 GgtyO8SZSfeQPoHOUloDS HoD7ddwdqg7fk qcjvKdEhSDMtLCu0XTn3H GAhtHrmHeJuIKX0GwO3OH N5mQTaxQ6jcIfkwrsgjH6 wOyc+XXZ5PKO6 GC24QG09D2GmUhmvlEQuo +PHRhYmxlIHdpZHRoPS ldCVYgSsHrwAqpDQ4eBt4 yZGVyLWNvbGxh cHNl (more content not included)... Normal [facility] Consent for Treatmenton 05-30 Consent for Treatment [id number] .00CD:127 Normal [facility] Discharge Instructionson Discharge Instructions [id number]# 1.00CD:127 Normal [facility] ED Clinical Summaryon 2021 ED Clinical Summary [place] [id number] ED Clinical Summary Person Information [facility]: [facility] 26 [facility] : 1995 Sex: Female Language: Mongolian PCP: Florecita Haynes DO Marital Status: Visit Id: Visit Reason: Throat pain - Adult; Cough; SORE THROAT Speciality: Acuity: 4 Enc Type: Emergency Med Service: Emergency Arrival: 06/14/2022 08:41:22 Discharge: 06/14/2022 09:40:19 LOS: 000 00:59 Checkin: 06/14/2022 08:41:22 Checkout: 06/14/2022 09:40:19 Dispo Type: Home (Routine DC) EVENTS: Event Name Event Status Request Date/Time Start Date/Time Complete Date/Time Arrive Complete 06/14/2022 08:41:22 06/14/2022 08:41:22 06/14/2022 08:41:22 Document Home Meds Request 06/14/2022 08:41:22 Triage Complete 06/14/2022 08:41:22 06/14/2022 08:50:17 06/14/2022 08:50:17 Bed Assign Complete 06/14/2022 08:43:49 06/14/2022 08:43:49 06/14/2022 08:43:49 Dr Exam Complete 06/14/2022 08:43:49 06/14/2022 08:44:03 06/14/2022 08:44:03 RN Exam Complete 06/14/2022 08:43:49 06/14/2022 08:59:40 06/14/2022 08:59:40 Registration Complete 06/14/2022 08:44:03 06/14/2022 09:15:54 06/14/2022 09:15:54 Dr Exam Complete 06/14/2022 08:44:29 06/14/2022 08:44:29 06/14/2022 08:44:29 Isolation Screening Request 06/14/2022 08:50:18 Pending Labs Complete 06/14/2022 08:59:29 06/14/2022 09:13:29 Meds Admin Complete 06/14/2022 08:59:29 06/14/2022 09:05:55 Pending Labs Inlab 06/14/2022 09:13:30 06/14/2022 09:13:30 Reg Complete Request 06/14/2022 09:15:54 Reg Bed Request Complete 06/14/2022 09:15:54 06/14/2022 09:15:54 06/14/2022 09:15:54 Discharge Complete 06/14/2022 09:34:06 06/14/2022 09:40:23 06/14/2022 09:40:23 Transfer Complete 06/14/2022 09:40:23 06/14/2022 09:40:23 06/14/2022 09:40:23 ADDRESS: [address] [place] [id number] [facility] DOC NOTES: MEDICAL INFORMATION: Prescriptions Given: New Medications [id number], [address] [place], [place] [id number], [phone] brompheniramine/dextr omethorphan/PSE (Bromfed DM oral syrup) 10 Milliliter By Mouth 4 times a day as needed for cough and congestion for 7 Days. Refills: 0. PATIENT EDUCATION INFORMATION: Instructions: Pharyngitis; Upper Respiratory Infection, Adult Follow up: With: Address: When: [address], [place] [place] [address] In 3 days 06/17/2022 DIAGNOSIS: Pharyngitis; Upper respiratory infection Normal [facility] ED Note-Physicianon 06-14-20 ED Note-Physician Basic Information Time Seen: Ronny BOOTHE Augie 06/14/2022 08:44 Chief Complaint Cough, sore throat and congestion since friday. History of Present Illness 26-year-old female comes to the ED for evaluation of a sore throat. She has had upper respiratory infection symptoms for the last few days, and this morning awoke with a sore throat. No difficulty with speaking or swallowing. No chest pain or shortness of breath. No fever, chills, nausea or vomiting. No concern for . Review of Systems A 10 point review of systems is negative except as noted above. Medical and Surgical History: Reviewed and noted Social history: Lives at home Tobacco: Vapes Physical Exam Vitals & Measurements T: 36.8 ?C(Oral) HR: 103(Peripheral) RR: 20 BP: 126/79 SpO2: 98% HT: 165 cm WT: 105 kg BMI: 38.57 Nurses notes and vital signs reviewed and patient is not hypoxic. General: Well-appearing, does not appear ill Skin: Warm, dry. Head: Atraumatic. Neck: No JVD. Eye: Normal conjunctiva. Ears, Nose, Mouth, and Throat: Sinus congestion. Small bilateral TM effusions. No TM erythema. Mild pharyngeal erythema without tonsillar perjury exudates. Uvula is midline. No stridor, trismus drooling. No lymphadenopathy. Cardiovascular: Strong peripheral pulses Chest wall: Respiratory: Respirations are nonlabored. Back: Normal range of motion. Musculoskeletal: Normal ROM with no gross deformity. Gastrointestinal: Urological: Neurological: Awake and alert. No focal deficits. Follows commands. Psychiatric: Cooperative. Medical Decision Making Rapid strep is negative. No airway involvement. No abscess formation. Nontoxic on exam. She is treated dexamethasone here and discharged home Bromfed-DM. Patient was encouraged to return to the ED if symptoms worsen or change. Assessment/Plan Pharyngitis (J02.9: Acute pharyngitis, unspecified) Upper respiratory infection (J06.9: Acute upper respiratory infection, unspecified) Orders: brompheniramine/dextr omethorphan/PSE, 10 mL, Oral, QID for cough and congestion for 7 day(s), 280 mL, Refill(s) 0, [id number], 165, cm, 06/14/22 8:50:00 EST, Height/Length Dosing, 105, kg, 06/14/22 8:50:00 EST, Weight Dosing dexamethasone, 10 mg = 2.5 mL, Injection, Oral, Once, Stop date 06/14/22 8:59:00 EST, STAT, Start date 06/14/22 8:59:00 EST, 06/14/22 8:59:00 EST Group A Strep by PCR Rapid Strep w/rfx Disposition Plan Patient Discharge Condition Disposition: Discharged home Condition: Improved and stable Counseled: Patient and/or family were counseled to workup, results, treatment plan and follow-up recommendations Discharge Prescription List Prescriptions Bromfed DM oral syrup, 10 mL, Oral, QID, PRN Follow-up With When Contact Information Florecita Dallas In 3 days 06/17/2022 EST [address] [facility] [place] [address]- Additional Instructions: Patient Education Pharyngitis Upper Respiratory Infection, Adult Attestation Patient seen and evaluated by the physician assistant professor of psychology. Attending physician was present in the emergency department and supervised care. This visit was performed by both the physician and an APC. I performed all aspects of the MDM as documented. This report was transcribed using voice recognition software. Every effort was made to ensure accuracy, however, inadvertently computerized hand lens polisher mistakes may be present. Appropriate healthcare PPE was used in evaluating this patient. The patient was placed in a mask. The healthcare provider was wearing mask, gloves, and utilizing proper hand hygiene. All equipment was properly cleansed. Problem List/Past Medical History Ongoing No qualifying data Historical No qualifying data Medications Inpatient dexamethasone 4 mg/mL Inj 1 mL, 10 mg= 2.5 mL, Oral, Once Home No active home medications Allergies Percocet (Hives) Social History Alcohol - Denies Alcohol Use, 06/14/2022 Substance Abuse - Denies Substance Abuse, 06/14/2022 Tobacco Current vaping or e-cigarette use Smokeless Tobacco Use:., 06/14/2022 Lab Results Rapid Strep: NEGATIVE1 (06/14/22 09:00:00) Diagnostic Results No qualifying data available. Normal [facility] Comment on above: Result Comment: Elec tronically Signed By: Augie Jefferson PA-C\.br\Date and Time Signed: 06/14/22 09:34 EST\.br\Electronically Co-Signed By: Juarez Wang DO\.br\Date and Time Co-Signed: 06/14/22 18:34 EST ED Patient Education Noteon 06-14-2022 ED Patient Education Note Infectious Disease Pharyngitis Pharyngitis is redness, pain, and swelling (inflammation) of the throat (pharynx). It is a very common cause of sore throat. Pharyngitis can be caused by a bacteria, but it is usually caused by a virus. Most cases of pharyngitis get better on their own without treatment. What are the causes? This condition may be caused by: ? Infection by viruses (viral). Viral pharyngitis spreads from person to person (is contagious) through coughing, sneezing, and sharing of personal items or utensils such as cups, forks, spoons, and toothbrushes. ? Infection by bacteria (bacterial). Bacterial pharyngitis may be spread by touching the nose or face after coming in contact with the bacteria, or through more intimate contact, such as kissing. ? Allergies. Allergies can cause buildup of mucus in the throat (post-nasal drip), leading to inflammation and irritation. Allergies can also cause blocked nasal passages, forcing breathing through the mouth, which dries and irritates the throat. What increases the risk? You are more likely to develop this condition if: ? You are 5?24 years old. ? You are exposed to crowded environments such as daycare, school, or dormitory living. ? You live in a cold climate. ? You have a weakened disease-fighting (immune) system. What are the signs or symptoms? Symptoms of this condition vary by the cause (viral, bacterial, or allergies) and can include: ? Sore throat. ? Fatigue. ? Low-grade fever. ? Headache. ? Joint pain and muscle aches. ? Skin rashes. ? Swollen glands in the throat (lymph nodes). ? Plaque-like film on the throat or tonsils. This is often a symptom of bacterial pharyngitis. ? Vomiting. ? Stuffy nose (nasal congestion). ? Cough. ? Red, itchy eyes (conjunctivitis). ? Loss of appetite. How is this diagnosed? This condition is often diagnosed based on your medical history and a physical exam. Your health care provider will ask you questions about your illness and your symptoms. A swab of your throat may be done to check for bacteria (rapid strep test). Other lab tests may also be done, depending on the suspected cause, but these are rare. How is this treated? This condition usually gets better in 3?4 days without medicine. Bacterial pharyngitis may be treated with antibiotic medicines. Follow these instructions at home: ? Take swmk-yva-qlerwcg and prescription medicines only as told by your health care provider. ? If you were prescribed an antibiotic medicine, take it as told by your health care provider. Do not stop taking the antibiotic even if you start to feel better. ? Do not give children aspirin because of the association with Nupur syndrome. ? Drink enough water and fluids to keep your urine clear or pale yellow. ? Get a lot of rest. ? Gargle with a salt-water mixture 3?4 times a day or as needed. To make a salt-water mixture, completely dissolve ?-1 tsp of salt in 1 cup of warm water. ? If your health care provider approves, you may use throat lozenges or sprays to soothe your throat. Contact a health care provider if: ? You have large, tender lumps in your neck. ? You have a rash. ? You cough up green, yellow-brown, or bloody spit. Get help right away if: ? Your neck becomes stiff. ? You drool or are unable to swallow liquids. ? You cannot drink or take medicines without vomiting. ? You have severe pain that does not go away, even after you take medicine. ? You have trouble breathing, and it is not caused by a stuffy nose. ? You have new pain and swelling in your joints such as the knees, ankles, wrists, or elbows. Summary ? Pharyngitis is redness, pain, and swelling (inflammation) of the throat (pharynx). ? While pharyngitis can be caused by a bacteria, the most common causes are viral. ? Most cases of pharyngitis get better on their own without treatment. ? Bacterial pharyngitis is treated with antibiotic medicines. This information is not intended to replace advice given to you by your health care provider. Make sure you discuss any questions you have with your health care provider. Document Released: 06/16/2006 Document Revised: 05/29/2018 Document Reviewed: 07/22/2017 Elsevier Patient Education ? 2020 [employer] Upper Respiratory Infection, Adult An upper respiratory infection (URI) is a common viral infection of the nose, throat, and upper air passages that lead to the lungs. The most common type of URI is the common cold. URIs usually get better on their own, without medical treatment. What are the causes? A URI is caused by a virus. You may catch a virus by: ? Breathing in droplets from an infected person's cough or sneeze. ? Touching something that has been exposed to the virus (contaminated) and then touching your mouth, nose, or eyes. What increases the risk? You are more likely to get a URI if: ? You are very young or very old. ? It is priti or winter. ? Yo (more content not included)... Normal [facility] ED Patient Summaryon 022 ED Patient Summary [place] [id number] Patient Discharge Instructions Person Information Name: KAREN MACIEL Age: 26 Years Arrival Date: 06/14/2022 08:41:22 Discharge Diagnosis: Pharyngitis; Upper respiratory infection Primary Care Physician: Florecita Haynes DO Provider Information Primary Provider: Juarez Wang DO [employer] Teacher:Augie Jefferson PA-C The exam and treatment you received in the Emergency Department were for an urgent problem and are not intended as complete care. It is important that you follow up with a doctor, nurse practitioner, or physician?s assistant professor of psychology for ongoing care. If your symptoms become worse or you do not improve as expected and you are unable to reach your usual health care provider, you should return to the Emergency Department. We are available 24 hours a day. KAREN MACIEL has been given the following list of patient education materials, prescriptions and follow-up instructions: Follow-up Instructions: With: Address: When: Florecita Haynes [address] [place] [address] [place] [address] In 3 days 06/17/2022 In the event that this physician does not participate in your insurance network, please consult with your insurance company to find a nearby participating provider. Patient Education Materials: Pharyngitis; Upper Respiratory Infection, Adult A MESSAGE TO ALL PATIENTS REGARDING OPIOIDS PRESCRIPTION OPIOIDS: WHAT YOU NEED TO KNOW Prescription opioids can be used to help relieve qqqwhfzk-bu-pqguan pain and are often prescribed following a surgery or injury, or for certain health conditions. These medications can be an important part of the treatment but also come with serious risks. It is important to work with your healthcare provider to make sure you are getting the safest, most effective care. WHAT ARE THE RISKS AND SIDE EFFECTS OF OPIOID USE? Prescription opioids carry serious risks of addiction and overdose, especially with prolonged use. An opioid overdose, often marked by slowed breathing, can cause sudden . The use of prescription opioids can have a number of side effects as well, even when taken as directed: ? Tolerance?meaning you might need to take more of the medication for the same pain relief ? Physical dependence?meaning you have symptoms of withdrawal when a medication is stopped ? Increased sensitivity to pain ? Constipation ? Nausea, vomiting, and dry mouth ? Sleepiness and dizziness ? Confusion ? Depression ? Low levels of testosterone that can result in lower sex drive, energy, and strength ? Itching and sweating RISKS ARE GREATER WITH: ? History of drug misuse, substance use disorder, or overdose ? Mental health conditions (such as depression or anxiety) ? Sleep apnea ? Older age (65 years and older) ? Avoid alcohol while taking prescription opioids. Also, unless specifically advised by your health care provider, medications to avoid include: ? Benzodiazepines (such as Xanax or Valium) ? Muscle relaxants (such as Soma or Flexeril) ? Hypnotics (such as Ambien or Lunesta) ? Other prescription opioids KNOW YOUR OPTIONS Talk to your health care provider about ways to manage your pain that don?t involve prescription opioids. Some of these options may actually work better and have fewer risks and side effects. Options may include: ? Pain relievers such as acetaminophen, ibuprofen, and naproxen ? Some medication that are also used for depression or seizures ? Physical therapy and exercise ? Cognitive behavioral therapy, a psychological, goal-directed approach, in which patients learn how to modify physical, behavioral, and emotional triggers of pain and stress. IF YOU ARE PRESCRIBED OPIOIDS FOR PAIN: ? Never take opioids in greater amounts or more often than prescribed. ? Follow up with your primary health care provider. o Work together to create a plan on how to manage your pain. o Talk about ways to help manage your pain that don?t involve prescription opioids. o Talk about any and all concerns and side effects. ? Help prevent misuse and abuse o Never sell or share prescription opioids. o Never use another person?s prescription opioids. ? Store prescription opioids in a secure place and out of reach of others (this may include visitors, children, friends, and family). ? Safely dispose of unused prescription opioids: Find your community drug take-back program or your pharmacy mail-back program, or flush them down the toilet, following guidance from the Food and Drug Administration (www.fda.gov/Drugs/Re sourcesForYou). ? Visit www.cdc.gov/drugoverd ose to learn about the risks of opioids abuse and overdose. ? If you believe you may be struggling with addiction, tell your health director medicare sales and ask for guidance or call [facility]?S National Helpline at 8-874-239-RJ (more content not included)... Normal [facility] Grp A Strp PCRon 06-14-2022 Group A Strep Negative Normal [facility] Comment on above: Order Comment: Order Added on by Discern Rule. Result Comment: Test ing performed using DNA amplification. Performed By: #### 2 [id number] #### [facility] [address] [id number] Grp A Strp Intrl Ctrl Pass Normal [facility] Comment on above: Order Comment: Order Added on by Discern Rule. Performed By: #### 2 [id number], [id number] #### [facility] [address] [place] [address] MICRO OTHER TESTSOrdered By: Yuriy Valderrama on 06-14-2022 S. pyogenes Ag IA.rapid Ql (Throat) Negative (06/14/22 9:00 AM) Normal Negative [facility] Rapid Strep w/rfxon 06-14-20 S. pyogenes Ag IA.rapid Ql (Throat) Negative Normal Negative [facility] Comment on above: Performed By: #### 2 [id number] #### [facility] [address] [place] [address] [facility] SARS-CoV-2 (COVID-19) RNA CHELE+probe Ql (Unsp spec) Not detected Normal NOT DETECTED [facility] Comment on above: Result Comment: This test is not yet approved or cleared by the [place] FDA. When there are no FDA-approved or cleared tests available, and other criteria are met, FDA can make tests available under an emergency access mechanism called an Emergency Use Authorization (EUA). The EUA for this test is supported by the Sonoscope Operator of Health and Human Service's (HHS's) declaration that circumstances exist to justify the emergency use of in vitro diagnostics for the detection and/or diagnosis of the virus that causes COVID-19. This EUA will remain in effect (meaning this test can be used) for the duration of the COVID-19 declaration justifying emergency of IVDs, unless it is terminated or revoked by FDA (after which the test may no longer be used). When diagnostic testing is negative, the possibility of a false negative should be considered in the context of a patient's recent exposures and the presence of clinical signs and symptoms consistent with SARS-CoV-2. Performed By: #### C VDTBH #### [facility] [address] [place] [address] Dr. Melchor Guillermo INFLUENZA A AND B AGon 06-11 [facility] SEE BELOW Normal [facility] Comment on above: Result Comment: Nega tive for Flu A protein angiten. Infection due to Flu A cannot be ruled out. Flu A angiten in the sample may be below the detection limit of the test. Performed By: #### I NFLUAB #### [facility] [address] [place] [address] Dr. [facility] Normal [facility] Comment on above: Result Comment: Nega tive for Flu B protein antigen. Infection due to Flu B cannot be ruled out. Flu B antigen in the sample may be below the detection limit of the test. Performed By: #### I NFLUAB #### [facility] [address] [address] [address] Melchor Guillermo INFLUENZA A AG Negative Normal NEGATIVE SEE COMMENT [facility] Comment on above: Performed By: #### I NFLUAB #### [facility] [address] [address] [address] Melchor Guillermo INFLUENZA B AG Negative Normal NEGATIVE SEE COMMENT [facility] Comment on above: Performed By: #### I NFLUAB #### [facility] [address] [address] [address] Melchor Guillermo INTERNAL CONTROLS Within Normal Limits Normal Wi thin Normal Limits [facility] Comment on above: Performed By: #### I NFLUAB #### [facility] [address] [address] [address] Melchor Guillermo XR CHEST 1 Von 06-11-2022 XR CHEST 1 V EXAMINATION: XR CHES T 1 V HISTORY: COUGH ; acute cough, chest pain COMPARISON: No relevant comparison available. FINDINGS: LUNGS: No significant pulmonary parenchymal abnormalities. VASCULATURE: No increased pulmonary vasculature. PLEURA: No pneumothorax, effusion, or pleural thickening. CARDIAC: No cardiomegaly or cardiac silhouette abnormality. MEDIASTINUM: No visible mass or adenopathy. BONES: No fracture or visible bone lesion. OTHER: Negative. IMPRESSION: 1. No acute cardiopulmonary process. Electronically authenticated by: VANESSA ALVARADO Date: 2022-06-11 10:04 Normal [facility] No Panel Informationon 11-13 WP No Trichomonas vaginalis present No fungal elements seen. No clue cells present [facility] CHEMISTRYOrdered By: SYSTEM SYSTEM on 11-12-2021 Albumin [Mass/Vol] 4.3 g/dL Normal 3.3 - 5.0 gm/dL [facility] Albumin/Globulin [Mass ratio] 1.4 {ratio} Normal 1.1 - 2.2 [facility] ALP [Catalytic activity/Vol] 71 [iU]/d Normal 21 - 98 Int._Unit/L [facility] ALT No additional P-5'-P [Catalytic activity/Vol] 31 [iU]/d Normal 6 - 46 Int._Unit/L [facility] Anion gap [Moles/Vol] 13 mmol/L Normal 6 - 16 mEq/L F [facility] AST [Catalytic activity/Vol] 22 [iU]/d Normal 5 - 43 Int._Unit/L [facility] Bilirubin [Mass/Vol] 0.7 mg/dL Normal 0.0 - 1 .1 mg/dL [facility] Bilirubin.direct [Mass/Vol] 0.1 mg/dL Normal 0.1 - 0.4 mg/dL [facility] Bilirubin.indirect [Mass or moles/Vol] 0.6 mg/dL Normal 0.1 - 0.9 mg/dL [facility] Calcium [Mass/Vol] 9.2 mg/dL Normal 8.9 - 11. 1 mg/dL [facility] Chloride [Moles/Vol] 104 mmol/L Normal 101 - 1 11 mmol/L [facility] CO2 [Moles/Vol] 24 mmol/L Normal 21 - 31 mmol/L [facility] Creatinine [Mass/Vol] 0.6 mg/dL Normal 0.5 - 1.3 mg/dL [facility] CRP [Mass/Vol] 0.9 mg/dL Normal <=1.9mg/dL FT Remis ol GFR/1.73 sq M.predicted among blacks MDRD (S/P/Bld) [Vol rate/Area] mL/min/1.73 m2 Normal >=59mL/min/1 .73 m2 [facility] Chem S GFR/1.73 sq M.predicted among non-blacks MDRD (S/P/Bld) [Vol rate/Area] mL/min/1.73 m2 Normal >=59mL/min/1 .73 m2 [facility] Chem S Globulin (S) [Mass/Vol] 3.0 g/dL Normal 1.4 - 4.0 gm/dL [facility] Remisol Glucose [Mass/Vol] 105 mg/dL Normal 55 - 199 mg/dL [facility] HCG.beta subunit Qn mIU/mL Normal 1 - 3 mIU/mL [facility] Lipase [Catalytic activity/Vol] 34 U/L Normal 13 - 58 unit/L [facility] Potassium [Moles/Vol] 3.6 mmol/L Normal 3.5 - 5.3 mmol/L [facility] Protein [Mass/Vol] 7.3 g/dL Normal 6.0 - 7.8 gm/dL [facility] Sodium [Moles/Vol] 137 mmol/L Normal 135 - 145 mmol/L [facility] Urea nitrogen [Mass/Vol] 12 mg/dL Normal 5 - 21 mg/dL [facility] Urea nitrogen/Creatinine [Mass ratio] 20 mg/mg Normal 10 - 20 [facility] HEMATOLOGYOrdered By: SYSTEM SYSTEM on 11-12-2021 Basophils/100 WBC (Bld) 0.8 % Normal 0.0 - 2.0 % [facility]eAutoSS Basophils/Leukocytes Auto (Bld) [Pure # fraction] 0.1 E9/L Normal 0.0 - 0.2 E9/L [facility] Eosinophils/100 WBC (Bld) 1.3 % Normal 0.0 - 8.0 % [facility]Auto[facility] Eosinophils/Leukocytes Auto (Bld) [Pure # fraction] 0.1 E9/L Normal 0.0 - 0.5 E9/L [facility] Lymphocytes/100 WBC (Bld) 28.8 % Normal 14.0 - 50.0 % [facility]eAutoSS Lymphocytes/Leukocytes Auto (Bld) [Pure # fraction] 2.9 E9/L Normal 1.0 - 4.0 E9/L [facility]Auto[facility] Monocytes/100 WBC (Bld) 8.1 % Normal 4.0 - 14.0 % [facility]eAuto[facility] Monocytes/Leukocytes Auto (Bld) [Pure # fraction] 0.8 E9/L Normal 0.2 - 1.0 E9/L [facility] Neutrophils/100 WBC (Bld) 61.0 % Normal 36.0 - 75.0 % [facility] Neutrophils/Leukocytes Auto (Bld) [Pure # fraction] 6.2 E9/L Normal 2.0 - 7.5 E9/L [facility] HEMATOLOGYOrdered By: Yuni giron on 11-12-2021 Erythrocyte distribution width (RBC) [Ratio] 15.8 % High 10.9 - 14.2 % [facility] Hematocrit (Bld) [Volume fraction] 35.3 % Normal 34.0 - 46.0 % [facility] Hemoglobin (Bld) [Mass/Vol] 11.7 g/dL Low 12.0 - 16.0 gm/dL [facility] MCH (RBC) [Entitic mass] 25.6 pg Low 27.0 - 34.0 pg [facility] MCHC (RBC) [Mass/Vol] 33.2 g/dL Normal 31.4 - 36.0 gm/dL [facility] MCV (RBC) [Entitic vol] 77.3 fL Low 80.0 - 100.0 fL [facility] Platelet mean volume (Bld) [Entitic vol] 11.2 fL High 6.4 - 10.8 fL [facility] Platelets (Bld) [#/Vol] 209.0 E9/L Normal 150.0 - 500.0 E9/L [facility] RBC (Bld) [#/Vol] 4.6 E12/L Normal 4.3 - 5.9 E12/L [facility] WBC corrected for nucl RBC Auto (Bld) [#/Vol] 10.2 E9/L Normal 4.0 - 11.0 E9/L [facility] MICRO OTHER TESTSOrdered By: Abdi Mei on 11-12-2021 Influenzae A Ag Negative (11/12/21 11:16 PM) Normal Negative [facility]ero Influenzae B Ag Negative (11/12/21 11:16 PM) Normal Negative [facility] Rapid COV Int NEG Ctl Pass (11/12/21 11:16 PM) Normal [facility] Rapid COV Int POS Ctl Pass (11/12/21 11:16 PM) Normal [facility]ero SARS-CoV+SARS-CoV-2 (COVID-19) Ag IA.rapid Ql (Resp) Not Detected (11/12/21 11:16 PM) Normal Not Detected [facility] Reference Laboratory Testing Ordered By: Danelle KasperUsemarc on 07-08-2021 SARS-CoV-2 (COVID-19) RNA CHELE+probe Ql (Resp) Not detected Invalid Interpretation Code Not Detected [facility] Comment on above: Result Comment: This nucleic acid amplification test was developed and its performance characteristics determined by [employer]. Nucleic acid amplification tests include RT-PCR and TMA. This test has not been FDA cleared or approved. This test has been authorized by FDA under an Emergency Use Authorization (EUA). This test is only authorized for the duration of time the declaration that circumstances exist justifying the authorization of the emergency use of in vitro diagnostic tests for detection of SARS-CoV-2 virus and/or diagnosis of COVID-19 infection under section 564(b)(1) of the Act, 21 U.S.C. 360bbb-3(b) (1), unless the authorization is terminated or revoked sooner. When diagnostic testing is negative, the possibility of a false negative result should be considered in the context of a patient's recent exposures and the presence of clinical signs and symptoms consistent with COVID-19. An individual without symptoms of COVID-19 and who is not shedding SARS-CoV-2 virus would expect to have a negative (not detected) result in this assay. Performed at: [address] [id number] PhD Delroy Hardwick Vital Signs Date Time Vital Sign Value Performing Clinician Facility 01-08-2024 14:46-0400 Diastolic blood pressure 95 mm[Hg] NEGOTIATOR Gaetano Super[employer] Work Phone: [facility] 01-08-2024 14:46-0400 Heart rate 84 /min NEGOTIATOR Ga[employer] Work Phone: [facility] 01-08-2024 14:46-0400 Respiratory rate 16 /min NEGOTIATOR Gaetano [employer]b Work Phone: [facility] 01-08-2024 14:46-0400 SaO2% (BldA) [Mass fraction] 96 % NEGOTIATOR Gaetano Superb Work Phone: [facility] 01-08-2024 14:46-0400 Systolic blood pressure 139 mm[Hg] NEGOTIATOR [employer] Work Phone: [facility] 01-08-2024 12:41-0400 Body height 165.1 cm NEGOTIATOR [employer]anoBig Fish Work Phone: [facility] 01-08-2024 12:41-0400 Body weight 121.1 kg NEGOTIATOR Gaetano Superb Work Phone: [facility] 12-11-2023 10:34-0400 Body height 165.1 cm [facility] 12-11-2023 10:34-0400 Body mass index (BMI) [Ratio] 42.5 kg/m2 [facility] 12-11-2023 10:34-0400 Body weight 116.11 kg [facility] 12-09-2023 10:01-0400 Body height 165.1 cm [facility] 12-09-2023 10:01-0400 Body mass index (BMI) [Ratio] 43.4 kg/m2 [facility] 12-09-2023 10:01-0400 Body temperature 97.4 [degF] [facility] 12-09-2023 10:01-0400 Body weight 118.38 kg [facility] 12-09-2023 10:01-0400 Diastolic blood pressure 84 mm[Hg] [facility] 12-09-2023 10:01-0400 Heart rate 75 /min [facility] 12-09-2023 10:01-0400 Respiratory rate 20 /min [facility] 12-09-2023 10:01-0400 SaO2% (BldA) [Mass fraction] 99 % [facility] 12-09-2023 10:01-0400 Systolic blood pressure 126 mm[Hg] [facility] 11-13-2023 09:51-0400 Body height 165.1 cm [facility] 11-13-2023 09:51-0400 Body mass index (BMI) [Ratio] 42.7 kg/m2 [facility] 11-13-2023 09:51-0400 Body temperature 98 [degF] [facility] 11-13-2023 09:51-0400 Body weight 116.57 kg [facility] 11-13-2023 09:51-0400 Diastolic blood pressure 60 mm[Hg] [facility] 11-13-2023 09:51-0400 Heart rate 98 /min [facility] 11-13-2023 09:51-0400 Respiratory rate 20 /min [facility] 11-13-2023 09:51-0400 SaO2% (BldA) [Mass fraction] 98 % [facility] 11-13-2023 09:51-0400 Systolic blood pressure 100 mm[Hg] [facility] 09-25-2023 16:01-0400 Body height 165.1 cm [facility] 09-25-2023 16:01-0400 Body mass index (BMI) [Ratio] 43.4 kg/m2 [facility] 09-25-2023 16:01-0400 Body temperature 97.8 [degF] [facility] 09-25-2023 16:01-0400 Body weight 118.38 kg [facility] 09-25-2023 16:01-0400 Diastolic blood pressure 84 mm[Hg] [facility] 09-25-2023 16:01-0400 Heart rate 88 /min [facility] 09-25-2023 16:01-0400 Respiratory rate 20 /min [facility] 09-25-2023 16:01-0400 SaO2% (BldA) [Mass fraction] 98 % [facility] 09-25-2023 16:01-0400 Systolic blood pressure 130 mm[Hg] [facility] 08-21-2023 15:10-0500 Body height 165.1 cm [facility] 08-21-2023 15:10-0500 Body mass index (BMI) [Ratio] 43.43 kg/m2 [facility] 08-21-2023 15:10-0500 Body weight 118.39 kg [facility] 08-21-2023 15:10-0500 Diastolic blood pressure 62 mm[Hg] [facility] 08-21-2023 15:10-0500 Systolic blood pressure 102 mm[Hg] [facility] 07-29-2023 11:30-0500 Body height 165.1 cm Gaetano Aldrich Other [facility] 07-29-2023 11:30-0500 Body mass index (BMI) [Ratio] 44.43 kg/m2 Gaetano Easterwood Other [employer] Other 07-29-2023 11:30-0500 Body temperature 97.8 [degF] Gaetano Jhonyerwood Other [employer] Other 07-29-2023 11:30-0500 Body weight 121.11 kg Gaetano Jhonyerrafaela Other [employer] Other 07-29-2023 11:30-0500 Body weight 121.1 kg [facility] 07-29-2023 11:30-0500 Diastolic blood pressure 82 mm[Hg] Gaetano Jhonyerwood Other [facility] 07-29-2023 11:30-0500 Respiratory rate 20 /min Gaetano Jhonyerrafaela Other [employer] Other 07-29-2023 11:30-0500 SaO2% (BldA) [Mass fraction] 98 % Gaetano Jhonyerrafaela Other [facility] [employer] Other 07-29-2023 11:30-0500 Systolic blood pressure 122 mm[Hg] Gaetano Easterwood Other [facility] 07-28-2023 09:09-0500 Body mass index (BMI) [Ratio] 45.6 kg/m2 Lucinda Arias MD Work Phone: [employer] 07-28-2023 09:09-0500 Body weight 124.29 kg Lucinda Arias MD Work Phone: [employer] 07-28-2023 09:09-0500 Diastolic blood pressure 80 mm[Hg] Lucinda Arias MD Work Phone: [employer] 07-28-2023 09:09-0500 Systolic blood pressure 124 mm[Hg] Lucinda Arias MD Work Phone: [facility] 07-14-2023 08:51-0500 Body height 165.1 cm [facility] 07-14-2023 08:51-0500 Diastolic blood pressure 90 mm[Hg] [facility] 07-14-2023 08:51-0500 Systolic blood pressure 130 mm[Hg] [facility] 12-11-2022 20:26-0400 Body temperature 98.06 [degF] Andrewinn Dokken [facility] 12-11-2022 20:26-0400 Diastolic blood pressure 81 mm[Hg] Cyrusylinn Dokken [facility] 12-11-2022 20:26-0400 Heart rate 104 /min Cyrusylgaylen Dokken [facility] 12-11-2022 20:26-0400 Respiratory rate 20 /min Andrewinn Dokken [facility] 12-11-2022 20:26-0400 SaO2% (BldA) [Mass fraction] 99 % Andrewinn Dokken [facility] 12-11-2022 20:26-0400 Systolic blood pressure 120 mm[Hg] Kaylinn Dokken [facility] 06-14-2022 08:46-0500 Body temperature 98.24 [degF] Juarez Wang [facility] 06-14-2022 08:46-0500 Diastolic blood pressure 79 mm[Hg] Juarez Wang [facility] 06-14-2022 08:46-0500 Heart rate 103 /min Juarez Wang [facility] 06-14-2022 08:46-0500 Respiratory rate 20 /min Juarez Wang [facility] 06-14-2022 08:46-0500 SaO2% (BldA) [Mass fraction] 98 % Juarez Wang [facility] 06-14-2022 08:46-0500 Systolic blood pressure 126 mm[Hg] Juarez Wang [facility] 03-06-2022 14:39-0400 Blood Pressure Location Lou Klonk [facility] 03-06-2022 14:39-0400 Body temperature 97.7 [degF] Lou Klonk [facility] 03-06-2022 14:39-0400 Diastolic blood pressure 82 mm[Hg] Lou Klonk [facility] 03-06-2022 14:39-0400 Heart rate 88 /min Lou Klonk [facility] 03-06-2022 14:39-0400 SaO2% (BldA) [Mass fraction] 99 % Lou Klonk [facility] 03-06-2022 14:39-0400 Systolic blood pressure 126 mm[Hg] Lou Klonk [facility] 11-13-2021 00:49-0400 Diastolic blood pressure 86 mm[Hg] Kaylinn Dokken [facility] 11-13-2021 00:49-0400 Heart rate 78 /min Kaylinn Dokken [facility] 11-13-2021 00:49-0400 Mean blood pressure 97 mm[Hg] Kaylinn Dokken [facility] 11-13-2021 00:49-0400 Respiratory rate 15 /min Kaylinn Dokken [facility] 11-13-2021 00:49-0400 SaO2% (BldA) [Mass fraction] 98 % Kaylinn Dokken [facility] 11-13-2021 00:49-0400 Systolic blood pressure 118 mm[Hg] Kaylinn Dokken [facility] 11-12-2021 22:38-0400 Body temperature 97.88 [degF] Kaylinn Dokken [facility] 11-12-2021 22:38-0400 Diastolic blood pressure 81 mm[Hg] Kaylinn Dokken [facility] 11-12-2021 22:38-0400 Heart rate 84 /min Cyrusylinn Dokken [facility] 11-12-2021 22:38-0400 Respiratory rate 16 /min Cyrusylinn Dokken [facility] 11-12-2021 22:38-0400 SaO2% (BldA) [Mass fraction] 97 % Cyrusylinn Dokken [facility] 11-12-2021 22:38-0400 Systolic blood pressure 114 mm[Hg] Kaylinn Dokken [facility] 09-25-2021 17:19-0400 Diastolic blood pressure 82 mm[Hg] Juarez Wang [facility] 09-25-2021 17:19-0400 Heart rate 82 /min Juarez Wang [facility] 09-25-2021 17:19-0400 Mean blood pressure 95 mm[Hg] Juarez Wang [facility] 09-25-2021 17:19-0400 Respiratory rate 17 /min Juarez Wang [facility] 09-25-2021 17:19-0400 SaO2% (BldA) [Mass fraction] 98 % Juarez Wang [facility] 09-25-2021 17:19-0400 Systolic blood pressure 120 mm[Hg] Juarez Wang [facility] 09-25-2021 15:35-0400 Body temperature 98.6 [degF] Juarez Wang [facility] 09-25-2021 15:35-0400 Diastolic blood pressure 93 mm[Hg] Juarez Wang [facility] 09-25-2021 15:35-0400 Heart rate 83 /min Juarez Wang [facility] 09-25-2021 15:35-0400 Respiratory rate 18 /min Juarez Wang [facility] 09-25-2021 15:35-0400 SaO2% (BldA) [Mass fraction] 94 % Juarez Wang [facility] 09-25-2021 15:35-0400 Systolic blood pressure 148 mm[Hg] Juarez Wang [facility] Encounters Encounter Date Encounter Type Care Provider Facility Start: 01-08-2024 Non-patient / Non-visit RUSH Aldrich Work Phone: [facility] Physician [facility] Work Phone: Start: 01-08-2024 End: 01-08-2024 Admission to same day surgery center RUSH Aldrich Work Phone: [facility] Work Phone: Start: 01-08-2024 End: 01-08-2024 ambulatory NEGOTIATOR Gaetano [place] Work Phone: [facility] Work Phone: Start: 12-12-2023 End: 12-12-2023 Patient encounter [facility]: [facility] [place] Work Phone: Start: 12-12-2023 End: 12-12-2023 [facility] Work Phone: Start: 12-11-2023 End: 12-11-2023 ambulatory [facility] Work Phone: Start: 12-11-2023 End: 12-11-2023 Patient encounter procedure [facility] Physician [facility] G[facility] Work Phone: Start: 12-09-2023 End: 12-09-2023 ambulatory [facility] Work Phone: Start: 12-09-2023 End: 12-09-2023 Patient encounter procedure [facility] [place] Work Phone: Start: 12-01-2023 Non-patient / Non-visit [facility] [place] Work Phone: Start: 11-27-2023 Non-patient / Non-visit [facility] [place] Work Phone: Start: 11-26-2023 Non-patient / Non-visit [facility] Work Phone: Start: 11-20-2023 End: 11-21-2023 Emergency department patient visit TEDDY Rodriguez [facility] Start: 11-20-2023 End: 11-20-2023 ambulatory [facility] Start: 11-13-2023 End: 11-13-2023 Patient encounter procedure [facility] [place] Work Phone: Start: 09-25-2023 End: 09-25-2023 ambulatory [facility] Work Phone: Start: 09-25-2023 End: 09-25-2023 Patient encounter procedure [facility] Medicine [place] Work Phone: Start: 08-25-2023 Non-patient / Non-visit [facility] Work Phone: Start: 08-25-2023 End: 08-25-2023 [facility] Start: 08-21-2023 End: 08-21-2023 ambulatory [facility] Start: 08-21-2023 Encounter for gynecological examination (general) (routine) without abnormal findings [facility] Start: 08-21-2023 End: 08-21-2023 Encounter for gynecological examination (general) (routine) without abnormal findings [facility] Work Phone: Start: 08-21-2023 End: 08-21-2023 Patient encounter procedure [facility] Start: 08-21-2023 End: 08-21-2023 Periodic preventive med est patient 18-39 yrs [facility] Ob Spanish Literature Professor [facility] [place] Comment on above: Well woman exam with routine gynecological exam (Primary Dx); Cervical smear, as part of routine gynecological examination; Standardized adult depression screening tool completed Start: 08-21-2023 End: 08-22-2023 ambulatory DIA Ana TAM [place] Start: 08-21-2023 Encounter for gynecological examination (general) (routine) without abnormal findings [facility] Start: 08-20-2023 End: 08-21-2023 Emergency department patient visit YASMANY COLBERT [place] Start: 08-20-2023 Telephone encounter Skylar Appiah [facility] Start: 08-04-2023 End: 08-29-[address] [facility] Start: 08-01-2023 Telephone encounter [facility] Start: 07-29-2023 End: 07-29-2023 ambulatory [facility] Other [facility] [employer] Other Start: 07-29-2023 Office outpatient ne w 60 minutes [facility] [place] Start: 07-29-2023 Telephone encounter Lucinda fay MD Work Phone: [facility] Start: 07-29-2023 End: 07-29-2023 Patient encounter procedure [facility]- Start: 07-28-2023 End: 07-28-2023 ambulatory LUCINDA ARIAS [facility] Start: 07-28-2023 End: 07-28-2023 Office outpatient visit 15 minutes Lucinda Arias MD Work Phone: [facility] Comment on above: Class 3 severe obesi ty due to excess calories without serious comorbidity with body mass index (BMI) of 45.0 to 49.9 in adult (CMS-HCC) (Primary Dx) Start: 07-15-2023 End: 07-16-2023 Orders Only Dia Tam APRN-SALES REPRESENTATIVE [employer] Work Phone: [facility] Comment on above: Screen for STD (sexu ally transmitted disease) (Primary Dx); Accident caused by hypodermic needle, initial encounter Start: 07-14-2023 Encounter for genera l adult medical examination without abnormal findings [facility] Start: 07-14-2023 End: 07-15-2023 ambulatory [facility] Start: 07-14-2023 End: 07-14-2023 Office outpatient new 30 minutes [facility] Ob Spanish Literature Professor [facility] Comment on above: Abnormal uterine ble eding (AUB) (Primary Dx); Wellness examination; Obesity, Class II, BMI 35-39.9 Start: 07-14-2023 End: 07-14-2023 Patient encounter status [facility] Spanish Literature Professor [facility] Start: 06-17-2023 End: 06-17-2023 Emergency department patient visit NO PCP NO PCP [place] Start: 12-11-2022 End: 12-11-2022 Emergency department patient visit Luna Corbin Dojosesimon [facility] Start: 12-11-2022 End: 12-11-2022 Emergency department patient visit Luna Alvarez [facility] Start: 11-27-2022 ambulatory ZEYAD Schmidt y:H1 Start: 11-20-2022 End: 11-20-[address] NONE LISTED REQUEST Facility: Start: 07-21-2022 Emergency department patient visit PCP NO [facility] Start: 07-17-2022 End: 07-18-2022 ambulatory PA ALBERTA VIERA . Facility: Start: 07-05-2022 End: 07-05-2022 Patient encounter procedure Lou Arceo [facility] Start: 06-14-2022 End: 06-14-2022 Emergency department patient visit Juarez Wang [facility] Start: 06-14-2022 End: 06-14-2022 Emergency department patient visit Juarez Wang [facility] Start: 06-11-2022 End: 06-11-2022 ambulatory RAMAN BELTRAN . Facility: Start: 03-06-2022 End: 03-06-2022 Patient encounter procedure Lou Arceo [facility] Start: 11-12-2021 End: 11-13-2021 Emergency department patient visit Luna Alvarez [facility] Start: 09-25-2021 End: 09-25-2021 Emergency department patient visit Juarez Wang [facility] Start: 07-08-2021 End: 10-06-2021 Patient encounter procedure Melchor Guillermo [facility] Procedures Date Procedure Procedure Detail Performing Clinician Start: 01-08-2024 Esophagogastroduodenoscopy NEGOTIATOR Gaetano Aldrich Work Phone: Start: 08-21-2023 Adult depression screening assessment [facility] Spanish Literature Professor Start: 09-26-2015 section Juarez Wang Comment on above: x3 History of tonsillectomy Clark Wang Tonsillectomy and adenoidectomy Lou Adis Plan of Treatment Date Care Activity Detail Author Start: 12-16-2026 DTaP,Tdap and Td Vaccines (8 - Td or Tdap) DTaP,Tdap and Td Vaccines (8 - Td or Tdap) [facility] Start: 08-21-2024 Adult BMI Screening Adult BMI Screen ing [facility] Start: 08-21-2024 Depression Screening Depression Scre ening [facility] Start: 08-21-2024 Tobacco Screening Tobacco Screening [facility] Start: 08-20-2024 Tobacco Screening Tobacco Screening [facility] Start: 07-28-2024 Adult BMI Screening Adult BMI Screen ing [facility] Start: 07-28-2024 Tobacco Screening Tobacco Screening [facility] Start: 07-14-2024 Tobacco Screening Tobacco Screening [facility] Start: 01-08-2024 [facility] Start: 12-12-2023 Hepatitis A virus Ab [Presence] in Serum by Immunoassay [facility] Start: 12-12-2023 Hepatitis B core antibody measurement [facility] Start: 12-12-2023 Hepatitis B virus surface Ab [Presence] in Serum [facility] Start: 12-12-2023 [facility] Start: 09-30-2023 Patient referral [facility] Work Phone: Start: 08-25-2023 End: 08-25-2023 Patient encounter procedure 08/25/2023 9:00 AM EST Office Visit [facility] [address] [place] [id number] Lucinda Arias MD [address] [place] [address] [facility] Start: 08-21-2023 End: 08-21-2023 Patient encounter procedure 08/21/2023 3:15 PM EST Office Visit [facility] [place] [address] [place] [address] [facility] [place] Start: 08-21-2023 End: 08-21-2024 Cytopathology procedure, preparation of smear, genital source Pap Smear Pathology and Cytology Routine Cervical smear, as part of routine gynecological examination Expected: 08/21/2023 (Approximate), Expires: 08/21/2024 [facility] Work Phone: Comment on above: Expected: 08/21/2023 (Approximate), Expires: 08/21/2024 Start: 08-07-2023 End: 08-07-2023 Patient encounter procedure 08/07/2023 9:00 AM EST Office Visit [facility] [place] [address] [place] [address] [facility] [place] Start: 08-04-2023 End: 08-04-2023 Telemedicine consultation with patient 08/04/2023 9:30 AM EST Telemedicine [facility] - Outpatient Diabetes and Nutrition Education Program [address] [facility] [address] [place] [address] Karla Peguero, [place] [address] [facility] [address] [place] [phone] [facility] - Outpatient Diabetes and Nutrition Education Program Start: 07-28-2023 End: 07-28-2023 Patient encounter procedure 07/28/2023 9:30 AM EST Office Visit [facility] [address] [place] [phone] Lucinda Arias MD [address] [place] [address] [facility] Start: 07-21-2023 End: 07-21-2023 Patient encounter procedure 07/21/2023 11:30 AM EST Office Visit [facility] [address] [place] [phone] [facility] Start: 07-15-2023 End: 07-15-2023 Patient encounter procedure 07/15/2023 1:30 PM EST Appointment [facility] - Ultrasound [address] [place] [phone] Dia Tam, NEGOTIATOR-SALES REPRESENTATIVE [employer] [facility] [place] [address] [facility] Start: 07-14-2023 End: 07-14-2024 US Pelvis transabdominal and transvaginal Ultrasound pelvic with transvaginal Imaging Routine Abnormal uterine bleeding (AUB) Expected: 07/14/2023, Expires: 07/14/2024 [facility] Work Phone: Comment on above: Expected: 07/14/2023 , Expires: 07/14/2024 Start: 04-05-2023 Adult BMI Screening Adult BMI Screen ing [facility] Start: 02-28-2023 Influenza vaccination Influenza Vacc ine [facility] Start: 2018 Screening for malign ant neoplasm of cervix Pap Smear [facility] Start: 2015 Adult BMI Follow Up Plan [facility] Start: 2009 Depression Screening Depression Scre [facility]halif [facility] Start: 1997 Tobacco Counseling Tobacco Counselin darleen [facility] End: 07-14-2024 CBC panel - Blood by Automated count CBC without diff Lab Routine Abnormal uterine bleeding (AUB) 1 Occurrences starting 07/14/2023 until 07/14/2024 [facility] Comment on above: 1 Occurrences starti ng 07/14/2023 until 07/14/2024 CBC panel - Blood by Automated count CBC without diff Lab Routine Abnormal uterine bleeding (AUB) 07/14/2023 12:01 PM EST [employer] End: 07-14-2024 Comprehensive metabolic 2000 panel - Serum or Plasma Comprehensive metabolic panel Lab Routine Wellness examination 1 Occurrences starting 07/14/2023 until 07/14/2024 [employer] Comment on above: 1 Occurrences starti ng 07/14/2023 until 07/14/2024 Comprehensive metabo lic 2000 panel - Serum or Plasma Comprehensive metabolic panel Lab Routine Wellness examination 07/14/2023 12:01 PM EST [employer] End: 07-14-2024 Hemoglobin A1c/Hemoglobin.total in Blood Hemoglobin A1c Lab Routine Wellness examination 1 Occurrences starting 07/14/2023 until 07/14/2024 [facility] Comment on above: 1 Occurrences starti ng 07/14/2023 until 07/14/2024 Hemoglobin A1c/Hemoglobin.total in Blood Hemoglobin A1c Lab Routine Wellness examination 07/14/2023 12:01 PM EST [facility] Hepatitis A virus Ab [Presence] in Serum by Immunoassay [facility] Hepatitis B core antibody measurement [facility] Hepatitis B virus surface Ab [Presence] in Serum [facility] Hepatitis B virus surface Ag [Presence] in Serum or Plasma by Immunoassay [facility] Hepatitis C virus Ig G Ab [Presence] in Serum or Plasma by Immunoassay [facility] End: 07-15-2024 Hepatitis panel, acute Hepatitis panel, acute Lab Routine Accident caused by hypodermic needle, initial encounter 1 Occurrences starting 07/15/2023 until 07/15/2024 [facility] Work Phone: Comment on above: 1 Occurrences starti ng 07/15/2023 until 07/15/2024 HIV 1+2 Ab+HIV1 p24 Ag [Presence] in Serum or Plasma by Immunoassay [facility] End: 07-14-2024 Lipid 1996 panel - Serum or Plasma Lipid profile Lab Routine Wellness examination 1 Occurrences starting 07/14/2023 until 07/14/2024 [facility] Comment on above: 1 Occurrences starti ng 07/14/2023 until 07/14/2024 Lipid 1996 panel - S deon or Plasma Lipid profile Lab Routine Wellness examination 07/14/2023 12:01 PM EST [facility] Patient Education [facility] Work Phone: Patient referral [facility] Work Phone: End: 07-14-2024 Prolactin Prolactin Lab Routine Abnormal uterine bleeding (AUB) 1 Occurrences starting 07/14/2023 until 07/14/2024 [facility] Comment on above: 1 Occurrences starti ng 07/14/2023 until 07/14/2024 Prolactin [Mass/volu me] in Serum or Plasma Prolactin Lab Routine Abnormal uterine bleeding (AUB) 07/14/2023 12:01 PM EST [facility] End: 07-14-2024 Testosterone [Mass/volume] in Serum or Plasma Testosterone Lab Routine Abnormal uterine bleeding (AUB) 1 Occurrences starting 07/14/2023 until 07/14/2024 [facility] Comment on above: 1 Occurrences starti ng 07/14/2023 until 07/14/2024 Testosterone [Mass/volume] in Serum or Plasma Testosterone Lab Routine Abnormal uterine bleeding (AUB) 07/14/2023 12:01 PM EST [facility] End: 07-13-2024 Thyroid profile includes TSH FT4 Thyroid profile includes TSH FT4 Lab Routine Abnormal uterine bleeding (AUB) 1 Occurrences starting 07/14/2023 until 07/13/2024 [facility] Comment on above: 1 Occurrences starti ng 07/14/2023 until 07/13/2024 Thyroid profile incl udes TSH FT4 Thyroid profile includes TSH FT4 Lab Routine Abnormal uterine bleeding (AUB) 07/14/2023 12:01 PM EST [facility] Immunizations Immunization Date Immunization Notes Care Provider Gregorio vega 03-23-2020 influenza virus vaccine, unspecified formulation [employer] 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 2022 Medicaid [place] [employer] MEDICAID [id number] 2022-Present [phone] [address] [place] [address] [id number] 2022 Unknown [id number] 2022 Self-pay 2021 Private Health Insurance [id number] 1997 Unknown [id number] 2.840.1.291256.3.579.2. 727 1997 Unknown [id number]. 593 1997 Unknown [id number] 2.16840.1.549209.3.579.2. 593 1997 Unknown [id number] 2.16.840.1.156113.3.579.2. 593 1997 Unknown [id number] 2.16840.1.202449.3.579.2. 593 1997 Unknown [id number] 2.16840.1.136060.3.579.2. 173 1997 Unknown [id number] 2.16.840.1.907049.3.579.2. 128 1997 Unknown [id number] 2.16.840.1.764666.3.579.2. 1285 1997 Unknown [id number] 2.16.840.1.741501.3.579.2. 1285 1997 Unknown [id number] 2.16.840.1.663554.3.579.2. 1285 1997 Unknown [id number] 2.16.840.1.542500.3.579.2. 1285 1997 Unknown [id number] 2.16840.1.888264.3.579.2. 727 1997 Unknown [id number] 2.840.1.549649.3.579.2. 1285 1997 Unknown [id number] 2.16840.1.674912.3.579.2. 1285 1997 Unknown [id number] 2.16840.1.304561.3.579.2. 1285 1997 Unknown [id number] 2.16840.1.769455.3.579.2. 1285 1997 Unknown [id number] 2.16840.1.600778.3.579.2. 1285 1997 Unknown [id number] 2.840.1.793948.3.579.2. 1285 1997 Unknown [id number] 2.16840.1.645961.3.579.2. 1285 1997 Unknown [id number] 2.16840.1.573320.3.579.2. 128 1959 Unknown [id number] 1959 Unknown [id number] Unknown [id number] 2.16840.1.478579.3.579.2. 531 Unknown [id number] 2.16840.1.638085.3.579.2. 531 Social History Date Type Detail Facility Start: 06-29-2020 End: 11-13-2023 Tobacco smoking status Ex-smoker (finding) [facility] Start: 08-10-2020 End: 07-14-2023 Sex Assigned At Female [facility] Tobacco Current vaping o r e-cigarette use Smokeless Tobacco Use:. [facility] Tobacco smoking status No Smokin g Status Entered [facility] Start: 07-14-2023 Tobacco smoking stat [facility] Smokes tobacco daily [facility] History of tobacco use Tobacco U se Types Packs/Day Years Used Date Smoking Tobacco: Every Day Vaping/E-cigarettes Smokeless Tobacco: Never [facility] Start: 07-14-2023 Tobacco use and exposure Smoke less tobacco non-user [facility] Start: 07-14-2023 End: 08-21-2023 Alcohol intake Ex-drinker (finding) [facility] Start: 08-10-2020 End: 07-14-2023 History of Social function [facility] Housing Instability Unknown [facility] Start: 1997 Sex Assigned At Not on file P [facility] [employer] [facility] Start: 09-18-2023 Tobacco smoking stat [facility] Smoker (finding) [facility] Start: 1997 Sex Assigned At Female F [facility] Goals Date Patient Goal Desired Activity /State Functional Status Date Assessment Result Facility 12-11-2022 Functional Status N/A [facility] 06-14-2022 Functional Status N/A [facility] 03-06-2022 Functional Status N/A [facility] Clinical Notes 09-25-2021 to 01-08-2024 Note Date & Type Note Facility 01-08-2024 Procedure note [facility] 12-11-2023 Evaluation note Authored December 11, 2023 11:17am 28-year-old female referred to the gastroenterology clinic for evaluation of acute pancreatitis, hepatitis C and fatty liver + Recurrent episodes of abdominal pain or and vomiting requiring multiple ER visits which was initially attributed to pancreatitis secondary to semaglutide however patient stopped semaglutide in 07/2023 patient continued to have symptoms. During the last ER visit on 11/26/2023, lipase was normal and CT showed no evidence of pancreatitis and no acute abnormality in abdomen. + Recent NSAIDs use + marijuana use +history of IV drug use, last use was few years ago + History of tattoos Will arrange for EGD to evaluate for intraluminal etiologies of patient's symptoms, I recommended the patient to stop marijuana, if EGD is negative and if symptoms remain despite marijuana abstinence then will consider gastric emptying study. Regarding history of hepatitis C in the setting of history of IV drug use and tattoos, will check viral hepatitis serologies and HIV Regarding history of fatty liver, will arrange for FibroScan and check liver enzymes. Patient has obesity which is a risk factor for MASLD, Patient does not have secondary causes of hepatic fat accumulation such as significant alcohol consumption, viral hepatitis, steatogenic medications (e.g., tamoxifen, amiodarone, methotrexate), or lipodystrophy. Pt was counseled about weight loss(10%) mediterranean diet and exercise ( >45 minutes X5 per week). [facility] Work Phone: [phone]) 988-329302-22-2024 History of Present illness Narrative* Dia Tam, NEGOTIATOR-SALES REPRESENTATIVE [employer] - 08/21/2023 3:15 PM EST Annual Well Woman Visit 08/21/2023 Subjective Karen Liu is a 28 y.o. 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 Periods are regular every 28-30days, lasting 4 days. Dysmenorrhea:mild, occurring first 1-2 days of flow. Cyclic symptoms include none. Denies intermenstrual bleeding, spotting, or abnormal discharge. Denies pelvic pain. Patient declines STD testing today. Complaints today: none Relationship status: in a relationship The patient reports that there is not domestic violence in her life. Sexually active: Yes Sexual concerns: none Patient works: unemployed Patient vapes, trying to quit Children YES How many 3 c-sections Current contraception: tubal ligation History of abnormal Pap smear: no Last pap: [address] Casanova, negative per patient Regular self breast exam: no Last mammogram: NA Family history of breast cancer: yes - paternal grandmother Family history of uterine or ovarian cancer: no Family history of pancreatic or prostate cancer: no Family history of colon cancer: no Covid vaccinated: NO Flu shot this flu season: NO HPV vaccinated: yes PHQ9 depression screenin LMP 08/17/2023 OB History 5 Para 3 Term 3 AB 2 Living 3 SAB 2 IAB Ectopic Multiple Live Births 3 The following portions of the patient's history were reviewed and updated as appropriate: allergies, current medications, past family history, past medical history, past social history, past surgicalhistory and problem list. MEDICAL HX Past Medical History: Diagnosis Date ADHD (attention deficit hyperactivity disorder) Anemia September 26, 2015 deepika Bipolar 1 disorder ([facility]) Borderline personality disorder ([facility]) Chronic headache Eczema Migraine PTSD (post-traumatic stress disorder) SURGICAL HX Past Surgical History: Procedure Laterality Date SECTION 3 total TONSILLECTOMY TUBAL LIGATION FAMILY HX Family History Problem Relation Age of Onset COPD Paternal Grandfather Breast cancer Paternal Grandmother COPD Maternal Grandmother COPD Maternal Grandfather Arthritis Father Asthma Father COPD Father Diabetes Father Drug abuse Father Hypertension Father Mental illness Father Schizophrenia Father Asthma Mother Depression Mother Mental illness Mother Alcohol abuse Sister Alcohol abuse Maternal Uncle MEDS Current Outpatient Medications Medication Sig Dispense Refill NON FORMULARY SEMIGLUTIDE INJECTIONS WEEKLY ondansetron ODT (ZOFRAN ODT) 4 mg disintegrating tablet Dissolve 1 tablet (4 mg total) on tongue every 8 (eight) hours as needed for nausea for up to 10 doses. 10 tablet 0 QUEtiapine fumarate ER (SEROquel XR) 50 mg tablet extended release 24 hr Take 5 tablets (250 mg total) by mouth nightly. No current facility-administered medications for this visit. ALLERGIES Allergies Allergen Reactions Percocet [Oxycodone-Acetaminophen] Hives Review of Systems Constitutional: Negative. Respiratory: Negative. Negative for chest tightness and shortness of breath. Cardiovascular: Negative. Negative for chest pain and palpitations. Gastrointestinal: Positive for constipation. Negative for diarrhea, nausea and vomiting. Endocrine: Negative. Genitourinary: Negative. Negative for dyspareunia, menstrual problem and pelvic pain. Musculoskeletal: Negative. Skin: Negative. Allergic/Immunologic: Negative. Neurological: Negative. Hematological: Negative. Psychiatric/Behavioral: Negative. Objective BP 102/62 Ht 165.1 cm (5' 5 ) Wt 118.4 kg (261 lb) LMP 08/17/2023 (Approximate) BMI 43.43 kg/m Physical Exam Vitals and nursing note reviewed. Constitutional: Appearance: Normal appearance. HENT: Head: Normocephalic and atraumatic. Cardiovascular: Rate and Rhythm: Normal rate and regular rhythm. Pulses: Normal pulses. Heart sounds: Normal heart sounds. Pulmonary: Effort: Pulmonary effort is normal. Breath sounds: Normal breath sounds. Chest: Breasts: Breasts are symmetrical. Right: Normal. No mass, skin change or tenderness. Left: Normal. No mass, skin change or tenderness. Abdominal: General: Bowel sounds are normal. Palpations: Abdomen is soft. Genitourinary: General: Normal vulva. Labia: Right: No rash or lesion. Left: No rash or lesion. Vagina: Normal. Cervix: Normal. Musculoskeletal: General: Normal range of motion. Cervical back: Normal range of motion and neck supple. Skin: General: Skin is warm and dry. Neurological: Mental Status: She is alert and oriented to person, place, and time. Psychiatric: Mood and Affect: Mood normal. Speech: Speech normal. Behavior: Behavior normal. Thought Content: Thought content normal. Judgment: Judgment normal. Assessment/Plan: Karen was seen today for gynecologic exam. Diagnoses and all orders for this visit: Well woman exam with routine gynecological exam Cervical smear, as part of routine gynecological examination - Pap Smear; Future Standardized adult depression screening tool completed BMI is above average; Discussed eating tips for weight loss and and exercise steps. Patient is taking compounded semiglutide prescribed by Dr. Arias. Breast self exam technique reviewed and patient encouraged to perform self-exam monthly. Discussed healthy lifestyle modifications. Educational material distributed. 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 Follow up as needed. Await pap. Discussed ASCCP screening guidelines. Discussed taking a multivitamin. Recommended cessation of vaping. Discussed Calcium and Vitamin D for prevention of osteoporosis. Discussed need for yearly mammogram after 40 yo. Discussed colon cancer screening recommendations to begin at 45 yo, patient to discuss with PCP. All questions answered. ALIX Moon APRN-CNP Lisa M Franco, APRN-CNP 08/21/23 1556 documented in this encounterUniversity Of Vermont Medical CenterGigle Networks [id number] Miscellaneous Notes* Telephone Encounter - Skylar Harris LPN - 08/20/2023 11:52 AM EST Pt called office back stating she is still having severe pain, nausea and chills. I advised Pt thatis her pain is that severe then she should be evaluated at the ER. Pt verbalized understanding. documented in this encounterBarney [facility]-21-2024 Telephone encounter Note* Telephone Encounter - Skylar Harris LPN - 08/20/2023 11:52 AM EST Pt called office back stating she is still having severe pain, nausea and chills. I advised Pt thatis her pain is that severe then she should be evaluated at the ER. Pt verbalized understanding. [facility] [employer] [id number] Miscellaneous Notes* Telephone Encounter - Valentina Dent - 08/01/2023 8:21 AM EST Patient called stating her PCP increased her dosage of her Seroquel to 50mg (not extended release) to 2 pills at bedtime. Yesterday was day 2 or 3 of the increased doseage. The patient picked up her 1st semaglutide prescription from [facility] yesterday. She took her 1st injection at 4pm yesterday. When she took her Seroquel around 8pm she got a flushed feeling in her face& it felt itchy & hot. It didn't last long & she is fine today. She is concerned if this is a reaction or if she needs to be concerned & not take the medication. Please advise. Thank you. * Telephone Encounter - Dia Tam APRN-SALES REPRESENTATIVE [employer] - 08/01/2023 8:21 AM EST I would have her wait to see how she feels when taking her dose tonight and then call her PCP to see if she should continue the increased dose. * Telephone Encounter - Valentina Dent - 08/01/2023 8:21 AM EST Patient notified & voiced understanding documented in this encounterBarney [facility] Medical Center02-02-2024 Telephone encounter Note* Telephone Encounter - Valentina Dent - 08/01/2023 8:21 AM EST Patient called stating her PCP increased her dosage of her Seroquel to 50mg (not extended release) to 2 pills at bedtime. Yesterday was day 2 or 3 of the increased doseage. The patient picked up her 1st semaglutide prescription from [facility] yesterday. She took her 1st injection at 4pm yesterday. When she took her Seroquel around 8pm she got a flushed feeling in her face& it felt itchy & hot. It didn't last long & she is fine today. She is concerned if this is a reaction or if she needs to be concerned & not take the medication. Please advise. Thank you. [facility]02-02-[facility] Telephone encounter Note* Telephone Encounter - SUPRIYA Santana - 08/01/2023 8:21 AM EST I would have her wait to see how she feels when taking her dose tonight and then call her PCP to see if she should continue the increased dose. [facility]02-02-[facility] Telephone encounter Note* Telephone Encounter - Valentina Dent - 08/01/2023 8:21 AM EST Patient notified & voiced understanding [employer] [id number] Evaluation note* Encounter Date Diagnosis Assessment Notes Treatment Notes Treatment Clinical Notes Jun, Bipolar 1 disorder (ICD-10 - F31.9) Discussed increasing medication today. Lengthy discussion regarding mental health. She is stable today from a mental health perspective. Very kind patient and we do build good rapport initially. I would like her to keep up with counseling through [facility]. Patient is agreeable and without suicidal or homicidal ideation at this time Jun, Hepatitis C (ICD-10 - B19.20) Discussed the possible hep C infection. She needs to be retested to see if she has current infection. I did make her aware that some of our bodies can clear the infection on her own. I did make her aware that if left untreated can cause permanent liver damage, liver failure and long-term. Patient verbalizes understanding and will get the lab work done through [facility]. 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 Patient would like to defer echo of the heart today. Did not use heroin intravenously. Jun, Severe obesity (ICD-10 - E66.01) Discussed weight management and continuing to follow with weight management provider through [facility]. Much emotional and motivational support given today. Jun, Nerve damage (ICD-10 - T14.8XXA) Did discuss her concerns for nerve damage and pain. Not drug-seeking in nature today. We did discuss how mental health and pain are related and how they are affected in different parts of the brain. No further workup at this time. Did discuss possibly seeing neurology in the future and the possibility of differential diagnoses of fibromyalgia. We did also briefly discussed the macromastia and undergoing breast reduction in the future to alleviate some of her cervical and lumbar spine pain. Patient is very thankful for the suggestion. Will call when referral is appropriate. Jun, Other I have spent 50 minutes with this patient and over 50% of the visit was counseling done by myself, Gaetano YOO. *Progress note was completed with the assistance of voice recognition software for dictation purposes. Please excuse any grammatical errors that were not corrected during review process. [employer] Other 01-30-2024 Miscellaneous Notes* Telephone Encounter - Janice Emerald Booth - 07/29/2023 7:44 AM EST We received a referral for education on Karen Liu 1995. However per CMS Guidelines we need to have the services requested marked as such on referral. Please see pended order and sign if you are agreeable. Thank you [facility] documented in this encounterPaulding [facility] Hospital [employer] [id number] Telephone encounter Note* Telephone Encounter - Janice Booth - 07/29/2023 7:44 AM EST We received a referral for education on Karen Liu 1995. However per CMS Guidelines we need to have the services requested marked as such on referral. Please see pended order and sign if you are agreeable. Thank you [employer] [facility] [employer] [id number] History of Present illness Narrative* Lucinda Arias MD - 07/28/2023 9:30 AM EST Karen Liu is a 27 y.o.female. Patient's last menstrual period was 07/05/2023.. Shepresents today to discuss weight loss. RBAI OF ALL OTIONS DW PT AT LENGTH INCLUDING ADIPEX, ORLISTAT, WELLBUTRIN, ACUPUNCTURE, SEMIGLUTIDE DESIRES SEMIGLUTIDE CONTRAINDICATIONS REVIEWED AND ALL RBAI WELL SIDE EFFECTS ETC RX FOR BUDERERS GIVEN Current contraception:bilateral tubal ligation OB History 5 Para 3 Term 3 AB 2 Living 3 SAB 2 IAB Ectopic Multiple Live Births 3 MEDICAL HX Past Medical History: Diagnosis Date ADHD (attention deficit hyperactivity disorder) Anemia September 26, 2015 deepika Anxiety Back pain Bipolar 1 disorder ([facility]) Borderline personality disorder ([facility]) Chronic headache Depression Eczema Migraine Obesity According to my BMI PTSD (post-traumatic stress disorder) SURGICAL HX Past Surgical History: Procedure Laterality Date SECTION 3 total TONSILLECTOMY TUBAL LIGATION FAMILY HX Family History Problem Relation Age of Onset COPD Paternal Grandfather Breast cancer Paternal Grandmother COPD Maternal Grandmother COPD Maternal Grandfather Arthritis Father Asthma Father COPD Father Diabetes Father Drug abuse Father Hypertension Father Mental illness Father Schizophrenia Father Asthma Mother Depression Mother Mental illness Mother Alcohol abuse Sister Alcohol abuse Maternal Uncle MEDS Current Outpatient Medications Medication Sig Dispense Refill QUEtiapine fumarate ER (SEROquel XR) 50 mg tablet extended release 24 hr Take 1 tablet (50 mg total) by mouth nightly. (Patient not taking: Reported on 07/28/2023) No current facility-administered medications for this visit. ALLERGIES Allergies Allergen Reactions Percocet [Oxycodone-Acetaminophen] Hives Review of Systems Review of Systems Objective Wt 124.3 kg (274 lb) LMP 07/05/2023 BMI 45.60 kg/m Physical Exam BP 124/80 Wt 124.3 kg (274 lb) LMP 07/05/2023 BMI 45.60 kg/m Physical Exam GEN AAOX3, NAD HEENT UNREMARKABLE HEART RRR LUNGS CTAB ABD BENIGN, OBESE, NTND PELVIS: DEFERRED RECTAL DEFERRED EXTREM NO CCE, NO CALF TENDERNESS Assessment/Plan: OBESITY DESIRES SEMIGLUTIDE COUNSELED EXTENSIVELY RX GIVEN FOR START DOSE AT [facility] 4 WKS DOG TRACK KENNEL MANAGER [facility] MD Yojana WILLIAMSON RN documented in this [facility]01-16-2024 Miscellaneous Notes* Addendum Note - SUPRIYA Santana - 07/15/2023 3:42 PM ESTAddended by: DIA TAM on: 07/15/2023 04:08 PM Modules accepted: Orders documented in this [facility]01-16-2024 Note* Addendum Note - SUPRIYA Santana - 07/15/2023 3:42 PM ESTAddended by: DIA TAM on: 07/15/2023 04:08 PM Modules accepted: Orders [facility]01-15-2024 History of Present illness Narrative* SUPRIYA Santana - 07/14/2023 9:00 AM EST Karen Liu is a 27 y.o.female new patient. Patient's last menstrual period was 07/05/2023.. She presents with irregular vaginal bleeding. She will have heavy bleeding and then will go2 months without having a period. Patient has not been diagnosed with PCOS but she states her periods have always been irregular. She does have hirsutism. Patient also c/o weight gain despite dietarychanges and exercise. Patient tearful when discussing this. She states no matter what she does she just keeps gaining. Patient was previously on meth and is 7 years sober. She states she can not / will not take adipex but would like to discuss other medication options. Current contraception:bilateral tubal ligation OB History 5 Para 3 Term 3 AB 2 Living 3 SAB 2 IAB Ectopic Multiple Live Births 3 MEDICAL HX Past Medical History: Diagnosis Date ADHD (attention deficit hyperactivity disorder) Anemia September 26, 2015 deepika Anxiety Back pain Bipolar 1 disorder ([facility]) Borderline personality disorder ([facility]) Chronic headache Depression Eczema Migraine Obesity According to my BMI PTSD (post-traumatic stress disorder) SURGICAL HX Past Surgical History: Procedure Laterality Date SECTION 3 total TONSILLECTOMY TUBAL LIGATION FAMILY HX Family History Problem Relation Age of Onset COPD Paternal Grandfather Breast cancer Paternal Grandmother COPD Maternal Grandmother COPD Maternal Grandfather Arthritis Father Asthma Father COPD Father Diabetes Father Drug abuse Father Hypertension Father Mental illness Father Schizophrenia Father Asthma Mother Depression Mother Mental illness Mother Alcohol abuse Sister Alcohol abuse Maternal Uncle MEDS Current Outpatient Medications Medication Sig Dispense Refill QUEtiapine fumarate ER (SEROquel XR) 50 mg tablet extended release 24 hr Take 1 tablet (50 mg total) by mouth nightly. No current facility-administered medications for this visit. ALLERGIES Allergies Allergen Reactions Percocet [Oxycodone-Acetaminophen] Hives Review of Systems Constitutional: Negative. Respiratory: Negative. Negative for chest tightness and shortness of breath. Cardiovascular: Negative. Negative for chest pain and palpitations. Gastrointestinal: Negative. Genitourinary: Positive for menstrual problem. Neurological: Negative. Psychiatric/Behavioral: Negative. Objective BP 130/90 Ht 165.1 cm (5' 5 ) LMP 07/05/2023 BMI 39.94 kg/m Physical Exam Vitals and nursing note reviewed. Constitutional: Appearance: Normal appearance. Cardiovascular: Rate and Rhythm: Normal rate and regular rhythm. Pulses: Normal pulses. Heart sounds: Normal heart sounds. Pulmonary: Effort: Pulmonary effort is normal. Breath sounds: Normal breath sounds. Musculoskeletal: General: Normal range of motion. Skin: General: Skin is warm and dry. Neurological: Mental Status: She is alert and oriented to person, place, and time. Psychiatric: Mood and Affect: Mood normal. Behavior: Behavior normal. Thought Content: Thought content normal. Judgment: Judgment normal. Assessment/Plan: Diagnoses and all orders for this visit: Abnormal uterine bleeding (AUB) - Ultrasound pelvic with transvaginal; Future - CBC without diff; Future - Thyroid profile includes TSH FT4; Future - Testosterone; Future - Prolactin; Future Wellness examination - Hemoglobin A1c; Future - Comprehensive metabolic panel; Future - Lipid profile; Future Obesity, Class II, BMI 35-39.9 Discussed PCOS. Await labs and ultrasound, follow up / treat as indicated. Discussed methods to help regulate / eliminate menstrual cycles. Patient has appt with a new PCP this Friday. AUGUSTIN signed to obtain previous pap records. RTO for annual / pap. RTO with Dr. Arias for medical weight loss options. All questions answered. Educational material provided through [employer]. ROLLY Parra APRN-CNP Lisa M Franco, APRN-CNP 07/14/23 0948 documented in this encounterOhioHealth O'Bleness HospitalGlobeRanger [facility] [id number] Hospital Discharge instructions Patient Education 12/11/2022 20:58:19 Sciatica Sciatica Sciatica is pain, numbness, weakness, or tingling along the path of the sciatic nerve. The sciatic nerve starts in the lower back and runs down the back of each leg. The nerve controls the muscles inthe lower leg and in the back of the knee. It also provides feeling (sensation) to the back of the thigh, the lower leg, and the sole of the foot. Sciatica is a symptom of another medical condition th at pinches or puts pressure on the sciatic nerve. Sciatica most often only affects one side of the body. Sciatica usually goes away on its own or with treatment. In some cases, sciatica may come back (recur). What are the causes? This condition is caused by pressure on the sciatic nerve or pinching of the nerve. This may be theresult of: A disk in between the bones of the spine bulging out too far (herniated disk). Age-related changes in the spinal disks. A pain disorder that affects a muscle in the buttock. Extra bone growth near the sciatic nerve. A break (fracture) of the pelvis. . Tumor. This is rare. What increases the risk? The following factors may make you more likely to develop this condition: Playing sports that place pressure or stress on the spine. Having poor strength and flexibility. A history of back injury or surgery. Sitting for long periods of time. Doing activities that involve repetitive bending or lifting. Obesity. What are the signs or symptoms? Symptoms can vary from mild to very severe, and they may include: Any of these problems in the lower back, leg, hip, or buttock: ?Mild tingling, numbness, or dull aches. ?Burning sensations. ?Sharp pains. Numbness in the back of the calf or the sole of the foot. Leg weakness. Severe back pain that makes movement difficult. Symptoms may get worse when you cough, sneeze, or laugh, or when you sit or stand for long periods of time. How is this diagnosed? This condition may be diagnosed based on: Your symptoms and medical history. A physical exam. Blood tests. Imaging tests, such as: ?X-rays. ?MRI. ?CT scan. How is this treated? In many cases, this condition improves on its own without treatment. However, treatment may include: Reducing or modifying physical activity. Exercising and stretching. Icing and applying heat to the affected area. Medicines that help to: ?Relieve pain and swelling. ?Relax your muscles. Injections of medicines that help to relieve pain, irritation, and inflammation around the sciatic nerve (steroids). Surgery. Follow these instructions at home: Medicines Take hyhb-vjb-fqtclhe and prescription medicines only as told by your health care provider. Ask your health care provider if the medicine prescribed to you: ?Requires you to avoid driving or using heavy machinery. ?Can cause constipation. You may need to take these actions to prevent or treat constipation: ?Drink enough fluid to keep your urine pale yellow. ?Take hhnl-zrm-tzkjvrb or prescription medicines. ?Eat foods that are high in fiber, such as beans, whole grains, and fresh fruits and vegetables. ?Limit foods that are high in fat and processed sugars, such as fried or sweet foods. Managing pain If directed, put ice on the affected area. ?Put ice in a plastic bag. ?Place a towel between your skin and the bag. ?Leave the ice on for 20 minutes, 2 3 times a day. If directed, apply heat to the affected area. Use the heat source that your health care provider recommends, such as a moist heat pack or a heating pad. ?Place a towel between your skin and the heat source. ?Leave the heat on for 20 30 minutes. ?Remove the heat if your skin turns bright red. This is especially important if you are unable to feel pain, heat, or cold. You may have a greater risk of getting burned. Activity Return to your normal activities as told by your health care provider. Ask your health care provider what activities are safe for you. Avoid activities that make your symptoms worse. Take brief periods of rest throughout the day. ?When you rest for longer periods, mix in some mild activity or stretching between periods of rest.This will help to prevent stiffness and pain. ?Avoid sitting for long periods of time without moving. Get up and move around at least one time each hour. Exercise and stretch regularly, as told by your health care provider. Do not lift anything that is heavier than 10 lb (4.5 kg) while you have symptoms of sciatica. When you do not have symptoms, you should still avoid heavy lifting, especially repetitive heavy lifting. When you lift objects, always use proper lifting technique, which includes: ?Bending your knees. ?Keeping the load close to your body. ?Avoiding twisting. General instructions Maintain a healthy weight. Excess weight puts extra stress on your back. Wear supportive, comfortable shoes. Avoid wearing high heels. Avoid sleeping on a mattress that is too soft or too hard. A mattress that is firm enough to support your back when you sleep may help to reduce your pain. Keep all follow-up visits as told by your health care provider. This is important. Contact a health care provider if: You have pain that: ?Wakes you up when you are sleeping. ?Gets worse when you lie down. ?Is worse than you have experienced in the past. ?Lasts longer than 4 weeks. You have an unexplained weight loss. Get help right away if: You are not able to control when you urinate or have bowel movements (incontinence). You have: ?Weakness in your lower back, pelvis, buttocks, or legs that gets worse. ?Redness or swelling of your back. ?A burning sensation when you urinate. Summary Sciatica is pain, numbness, weakness, or tingling along the path of the sciatic nerve. This condition is caused by pressure on the sciatic nerve or pinching of the nerve. Sciatica can cause pain, numbness, or tingling in the lower back, legs, hips, and buttocks. Treatment often includes rest, exercise, medicines, and applying ice or heat. This information is not intended to replace advice given to you by your health care provider. Make sure you discuss any questions you have with your health care provider. Document Revised: 07/05/2019 Document Reviewed: 07/05/2019 [employer] Patient Education 2022 [employer]. Follow Up Care 12/11/2022 20:19:03 With:XXXX NONE Address: [place] When:Within 3 Day(s) [facility]06-14-2023 Evaluation + Plan noteExtracted from: Title:ED Note Author:Taran Torres PA-C e:12/11/22 Sciatica (M54.30: Sciatica, unspecified side) Orders: ketorolac, 30 mg = 1 mL, Injection, IntraMuscular, Once, Stop date 12/11/22 20:55:00 EDT, STAT, Start date 12/11/22 20:55:00 EDT, 12/11/22 20:55:00 EDT lidocaine topical, 1 patch(es), Patch, TransDermal, Once, Stop date 12/11/22 20:55:00 EDT, STAT, Start date 12/11/22 20:55:00 EDT lidocaine topical, 1 patch(es), Topical, Daily, 7 EA, Refill(s) 0, apply 12 hours on and 12 hours off daily, [id number], 165, cm, 12/11/22 20:29:00 EDT, Height/Length Dosing, 120, kg, 12/11/22 20:29:00 EDT, Weight Dosing naproxen, 500 mg = 1 tab(s), Oral, BID, # 20 tab(s), Refills(s) 0, Pharmacy: [id number], 165, cm, 12/11/22 20:29:00 EDT, Height/Length Dosing, 120, kg, 12/11/22 20:29:00 EDT, Weight Dosing [facility]12-16-2022 Evaluation + Plan noteExtracted from: Title:ED Note Author:Augie Jefferson PA-C te:06/14/22 Pharyngitis (J02.9: Acute ph aryngitis, unspecified) Upper respiratory infection (J06.9: Acute upper respiratory infection, unspecified) Orders: brompheniramine/dextromethorphan/PSE, 10 mL, Oral, QID for cough and congestion for 7 day(s), 280 mL, Refill(s) 0, [id number], 165, cm, 06/14/22 8:50:00 EST, Height/Length Dosing, 105, kg, 06/14/22 8:50:00 EST, Weight Dosing dexamethasone, 10 mg = 2.5 mL, Injection, Oral, Once, Stop date 06/14/22 8:59:00 EST, STAT, Start date 06/14/22 8:59:00 EST, 06/14/22 8:59:00 EST Group A Strep by PCR Rapid Strep w/rfx [facility]12-16-2022 Hospital Discharge instructions Patient Education 06/14/2022 09:40:23 Pharyngitis Pharyngitis Pharyngitis is redness, pain, and swelling (inflammation) of the throat (pharynx). It is a very common cause of sore throat. Pharyngitis can be caused by a bacteria, but it is usually caused by a virus. Most cases of pharyngitis get better on their own without treatment. What are the causes? This condition may be caused by: Infection by viruses (viral). Viral pharyngitis spreads from person to person (is contagious) through coughing, sneezing, and sharing of personal items or utensils such as cups, forks, spoons, and toothbrushes. Infection by bacteria (bacterial). Bacterial pharyngitis may be spread by touching the nose or faceafter coming in contact with the bacteria, or through more intimate contact, such as kissing. Allergies. Allergies can cause buildup of mucus in the throat (post-nasal drip), leading to inflammation and irritation. Allergies can also cause blocked nasal passages, forcing breathing through themouth, which dries and irritates the throat. What increases the risk? You are more likely to develop this condition if: You are 5 24 years old. You are exposed to crowded environments such as daycare, school, or dormitory living. You live in a cold climate. You have a weakened disease-fighting (immune) system. What are the signs or symptoms? Symptoms of this condition vary by the cause (viral, bacterial, or allergies) and can include: Sore throat. Fatigue. Low-grade fever. Headache. Joint pain and muscle aches. Skin rashes. Swollen glands in the throat (lymph nodes). Plaque-like film on the throat or tonsils. This is often a symptom of bacterial pharyngitis. Vomiting. Stuffy nose (nasal congestion). Cough. Red, itchy eyes (conjunctivitis). Loss of appetite. How is this diagnosed? This condition is often diagnosed based on your medical history and a physical exam. Your health care provider will ask you questions about your illness and your symptoms. A swab of your throat may be done to check for bacteria (rapid strep test). Other lab tests may also be done, depending on the suspected cause, but these are rare. How is this treated? This condition usually gets better in 3 4 days without medicine. Bacterial pharyngitis may be treated with antibiotic medicines. Follow these instructions at home: Take aruv-vem-vmhybyx and prescription medicines only as told by your health care provider. ?If you were prescribed an antibiotic medicine, take it as told by your health care provider. Do not stop taking the antibiotic even if you start to feel better. ?Do not give children aspirin because of the association with Nupur syndrome. Drink enough water and fluids to keep your urine clear or pale yellow. Get a lot of rest. Gargle with a salt-water mixture 3 4 times a day or as needed. To make a salt- water mixture, completely dissolve -1 tsp of salt in 1 cup of warm water. If your health care provider approves, you may use throat lozenges or sprays to soothe your throat. Contact a health care provider if: You have large, tender lumps in your neck. You have a rash. You cough up green, yellow-brown, or bloody spit. Get help right away if: Your neck becomes stiff. You drool or are unable to swallow liquids. You cannot drink or take medicines without vomiting. You have severe pain that does not go away, even after you take medicine. You have trouble breathing, and it is not caused by a stuffy nose. You have new pain and swelling in your joints such as the knees, ankles, wrists, or elbows. Summary Pharyngitis is redness, pain, and swelling (inflammation) of the throat (pharynx). While pharyngitis can be caused by a bacteria, the most common causes are viral. Most cases of pharyngitis get better on their own without treatment. Bacterial pharyngitis is treated with antibiotic medicines. This information is not intended to replace advice given to you by your health care provider. Make sure you discuss any questions you have with your health care provider. Document Released: 06/16/2006 Document Revised: 05/29/2018 Document Reviewed: 07/22/2017 [employer] Patient Education 2020 [employer]. 06/14/2022 09:40:23 Upper Respiratory Infection, Adult Upper Respiratory Infection, Adult An upper respiratory infection (URI) is a common viral infection of the nose, throat, and upper airpassages that lead to the lungs. The most common type of URI is the common cold. URIs usually get better on their own, without medical treatment. What are the causes? A URI is caused by a virus. You may catch a virus by: Breathing in droplets from an infected person's cough or sneeze. Touching something that has been exposed to the virus (contaminated) and then touching your mouth, nose, or eyes. What increases the risk? You are more likely to get a URI if: You are very young or very old. It is priti or winter. You have close contact with others, such as at a daycare, school, or health care facility. You smoke. You have long-term (chronic) heart or lung disease. You have a weakened disease-fighting (immune) system. You have nasal allergies or asthma. You are experiencing a lot of stress. You work in an area that has poor air circulation. You have poor nutrition. What are the signs or symptoms? A URI usually involves some of the following symptoms: Runny or stuffy (congested) nose. Sneezing. Cough. Sore throat. Headache. Fatigue. Fever. Loss of appetite. Pain in your forehead, behind your eyes, and over your cheekbones (sinus pain). Muscle aches. Redness or irritation of the eyes. Pressure in the ears or face. How is this diagnosed? This condition may be diagnosed based on your medical history and symptoms, and a physical exam. Your health care provider may use a cotton swab to take a mucus sample from your nose (nasal swab). This sample can be tested to determine what virus is causing the illness. How is this treated? URIs usually get better on their own within 7 10 days. You can take steps at home to relieve your symptoms. Medicines cannot cure URIs, but your health care provider may recommend certain medicines to help relieve symptoms, such as: Gsgu-syj-kkyocal cold medicines. Cough suppressants. Coughing is a type of defense against infection that helps to clear the respiratory system, so take these medicines only as recommended by your health care provider. Fever-reducing medicines. Follow these instructions at home: Activity Rest as needed. If you have a fever, stay home from work or school until your fever is gone or until your health care provider says you are no longer contagious. Your health care provider may have you wear a face mask to prevent your infection from spreading. Relieving symptoms Gargle with a salt-water mixture 3 4 times a day or as needed. To make a salt- water mixture, completely dissolve 1 tsp of salt in 1 cup of warm water. Use a cool-mist humidifier to add moisture to the air. This can help you breathe more easily. Eating and drinking Drink enough fluid to keep your urine pale yellow. Eat soups and other clear broths. General instructions Take etzg-uaz-duqbvir and prescription medicines only as told by your health care provider. These include cold medicines, fever reducers, and cough suppressants. Do not use any products that contain nicotine or tobacco, such as cigarettes and e-cigarettes. If you need help quitting, ask your health care provider. Stay away from secondhand smoke. Stay up to date on all immunizations, including the yearly (annual) flu vaccine. Keep all follow-up visits as told by your health care provider. This is important. How to prevent the spread of infection to others URIs can be passed from person to person (are contagious). To prevent the infection from spreading: ?Wash your hands often with soap and water. If soap and water are not available, use hand access coordinator. ?Avoid touching your mouth, face, eyes, or nose. ?Cough or sneeze into a tissue or your sleeve or elbow instead of into your hand or into the air. Contact a health care provider if: You are getting worse instead of better. You have a fever or chills. Your mucus is brown or red. You have yellow or brown discharge coming from your nose. You have pain in your face, especially when you bend forward. You have swollen neck glands. You have pain while swallowing. You have white areas in the back of your throat. Get help right away if: You have shortness of breath that gets worse. You have severe or persistent: ?Headache. ?Ear pain. ?Sinus pain. ?Chest pain. You have chronic lung disease along with any of the following: ?Wheezing. ?Prolonged cough. ?Coughing up blood. ?A change in your usual mucus. You have a stiff neck. You have changes in your: ?Vision. ?Hearing. ?Thinking. ?Mood. Summary An upper respiratory infection (URI) is a common infection of the nose, throat, and upper air passages that lead to the lungs. A URI is caused by a virus. URIs usually get better on their own within 7 10 days. Medicines cannot cure URIs, but your health care provider may recommend certain medicines to help relieve symptoms. This information is not intended to replace advice given to you by your health care provider. Make sure you discuss any questions you have with your health care provider. Document Released: 12/10/2001 Document Revised: 06/24/2019 Document Reviewed: 01/30/2018 [employer] Patient Education 2020 [employer]. Follow Up Care 06/14/2022 08:42:26 With:Florecita Haynes Address: [address] [place] [address] [place] [address]- When:06/17/2022 09:34:03 [facility]05-17-2022 Hospital Discharge instructions Patient Education 11/13/2021 02:11:11 Nausea and Vomiting, Adult, Rhyv-og-Jtti Nausea and Vomiting, Adult Nausea is feeling sick to your stomach or feeling that you are about to throw up (vomit). Vomiting is when food in your stomach is thrown up and out of the mouth. Throwing up can make you feel weak. It can also make you lose too much water in your body (get dehydrated). If you lose too much water in your body, you may: Feel tired. Feel thirsty. Have a dry mouth. Have cracked lips. Go pee (urinate) less often. Older adults and people with other diseases or a weak body defense system (immune system) are at higher risk for losing too much water in the body. If you feel sick to your stomach and you throw up, it is important to follow instructions from your doctor about how to take care of yourself. Follow these instructions at home: Watch your symptoms for any changes. Tell your doctor about them. Follow these instructions to carefor yourself at home. Eating and drinking Take an ORS (oral rehydration solution). This is a drink that is sold at pharmacies and stores. Drink clear fluids in small amounts as you are able, such as: ?Water. ?Ice chips. ?Fruit juice that has water added (diluted fruit juice). ?Low-calorie sports drinks. Eat bland, agml-di-uvtljn foods in small amounts as you are able, such as: ?Bananas. ?Applesauce. ?Rice. ?Low-fat (lean) meats. ?[place]. ?Crackers. Avoid drinking fluids that have a lot of sugar or caffeine in them. This includes energy drinks, sports drinks, and soda. Avoid alcohol. Avoid spicy or fatty foods. General instructions Take phvz-btz-snfzsin and prescription medicines only as told by your doctor. Drink enough fluid to keep your pee (urine) pale yellow. Wash your hands often with soap and water. If you cannot use soap and water, use hand access coordinator. Make sure that all people in your home wash their hands well and often. Rest at home while you get better. Watch your condition for any changes. Take slow and deep breaths when you feel sick to your stomach. Keep all follow-up visits as told by your doctor. This is important. Contact a doctor if: Your symptoms get worse. You have new symptoms. You have a fever. You cannot drink fluids without throwing up. You feel sick to your stomach for more than 2 days. You feel light-headed or dizzy. You have a headache. You have muscle cramps. You have a rash. You have pain while peeing. Get help right away if: You have pain in your chest, neck, arm, or jaw. You feel very weak or you pass out (faint). You throw up again and again. You have throw up that is bright red or looks like black coffee grounds. You have bloody or black poop (stools) or poop that looks like tar. You have a very bad headache, a stiff neck, or both. You have very bad pain, cramping, or bloating in your belly (abdomen). You have trouble breathing. You are breathing very quickly. Your heart is beating very quickly. Your skin feels cold and clammy. You feel confused. You have signs of losing too much water in your body, such as: ?Dark pee, very little pee, or no pee. ?Cracked lips. ?Dry mouth. ?Sunken eyes. ?Sleepiness. ?Weakness. These symptoms may be an emergency. Do not wait to see if the symptoms will go away. Get medical help right away. Call your local emergency services (911 in the [place] Do not drive yourself to the hospital. Summary Nausea is feeling sick to your stomach or feeling that you are about to throw up (vomit). Vomiting is when food in your stomach is thrown up and out of the mouth. Follow instructions from your doctor about eating and drinking to keep from losing too much water in your body. Take slld-flj-zdbuqjd and prescription medicines only as told by your doctor. Contact your doctor if your symptoms get worse or you have new symptoms. Keep all follow-up visits as told by your doctor. This is important. This information is not intended to replace advice given to you by your health care provider. Make sure you discuss any questions you have with your health care provider. Document Released: 12/02/2008 Document Revised: 10/08/2019 Document Reviewed: 11/24/2018 [employer] Patient Education 2020 [employer]. 11/13/2021 02:11:11 Diarrhea, Adult, Rrwh-so-Aplc Diarrhea, Adult Diarrhea is when you pass loose and watery poop (stool) often. Diarrhea can make you feel weak and cause you to lose water in your body (get dehydrated). Losing water in your body can cause you to: Feel tired and thirsty. Have a dry mouth. Go pee (urinate) less often. Diarrhea often lasts 2 3 days. However, it can last longer if it is a sign of something more serious. It is important to treat your diarrhea as told by your doctor. Follow these instructions at home: Eating and drinking Follow these instructions as told by your doctor: Take an ORS (oral rehydration solution). This is a drink that helps you replace fluids and mineralsyour body lost. It is sold at pharmacies and stores. Drink plenty of fluids, such as: ?Water. ?Ice chips. ?Diluted fruit juice. ?Low-calorie sports drinks. ?Milk, if you want. Avoid drinking fluids that have a lot of sugar or caffeine in them. Eat bland, pddq-zp-bpgvmd foods in small amounts as you are able. These foods include: ?Bananas. ?Applesauce. ?Rice. ?Low-fat (lean) meats. ?[place]. ?Crackers. Avoid alcohol. Avoid spicy or fatty foods. Medicines Take vmoc-zoo-wxwbyim and prescription medicines only as told by your doctor. If you were prescribed an antibiotic medicine, take it as told by your doctor. Do not stop using the antibiotic even if you start to feel better. General instructions Wash your hands often using soap and water. If soap and water are not available, use a hand access coordinator. Others in your home should wash their hands as well. Hands should be washed: ?After using the toilet or changing a diaper. ?Before preparing, cooking, or serving food. ?While caring for a sick person. ?While visiting someone in a hospital. Drink enough fluid to keep your pee (urine) pale yellow. Rest at home while you get better. Watch your condition for any changes. Take a warm bath to help with any burning or pain from having diarrhea. Keep all follow-up visits as told by your doctor. This is important. Contact a doctor if: You have a fever. Your diarrhea gets worse. You have new symptoms. You cannot keep fluids down. You feel light-headed or dizzy. You have a headache. You have muscle cramps. Get help right away if: You have chest pain. You feel very weak or you pass out (faint). You have bloody or black poop or poop that looks like tar. You have very bad pain, cramping, or bloating in your belly (abdomen). You have trouble breathing or you are breathing very quickly. Your heart is beating very quickly. Your skin feels cold and clammy. You feel confused. You have signs of losing too much water in your body, such as: ?Dark pee, very little pee, or no pee. ?Cracked lips. ?Dry mouth. ?Sunken eyes. ?Sleepiness. ?Weakness. Summary Diarrhea is when you pass loose and watery poop (stool) often. Diarrhea can make you feel weak and cause you to lose water in your body (get dehydrated). Take an ORS (oral rehydration solution). This is a drink that is sold at pharmacies and stores. Eat bland, nvdx-os-vgxvyw foods in small amounts as you are able. Contact a doctor if your condition gets worse. Get help right away if you have signs that you have lost too much water in your body. This information is not intended to replace advice given to you by your health care provider. Make sure you discuss any questions you have with your health care provider. Document Released: 12/02/2008 Document Revised: 11/20/2018 Document Reviewed: 11/20/2018 [employer] Patient Education 2020 [employer]. Follow Up Care 11/12/2021 22:15:24 With:Russell Link Address: [address] [place] [address]- Business (1) When:11/16/2021 Comments:Can use the pain medication, nausea medication as prescribed as needed for your symptoms. Please follow-up with your primary care doctor and [employer] for further evaluation of your symptoms. Please return to ED for any new or worsening symptoms. [facility]05-16-2022 Evaluation + Plan noteExtracted from: Title:ED Note Author:Kim WILLIAMSON Andrewmariaelena Corbin Date :11/12/21 Chills (R68.83: Chills (with out fever)) Diarrhea (R19.7: Diarrhea, unspecified) Nausea & vomiting (R11.2: Nausea with vomiting, unspecified) Orders: dicyclomine, 10 mg = 1 cap(s), Oral, QID, PRN Pain, X 7 day(s), # 12 cap(s), Refills(s) 0 dicyclomine, 20 mg = 2 mL, Injection, IntraMuscular, Once, Stop date 11/13/21 0:25:00 EDT, STAT, Start date 11/13/21 0:25:00 EDT, 11/13/21 0:25:00 EDT ketorolac, 30 mg = 1 mL, Injection, IV Push, Once, Stop date 11/12/21 22:55:00 EDT, STAT, Start date 11/12/21 22:55:00 EDT, 11/12/21 22:55:00 EDT metoclopramide, 10 mg = 2 mL, Injection, IV Push, Once, Stop date 11/13/21 1:56:00 EDT, STAT, Start date 11/13/21 1:56:00 EDT, 11/13/21 1:56:00 EDT ondansetron, 4 mg = 1 tab(s), Oral, q8hr, PRN Nausea/Vomiting, # 12 tab(s), Refills(s) 0 ondansetron, 4 mg = 2 mL, Injection, IV Push, Once, Stop date 11/12/21 22:55:00 EDT, STAT, Start date 11/12/21 22:55:00 EDT, 11/12/21 22:55:00 EDT promethazine, 25 mg = 1 supp, Rectal, q6hr, PRN Nausea/Vomiting, # 6 EA, Refills(s) 0 Sodium Chloride 0.9% intravenous solution 1,000 mL, 1,000 mL, IV, 983.61 mL/hr, for 30 day(s), Stop date 12/12/21 22:54:00 EDT, STAT, Start date 11/12/21 22:55:00 EDT, 61 minute(s), Total volume (mL): 1,000, 108 kg, 2.22, m2 Automated Diff Basic Metabolic Panel Beta hCG Quantitative C-Reactive Protein CBC w/ Auto Diff Cervical Culture Chlamydia/Gonococcus, CHELE CT Abdomen/Pelvis w/ Contrast eGFR Hepatic Function Panel Influenza A&B Ag Lipase Level Rapid [place] [place] With Cult Reflex Diagnostic Tests Pending * Chlamydia/Gonococcus, CHELE 11/13/21 [facility] [facility]03-29-2022 Hospital Discharge instructions Patient Education 09/25/2021 17:20:16 Migraine Headache Migraine Headache A migraine headache is an intense, throbbing pain on one side or both sides of the head. Migraine headaches may also cause other symptoms, such as nausea, vomiting, and sensitivity to light and noise. A migraine headache can last from 4 hours to 3 days. Talk with your doctor about what things may bring on (trigger) your migraine headaches. What are the causes? The exact cause of this condition is not known. However, a migraine may be caused when nerves in the brain become irritated and release chemicals that cause inflammation of blood vessels. This inflammation causes pain. This condition may be triggered or caused by: Drinking alcohol. Smoking. Taking medicines, such as: ?Medicine used to treat chest pain (nitroglycerin). ? control pills. ?Estrogen. ?Certain blood pressure medicines. Eating or drinking products that contain nitrates, glutamate, aspartame, or tyramine. Aged cheeses,chocolate, or caffeine may also be triggers. Doing physical activity. Other things that may trigger a migraine headache include: Menstruation. . Hunger. Stress. Lack of sleep or too much sleep. Weather changes. Fatigue. What increases the risk? The following factors may make you more likely to experience migraine headaches: Being a certain age. This condition is more common in people who are 25 55 years old. Being female. Having a family history of migraine headaches. Being . Having a mental health condition, such as depression or anxiety. Being obese. What are the signs or symptoms? The main symptom of this condition is pulsating or throbbing pain. This pain may: Happen in any area of the head, such as on one side or both sides. Interfere with daily activities. Get worse with physical activity. Get worse with exposure to bright lights or loud noises. Other symptoms may include: Nausea. Vomiting. Dizziness. General sensitivity to bright lights, loud noises, or smells. Before you get a migraine headache, you may get warning signs (an aura). An aura may include: Seeing flashing lights or having blind spots. Seeing bright spots, halos, or zigzag lines. Having tunnel vision or blurred vision. Having numbness or a tingling feeling. Having trouble talking. Having muscle weakness. Some people have symptoms after a migraine headache (postdromal phase), such as: Feeling tired. Difficulty concentrating. How is this diagnosed? A migraine headache can be diagnosed based on: Your symptoms. A physical exam. Tests, such as: ?CT scan or an MRI of the head. These imaging tests can help rule out other causes of headaches. ?Taking fluid from the spine (lumbar puncture) and analyzing it (cerebrospinal fluid analysis, or CSF analysis). How is this treated? This condition may be treated with medicines that: Relieve pain. Relieve nausea. Prevent migraine headaches. Treatment for this condition may also include: Acupuncture. Lifestyle changes like avoiding foods that trigger migraine headaches. Biofeedback. Cognitive behavioral therapy. Follow these instructions at home: Medicines Take ilpi-gpr-pzgyqqh and prescription medicines only as told by your health care provider. Ask your health care provider if the medicine prescribed to you: ?Requires you to avoid driving or using heavy machinery. ?Can cause constipation. You may need to take these actions to prevent or treat constipation: ?Drink enough fluid to keep your urine pale yellow. ?Take dfwm-wif-swntsdz or prescription medicines. ?Eat foods that are high in fiber, such as beans, whole grains, and fresh fruits and vegetables. ?Limit foods that are high in fat and processed sugars, such as fried or sweet foods. Lifestyle Do not drink alcohol. Do not use any products that contain nicotine or tobacco, such as cigarettes, e- cigarettes, and chewing tobacco. If you need help quitting, ask your health care provider. Get at least 8 hours of sleep every night. Find ways to manage stress, such as meditation, deep breathing, or yoga. General instructions Keep a journal to find out what may trigger your migraine headaches. For example, write down: ?What you eat and drink. ?How much sleep you get. ?Any change to your diet or medicines. If you have a migraine headache: ?Avoid things that make your symptoms worse, such as bright lights. ?It may help to lie down in a dark, quiet room. ?Do not drive or use heavy machinery. ?Ask your health care provider what activities are safe for you while you are experiencing symptoms. Keep all follow-up visits as told by your health care provider. This is important. Contact a health care provider if: You develop symptoms that are different or more severe than your usual migraine headache symptoms. You have more than 15 headache days in one month. Get help right away if: Your migraine headache becomes severe. Your migraine headache lasts longer than 72 hours. You have a fever. You have a stiff neck. You have vision loss. Your muscles feel weak or like you cannot control them. You start to lose your balance often. You have trouble walking. You faint. You have a seizure. Summary A migraine headache is an intense, throbbing pain on one side or both sides of the head. Migraines may also cause other symptoms, such as nausea, vomiting, and sensitivity to light and noise. This condition may be treated with medicines and lifestyle changes. You may also need to avoid certain things that trigger a migraine headache. Keep a journal to find out what may trigger your migraine headaches. Contact your health care provider if you have more than 15 headache days in a month or you develop symptoms that are different or more severe than your usual migraine headache symptoms. This information is not intended to replace advice given to you by your health care provider. Make sure you discuss any questions you have with your health care provider. Document Released: 06/16/2006 Document Revised: 10/08/2019 Document Reviewed: 07/29/2019 [employer] Patient Education 2020 [employer]. Follow Up Care 09/25/2021 15:29:43 With:Vanessa Araujo Address: [address] [place] [address]- Business (1) When:09/28/2021 17:15:39 With:Russell Vasquez Address: [address] [place] [address]- Business (1) When:09/28/2021 17:15:36 [facility]03-29-2022 Evaluation + Plan noteExtracted from: Title:ED Note Author:Ronny BOOTHE, Augie Luna te:09/25/21 Headache (R51.9: Headache, u nspecified) Orders: APAP/butalbital/caffeine, 1 tab(s), Oral, q4hr for headache, 15 tab(s), Refill(s) 0 diphenhydrAMINE, 25 mg = 0.5 mL, Injection, IntraMuscular, Once, Stop date 09/25/21 16:31:00 EDT, STAT, Start date 09/25/21 16:31:00 EDT, 09/25/21 16:31:00 EDT ketorolac, 60 mg = 2 mL, Injection, IntraMuscular, Once, Stop date 09/25/21 16:31:00 EDT, STAT, Start date 09/25/21 16:31:00 EDT, 09/25/21 16:31:00 EDT metoclopramide, 10 mg = 2 mL, Injection, IntraMuscular, Once, Stop date 09/25/21 16:31:00 EDT, STAT, Start date 09/25/21 16:31:00 EDT, 09/25/21 16:31:[address] Head or Brain w/o Contrast [facility] Future Appointments Appointment Date:04/05/2022 01:40:00 PM Scheduled Provider:Lou Arceo NP Location:[facility] Appointment Type:[facility] [place] Evaluation note* Diagnosis Abnormal uterine bleeding (AUB)- Primary Wellness examination Obesity, Class II, BMI 35-39.9 [facility] Diagnosis Screen for STD (sexually transmitted disease)- Primary Screening examination for venereal disease Accident caused by hypodermic needle, initial encounter [facility]* Diagnosis Class 3 severe obesity due to excess calories without serious comorbidity with body mass index (BMI) of 45.0 to 49.9 in adult ([facility])- Primary [facility]* Diagnosis BMI 45.0-49.9, adult ([facility])- Primary [facility]* Diagnosis Well woman exam with routine gynecological exam- Primary Routine gynecological examination Cervical smear, as part of routine gynecological examination Screening for malignant neoplasm of the cervix Standardized adult depression screening tool completed documented [facility] encounter [facility] noteNo assessment information available [facility] Work Phone: Evaluation note* Diagnosis Onset Date Resolution Status Bipolar 1 disorder acute Hepatitis C acute NAFLD (nonalcoholic fatty liver disease) acute Pancreatitis acute Bipolar 1 disorder acute Pancreatitis acute Severe obesity acute Social isolation in parenthood noneactive [facility] Work Phone: Evaluation note* Author [facility] Authored December 11, 2023 11:1 7am 28-year-old female referred to the gastroenterology clinic for evaluation of acute pancreatitis, hepatitis C and fatty liver + Recurrent episodes of abdominal pain or and vomiting requiring multiple ER visits which was initially attributed to pancreatitis secondary to semaglutide however patient stopped semaglutide in 07/2023 patient continued to have symptoms. During the last ER visit on 11/26/2023, lipase was normal and CT showed no evidence of pancreatitis and no acute abnormality in abdomen. + Recent NSAIDs use + marijuana use +history of IV drug use, last use was few years ago + History of tattoos Will arrange for EGD to evaluate for intraluminal etiologies of patient's symptoms, I recommended the patient to stop marijuana, if EGD is negative and if symptoms remain despite marijuana abstinence then will consider gastric emptying study. Regarding history of hepatitis C in the setting of history of IV drug use and tattoos, will check viral hepatitis serologies and HIV Regarding history of fatty liver, will arrange for FibroScan and check liver enzymes. Patient has obesity which is a risk factor for MASLD, Patient does not have secondary causes of hepatic fat accumulation such as significant alcohol consumption, viral hepatitis, steatogenic medications (e.g., tamoxifen, amiodarone, methotrexate), or lipodystrophy. Pt was counseled about weight loss(10%) mediterranean diet and exercise ( >45 minutes X5 per week). [facility] Work Phone: History and physical note Author [facility] January 08, 2024 2:06pm Note Date/Time January 08, 2024 2:06 pm [facility] [address] [place] [address] Gastroenterology H&P Signed Patient: Karen Liu MR#: [id number] : 1995 Acct:[id number] Age/Sex: 28 / F Adm Date: 4 Loc: Room: Type: [facility] Attending Dr: Jos Lund MD Copies to: RUSH Rudolph MD~ Date of Service: 01/08/2024 HISTORY & PHYSICAL: Patient's history with special attention to the cardiovascular, pulmonary systems and the current problem was reviewed with the patient immediately prior to the procedure. Present medications and doses reviewed in the EMR. Allergies and pertinent laboratory tests were also reviewedat this time in the EMR. The physical examination, as below, was then performed. Indication, assessment and HPI: 28-year-old female here for EGD for evaluation of abdominal pain and vomiting Family history of GI malignancy? No PHYSICAL EXAMINATION General appearance: NAD Skin: No jaundice Head: NC/AT Eyes: Anicteric Neck: Supple Lungs: Normal respiratory effort, no use of accessory muscles Abdomen: nondistended Neuro: Ox3. REVIEW OF SYSTEMS Constitutional: Denies malaise, fevers Cardiovascular: Denies chest pain, palpitations Respiratory: Denies shortness of breath, wheezing Gastrointestinal: As per HPI Genitourinary: Denies dysuria, polyuria Musculoskeletal: Denies joint swelling, joint stiffness Neurological: Denies confusion, numbness, tingling Endocrine: Denies fatigue Written informed consent obtained from the patient. Risks (including but not limited to perforation, infection, bloating, bleeding, need for emergent surgeryand loss of life), benefits and alternatives explained and questions answered. The patient verbalized understanding. Based on history patient is an appropriate candidate for the procedure. Jos Lund M.D. Documented By: Jos Lund MD 01/08/24 140 Signed By: <Electronically signed by Jos Lund MD> 01/08/24 140 [facility] Work Phone: History general Narrative - Reported* Type Description Date Medical History Depression Medical History Anxiety Medical History History of MRSA infection Medical History Abnormal uterine and vaginal ble eding, unspecified Medical History Paresthesia of skin Medical History Anal fissure Medical History Nerve damage Medical History Severe obesity Medical History Prediabetes Medical History Bipolar 1 disorder Medical History PTSD (post-traumatic stress diso rder) Medical History Borderline personality disorder Medical History Intravenous drug abuse in remiss ion Medical History ADHD Medical History Hepatitis C antibody positive in blood Surgical History Tonsillectomy Surgical History 09/26/2015 Surgical History 08/14/2018 Surgical History 12/15/2020 Surgical History Bilateral salpingectomy 11/2020 Hospitalization History See surgical hx Hospitalization History Reports having 7 spinal taps during childhood [employer] Other Hospital course Narrative No data available for this section [facility] No data available for this section [facility]* Attachments The following attachments cannot be sent through Care Everywhere. * Polycystic ovary syndrome (Mongolian) * Absent or irregular periods (Mongolian) * Semaglutide, ADULT (Mongolian) [facility] System[facility]ructionsNot on file documented in [facility] encounter[facility] SystemInstructionsNot on file documented in this encounterProR[facility] SystemInstructionsNot on file documented in this encounterProR[facility] SystemInstructions* Attachments The following attachments cannot be sent through Care Everywhere. * How to Perform Breast Self-Examination (Mongolian) * Vaping (Mongolian) documented in [facility] System[facility] note No data available for this section [facility] for referral (narrative) Referred by: Lou Arceo NP [facility] Reakqw for referral (narrative)* Consultation (Routine) - Pending Review Specialty Diagnoses / Procedures Referred By Contlei t Referred To Contact Nutrition Diagnoses Class 3 severe obesity due to excess calories without serious comorbidity with body mass index (BMI) of 45.0 to 49.9 in adult ([facility]) Lucinda Arias MD [address] [place] [address] [facility] Nutrition Services [address] [place] [address] Referral ID Status Reason Start Date Expiration Date V isits Requested Visits Authorized [id number] Pending Review 07/28/2023 07/27/2024 1 1 [employer] GamesReason for referral (narrative)* Consultation (Routine) - Pending Review Specialty Diagnoses / Procedures Referred By Contac t Referred To Contact Endocrinology, Diabetes & Metabolism Diagnoses BMI 45.0-49.9, adult ([facility]) Lucinda Arias MD [address] [place] [address] [facility] Diabetes/Nutrition Ed [address] [place] [address] Referral ID Status Reason Start Date Expiration Date Visits Requested Visits Authorized [id number] Pending Review Specialty Services Required 07/30/2023 07/29/2024 1 1 [facility] Summary Purpose Family History No Family History Records Found Relationship Condition Age at Onset Recorded Date/T anup brother Family history of mental disorder Unknown Unknown father Family history of mental disorder Unknown Diabetes mellitus Unknown Heart disease Unknown Hypertension Unknown Family history of other condition Unknown family member Family history of other condition Unknow n Not Specified Family history of mental disorder Unknow n sister Family history of mental disorder Unknown Drug abuse Unknown Relationship Condition Age at Onset Recorded Date/T anup brother Unknown Family history of mental disorder Unknown father Diabetes mellitus Unknown Family history of other condition Unknown Heart disease Unknown Hypertension Unknown Drug abuse Unknown family member Family history of other condition Unknow n mother Family history of other condition Unknown sister Drug abuse Unknown Advance Directives No Advanced Directives Records Found Advance Directive Response Recorded Date/ Time Advance Directives No September 17 10:11am Advance Directive Response Recorded Date/ Time Advance Directives No November 06, 2023 3:12pm Chief Complaint and Reason for Visit Chief Complaint Est Pcp Amb Documentation [facility] follow up/ Pancreatitis/Fatty liver Chief Complaint [facility] follow up/ Pancreatitis/Fatty liver Follow up several concerns Amb Documentation Amb Documentation follow up/protonix Reason for Visit Bipolar 1 disorder Hepatitis C NAFLD (nonalcoholic fatty liver disease) Pancreatitis Bipolar 1 disorder Pancreatitis Severe obesity Social isolation in parenthood Chief Complaint [facility] follow up/ Pancreatitis/Fatty liver Follow up several concerns Amb Documentation Amb Documentation follow up/protonix FATTY LIVER, HEP C, PANCREATITIS, ANAL FISSURE Reason for Visit Bipolar 1 disorder Hepatitis C NAFLD (nonalcoholic fatty liver disease) Pancreatitis Bipolar 1 disorder Pancreatitis Severe obesity Social isolation in parenthood Anxiety Gastritis Lumbar dysfunction Macromastia Superficial wound Hepatitis C NAFLD (nonalcoholic fatty liver disease) Pancreatitis Chief Complaint [facility] follow up/ Pancreatitis/Fatty liver Follow up several concerns Amb Documentation Amb Documentation follow up/protonix FATTY LIVER, HEP C, PANCREATITIS, ANAL FISSURE B19.20 Reason for Visit Bipolar 1 disorder Hepatitis C NAFLD (nonalcoholic fatty liver disease) Pancreatitis Bipolar 1 disorder Pancreatitis Severe obesity Social isolation in parenthood Anxiety Gastritis Lumbar dysfunction Macromastia Superficial wound Hepatitis C NAFLD (nonalcoholic fatty liver disease) Pancreatitis Chief Complaint Follow up several co ncerns Amb Documentation Amb Documentation follow up/protonix FATTY LIVER, HEP C, PANCREATITIS, ANAL FISSURE B19.20 abd pain/nausea/vomiting abd pain/nausea/vomiting Reason for Visit Bipolar 1 disorder Pancreatitis Severe obesity Social isolation in parenthood Anxiety Gastritis Lumbar dysfunction Macromastia Superficial wound Hepatitis C NAFLD (nonalcoholic fatty liver disease) Pancreatitis Additional Source Comments Care Team (unrecognized sect ion and content) [employer] Model Maker Relationship Specialty Start Date End Date Gaetano Aldrich NEGOTIATOR-SALES REPRESENTATIVE [employer] [address] [address] PCP - General Family Medicine 07/14/23 [employer] Model Maker Relationship Specialty Start Date End Date Gaetano Aldrich NEGOTIATOR-SALES REPRESENTATIVE [employer] [address] [address] PCP - General Family Medicine 07/14/23 [employer] Model Maker Relationship Specialty Start Date End Date Gaetano Aldrich NEGOTIATOR-SALES REPRESENTATIVE [employer] [address] [address] PCP - General Family Medicine 07/14/23 [employer] Model Maker Relationship Specialty Start Date End Date EasterLeif russoa, NEGOTIATOR-SALES REPRESENTATIVE [employer] [address] [address] PCP - General Family Medicine 07/14/23 [employer] Model Maker Relationship Specialty Start Date End Date EasterwoodLeifa, NEGOTIATOR-SALES REPRESENTATIVE [employer] [address] [address] PCP - General Family Medicine 07/14/23 [employer] Model Maker Relationship Specialty Start Date End Date JhonyerLeif russoa, NEGOTIATOR-SALES REPRESENTATIVE [employer] [address] [address] PCP - General Family Medicine 07/14/23 [employer] Model Maker Relationship Specialty Start Date End Date Leif Aldricha, NEGOTIATOR-SALES REPRESENTATIVE [employer] [address] [address] PCP - General Family Medicine 07/14/23 Team Status: Active Member Role Status Dates Gaetano Aldrich APRN Primary Care Provider Active Team Status: Inactive Member Role Status Dates Gaetano Aldrich APRN Attending Provider Active Start: July 29, 2023 End: July 29, 2023 Team Status: Active Member Role Status Dates Gaetano Aldrich APRN Primary Care Provider Active Start: August 25, 2023 HANNAH Fox Attending Provider Active St art: August 25, 2023 Team Status: Inactive Member Role Status Dates Gaetano Aldrich APRN Primary Care Pr raulito, Attending Provider Active Start: September 25, 2023 End: September 25, 2023 Team Status: Inactive Member Role Status Dates Gaetano Aldrich APRN Primary Care Pr raulito, Attending Provider Active Start: November 13, 2023 End: November 13, 2023 Team Status: Active Member Role Status Dates Gaetano Aldrich APRN Primary Care Provider Active Start: November 26, 2023 Alberta Viera PA-C Attending Provider Active Start: November 26, 2023 Team Status: Active Member Role Status Dates Gaetano Aldrich APRN Primary Care Provider Active Start: November 27, 2023 Noa Nugent CMA Attending Provider Active Sta rt: November 27, 2023 Team Status: Active Member Role Status Dates Gaetano Aldrich APRN Primary Care Provider Active Start: December 01, 2023 Bill Coreas LPN Attending Provider Active St art: December 01, 2023 Team Status: Inactive Member Role Status Dates Gaetano Aldrich APRN Primary Care Pr ovidrusty, Attending Provider Active Start: December 09, 2023 End: December 09, 2023 Team Status: Inactive Member Role Status Dates Gaetano Aldrich APRN Primary Care Provider Active Start: December 11, 2023 End: December 11, 2023 Jos Lund MD Attending Provider Active Start: December 11, 2023 End: December 11, 2023 Team Status: Inactive Member Role Status Dates Gaetano Aldrich APRN Primary Care Provider Active Start: December 12, 2023 End: December 12, 2023 Jos Lund MD Attending Provider Active Start: December 12, 2023 End: December 12, 2023 Team Status: Inactive Member Role Status Dates Gaetano Aldrich APRN Primary Care Provider Active Start: January 08, 2024 End: January 08, 2024 Jos Lund MD Attending Provider Active Start: January 08, 2024 End: January 08, 2024 Team Status: Active Member Role Status Dates Gaetano Aldrich APRN Primary Care Provider Active Start: January 08, 2024 Jos Lund MD Attending Provider, Other Provider Active Start: January 08, 2024 INFORMATION SOURCE (unrecogn ized section and content) DATE CREATED AUTHOR 06/20/2022 [facility] DATE CREATED AUTHOR AUTHOR'S ORGANIZ ATION 12/06/2022 [facility] DATE CREATED AUTHOR AUTHOR'S ORGANIZ ATION 03/31/2023 [facility] DATE CREATED AUTHOR AUTHOR'S ORGANIZ ATION 08/29/2023 [facility] DATE CREATED AUTHOR AUTHOR'S ORGANIZ ATION 08/31/2023 [facility] DATE CREATED AUTHOR AUTHOR'S ORGANIZ ATION 09/30/2023 [facility] DATE CREATED AUTHOR AUTHOR'S ORGANIZ ATION 11/22/2023 [facility] DATE CREATED AUTHOR AUTHOR'S ORGANIZ ATION 01/21/2024 [facility] Reason for Visit (unrecogniz ed section and content) Reason Comments Weight loss Reason Comments Gynecologic Exam Pt is here for annua l exam. Goals (unrecognized section and content) Goals may be documented in a n alternate section FOR RECORDS PERTAINING TO PATIENTS WHO ARE OR HAVE BEEN ENROLLED IN A CHEMICAL DEPENDENCY/SUBSTANCEABUSE PROGRAM, SOME INFORMATION MAY BE OMITTED. This clinical summary was aggregated from multiple sources. Caution should be exercised in using it in the provision of clinical care. This summary normalizes information from multiple sources, and as a consequence, information in this document may materially change the coding, format and clinical context of patient data. In addition, data may be omitted in some cases. CLINICAL DECISIONS SHOULD BE BASED ON THE PRIMARY CLINICAL RECORDS. [facility] provides no warranty or guarantee of the accuracy or completeness of information in this document.
--- NOTE | 2024-04-21 09:20 | ED.GENADUL1 ---
HPI HPI - General Adult General Chief complaint: Back Pain/Injury Stated complaint: BACK PAIN, LIMB NUMBESS Time Seen by Provider: 04/21/24 08:33 Source: patient and family Mode of arrival: walk-in Limitations: no limitations History of Present Illness HPI narrative: Patient presents to ED complaining of low back pain and mid back pain. She reports she has a longstanding history of back issues for many years. She has had multiple epidurals in the past and she reports that she has slipped disks in her back. She does go to a chiropractor. She reports that she has had increased pain in the left thoracic back and right lumbar back with some burning going down both of her legs but worse on the left leg. She also reports some pain when she breathes deep she feels like her back Bassham's and sends pain around the left side of her ribs. No injury no fall. Patient states her legs have felt a little bit weak and she has had pain down into her thighs and calves. She was ambulatory in the ED no neurological deficits that she walked back to her room without any issue. She is sitting comfortably in the bed adjusting herself with no issues. She did say a couple of weeks ago she could tell that she had to urinate but could not get to the restroom in time. She also states that she dropped her coffee cup this morning and then fell to the ground because she was in so much pain. She said in the past Toradol has helped her as well as gabapentin and steroids but she has not had any of this medication in a while. She has seen her family doctor for this in the past and she has also had referrals to neurosurgery but she used to work every day and can never get in to them. She said she just did not really know what to do and came here for help guidance and some medication to help her pain. 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 Related Data Home Medications ?Medication ?Instructions ?Recorded ?Confirmed buspirone 7.5 mg tablet 7.5 mg PO BID 04/21/24 04/21/24 lamotrigine 150 mg tablet 300 mg PO DAILY 04/21/24 04/21/24 olanzapine 10 mg tablet 5 mg PO BID 04/21/24 04/21/24 olanzapine 5 mg tablet 10 mg PO .qhs 04/21/24 04/21/24 pantoprazole 20 mg tablet,delayed 20 mg PO DAILY 04/21/24 04/21/24 release prazosin 1 mg capsule 1 mg PO .QHS 04/21/24 04/21/24 Previous Rx's ?Medication ?Instructions ?Recorded prednisone 50 mg tablet 50 mg PO DAILY 5 days #5 tabs 03/22/24 cyclobenzaprine 10 mg tablet 10 mg PO TID 10 days #30 tabs 04/21/24 gabapentin 100 mg capsule 100 mg PO Q8H 2 weeks #42 caps 04/21/24 ketorolac 10 mg tablet 10 mg PO Q8H PRN pain 7 days #20 04/21/24 tabs methylprednisolone 4 mg tablets in 4 mg PO DAILY #21 ea 04/21/24 a dose pack (Medrol ([place])) Allergies Allergy/AdvReac Type Severity Reaction Status Date / Time bupropion (From Wellbutrin) Allergy Severe Hives Verified 04/21/24 08:42 acetaminophen (From Percocet) Allergy Mild Hives Verified 04/21/24 08:42 oxycodone (From Percocet) Allergy Mild Hives Verified 04/21/24 08:42 Opioid HPI Opioid Management Most Recent Opioid Data: Last Pain Scale 6 11/26/23 15:52 11/26/23 Review of Systems ROS Status of ROS 10 or more systems reviewed and unremarkable except as noted in history and below [facility] Social History Smoking status: Current every day smoker Little interest or pleasure in doing things: not at all Feeling down, depressed, or hopeless: not at all Exam Narrative Exam Narrative: Time Seen: [] Vital Signs: [Per nurse's notes.] General: [Alert] Skin: [Warm, dry, no rash.] Head: [Normocephalic, atraumatic.] Neck: [Supple, trachea midline.] Eye: [Pupils are equal, round and reactive to light, extraocular movements are intact, normal conjunctiva.] Ears, nose, mouth and throat: oral mucosa moist. Cardiovascular: [Regular rate and rhythm, no murmur.] Respiratory: [Lungs are clear to auscultation, respirations are non-labored, breath sounds are equal.] Chest wall: [No tenderness, no deformity.] Gastrointestinal: [Soft, nontender, non distended, normal bowel sounds.] MSK: 5 out of 5 muscle strength x 4 extremities no calf pain or edema. Normal distal pulses and sensation bilateral lower extremities. Normal proprioception bilateral lower extremities. Patient was able to stand on her tiptoes walk on her heels lift each leg individually without assistance. Normal push and pull with her upper extremities normal road test examiner strength bilaterally. Normal distal pulses in the upper extremities. Lymphatics: [No lymphadenopathy.] Psychiatric: [Cooperative, appropriate mood & affect.] Neurological: [Alert and oriented to person, place, time, and situation, no focal neurological deficit observed.] Constitutional Vital Signs, click to edit/add: Last Vital Signs Temp 98.6 F 04/21/24 08:36 Pulse 115 H 04/21/24 08:36 Resp 18 04/21/24 08:36 BP 117/85 04/21/24 08:36 Pulse Ox 97 04/21/24 08:36 O2 Del Method Room Air 04/21/24 08:36 Course Vital Signs Vital signs: Vital Signs Temperature 98.6 F 04/21/24 08:36 Pulse Rate 115 H 04/21/24 08:36 Respiratory Rate 18 04/21/24 08:36 Blood Pressure 117/85 04/21/24 08:36 Pulse Oximetry 97 04/21/24 08:36 Oxygen Delivery Method Room Air 04/21/24 08:36 Temperature 98.6 F 04/21/24 08:36 Pulse Rate 115 H 04/21/24 08:36 Respiratory Rate 18 04/21/24 08:36 Blood Pressure 117/85 04/21/24 08:36 Pulse Oximetry 97 04/21/24 08:36 Oxygen Delivery Method Room Air 04/21/24 08:36 Medical Decision Making MDM Narrative Medical decision making narrative: Patient was given IM Toradol and Norflex here in ED. She will be sent home with a prescription for gabapentin Toradol Flexeril as well as a steroid taper. She was given a referral to orthospine surgery. Please continue to follow-up with family doctor and use chiropractor for pain control. Return to ED if any neurological deficits or worsening symptoms. Patient is comfortable with care plan for home and states that she will follow-up outpatient to continue to control her back pain. Differential Diagnosis Differential Diagnosis: Sciatica lumbar radiculopathy cauda equina lumbar strain thoracic strain de Discharge Plan Discharge Chief Complaint: Back Pain/Injury Clinical Impression: Lumbar radiculopathy Patient Disposition: Home, Self-Care Time of Disposition Decision: 09:05 Condition: Good Mode of Transportation: Private Vehicle Prescriptions / Home Meds: New methylprednisolone [Medrol ([place])] 4 mg tablets,dose pack 4 mg PO DAILY Qty: 21 0RF gabapentin 100 mg capsule 100 mg PO Q8H 14 Days Qty: 42 0RF cyclobenzaprine 10 mg tablet 10 mg PO TID 10 Days Qty: 30 0RF ketorolac 10 mg tablet 10 mg PO Q8H PRN (Reason: pain) 7 Days Qty: 20 0RF No Action prednisone 50 mg tablet 50 mg PO DAILY 5 Days Qty: 5 0RF lamotrigine 150 mg tablet 300 mg PO DAILY buspirone 7.5 mg tablet 7.5 mg PO BID olanzapine 10 mg tablet 5 mg PO BID olanzapine 5 mg tablet 10 mg PO .qhs pantoprazole 20 mg tablet,delayed release (DR/EC) 20 mg PO DAILY prazosin 1 mg capsule 1 mg PO .QHS Print Language: Cymro Instructions: Back Pain (ED) Referrals: Penny Aldrich NP [Primary Care Provider] - 1 week Pepe Antunez MD [Physician] - 1 week
[2024-04-21] MEDS: ORPHENADRINE 60 MG/ 2 ML VIAL IM (09:27)
[2024-04-21] MEDS: KETOROLAC TROMETHAMINE 60 MG/2 ML VIAL IM (09:28)
== END 2024-04-21 09:33 | disposition home or self-care (01) ==
PROVIDERS: Emergency Provider Emergency Medicine; PCP Nurse Practitioner Family
DX: M54.16 Radiculopathy, lumbar region (principal); F17.200 Nicotine dependence, unspecified, uncomplicated
CPT/HCPCS: 96372; 99284; J1885; J2360

== ENCOUNTER 2024-05-24 12:08 | Outpatient (OUT) | payer OTHER, SELFPAY ==
--- OUTSIDE RECORDS SUMMARY | 2024-05-24 12:29 | XMS_ITS | CCD ---
Author Organization [facility] Care Team Providers Care Reference Test Clerk Name Role Phone Link, Russell Burnett Primary Care Physician Lou Arceo Primary Care Physician Florecita Haynes Primary Care Physician Unavail able Juarez Wang Attending Unavailable RONEL .SILVER Consulting Unavailvera e MISC, DR VALVERDE Primary Care Unavailable DIAB ., NOEL Attending Unavailable DIAB ., NOEL Admitting Unavailable FLORECITA FROST Consulting Unavailable DIAB ., NOEL Consulting Unavailable RAMAN KNOWLES Admitting Unavailable DR VANESSA ALVARADO Consulting Unavailable DEVIN ., RAMAN Attending Unavailable DEVIN Padron, RAMAN Consulting Unavailable ZEYAD FAM Admitting Unavailable REQUEST, NONE LISTED Primary Care Unavaila ZEYAD Marx Attending Unavailable ZEYAD FAM Consulting Unavailable REQUEST, NONE LISTED Primary Care Unavaila FREDDY Jesus Admitting Unavailable FREDDY YOUNG Attending Unavailable FREDDY YOUGN Consulting Unavailable NONE, XXXX Primary Care Physician Unavailab le NO, PCP Primary Care Unavailable [place] DIRECTOR OF ACCOUNTING-MANAGER PROTEIN, Gaetano Primary Care Provider [place], Gaetano Unavailable [...] NO PCP, NO PCP Primary Care Unavailable ANEL, DIA M Referring Unavailable EASTERWOOD, GAETANO Primary Care Unavailable ANEL, DIA M Attending Unavailable ANEL, DIA M Referring Unavailable EASTERWOOD, GAETANO Primary Care Unavailable EASTERWOOD, GAETANO Primary Care Unavailable NADINE AU Attending Unavailable YASMANY COLBERT Attending UnavailYASMANY Mendez Referring Unavailabl e EASTERWOOD, GAETANO Primary Care Unavailable ANEL, DIA M Referring Unavailable EASTER[place], GAETANO Primary Care Unavailable RUSH Aldrich Primary Care Provider MD Jos Lund Attending Provider Gaetano Aldrich Primary Care Unavailable Asaad, Imad Admitting Unavailable Asaad, Imad [facility]ending [facility] Asaad, Imad Admitting Unavailable Asaad, Imad Attending Unavailable Unavailable Primary Care Provider UnavailELMO Patricia Attending Unavailable EASTERWOOD, GAETANO Referring Unavailable ESTELITA ORTEGA Attending Unavailable E[place], GAETANO Referring Unavailable Allergies Allergy Classification Reported Allergen(s) Allergy Type Date of Onset Reaction(s) Facility Acetaminophen (1 source) Acetaminophen Drug Allergy 4 [facility] Aminoketones (1 source) buPROPion Drug Allergy 4 [facility] Opioid Agonists (1 source) [facility]et[facility] / oxyCODONE; Translations: [acetaminophen-ox ycodone] Drug Allergy 2 [facility] (3 sources) Acetaminophen / oxyCODONE; Translations: [Percocet] Drug Allergy 2 [facility] Repository (4 sources) Acetaminophen / oxyCODONE; Translations: [OXYCODONE-ACETAM INOPHEN] Drug Allergy 2 [facility] Repository (5 sources) Acetaminophen; Translations: [acetaminophen] Drug Allergy 4 hives, itching [facility] (5 sources) buPROPion; Translations: [bupropion] Drug Allergy 4 [facility] (5 sources) oxyCODONE; Translations: [oxycodone] Drug Allergy 4 hives, itching [facility] (6 sources) semaglutide; Translations: [semaglutide] Allergy to substance 4 pancreatitis [facility] Medications Current Medications Medication Drug Class(es) [...] oral solution (1 source) alpha-Adrenergic Agonist, Uncompetitive F-elrupj-A-aspartate Receptor Antagonist, Sigma-1 Agonist Start: 06-14-2022 End: 06-21-2022 take 10 mL by mouth four times daily for cough and congestion Bromfed DM oral syrup 10 mL, Oral, QID for cough and congestion for 7 day(s), 280 mL, Refill(s) 0, [facility]/pharmacy #[id number], 165, cm, 06/14/22 8:50:00 EST, Height/Length Dosing, 105, kg, 06/14/22 8:50:00 EST, Weight Dosing Start Date: 06/14/22 Stop Date: 06/21/22 Status: Ordered 12 hr buPROPion hydrochloride 150 mg extended release oral tablet (3 sources) Aminoketone Start: 05-31-2022 take 1 tablet by mouth once daily Wellbutrin SR 150 mg Tab-ER 150 mg = 1 tab(s), Oral, Daily, # 30 tab(s), Refills(s) 2, Pharmacy: [facility]/pharmacy #[id number], 165, cm, 04/05/22 9:43:00 EDT, Height/Length [...] daily, # 60 tab(s), Refills(s) 1, [id number], cm, 03/06/22 14:45:00 EDT, Height/Length [...] bedtime), # 20 tab(s), Refills(s) 0, Pharmacy: [facility]/pharmacy #[id number], 165, cm, 05/02/20 11:30:00 EST, Height/Length [...] anxiety, # 56 tab(s), Refills(s) 2, Pharmacy: [facility]/pharmacy #[id number], 165, cm, 04/05/22 9:43:00 EDT, Height/Length Dosing, 111.3, kg, 04/05/22 9:43:00 EDT, Weight Dosing Start Date: 04/05/22 Status: Ordered Start: 03-06-2022 End: 03-27-2022 take 1 tablet by mouth four times daily as needed for anxiety hydrOXYzine hydrochloride 10 mg Tab 10 mg = 1 tab(s), Oral, QID, PRN as needed for anxiety, X 21 day(s), # 86 tab(s), Refills(s) 0, Pharmacy: [facility]/pharmacy #[id number], 165, cm, 03/06/22 14:45:00 EDT, Height/Length Dosing, 113.7, kg, 03/06/22 14:45:00 EDT, Weight Dosing Start Date: 03/06/22 Stop Date: 03/27/22 Status: Ordered ibuprofen 600 mg oral tablet (3 sources) Nonsteroidal Anti-inflammatory Drug Start: 12-17-2020 take 1 tablet by mouth every six hours ibuprofen 600 mg Tab 600 mg = 1 tab(s), Oral, q6hr, # 10 tab(s), Refills(s) 0, Pharmacy: [facility]/pharmacy #[id number], 165.1, cm, 12/15/20 4:59:00 EDT, Height/Length [...] hours on and 12 hours off daily, [facility]/pharmacy #[id number], 165, cm, 12/11/22 20:29:00 EDT, Height/Length Dosing, 120, kg, 12/11/22 20:29:00 EDT, Weight Dosing Start Date: 12/11/22 Status: Ordered naproxen sodium 550 mg oral tablet (9 sources) Nonsteroidal Anti-inflammatory Drug Start: 11-06-2023 End: 11-27-2023 take 550 mg by mouth every twelve hours Naproxen Sodium Active 550 MG PO Every 12 hours 18 04November 27, 2023 4:59pm Start: 12-11-2022 take 1 tablet by lisa th twice daily Naprosyn 500 mg Tab 500 mg = 1 tab(s), Oral, BID, # 20 tab(s), Refills(s) 0, Pharmacy: [facility]/pharmacy #[id number], 165, cm, 12/11/22 20:29:00 EDT, Height/Length [...] days, # 30 cap(s), Refills(s) 0, Pharmacy: [facility]/pharmacy #[id number] Start Date: 03/15/19 Status: Ordered Start: [...] cream Discontinued 1 APPLIC TOPICAL Twice daily December 04, 2017 12:00am December [...] 04/04/2023 07/28/2023 Discontinued take 2 tablets by [facility] once daily QUEtiapine Fumarate ER 50 MG [...] disc disorders; other back problems (13 sources) Dorsalgia, unspecified; Translations: [Sciatica] Onset: 07-17-2022 [...] Ql (U)Ord ered By: Jos Lund on 01-08-2024 Amphetamines Ql (U) Negative Negative [facility] Barbiturates [Presence] in U rine by Screen methodOrdered By: Jos Lund on 01-08-2024 Barbiturates Screen Ql (U) Negative Negative [facility] Benzodiazepines Screen Ql (U )Ordered By: Jos Lund on 01-08-2024 Benzodiazepines Ql (U) Negative Negative [facility] Benzoylecgonine [Presence] i n Urine by Screen methodOrdered By: shruti Lund on 01-08-2024 Benzoylecgonine Screen Ql (U) Negative Negative [facility] Cannabinoids [Presence] in U rine by Screen methodOrdered By: Jos Lund on 01-08-2024 Cannabinoids Screen Ql (U) Positive High Negative [facility] Comment on above: These are unconfirme d results and should not be used for legal purposes. Drug Cut-Off Concentration: AMPH 1000 ng/mL SARAH 200 ng/mL FRANCISCO J 200 ng/mL COCM 300 ng/mL OP 300 ng/mL PCP 25 ng/mL THC 20 ng/mL Drug Screen,Urineon 01-08-20 24 Amphetamine Screen,Urine Negative Normal Negative [facility] Comment on above: Performed By: #### U RDS #### [place] [address] [place] Barbiturate Screen,Urine Negative Normal Negative [facility] Comment on above: Performed By: #### U RDS #### [facility] [address] [place] [address] [place] Benzodiazepines Screen,Urine Negative Normal Negative [facility] Comment on above: Performed By: #### U RDS #### [place] [address] [place] Cannabinoid Screen,Urine Positive High Negative [facility] Comment on above: Result Comment: Thes e are unconfirmed results and should not be used for legal purposes. Drug Cut-Off Concentration: AMPH 1000 ng/mL SARAH 200 ng/mL FRANCISCO J 200 ng/mL COCM 300 ng/mL OP 300 ng/mL PCP 25 ng/mL THC 20 ng/mL PERFORMED BY: [place] [address] PATHOLOGIST MECHANICAL TECHNOLOGIST CORA SLATER M.D. Performed By: #### U RDS #### [address] Cocaine Screen,Urine Negative Normal Negative [facility] Comment on above: Performed By: #### U RDS #### [address] Opiate Screen,Urine Negative Normal Negative [facility] Comment on above: Performed By: #### U RDS #### [address] Phencyclidine Screen,Urine Negative Normal Negative [facility] Comment on above: Performed By: #### U RDS #### [address] HCG ( test) IA.rapi d Ql (U)Ordered By: Jos Lund on 01-08-2024 HCG ( test) Ql (U) Negative [facility] HCG,Urineon 01-08-2024 Beta HCG ( test) Ql (U) Negative Normal [facility] Comment on above: Result Comment: PERF ORMED BY: [place] [address] PATHOLOGIST MECHANICAL TECHNOLOGIST CORA SLATER M.D. Performed By: #### U HCG #### [address] Theodore 01-08-2024 L Specimen: [id number] Received: 01/09/24 Status: SOUT Req Num: [id number] Spec Type: Surgical Subm Dr: Jos Lund MD Tissues: A GASTRIC FOR HP (GASTRIC HP) B Esophagus Biopsy (ESOPHAGUS) Procedures: HE/4, Gross/Micro L4/2, H PYLORI, IHC First AB Age/ Patient Sex Location Account Attending Physician Karen Liu 28/F [id number] Jos Lund MD SPEC NUM: [id number] RECD: 01/09/24 STATUS: JACQUI FOWLER NUM: [id number] KELSEY: 01/08/24- SUBM DR: Jos Lund MD ENTERED: 01/09/[address]: SPEC TYPE: Surgical DEPT: S ORDERED: [...] nausea/vomiting. Rule out H. pylori. -------- Specimen: [id number] Received: 01/09/24 Status: JACQUI Fowler Num: [id number] Spec Type: Surgical Subm Dr: Jos Lund MD Tissues: A GASTRIC FOR HP (GASTRIC HP) B Esophagus Biopsy (ESOPHAGUS) Procedures: HE/4, Gross/Micro L4/2, H PYLORI, IHC First AB -------- Patient: Karen Liu [id number] (Continued) -------- Specimen: [id number] Received: 01/09/24 (Continued) Signed (signature on file) Jose Guillermo MD 01/12/24 1907 -------- Specimen: [id number] Received: 01/09/24 Status: JACQUI Fowler Num: [id number] Spec Type: Surgical Subm Dr: Jos Lund MD Tissues: A GASTRIC FOR HP (GASTRIC HP) B Esophagus Biopsy (ESOPHAGUS) Procedures: HE/4, Gross/Micro L4/2, H PYLORI, IHC First AB -------- Patient: Karen Liu [id number] (Continued) -------- Specimen: [id number] Received: 01/09/24 (Continued) Gross Description Received are [...] performed supporting the above interpretation CPT Codes [id number] -------- -------- Specimen: [id number] Received: 01/09/24 Status: JACQUI Fowler Num: [id number] Spec Type: Surgical Subm Dr: Jos Lund MD Tissues: A GASTRIC FOR HP (GASTRIC HP) B Esophagus Biopsy (ESOPHAGUS) Procedures: HE/4, Gross/Micro L4/2, H PYLORI, IHC First AB -------- Patient: Karen Liu [id number] (Continued) -------- Signed (signature on file) Jeff-Conner Guillermo MD 01/12/24 1907 Normal [facility] Opiates [Presence] in Urine by Screen methodOrdered By: Jos Lund on 01-08-2024 Opiates Screen Ql (U) Negative Negative [place] Phencyclidine Screen Ql (U)O rdered By: Jos Lund on 01-08-2024 Phencyclidine Ql (U) Negative Negative [facility] Diagnostic impression [Inter pretation] in Specimen NarrativeOrdered By: Jos Lund on 12-12-2023 Diagnostic impression [employer] Param (Unsp spec) [Interp] See comment . [facility] Comment on above: Positive HCV antibod y screen without the presence of HCVRNA is consistent with a resolved past infection or a falsepositive HCV antibody. Consider repeat testing after onemonth.Performed at: [employer] [id number] Director: Ronen Potts PhD, Phone: [phone] at: [facility] [id number] Director: Nolan Desir MD, Phone: [phone] HIV 1/O/2 Antigen/Antibodyon 12-12-2023 HIV Screen 4th Generation Non-Reactive Normal Non Reactive [facility] Comment on above: Result Comment: HIV Negative HIV-1/HIV-2 antibodies and HIV-1 p24 antigen were NOT detected. There is no laboratory evidence of HIV infection. Performed at: [facility] [id number] Hospice Volunteer: Ronen Potts PhD, Phone: [phone] PERFORMED BY: [facility] [place] [id number] PATHOLOGIST MECHANICAL TECHNOLOGIST CORA SLATER M.D. Performed By: #### H IV SCREEN, HAABT, HBSAG, HBCAB, HCV RX PCR, HBSAB #### [facility] , HIV 1 and HIV-2 antibody ass ay with HIV-1 p24 antigen detectionOrdered By: Jos Lund on 12-12-2023 HIV 1+2 Ab+HIV1 p24 Ag IA Ql Non-Reactive Non Reactive [facility] Comment on above: HIV NegativeHIV-1/HI V-2 antibodies and HIV-1 p24 antigen were NOTdetected. There is no laboratory evidence of HIV infection.Performed at: [employer] [id number] Director: Ronen Potts PhD, Phone: [phone] Hep C Ab wRfx to Qnt PCRon 0 12-12-2023 Hepatitis C Quantitation Not detected Normal . [facility] Comment on above: Performed By: #### H IV SCREEN, HAABT, HBSAG, HBCAB, HCV RX PCR, HBSAB #### [facility] , Hepatitis C Virus Antibody Reactive Critically abnormal Non Reactive [facility] Comment on above: Performed By: #### H IV SCREEN, HAABT, HBSAG, HBCAB, HCV RX PCR, HBSAB #### [facility] , Interpretation Normal . [facility] Comment on above: Result Comment: Posi tive HCV antibody screen without the presence of HCV RNA is consistent with a resolved past infection or a false positive HCV antibody. Consider repeat testing after one month. Performed at: [facility] [address] [place], [place] [id number] Hospice Volunteer: Ronen Potts PhD, Phone: [phone] Performed at: [facility] [id number] Hospice Volunteer: Nolan Desir MD, Phone: [phone] Performed By: #### H IV SCREEN, HAABT, HBSAG, HBCAB, HCV RX PCR, HBSAB #### [facility] , Test Information: Normal . [facility] Comment on above: Result Comment: The quantitative range of this assay is 15 IU/mL to 100 million IU/mL. Performed By: #### H IV SCREEN, HAABT, HBSAG, HBCAB, HCV RX PCR, HBSAB #### [facility] , Hepatitis A Antibody Totalon 12-12-2023 Hepatitis A Antibody Total Positive Critically abnormal Negative [facility] Comment on above: Result Comment: [...] total antibody results to IgM (e.g., panel #[id number] HAV Antibody w/ Rfx). Performed at: [place] [id number] Hospice Volunteer: Ronen Potts PhD, Phone: [phone] Performed By: #### H IV SCREEN, HAABT, HBSAG, HBCAB, HCV RX PCR, HBSAB #### [facility] , Hepatitis A virus Ab [Presen ce] in Serum by ImmunoassayOrdered By: Jos Lund on 12-12-2023 HAV Ab IA Ql (S) Positive Abnormal Negative [facility] Comment on above: Comment: The HAV [...] HAVtotal antibody results to IgM (e.g., panel #[id number] HAVAntibody w/ Rfx).Performed at: [employer] [id number] Director: Ronen Potts PhD, Phone: [phone] Hepatitis B Core Antibodyon 12-12-2023 Hepatitis B Core Antibody Negative Normal Negative [facility] Comment on above: Performed By: #### H IV SCREEN, HAABT, HBSAG, HBCAB, HCV RX PCR, HBSAB #### [facility] , Hepatitis B Surface Antibody on 12-12-2023 Hepatitis B Surface Antibody Reactive Normal . [facility] Comment on above: Result Comment: Non Reactive: Inconsistent with immunity, less than 10 mIU/mL Reactive: Consistent with immunity, greater than 9.9 mIU/mL Performed By: #### H IV SCREEN, HAABT, HBSAG, HBCAB, HCV RX PCR, HBSAB #### [facility] , Hepatitis B Surface Antigeno n 12-12-2023 HBsAg Screen Negative Normal Negative [facility] Comment on above: Result Comment: PERF ORMED BY: [address] [address] PATHOLOGIST MECHANICAL TECHNOLOGIST CORA SLATER M.D. Performed By: #### H IV SCREEN, HAABT, HBSAG, HBCAB, HCV RX PCR, HBSAB #### [facility] , Hepatitis B virus surface Ab [Presence] in SerumOrdered By: Imad Asaad on 12-12-2023 HBV surface Ab Ql (S) Reactive . [place] Comment on above: Non Reactive: Incons istent with immunity, less than 10 mIU/mL Reactive: Consistent with immunity, greater than 9.9 mIU/mL Hepatitis B virus surface Ag [Presence] in Serum or Plasma by ImmunoassayOrdered By: Imad Asaad on 12-12-2023 HBV surface Ag IA Ql Negative Negative [facility] Hepatitis C virus IgG Ab [Pr esence] in Serum or Plasma by ImmunoassayOrdered By: Imad Asaad on 12-12-2023 HCV IgG IA Ql Reactive Abnormal Non Reactive [facility] Hepatitis C virus RNA [log u nits/volume] (viral load) in Serum or Plasma by CHELE withOrdered By: Imad Kentonad on 12-12-2023 HCV RNA CHELE+probe [Log units/Vol] Not detected . [facility] No Panel InformationOrdered By: Imad Asaad on 12-12-2023 Hepatitis B Core Total Antibody Negative Negative [facility] Hepatitis C RNA Qnt (PCR) Test Info See comment . [facility] Comment on above: The quantitative ran ge of this assay is 15 IU/mL to 100million IU/mL. Basophils Auto (Bld) [#/Vol] on 11-26-2023 Basophils (Bld) [#/Vol] 0.1 10 3/uL 0.0-0.1 [facility] Basophils/100 WBC Auto (Bld) on 11-26-2023 Basophils/100 WBC (Bld) 0.4 % 0.2-2.0 [facility] Eosinophils/100 WBC Auto (Bl d)on 11-26-2023 Eosinophils/100 WBC (Bld) 2.3 % 0.9-7.0 [facility] Erythrocyte distribution wid th Auto (RBC) [Ratio]on 11-26-2023 Erythrocyte distribution width (RBC) [Ratio] 14.2 % 11.0-15.0 [facility] Estimated glomerular filtrat ion rate (GFR) non- Americanon 11-26-2023 GFR/1.73 sq M.predicted among non-blacks MDRD (S/P/Bld) [Vol rate/Area] mL/min/{1.73_m2} >=60 [facility] Globulin Calc (S) [Mass/Vol] on 11-26-2023 Globulin (S) [Mass/Vol] 3.5 g/dL [facility] HCG ( test) IA.rapi d Ql (U)on 11-26-2023 Beta HCG ( test) Ql (U) Negative NEGATIVE [facility] Hematocrit Auto (Bld) [Volum e fraction]on 11-26-2023 Hematocrit (Bld) [Volume fraction] 36.1 % 36.0-48.0 [facility] Hemoglobin [Mass/volume] in Bloodon 11-26-2023 Hemoglobin (Bld) [Mass/Vol] 11.7 g/dL Low 12.0-16.0 [facility] Laboratory - Chemistry and C hemistry - challengeon 11-26-2023 Albumin [Mass/Vol] 4.0 g/dL 3.4-5.0 [facility] ALP [Catalytic activity/Vol] 83 U/L 46-116 [facility] ALT [Catalytic activity/Vol] 64 U/L High 14-59 [facility] AST [Catalytic activity/Vol] 33 U/L 15-37 [facility] Bilirubin [Mass/Vol] 0.7 mg/dL 0.2-1.0 [facility] Calcium [Mass/Vol] 8.6 mg/dL 8.5-10.1 [facility] Chloride [Moles/Vol] 103 mmol/L 98-107 [facility] CO2 [Moles/Vol] 24.0 mmol/L 21.0-32.0 [facility] Creatinine [Mass/Vol] 0.69 mg/dL 0.55-1.02 [place] GFR/1.73 sq M.predicted MDRD (S/P/Bld) [Vol rate/Area] mL/min/{1.73_m2} >=60 [facility] Glucose [Mass/Vol] 91 mg/dL 74-106 [facility] Lactate [Moles/Vol] 1.2 mmol/L 0.4-2.0 [facility] Lipase [Catalytic activity/Vol] 69.0 U/L 16.0-77.0 [facility] Potassium [Moles/Vol] 3.9 mmol/L 3.5-5.1 [place] Protein [Mass/Vol] 7.5 g/dL 6.4-8.2 [facility] Sodium [Moles/Vol] 136 mmol/L 136-145 [facility] Urea nitrogen [Mass/Vol] 15.0 mg/dL 7.0-18.0 [facility] Urea nitrogen/Creatinine [Mass ratio] 21.7 mg/mg [facility] Bilirubin Ql (U) Negative NEGATIVE [facility] Glucose (U) [Mass/Vol] Negative NEGATIVE [facility] Ketones Ql (U) Negative NEGATIVE [facility] pH (U) 6.0 [pH] 5.0-9.0 [facility] Specific gravity (U) [Rel density] 1.010 1.005-1.025 [facility] Urobilinogen Qn (U) 0.2 {Onur'U}/dL 0.2-1.0 [facility] - Hematology and Cell countson 11-26-2023 Immature granulocytes/100 WBC (Bld) 0.3 % 0.0-0.5 [facility] - Specimen inform ationon 11-26-2023 Appearance (U) CLEAR CLEAR [facility] Color (U) LT. YELLOW YELLOW [facility] - Urinalysison Leukocyte esterase Test strip Ql (U) Negative NEGATIVE [facility] Nitrite Ql (U) Negative NEGATIVE [facility] Protein Ql (U) Negative NEG/TRACE [facility] Leukocytes [#/volume] correc lyudmila for nucleated erythrocytes in Blood by Automated counon 11-26-2023 WBC corrected for nucl RBC Auto (Bld) [#/Vol] 11.2 10 3/uL High 4.0-11.0 [facility] Lymphocytes Auto (Bld) [#/Vo l]on 11-26-2023 Lymphocytes (Bld) [#/Vol] 3.3 10 3/uL 1.2-3.8 [facility] Lymphocytes/100 WBC Auto (Bl d)on 11-26-2023 Lymphocytes/100 WBC (Bld) 29.6 % 20.5-60.0 [facility] MCH Auto (RBC) [Entitic mass ]on 11-26-2023 MCH (RBC) [Entitic mass] 26.2 pg Low 26.7-34.0 [facility] MCHC Auto (RBC) [Mass/Vol]on 11-26-2023 MCHC (RBC) [Mass/Vol] 32.4 g/dL 29.9-35.2 [place] MCV Auto (RBC) [Entitic vol] on 11-26-2023 MCV (RBC) [Entitic vol] 80.9 fL Low 81.0-99.0 [facility] Monocytes Auto (Bld) [#/Vol] on 11-26-2023 Monocytes (Bld) [#/Vol] 0.9 10 3/uL High 0.3-0.8 [facility] Monocytes/100 WBC Auto (Bld) on 11-26-2023 Monocytes/100 WBC (Bld) 7.8 % 1.7-12.0 [facility] Neutrophils Auto (Bld) [#/Vo l]on 11-26-2023 Neutrophils (Bld) [#/Vol] 6.7 10 3/uL High 1.4-6.5 [facility] Neutrophils/100 WBC Auto (Bl d)on 11-26-2023 Neutrophils/100 WBC (Bld) 59.6 % 43.0-75.0 [facility] No Panel Informationon 11-25 Eosinophils # (Auto) 0.3 10 3/uL 0.0-0.7 [place] Immature Granulocyte # (Auto) 0.03 10 3/uL 0.00-0.03 [facility] Urine Microscopic Review NO [facility] Urine Occult Blood Negative NEGATIVE [facility] Platelet mean volume Auto (B ld) [Entitic vol]on 11-26-2023 Platelet mean volume (Bld) [Entitic vol] 12.9 fL 9.5-13.5 [facility] Platelets Auto (Bld) [#/Vol] on 11-26-2023 Platelets (Bld) [#/Vol] 257 10 3/uL 150-450 [facility] RBC Auto (Bld) [#/Vol]on RBC (Bld) [#/Vol] 4.46 10 6/uL 4.20-5.40 [facility] Serum or plasma albumin/glob ulin mass ratioon 11-26-2023 Albumin/Globulin [Mass ratio] 1.1 {ratio} [facility] Serum or plasma anion gap de terminationon 11-26-2023 Anion gap [Moles/Vol] 12.9 mmol/L [facility] CBC AND AUTO DIFFon 11-20-19 24 ABSOLUTE BASOPHIL 0.1 X10E9/L Normal 0.0-0.2 [facility] Comment on above: Performed By: #### C BC, CMP, 89601-3, 2986-8, THYR, 2842-3 #### [facility] ([id number]) [address], [address] [place] [address] ABSOLUTE NEUTROPHIL 6.5 X10E9/L Normal 1.5-6.6 [facility] Comment on above: Performed By: #### C BC, CMP, 14614-1, 2986-8, THYR, 2842-3 #### [facility] ([id number]) [address], [address] [place] [address] Basophils/100 WBC (Bld) 0.5 % Normal [facility] Comment on above: Performed By: #### C BC, CMP, 06144-1, 2986-8, THYR, 2842-3 #### [facility] ([id number]) [address], [address] [place] [address] Eosinophils (Bld) [#/Vol] 0.1 10*3/uL Normal 0.0-0.4 [facility] Comment on above: Performed By: #### C BC, CMP, 12350-0, 2986-8, THYR, 2842-3 #### [facility] ([id number]) [address] [address] [place] [address] Eosinophils/100 WBC (Bld) 1.2 % Normal [facility] Comment on above: Performed By: #### C BC, CMP, 14546-1, 2986-8, THYR, 2842-3 #### [facility] ([id number]) [address], [address] [place] [address] Erythrocyte distribution width (RBC) [Ratio] 14.7 % Normal 11.5-15.0 [facility] Comment on above: Performed By: #### C BC, CMP, 96106-4, 2986-8, THYR, 2842-3 #### [facility] ([id number]) [address] [address] [place] [address] Hematocrit (Bld) [Volume fraction] 34.2 % Low 35-47 [facility] Comment on above: Performed By: #### C BC, CMP, 28417-6, 2986-8, THYR, 2842-3 #### [facility] ([id number]) [address], [address] [place] [address] Hemoglobin (Bld) [Mass/Vol] 11.4 g/dL Low 11.7-15.5 [facility] Comment on above: Performed By: #### C BC, CMP, 86441-0, 2986-8, THYR, 2842-3 #### [facility] ([id number]) [address], [facility] [address] [place] [address] Lymphocytes (Bld) [#/Vol] 3.1 10*3/uL Normal 1.0-3.5 [facility] Comment on above: Performed By: #### C BC, CMP, 85107-7, 2986-8, THYR, 2842-3 #### [facility] ([id number]) [address], [address] [place] [address] Lymphocytes/100 WBC (Bld) 29.6 % Normal [facility] Comment on above: Performed By: #### C BC, CMP, 20485-8, 2986-8, THYR, 2842-3 #### [facility] ([id number]) [address], [address] [place] [address] MCH (RBC) [Entitic mass] 26.3 pg Low 27-34 [facility] Comment on above: Performed By: #### C BC, CMP, 24068-1, 2986-8, THYR, 2842-3 #### [facility] ([id number]) [address], [address] [place] [address] MCHC (RBC) [Mass/Vol] 33.2 g/dL Normal 32-36 [facility] Comment on above: Performed By: #### C BC, CMP, 71353-4, 2986-8, THYR, 2842-3 #### [facility] ([id number]) [address], [address] [place] [address] MCV (RBC) [Entitic vol] 79 fL Low 80-100 [facility] Comment on above: Performed By: #### C BC, CMP, 94057-8, 2986-8, THYR, 2842-3 #### [facility] ([id number]) [address], [facility] [address] [place] [address] Monocytes (Bld) [#/Vol] 0.8 10*3/uL Normal 0-0.9 [facility] Comment on above: Performed By: #### C BC, CMP, 43880-1, 2986-8, THYR, 2842-3 #### [facility] ([id number]) [address] [address] [place] [address] Monocytes/100 WBC (Bld) 7.3 % Normal [facility] Comment on above: Performed By: #### C BC, CMP, 30037-3, 2986-8, THYR, 2842-3 #### [facility] ([id number]) [address] [address] [place] [address] Neutrophils/100 WBC (Bld) 61.4 % Normal [facility] Comment on above: Performed By: #### C BC, CMP, 04093-1, 2986-8, THYR, 2842-3 #### [facility] ([id number]) [address] [address] [place] [address] Platelet mean volume (Bld) [Entitic vol] 11.7 fL Normal 7-12 [facility] Comment on above: Performed By: #### C BC, CMP, 81145-1, 2986-8, THYR, 2842-3 #### [facility] ([id number]) [address] [address] [place] [address] Platelets (Bld) [#/Vol] 235 10*3/uL Normal 150-450 [facility] Comment on above: Performed By: #### C BC, CMP, 30371-4, 2986-8, THYR, 2842-3 #### [facility] ([id number]) [address], [address] [place] [address] RBC COUNT 4.32 X10E12/L Normal 3.80-5.20 [facility] Comment on above: Performed By: #### C BC, CMP, 98515-1, 2986-8, THYR, 2842-3 #### [facility] ([id number]) [address], [address] [place] [address] WBC (Bld) [#/Vol] 10.6 10*3/uL Normal 4.0-11.0 [facility] Comment on above: Performed By: #### C BC, CMP, 86648-7, 2986-8, THYR, 2842-3 #### [facility] ([id number]) [address], [address] [place] [address] COMPREHENSIVE METABOLIC PANE Theodore 11-20-2023 Albumin [Mass/Vol] 4.4 g/dL Normal 3.2-5.3 [facility] Comment on above: Performed By: #### 2 106-3 #### [facility] ([id number]) [address] [place] [address] ALP [Catalytic activity/Vol] 76 U/L Normal 39-130 [facility] Comment on above: Performed By: #### 2 106-3 #### [facility] ([id number]) [address] [place] [address] ALT [Catalytic activity/Vol] 67 U/L High 0-31 [facility] Comment on above: Performed By: #### 2 106-3 #### [facility] ([id number]) [address] [place] [address] Anion gap [Moles/Vol] 6 mmol/L Normal 5-15 [facility] Comment on above: Performed By: #### 2 106-3 #### [facility] ([id number]) [address] [place] [address] AST [Catalytic activity/Vol] 36 U/L Normal 0-41 [facility] Comment on above: Performed By: #### 2 106-3 #### [facility] ([id number]) [address] [place] [address] Bilirubin [Mass/Vol] 0.6 mg/dL Normal 0.3-1.2 [facility] Comment on above: Performed By: #### 2 106-3 #### [facility] ([id number]) [address] [place] [address] Calcium [Mass/Vol] 8.7 mg/dL Normal 8.5-10.5 [facility] Comment on above: Performed By: #### 2 106-3 #### [facility] ([id number]) [address] [place] [address] Chloride [Moles/Vol] 108 mmol/L Normal 98-109 [facility] Comment on above: Performed By: #### 2 106-3 #### [facility] ([id number]) [address] [place] [address] 78369 CO2 [Moles/Vol] 26 mmol/L Normal 22-32 [facility] Comment on above: Performed By: #### 2 106-3 #### [facility] ([id number]) [address] [place] [address] Creatinine [Mass/Vol] 0.54 mg/dL Normal 0.40-1.00 [facility] Comment on above: Result Comment: METH OD TRACEABLE TO IDMS STANDARD Performed By: #### 2 106-3 #### [facility] ([id number]) [address] [place] [address] [place] [address] eGFR (CKD-EPI) NON-RACE DEPENDENT >90 Normal >59 [facility] Comment on above: Result Comment: Reported eGFR is based on the CKD-EPI 2020 equation that does not use a race coefficient. Performed By: #### 2 106-3 #### [facility] ([id number]) [address] [place] [address] Glucose [Mass/Vol] 107 mg/dL High 65-99 [facility] Comment on above: Performed By: #### 2 106-3 #### [facility] ([id number]) [address] [place] [address] Potassium [Moles/Vol] 3.5 mmol/L Normal 3.5-5.0 [facility] Comment on above: Performed By: #### 2 106-3 #### [facility] ([id number]) [address] [place] [address]69 Protein [Mass/Vol] 7.8 g/dL Normal 6.0-8.0 [facility] Comment on above: Performed By: #### 2 106-3 #### [facility] ([id number]) [address] [place] [address] Sodium [Moles/Vol] 140 mmol/L Normal 134-146 [facility] Comment on above: Performed By: #### 2 106-3 #### [facility] ([id number]) [address] [place] [address] Urea nitrogen [Mass/Vol] 14 mg/dL Normal 5-23 [facility] Comment on above: Performed By: #### 2 106-3 #### [facility] ([id number]) [address] [place] [address] ABDOMEN AND PELVIS W CONT on [...] Myrick MD on 11/20/2023 1:25 AM Normal [facility] DRUG SCREEN, URINEon 024 AMPHETAMINE/METHAMP Negative Normal NEG [facility] Comment on above: Result Comment: AMPH /METH screening cut off = 1000 ng/mL Performed By: #### C ALLI [facility], 34745-2, 2986-8, THYR, 2842-3 #### [facility] ([id number]) [address], [address] [place] [address] BARBITURATES Negative Normal NEG [facility] Comment on above: Result Comment: Sarah iturates screening cut off value = 200 ng/mL Performed By: #### C ALLI [facility], 95621-0, 2986-8, THYR, 2842-3 #### [facility] ([id number]) [address] [place] [address] BENZODIAZEPINES Negative Normal NEG [facility] Comment on above: Result Comment: Francisco J odiazepines screening cut off value = 200 ng/mL Performed By: #### C BC, [facility], 19715-8, 2986-8, THYR, 2842-3 #### [facility] ([id number]) [address], [address] [place] [address] CANNABINOIDS Positive Abnormal NEG [facility] Comment on above: Result Comment: Conf irmation available upon request. Cannabinoids/THC screening cut off value = 50 ng/mL Performed By: #### C BC, CMP, 41347-2, 2986-8, THYR, 2842-3 #### [facility] ([id number]) [address], [address] [place] [address] COCAINE METABOLITE Negative Normal NEG [facility] Comment on above: Result Comment: Coca ine screening cut off value = 300 ng/mL Performed By: #### C BC, CMP, 46553-1, 2986-8, THYR, 2842-3 #### [facility] ([id number]) [address], [address] [place] [address] ECSTASY Negative Normal NEG [facility] Comment on above: Result Comment: Ecst asy screening cut off value = 500 ng/mL This report is intended for use in clinical monitoring or management of patients. Performed By: #### C BC, CMP, 94453-8, 2986-8, THYR, 2842-3 #### [facility] ([id number]) [address], [address] [place] [address] [facility] Comment on above: Result Comment: Meth adone screening cut off value = 300 ng/mL. Performed By: #### C BC, CMP, 22648-5, 2986-8, THYR, 2842-3 #### [facility] ([id number]) [address], [address] [place] [address] OPIATES Negative Normal NEG [facility] Comment on above: Result Comment: Opia aletha screening cut off value = 300 ng/mL NOTE: This test is used for the detection of codeine, hydrocodone (>1000 ng/mL), morphine and hydromorphone (>900 ng/mL) in urine. Performed By: #### C BC, CMP, 75007-0, 2986-8, THYR, 2842-3 #### [facility] ([id number]) [address], [address] [place] [address] OXYCODONE Negative Normal NEG [facility] Comment on above: Result Comment: Oxyc odone screening cut off value = 300 ng/mL NOTE: This test is used for the detection of oxycodone and oxymorphone in urine. Performed By: #### C BC, [facility], 37423-0, 2986-8, THYR, 2842-3 #### [facility] ([id number]) [address] [place] [address] PHENCYCLIDINE Negative Normal NEG [facility] Comment on above: Result Comment: Phen cyclidine screening cut off value = 25 ng/mL Performed By: #### C BC, [facility], 25768-6, 2986-8, THYR, 2842-3 #### [facility] ([id number]) [address] [place] [address] HCG ( test) Ql (U)o n 11-20-2023 Beta HCG ( test) Ql (U) Negative Normal NEG [facility] Comment on above: Performed By: #### 2 106-3 #### [facility] ([id number]) [address] [place] [address] LIPASEon 11-20-2023 Lipase [Catalytic activity/Vol] 39 U/L Normal 17-40 [facility] Comment on above: Performed By: #### 2 106-3 #### [facility] ([id number]) [address] [place] [address] URINALYSISon 11-20-2023 Bilirubin Ql (U) REQUEST CREDITED Abnormal NEG Pr [facility] Comment on above: Result Comment: Hoda ected on 11/20 AT 1024: Previously reported as DUPLICATE ORDER BLOOD/HGB REQUEST CREDITED Abnormal NEG [facility] Comment on above: Result Comment: Hoda ected on 11/20 AT 1024: Previously reported as DUPLICATE ORDER Color (U) REQUEST CREDITED Abnormal YELLOW [facility] Comment on above: Result Comment: Hoda ected on 11/20 AT 1024: Previously reported as DUPLICATE ORDER Glucose Ql (U) REQUEST CREDITED Abnormal NEG [facility] Comment on above: Result Comment: Hoda ected on 11/20 AT 1024: Previously reported as DUPLICATE ORDER Ketones Ql (U) REQUEST CREDITED Abnormal NEG [facility] Comment on above: Result Comment: Hoda ected on 11/20 AT 1024: Previously reported as DUPLICATE ORDER Leukocyte esterase Test strip Ql (U) REQUEST CREDITED Abnormal NEG [facility] Comment on above: Result Comment: Hoda ected on 11/20 AT 1024: Previously reported as DUPLICATE ORDER Nitrite Ql (U) REQUEST CREDITED Abnormal NEG [facility] Comment on above: Result Comment: Hoda ected on 11/20 AT 1024: Previously reported as DUPLICATE ORDER PH,URINE REQUEST CREDITED Normal 5.0-8.5 [facility] Comment on above: Result Comment: Hoda ected on 11/20 AT 1024: Previously reported as DUPLICATE ORDER Protein Ql (U) REQUEST CREDITED Abnormal NEG [facility] Comment on above: Result Comment: Hoda ected on 11/20 AT 1024: Previously reported as DUPLICATE ORDER Specific gravity (U) [Rel density] REQUEST CREDITED Normal 1.003-1.035 [facility] Comment on above: Result Comment: Hoda ected on 11/20 AT 1024: Previously reported as DUPLICATE ORDER TURBIDITY REQUEST CREDITED Abnormal CLEAR [facility] Comment on above: Result Comment: Hoda ected on 11/20 AT 1024: Previously reported as DUPLICATE ORDER Urinalysis dipstick W Reflex Microscopic panel (U) REQUEST CREDITED Normal [facility] Comment on above: Result Comment: Hoda ected on 11/20 AT 1024: Previously reported as DUPLICATE ORDER UROBILINOGEN REQUEST CREDITED Normal <1.1 [facility] Comment on above: Result Comment: Hoda ected on 11/20 AT 1024: Previously reported as DUPLICATE ORDER Bilirubin Ql (U) Negative Normal NEG [facility] Comment on above: Performed By: #### C BC, CMP, 65197-2, 2986-8, THYR, 2842-3 #### [facility] ([id number]) [address], [address] [place] [address] BLOOD/HGB Negative Normal NEG [facility] Comment on above: Performed By: #### C BC, CMP, 55334-5, 2986-8, THYR, 2842-3 #### [facility] ([id number]) [address], [address] [place] [address] Color (U) YELLOW Normal YELLOW [facility] Comment on above: Performed By: #### C BC, CMP, 67746-0, 2986-8, THYR, 2842-3 #### [facility] ([id number]) [address], [address] [place] [address] Glucose Ql (U) Negative Normal NEG [facility] Comment on above: Performed By: #### C BC, CMP, 77178-0, 2986-8, THYR, 2842-3 #### [facility] ([id number]) [address], [address] [place] [address] Ketones Ql (U) Negative Normal NEG [facility] Comment on above: Performed By: #### C BC, CMP, 43655-8, 2986-8, THYR, 2842-3 #### [facility] ([id number]) [address], [address] [place] [address] Leukocyte esterase Test strip Ql (U) Negative Normal NEG [facility] Comment on above: Performed By: #### C BC, CMP, 27239-2, 2986-8, THYR, 2842-3 #### [facility] ([id number]) [address], [address] [place] [address] Nitrite Ql (U) Negative Normal NEG [facility] Comment on above: Performed By: #### C BC, CMP, 29591-2, 2986-8, THYR, 2842-3 #### [facility] ([id number]) [address], [address] [place] [address] pH (U) 6.0 [pH] Normal 5.0-8.5 [facility] Comment on above: Performed By: #### C BC, CMP, 10696-4, 2986-8, THYR, 2842-3 #### [facility] ([id number]) [address], [facility] [address] [place] [address] Protein Ql (U) Negative Normal NEG [facility] Comment on above: Performed By: #### C BC, CMP, 15763-8, 2986-8, THYR, 2842-3 #### [facility] ([id number]) [address], [facility] [address] [place] [address] Specific gravity (U) [Rel density] >1.030 Normal 1.003-1.035 [facility] Comment on above: Performed By: #### C BC, CMP, 55959-5, 2986-8, THYR, 2842-3 #### [facility] ([id number]) [address] [address] [place] [address] TURBIDITY CLEAR Normal CLEAR [facility] Comment on above: Performed By: #### Lex BC, CMP, 28757-3, 2986-8, THYR, 2842-3 #### [facility] ([id number]) [address] [address] [place] [address] Urobilinogen Qn (U) 0.2 {Onur'U}/dL Normal <1.1 [facility] Comment on above: Performed By: #### C BC, CMP, 95866-5, 2986-8, THYR, 2842-3 #### [facility] ([id number]) [address] [address] [place] [address] Cytologyon 08-21-2023 Cytology Normal [facility] Comment on above: Result Comment: [facility] [address] [place] [address] Gynecologic Cytology Consultation Patient Name:KAREN LIU:1995 (Age: 28)Gender:FTaken:4Reported:4Physician(s):Dia Tam, DIRECTOR OF ACCOUNTING-CNPCopy To: Rec. #:[id number]: #[id number] Final Cytologic Interpretation ThinPrep Pap Test (Cervical): Satisfactory for evaluation. A transformation zone component is present. NEGATIVE FOR INTRAEPITHELIAL LESION OR MALIGNANCY. [facility] [place]2023 [facility] [place] [address], License number: [id number]. 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) Fee Code(s): G0145 CBC AND AUTO DIFFon 08-20-19 ABSOLUTE BASOPHIL 0.1 X10E9/L Normal 0.0-0.2 [facility] Comment on above: Performed By: #### 2 106-3 #### [facility] ([id number]) [address] [place] [address] ABSOLUTE NEUTROPHIL 3.4 X10E9/L Normal 1.5-6.6 [facility] Comment on above: Performed By: #### 2 106-3 #### [facility] ([id number]) [address] [place] [address]44 Basophils/100 WBC (Bld) 0.8 % Normal [facility] Comment on above: Performed By: #### 2 106-3 #### [facility] ([id number]) [address] [place] [address]853 Eosinophils (Bld) [#/Vol] 0.5 10*3/uL High 0.0-0.4 [facility] Comment on above: Performed By: #### 2 106-3 #### [facility] ([id number]) [address] [place] [address]87 Eosinophils/100 WBC (Bld) 7.0 % Normal [facility] Comment on above: Performed By: #### 2 106-3 #### [facility] ([id number]) [address] [place] [address]93 Erythrocyte distribution width (RBC) [Ratio] 15.0 % Normal 11.5-15.0 [facility] Comment on above: Performed By: #### 2 106-3 #### [facility] ([id number]) [address] [place] [address] Hematocrit (Bld) [Volume fraction] 35.2 % Normal 35-47 [facility] Comment on above: Performed By: #### 2 106-3 #### [facility] ([id number]) [address] [place] [address]644 Hemoglobin (Bld) [Mass/Vol] 11.9 g/dL Normal 11.7-15.5 [facility] Comment on above: Performed By: #### 2 106-3 #### [facility] ([id number]) [address] [place] [address]06 Lymphocytes (Bld) [#/Vol] 2.6 10*3/uL Normal 1.0-3.5 [facility] Comment on above: Performed By: #### 2 106-3 #### [facility] ([id number]) [address] [place] [address]233 Lymphocytes/100 WBC (Bld) 37.0 % Normal [facility] Comment on above: Performed By: #### 2 106-3 #### [facility] ([id number]) [address] [place] [address] 69742 MCH (RBC) [Entitic mass] 26.9 pg Low 27-34 [facility] Comment on above: Performed By: #### 2 106-3 #### [facility] ([id number]) [address] [place] [address]352 MCHC (RBC) [Mass/Vol] 33.9 g/dL Normal 32-36 [facility] Comment on above: Performed By: #### 2 106-3 #### [facility] ([id number]) [address] [place] [address]2357 MCV (RBC) [Entitic vol] 79 fL Low 80-100 [facility] Comment on above: Performed By: #### 2 106-3 #### [facility] ([id number]) [address] [place] [address] 10153 Monocytes (Bld) [#/Vol] 0.5 10*3/uL Normal 0-0.9 [facility] Comment on above: Performed By: #### 2 106-3 #### [facility] ([id number]) [address] [place] [address] 13885 Monocytes/100 WBC (Bld) 7.1 % Normal [facility] Comment on above: Performed By: #### 2 106-3 #### [facility] ([id number]) [address] [place] [address] 84104 Neutrophils/100 WBC (Bld) 48.1 % Normal [facility] Comment on above: Performed By: #### 2 106-3 #### [facility] ([id number]) [address] [place] [address]10 Platelet mean volume (Bld) [Entitic vol] 10.8 fL Normal 7-12 [facility] Comment on above: Performed By: #### 2 106-3 #### [facility] ([id number]) [address] [place] [address] 32225 Platelets (Bld) [#/Vol] 207 10*3/uL Normal 150-450 [facility] Comment on above: Performed By: #### 2 106-3 #### [facility] ([id number]) [address] [place] [address]406 RBC COUNT 4.44 X10E12/L Normal 3.80-5.20 [facility] Comment on above: Performed By: #### 2 106-3 #### [facility] ([id number]) [address] [place] [address] 71834 WBC (Bld) [#/Vol] 7.0 10*3/uL Normal 4.0-11.0 [facility] Comment on above: Performed By: #### 2 106-3 #### [facility] ([id number]) [address] [place] [id number] COMPREHENSIVE METABOLIC PANE Theodore 08-20-2023 Albumin [Mass/Vol] 4.4 g/dL Normal 3.2-5.3 [facility] Comment on above: Performed By: #### 2 106-3 #### [facility] ([id number]) [address] [place] [address] [id number] ALP [Catalytic activity/Vol] 65 U/L Normal 39-130 [facility] Comment on above: Performed By: #### 2 106-3 #### [facility] ([id number]) [address] [place] [address] [id number] ALT [Catalytic activity/Vol] 125 U/L High 0-31 [facility] Comment on above: Performed By: #### 2 106-3 #### [facility] ([id number]) [address] [place] [address] 63061 Anion gap [Moles/Vol] 5 mmol/L Normal 5-15 [facility] Comment on above: Performed By: #### 2 106-3 #### [facility] ([id number]) [address] [place] [address] 39796 AST [Catalytic activity/Vol] 65 U/L High 0-41 [facility] Comment on above: Performed By: #### 2 106-3 #### [facility] ([id number]) [address] [place] [address] 62000 Bilirubin [Mass/Vol] 1.0 mg/dL Normal 0.3-1.2 [facility] Comment on above: Performed By: #### 2 106-3 #### [facility] ([id number]) [address] [place] [address] 47345 Calcium [Mass/Vol] 9.0 mg/dL Normal 8.5-10.5 [facility] Comment on above: Performed By: #### 2 106-3 #### [facility] ([id number]) [address] [place] [address] 73082 Chloride [Moles/Vol] 107 mmol/L Normal 98-109 [facility] Comment on above: Performed By: #### 2 106-3 #### [facility] ([id number]) [address] [place] [address] 58748 CO2 [Moles/Vol] 26 mmol/L Normal 22-32 [facility] Comment on above: Performed By: #### 2 106-3 #### [facility] ([id number]) [address] [place] [address] 79958 Creatinine [Mass/Vol] 0.69 mg/dL Normal 0.40-1.00 [facility] Comment on above: Result Comment: METH OD TRACEABLE TO IDMS STANDARD Performed By: #### 2 106-3 #### [facility] ([id number]) [address] [place] [address] 82718 eGFR (CKD-EPI) NON-RACE DEPENDENT >90 Normal >59 [facility] Comment on above: Result Comment: Reported eGFR is based on the CKD-EPI 2020 equation that does not use a race coefficient. Performed By: #### 2 106-3 #### [facility] ([id number]) [address] [place] [address] 84918 Glucose [Mass/Vol] 100 mg/dL High 65-99 [facility] Comment on above: Performed By: #### 2 106-3 #### [facility] ([id number]) [address] [place] [address] 03321 Potassium [Moles/Vol] 3.0 mmol/L Low 3.5-5.0 [facility] Comment on above: Performed By: #### 2 106-3 #### [facility] ([id number]) [address] [place] [address] 13088 Protein [Mass/Vol] 7.3 g/dL Normal 6.0-8.0 [facility] Comment on above: Performed By: #### 2 106-3 #### [facility] ([id number]) [address] [place] [address] 97894 Sodium [Moles/Vol] 138 mmol/L Normal 134-146 [facility] Comment on above: Performed By: #### 2 106-3 #### [facility] ([id number]) [address] [place] [address] 22905 Urea nitrogen [Mass/Vol] 14 mg/dL Normal 5-23 [facility] Comment on above: Performed By: #### 2 106-3 #### [facility] ([id number]) [address] [place] [address] ABDOMEN AND PELVIS W CONT on [...] Goldstein MD on 08/20/2023 9:22 PM Normal [facility] LIPASEon 08-20-2023 Lipase [Catalytic activity/Vol] 45 U/L High 17-40 [facility] Comment on above: Performed By: #### 2 106-3 #### [facility] ([id number]) [address] [place] [address] 17745 Lactate (P shaneka) [Moles/Vol]o n 08-20-2023 LACTATE W/REFLEX 0.9 mmol/L Normal 0.4-2.0 [facility] Comment on above: Result Comment: Result did not trigger repeat Lactate, re-order if needed. Performed By: #### 2 106-3 #### [facility] ([id number]) [address] [place] [address] 85876 US PELVIC WITH TRANSVAGINALo n 07-15-2023 US [...] Peck DO on 07/15/2023 4:26 PM Normal [facility] COMPLETE BLOOD COUNTon 07-14 Erythrocyte distribution width (RBC) [Ratio] 14.7 % Normal 11.5-15.0 [facility] Comment on above: Performed By: #### C BC, [facility], 95505-7, 2986-8, THYR, 2842-3 #### [facility] ([id number]) [address] [address] [place] [address] Hematocrit (Bld) [Volume fraction] 38.9 % Normal 35-47 [facility] Comment on above: Performed By: #### C BC [facility], 95046-8, 2986-8, THYR, 2842-3 #### [facility] ([id number]) [address] [place] [address] Hemoglobin (Bld) [Mass/Vol] 12.8 g/dL Normal 11.7-15.5 [facility] Comment on above: Performed By: #### C BC, [facility], 42759-8, 2986-8, THYR, 2842-3 #### [facility] ([id number]) [address], [address] [place] [address] MCH (RBC) [Entitic mass] 26.5 pg Low 27-34 [facility] Comment on above: Performed By: #### C BC, CMP, 47664-1, 2986-8, THYR, 2842-3 #### [facility] ([id number]) [address], [address] [place] [address] MCHC (RBC) [Mass/Vol] 32.9 g/dL Normal 32-36 [facility] Comment on above: Performed By: #### C BC, CMP, 79636-0, 2986-8, THYR, 2842-3 #### [facility] ([id number]) [address], [facility] [address] [place] [address] MCV (RBC) [Entitic vol] 80 fL Normal 80-100 [facility] Comment on above: Performed By: #### C BC, CMP, 73554-1, 2986-8, THYR, 2842-3 #### [facility] ([id number]) [address], [address] [place] [address] Platelet mean volume (Bld) [Entitic vol] 11.6 fL Normal 7-12 [facility] Comment on above: Performed By: #### C BC, CMP, 35245-2, 2986-8, THYR, 2842-3 #### [facility] ([id number]) [address], [facility] [address] [place] [address] Platelets (Bld) [#/Vol] 232 10*3/uL Normal 150-450 [facility] Comment on above: Performed By: #### C BC, CMP, 00647-5, 2986-8, THYR, 2842-3 #### [facility] ([id number]) [address] [address] [place] [address] RBC COUNT 4.84 X10E12/L Normal 3.80-5.20 [facility] Comment on above: Performed By: #### C BC, CMP, 12804-3, 2986-8, THYR, 2842-3 #### [facility] ([id number]) [address], [address] [place] [address] WBC (Bld) [#/Vol] 8.6 10*3/uL Normal 4.0-11.0 [facility] Comment on above: Performed By: #### C BC, CMP, 98348-1, 2986-8, THYR, 2842-3 #### [facility] ([id number]) [address], [address] [place] [address] COMPREHENSIVE METABOLIC PANE Theodore 07-14-2023 Albumin [Mass/Vol] 4.9 g/dL Normal 3.2-5.3 [facility] Comment on above: Performed By: #### C BC, CMP, 94029-3, 2986-8, THYR, 2842-3 #### [facility] ([id number]) [address], [address] [place] [address] ALP [Catalytic activity/Vol] 63 U/L Normal 39-130 [facility] Comment on above: Performed By: #### C BC, CMP, 74713-9, 2986-8, THYR, 2842-3 #### [facility] ([id number]) [address], [address] [place] [address] ALT [Catalytic activity/Vol] 91 U/L High 0-31 [facility] Comment on above: Performed By: #### C BC, CMP, 02854-8, 2986-8, THYR, 2842-3 #### [facility] ([id number]) [address], [address] [place] [address] Anion gap [Moles/Vol] 12 mmol/L Normal 5-15 [facility] Comment on above: Performed By: #### C BC, CMP, 23178-3, 2986-8, THYR, 2842-3 #### [facility] ([id number]) [address], [address] [place] [address] AST [Catalytic activity/Vol] 65 U/L High 0-41 [facility] Comment on above: Performed By: #### C BC, CMP, 36368-9, 2986-8, THYR, 2842-3 #### [facility] ([id number]) [address], [address] [place] [address] Bilirubin [Mass/Vol] 0.8 mg/dL Normal 0.3-1.2 [facility] Comment on above: Performed By: #### C BC, CMP, 32982-1, 2986-8, THYR, 2842-3 #### [facility] ([id number]) [address], [address] [place] [address] Calcium [Mass/Vol] 9.5 mg/dL Normal 8.5-10.5 [facility] Comment on above: Performed By: #### C BC, CMP, 66115-9, 2986-8, THYR, 2842-3 #### [facility] ([id number]) [address], [address] [place] [address] Chloride [Moles/Vol] 104 mmol/L Normal 98-109 [facility] Comment on above: Performed By: #### C BC, CMP, 30827-2, 2986-8, THYR, 2842-3 #### [facility] ([id number]) [address], [address] [place] [address] CO2 [Moles/Vol] 26 mmol/L Normal 22-32 [facility] Comment on above: Performed By: #### C BC, CMP, 80486-6, 2986-8, THYR, 2842-3 #### [facility] ([id number]) [address], [address] [place] [address] Creatinine [Mass/Vol] 0.68 mg/dL Normal 0.40-1.00 [facility] Comment on above: Result Comment: METH OD TRACEABLE TO IDMS STANDARD Performed By: #### C BC, CMP, 17681-7, 2986-8, THYR, 2842-3 #### [facility] ([id number]) [address] [address] [place] [address] eGFR (CKD-EPI) NON-RACE DEPENDENT >90 Normal >59 [facility] Comment on above: Result Comment: Reported eGFR is based on the CKD-EPI 2020 equation that does not use a race coefficient. Performed By: #### C BC, CMP, 51953-5, 2986-8, THYR, 2842-3 #### [facility] ([id number]) [address] [address] [place] [address] Glucose [Mass/Vol] 87 mg/dL Normal 65-99 [facility] Comment on above: Performed By: #### Lex BC, CMP, 20459-6, 2986-8, THYR, 2842-3 #### [facility] ([id number]) [address] [address] [place] [address] Potassium [Moles/Vol] 3.1 mmol/L Low 3.5-5.0 [facility] Comment on above: Performed By: #### C BC, CMP, 52326-5, 2986-8, THYR, 2842-3 #### [facility] ([id number]) [address] [address] [place] [address] Protein [Mass/Vol] 7.7 g/dL Normal 6.0-8.0 [facility] Comment on above: Performed By: #### C BC, CMP, 55516-6, 2986-8, THYR, 2842-3 #### [facility] ([id number]) [address] [address] [place] [address] Sodium [Moles/Vol] 142 mmol/L Normal 134-146 [facility] Comment on above: Performed By: #### C BC, CMP, 20777-6, 2986-8, THYR, 2842-3 #### [facility] ([id number]) [address], [address] [place] [address] Urea nitrogen [Mass/Vol] 12 mg/dL Normal 5-23 [facility] Comment on above: Performed By: #### C BC, CMP, 95828-5, 2986-8, THYR, 2842-3 #### [facility] ([id number]) [address], [facility] [address] [place] [address] HGB A1C (GLYCO-HGB)on 2023 Glucose [Mass/Vol] 108 mg/dL Normal [facility] Comment on above: Performed By: #### C BC, CMP, 20067-2, 2986-8, THYR, 2842-3 #### [facility] ([id number]) [address], [facility] [address] [place] [address] HbA1c (Bld) [Mass fraction] 5.4 % Normal 4.4-5.6 [facility] Comment on above: Result Comment: NOTE ADA Guidelines Result HgbA1c Normal : less than 5.7 % Prediabetes : 5.7 % to 6.4 % Diabetes : > 6.4 % Use with caution in patients with abnormal hemoglobin variants as the half-life of red blood cells and in vivo glycation rates are affected. Performed By: #### C BC, CMP, 58707-5, 2986-8, THYR, 2842-3 #### [facility] ([id number]) [address], [address] [place] [address] Lipid 1996 panelon Cholesterol [Mass/Vol] 160 mg/dL Normal 150-200 [facility] Comment on above: Performed By: #### C BC, CMP, 96627-4, 2986-8, THYR, 2842-3 #### [facility] ([id number]) [address] [place] [address] Cholesterol in HDL [Mass/Vol] 29 mg/dL Low >39 [facility] Comment on above: Result Comment: HDL <40 mg/dL - High Risk HDL > or = 40mg/dL- Desirable HDL >60 mg/dL - Negative Risk Performed By: #### C BC, CMP, 32578-1, 2986-8, THYR, 2842-3 #### [facility] ([id number]) [address], [facility] [address] [place] [address] Cholesterol in LDL [Mass/Vol] 105 mg/dL Normal <130 [facility] Comment on above: Result Comment: LDL <100 mg/dL - Desirable LDL >160 mg/dL - High Risk Performed By: #### Lex BC, CMP, 09202-5, 2986-8, THYR, 2842-3 #### [facility] ([id number]) [address], [facility] [address] [place] [address] Cholesterol in VLDL [Mass/Vol] 26 mg/dL Normal 0-30 [facility] Comment on above: Performed By: #### Lex BC, CMP, 57893-6, 2986-8, THYR, 2842-3 #### [facility] ([id number]) [address], [facility] [address] [place] [address] CHOLESTEROL:HDL 5.5 High 1.0-5.0 [facility] Comment on above: Performed By: #### Lex BC, CMP, 14454-2, 2986-8, THYR, 2842-3 #### [facility] ([id number]) [address], [address] [place] [address] Triglyceride [Mass/Vol] 132 mg/dL Normal 27-150 [facility] Comment on above: Performed By: #### C BC, CMP, 27220-1, 2986-8, THYR, 2842-3 #### [facility] ([id number]) [address] [place] [address] Prolactin [Mass/Vol]on 07-14 PROLACTIN 10.3 ng/mL Normal 3.3-26.7 [facility] Comment on above: Performed By: #### C BC, CMP, 15840-4, 2986-8, THYR, 2842-3 #### [facility] ([id number]) [address] [place] [address] THYROID PROFILEon 07-14-2023 Free T4 [Mass/Vol] 1.06 ng/dL Normal 0.61-1.60 [facility] Comment on above: Performed By: #### Lex BC, CMP, 69651-1, 2986-8, THYR, 2842-3 #### [facility] ([id number]) [address], [facility] [address] [place] [address] TSH 0.40 uIU/mL Low 0.49-4.67 [facility] Comment on above: Performed By: #### Lex BC, CMP, 04283-9, 2986-8, THYR, 2842-3 #### [facility] ([id number]) [address] [place] [address] Testosterone [Mass/Vol]on TESTOSTERONE 0.44 ng/mL Normal 0.00-0.70 [facility] Comment on above: Performed By: #### C BC, CMP, 47948-0, 2986-8, THYR, 2842-3 #### [facility] ([id number]) [address], [address] [place] [address] HCG ( test) Ql (U)o n 06-17-2023 Beta HCG ( test) Ql (U) Negative Normal NEG [facility] Comment on above: Performed By: #### 2 106-3 #### [facility] ([id number]) [address] [place] [address], [place] [address] URN MACROSCOPIC NURon 2022 BILIRUBIN COURTNEY Negative Normal NEG [facility] Comment on above: Performed By: #### N UM #### [facility] ([id number]) [address] [place] [address] [place] [address] BLOOD/HGB COURTNEY Negative Normal NEG [facility] Comment on above: Performed By: #### N UM #### [facility] ([id number]) [address] [place] [address] [place] [address] GLUCOSE COURTNEY Negative Normal NEG [facility] Comment on above: Performed By: #### N UM #### [facility] ([id number]) [address] [place] [address] [place] [address] KETONES COURTNEY Negative Normal NEG [facility] Comment on above: Performed By: #### N UM #### [facility] ([id number]) [address] [place] [address], [place] [address] LEUKOCYTE ESTERASE COURTNEY Negative Normal NEG Pr [facility] Comment on above: Performed By: #### N UM #### [facility] ([id number]) [address] [place] [address] [place] [address] NITRITE COURTNEY Negative Normal NEG [facility] Comment on above: Performed By: #### N UM #### [facility] ([id number]) [address] [place] [address] [place] [address] PH COURTNEY 5.5 Normal 5.0-8.5 [facility] Comment on above: Performed By: #### N UM #### [facility] ([id number]) [address] [place] [address] PROTEIN COURTNEY Negative Normal NEG [facility] Comment on above: Performed By: #### N UM #### [facility] ([id number]) [address] [place] [address] SPECIFIC GRAVITY COURTNEY >=1.030 Normal 1.003-1.035 [facility] Comment on above: Performed By: #### N UM #### [facility] ([id number]) [address] [place] [address] UROBILINOGEN COURTNEY 0.2 eu/dL Normal <1.1 [facility] Comment on above: Performed By: #### N UM #### [facility] ([id number]) [address] [place] [address] Discharge Instructionson Discharge Instructions [id number]# 1.00CD:127 Normal [facility] Prescriptions/Work Noteson 0 12-12-2022 Prescriptions/Work Notes [id number]# 1.00CD:127 Normal [facility] Consent for Treatmenton 11-28 Consent for Treatment [id number]#1 .00CD:127 Normal [facility] ED Clinical Summaryon 2022 ED Clinical Summary [address] [address] ED Clinical Summary Person Information Name: KAREN LIU [place] Age: 27 Years : 1995 Sex: Female Language: Jordanian PCP: NONE, XXXX Marital Status: Phone: [phone] Visit Id: Visit Reason: Leg pain-swelling; NUMBNESS [...] 12/11/2022 21:17:28 12/11/2022 21:17:28 12/11/2022 21:17:28 ADDRESS: [address] [facility] [address] PHYS DOC NOTES: MEDICAL INFORMATION: Prescriptions Given: New Medications [id number], [address] [place] [id number], [phone] lidocaine topical (Lidoderm 5% Patch) 1 Patches [...] [place] In 3 days DIAGNOSIS: Sciatica Normal [facility] ED Note-Physicianon 12-12-19 ED Note-Physician Basic Information [...] and Complexity of Problems Differential Diagnosis: [] [facility] Data External documents reviewed: Not applicable [...] hours on and 12 hours off daily, [id number], 165, cm, 12/11/22 20:29:00 EDT, Height/Length Dosing, 120, kg, 12/11/22 20:29:00 EDT, Weight Dosing naproxen, 500 mg = 1 tab(s), Oral, BID, # 20 tab(s), Refills(s) 0, Pharmacy: [id number], 165, cm, 12/11/22 20:29:00 EDT, Height/Length Dosing, 120, kg, 12/11/22 20:29:00 EDT, Weight Dosing Dis (more content not included)... Normal [facility] Comment on above: Result Comment: Elec tronically [...] these instructions at home: Medicines ? Take gzfn-zqj-kzrkyqa and prescription medicines only as told by your health care provider. ? Ask your health care provider if the medicine prescribed to you: ? Requires you to avoid driving or using heavy machinery. ? Can cause constipation. You may need to take these actions to prevent or treat constipation: ? Drink enough fluid to keep your urine pale yellow. ? Take hxoo-cur-gxrleru or prescription medicines. ? Eat foods that [...] your body. (more content not included)... Normal [facility] ED Patient Summaryon 023 ED Patient Summary [address] [address] Patient Discharge Instructions Person Information Name: KAREN LIU Age: 27 Years Arrival Date: 12/11/2022 20:17:49 Discharge Diagnosis: Sciatica Primary Care Physician: MEGAN, XXXX Provider Information Primary Provider: Luna Alvarez DO Advanced Supervisor Cloth Winding:Taran Torres PA-C The exam and treatment you received in the Emergency Department were for an urgent problem and are not intended as complete care. It is important that you follow up with a doctor, nurse practitioner, or physician?s assistant at surgery for ongoing care. If your symptoms become [...] opioids can be used to help relieve kdvztrjw-ti-ingrjk pain and are often prescribed following a [...] be struggling with addiction, tell your health urgent care physician assistant and ask for guidance or call [facility]?S National Helpline at 4-341-916-ADHR. r Source: [place] Department of Health and Human Services/Center for Disease Control & Prevention [facility] (more content not included)... Normal [facility] SGPTon 11-27-2022 ALT [Catalytic activity/Vol] 53 U/L Normal 14-59 [facility] Comment on above: Performed By: #### C VDTBH #### [facility] [address] [place] [address] Dr. Melchor Guillermo HEP B SURFACE ANTIGEN SCREEN on 11-21-2022 HBsAg Screen Negative Normal Negative [facility] Comment on above: Performed By: #### H BSANS #### [facility] [address] [place] [address] Dr. Melchor Guillermo HEPATITIS C ANTIBODYon 11-21 Hep C Virus Ab Reactive Abnormal Non Reactive [facility] Comment on above: Result Comment: HCV antibody alone does not differentiate between previously resolved infection and active infection. Equivocal and Reactive HCV antibody results should be followed up with an HCV RNA test to support the diagnosis of active HCV infection. Performed By: #### C VDTBH #### [facility] [address] [place] [address] Dr. Melchor Guillermo HIV 1 AND 2 WITH REFLEXon HIV Screen 4th Generation wRfx Non-Reactive Normal Non Reactive [facility] Comment on above: Result Comment: HIV Negative HIV-1/HIV-2 antibodies and HIV-1 p24 antigen were NOT detected. There is no laboratory evidence of HIV infection. Performed By: #### H IV12 #### [facility] [address] [place] [address] Dr. Melchor Guillermo RPR QUANTon 11-21-2022 Rapid Plasma Reagin, Quant Non-Reactive Normal NonRea<1:1 [facility] Comment on above: Result Comment: Plea se Note: This test does not meet current guidelines for screening and diagnosis of syphilis. This test is intended for following treatment response in patients being treated for syphilis infection. To screen for syphilis infection, a reflex cascade that includes both RPR and a treponema-specific assay should be utilized, such as Treponema pallidum (Syphilis) Screening [place] (425488) or Rapid Plasma Reagin (RPR) Test With Reflex to Quantitative RPR and Confirmatory Treponema pallidum Antibodies (987131). Performed By: #### R PRQ #### [facility] [address] [place], [place] [address] Dr. Melchor Guillermo Cult,Urineon 07-22-2022 Cult,Urine Specimen Description .CLEAN CATCH URINE Culture NO SIGNIFICANT GROWTH Report Status FINAL 07/22/2022 Normal [facility] Comment on above: Performed By: #### U RC #### [facility] [address] [place], [place] [id number] Hospice Volunteer: Mathew Martin MD [address] [place] [id number] Hospice Volunteer: Prasad Matute MD CBC with Diffon 07-21-2022 Abs. Basophil 0.03 k/uL Normal 0.00-0.20 [facility] Comment on above: Performed By: #### I PF, LIP, CDP, CP #### [address] [place] [id number] Hospice Volunteer: Prasad Matute MD Abs. Eosinophil <0.03 Normal 0.00-0.44 [facility] Comment on above: Performed By: #### I PF, LIP, CDP, CP #### [address] [place] [id number] Hospice Volunteer: Prasad Matute MD Abs.Imm.Granulocyte 0.06 k/uL Normal 0.00-0.30 [facility] Comment on above: Performed By: #### I PF, LIP, CDP, CP #### [address] [place] [address] Hospice Volunteer: Prasad Matute MD Abs.Neutrophil (Seg) 15.01 k/uL High 1.50-8.10 [facility] Comment on above: Performed By: #### I PF, LIP, CDP, CP #### [facility] [address] [place] [address] Dr. Chen, [place] [address] Hospice Volunteer: Prasad Matute MD Basophils/100 WBC (Bld) 0 % Normal 0-2 [facility] Comment on above: Performed By: #### I PF, LIP, CDP, CP #### [address] Chen, [place] [address] Hospice Volunteer: Prasad Matute MD Eosinophils/100 WBC (Bld) 0 % Low 1-4 [facility] Comment on above: Performed By: #### I PF, LIP, CDP, CP #### [address] Chen, [facility]83 Hospice Volunteer: Prasad Matute MD Erythrocyte distribution width (RBC) [Ratio] 14.4 % Normal 11.8-14.4 [facility] Comment on above: Performed By: #### I PF, LIP, CDP, CP #### [address] Chen, [facility]83 Hospice Volunteer: Prasad Matute MD Hematocrit (Bld) [Volume fraction] 42.3 % Normal 36.3-47.1 [facility] Comment on above: Performed By: #### I PF, LIP, CDP, CP #### [address] Chen, [facility]83 Hospice Volunteer: Prasad Matute MD Hemoglobin (Bld) [Mass/Vol] 14.0 g/dL Normal 11.9-15.1 [facility] Comment on above: Performed By: #### I PF, LIP, CDP, CP #### [address] [place] [address] Hospice Volunteer: Prasad Matute MD Immature granulocytes/100 WBC (Bld) 0 % Normal 0 [facility] Comment on above: Performed By: #### I PF, LIP, CDP, CP #### [address] [place], [place] [id number] Hospice Volunteer: Prasad Matute MD Lymphocytes (Bld) [#/Vol] 0.67 10*3/uL Low 1.10-3.70 [facility] Comment on above: Performed By: #### I PF, LIP, CDP, CP #### [address] [place], [place] [address] Hospice Volunteer: Prasad Matute MD Lymphocytes/100 WBC (Bld) 4 % Low 24-43 [facility] Comment on above: Performed By: #### I PF, LIP, CDP, CP #### [address] Chen, [facility]83 Hospice Volunteer: Prasad Matute MD MCH (RBC) [Entitic mass] 26.9 pg Normal 25.2-33.5 [facility] Comment on above: Performed By: #### I PF, LIP, CDP, CP #### [address] Chen, [place] [address] Hospice Volunteer: Prasad Matute MD MCHC (RBC) [Mass/Vol] 33.1 g/dL Normal 28.4-34.8 [facility] Comment on above: Performed By: #### I PF, LIP, CDP, CP #### [address] Chen, [place] [address] Hospice Volunteer: Prasad Matute MD MCV (RBC) [Entitic vol] 81.3 fL Low 82.6-102.9 [facility] Comment on above: Performed By: #### I PF, LIP, CDP, CP #### [address] [place], [place] [id number] Hospice Volunteer: Prasad Matute MD Monocytes (Bld) [#/Vol] 0.48 10*3/uL Normal 0.10-1.20 [facility] Comment on above: Performed By: #### I PF, LIP, CDP, CP #### [facility] [address] [place], [place] [id number] Hospice Volunteer: Prasad Matute MD Monocytes/100 WBC (Bld) 3 % Normal 3-12 [facility] Comment on above: Performed By: #### I PF, LIP, CDP, CP #### [facility] [address] [place], [place] [id number] Hospice Volunteer: Prasad Matute MD Neutrophil (Seg) 92 % High 36-65 [facility] Comment on above: Performed By: #### I PF, LIP, CDP, CP #### [address] [place], [place] [id number] Hospice Volunteer: Prasad Matute MD NRBC Automated 0.0 per 100 WBC Normal 0.0 [facility] Comment on above: Performed By: #### I PF, LIP, CDP, CP #### [address] [place] [address] Hospice Volunteer: Prasad Matute MD Platelet Count See Reflexed IPF Result Normal 138-453 [facility] Comment on above: Performed By: #### I PF, LIP, CDP, CP #### [address] [place], [place] [id number] Hospice Volunteer: Prasad Matute MD RBC (Bld) [#/Vol] 5.20 10*6/uL High 3.95-5.11 [facility] Comment on above: Performed By: #### I PF, LIP, CDP, CP #### [address] [place] [address] Hospice Volunteer: Prasad Matute MD WBC (Bld) [#/Vol] 16.3 10*3/uL High 3.5-11.3 [facility] Comment on above: Performed By: #### I PF, LIP, CDP, CP #### [facility] [address] [place] [address] Hospice Volunteer: Prasad Matute MD CT ABDOMEN PELVIS W [...] COMPARISON: None. HISTORY: ORDERING SYSTEM PROVIDED HISTORY: [facility] pain TECHNOLOGIST PROVIDED HISTORY: [facility] pain Decision Support Exception - unselect if [...] Maria Epstein DO 07/21/22 Final result Normal [facility] Comp Metabolic Profon 2022 Albumin [Mass/Vol] 4.9 g/dL Normal 3.5-5.2 [facility] Comment on above: Performed By: #### I PF, LIP, CDP, CP #### [facility] [address] [place] [address] Hospice Volunteer: Prasad Matute MD Albumin/Glob Ratio 1.5 Normal 1.0-2.5 [facility] Comment on above: Performed By: #### I PF, LIP, CDP, CP #### [facility] [address] [place], [place] [id number] Hospice Volunteer: Prasad Matute MD Alkaline Phos 89 U/L Normal 35-104 [facility] Comment on above: Performed By: #### I PF, LIP, CDP, CP #### [facility] [address] [place], [place] [id number] Hospice Volunteer: Prasad Matute MD ALT [Catalytic activity/Vol] 46 U/L High 5-33 [facility] Comment on above: Performed By: #### I PF, LIP, CDP, CP #### [facility] [address] [place], [place] [id number] Hospice Volunteer: Prasad Matute MD Anion gap [Moles/Vol] 11 mmol/L Normal 9-17 [facility] Comment on above: Performed By: #### I PF, LIP, CDP, CP #### [facility] [address] [place], [place] 2198883 Hospice Volunteer: Prasad Matute MD AST [Catalytic activity/Vol] 20 U/L Normal <32 [facility] Comment on above: Performed By: #### I PF, LIP, CDP, CP #### [facility] [address] [place], [place] 3670383 Hospice Volunteer: Prasad Matute MD Bilirubin [Mass/Vol] 1.7 mg/dL High 0.3-1.2 [facility] Comment on above: Performed By: #### I PF, LIP, CDP, CP #### [facility] [address] [place], [place] [id number] Hospice Volunteer: Prasad Matute MD BUN/CRE Ratio 24 High 9-20 [facility] Comment on above: Performed By: #### I PF, LIP, CDP, CP #### [facility] [address] [place], [place] [id number] Hospice Volunteer: Prasad Matute MD Calcium [Mass/Vol] 10.1 mg/dL Normal 8.6-10.4 [facility] Comment on above: Performed By: #### I PF, LIP, CDP, CP #### [facility] [address] [place] [address] Hospice Volunteer: Prasad Matute MD Chloride [Moles/Vol] 103 mmol/L Normal 98-107 [facility] Comment on above: Performed By: #### I PF, LIP, CDP, CP #### [facility] [address] [place] [address] Hospice Volunteer: Prasad Matute MD CO2 [Moles/Vol] 23 mmol/L Normal 20-31 [facility] Comment on above: Performed By: #### I PF, LIP, CDP, CP #### [facility] [address] [place] [address] [place] [address] Hospice Volunteer: Prasad Matute MD Creatinine [Mass/Vol] 0.70 mg/dL Normal 0.50-0.90 [facility] Comment on above: Performed By: #### I PF, LIP, CDP, CP #### [address] [place] [address] Hospice Volunteer: Prasad Matute MD GFR/1.73 sq M.predicted among non-blacks MDRD (S/P/Bld) [Vol rate/Area] mL/min/{1.73_m2} Normal >60 [facility] Comment on above: Result Comment: Effective [...] #### I PF, LIP, CDP, CP #### [facility] [address] [place] [address] Hospice Volunteer: Prasad Matute MD Glucose [Mass/Vol] 117 mg/dL High 70-99 [facility] Comment on above: Performed By: #### I PF, LIP, CDP, CP #### [facility] [address] [place], [place] [id number] Hospice Volunteer: Prasad Matute MD Potassium [Moles/Vol] 4.2 mmol/L Normal 3.7-5.3 [facility] Comment on above: Performed By: #### I PF, LIP, CDP, CP #### [facility] [address] [place], [place] [id number] Hospice Volunteer: Prasad Matute MD Protein [Mass/Vol] 8.1 g/dL Normal 6.4-8.3 [facility] Comment on above: Performed By: #### I PF, LIP, CDP, CP #### [facility] [address] [place] [address] Dr. [place], [place] 2178483 Hospice Volunteer: Prasad Matute MD Sodium [Moles/Vol] 137 mmol/L Normal 135-144 [facility] Comment on above: Performed By: #### I PF, LIP, CDP, CP #### [facility] [address] [place] [address] Dr. [place], [place] 1211083 Hospice Volunteer: Prasad Matute MD Urea nitrogen [Mass/Vol] 17 mg/dL Normal 6-20 [facility] Comment on above: Performed By: #### I PF, LIP, CDP, CP #### [facility] [address] [place], [place] [id number] Hospice Volunteer: Prasad Matute MD HCG, ,Urineon 07-21 Beta HCG ( test) Ql (U) Negative Normal NEG [facility] Comment on above: Result Comment: Spec imens with hCG levels near the threshold of the test (25 mIU/mL) may give a negative or indeterminate result. In such cases, another test should be performed with a new specimen in 48-72 hours. If early is suspected clinically in this setting, correlation with quantitative serum b-hCG level is suggested. [facility] has confirmed the use of plasma for this test. This has not been cleared or approved by the U.S. Food and Drug Administration. The FDA has determined that such clearance is not necessary. Performed By: #### U HCG, UA, UMICAO #### [facility] [address] [place] [address] Hospice Volunteer: Prasad Matute MD Lactic Acidon 07-21-2022 Lactate [Moles/Vol] 1.6 mmol/L Normal 0.5-2.2 [facility] Comment on above: Performed By: #### L ACTIC #### [facility] [address] [place] [address] Hospice Volunteer: Prasad Matute MD Lipaseon 4 Lipase [Catalytic activity/Vol] 18 U/L Normal 13-60 [facility] Comment on above: Performed By: #### I PF, LIP, CDP, CP #### [facility] [address] [place], [facility]83 Hospice Volunteer: Prasad Matute MD PLT, Immature Fract.on 07-21 Platelet, Fluoresc. 237 k/uL Normal 138-453 [facility] Comment on above: Performed By: #### I PF, LIP, CDP, CP #### [address] [place] [address] Hospice Volunteer: Prasad Matute MD PLT, Immature Fract. 14.9 % High 1.1-10.3 [facility] Comment on above: Performed By: #### I PF, LIP, CDP, CP #### [facility] [address] [place] [address] Hospice Volunteer: Prasad Matute MD Urinalysis, Routineon 2022 Bilirubin, SemiQt,Ur SMALL Abnormal NEG [facility] Comment on above: Performed By: #### U HCG, UA, UMICAO #### [facility] [address] [place], [place] [id number] Hospice Volunteer: Prasad Matute MD Blood, Urine Negative Normal NEG [facility] Comment on above: Performed By: #### U HCG, UA, UMICAO #### [facility] [address] [place], [place] [id number] Hospice Volunteer: Prasad Matute MD Clarity (U) SLIGHTLY CLOUDY Abnormal CLEAR [facility] Comment on above: Performed By: #### U HCG, UA, UMICAO #### [facility] [address] [place], [place] [id number] Hospice Volunteer: Prasad Matute MD Color (U) Yellow Normal YEL [facility] Comment on above: Performed By: #### U HCG, UA, UMICAO #### [facility] [address] [place], [place] [id number] Hospice Volunteer: Prasad Matute MD Glucose Ql (U) Negative Normal NEG [facility] Comment on above: Performed By: #### U HCG, UA, UMICAO #### [address] [place], [place] 8307383 Hospice Volunteer: Prasad Matute MD Ketones Ql (U) Negative Normal NEG [facility] Comment on above: Performed By: #### U HCG, UA, UMICAO #### [facility] [address] [place], [place] 5566783 Hospice Volunteer: Prasad Matute MD Leukocyte esterase Test strip Ql (U) Negative Normal NEG [facility] Comment on above: Performed By: #### U HCG, UA, UMICAO #### [facility] [address] [place], [place] 3787783 Hospice Volunteer: Prasad Matute MD Nitrite,Ur Negative Normal [facility] Comment on above: Performed By: #### U HCG, UA, UMICAO #### [facility] [address] [place], [place] 5569083 Hospice Volunteer: Prasad Matute MD PH,Ur 5.5 Normal 5.0-9.0 [facility] Comment on above: Performed By: #### U HCG, UA, UMICAO #### [facility] [address] [place], [place] 1489383 Hospice Volunteer: Prasad Matute MD Protein Ql (U) TRACE Abnormal NEG [facility] Comment on above: Performed By: #### U HCG, UA, UMICAO #### [facility] [address] [place], [place] 5158183 Hospice Volunteer: Prasad Matute MD Spec. [place],Ur >1.030 High 1.010-1.020 [facility] Comment on above: Performed By: #### U HCG, UA, UMICAO #### [facility] [address] [place], [place] 8294383 Hospice Volunteer: Prasad Matute MD Urobilinogen,Ur Normal Normal NORM [facility] Comment on above: Performed By: #### U HCG, UA, UMICAO #### [facility] [address] [place], [place] 3651483 Hospice Volunteer: Prasad Matute MD Urinalysis,Microon 3 Bacteria 4+ Abnormal NONE [facility] Comment on above: Performed By: #### U HCG, UA, UMICAO #### [facility] [address] [place], [place] [id number] Hospice Volunteer: Prasad Matute MD Epithelial cells LM Ql (Urine sed) 20 TO 50 Normal 0-25 [facility] Comment on above: Performed By: #### U HCG, UA, UMICAO #### [facility] [address] [place], [place] 4896583 Hospice Volunteer: Prasad Matute MD Mucus Strands 2+ Abnormal NONE [facility] Comment on above: Performed By: #### U HCG, UA, UMICAO #### [facility] [address] [place] [address] Hospice Volunteer: Prasad Matute MD Urine RBC's None Normal 0-2 [facility] Comment on above: Performed By: #### U HCG, UA, UMICAO #### [facility] [address] [place] [address] Hospice Volunteer: Prasad Matute MD Urine WBC's 0 TO 2 Normal 0-5 [facility] Comment on above: Performed By: #### U HCG, UA, UMICAO #### [facility] [address] [place] [address] Hospice Volunteer: Prasad Matute MD POINT OF CARE GLUCOSEon 06-30 Glucose [Mass/Vol] 91 mg/dL Normal 74-106 [facility] Comment on above: Performed By: #### P OCGLUC #### [facility] [address] [place], [place] [address] TSPINE WO CONon [...] FLORECITA FROST Date: 2022-07-17 21:43 Normal [facility] ER URINE PROFILEon 3 Bilirubin Ql (U) Negative Normal NEGATIVE [facility] Comment on above: Performed By: #### P REGU, ERUR #### [facility] [address] [place] [address] Dr. Melchor Guillermo Clarity (U) CLEAR Normal CLEAR [facility] Comment on above: Performed By: #### P REGU, ERUR #### [facility] [address] [place] [address] Dr. Melchor Guillermo Color (U) YELLOW Normal YELLOW [facility] Comment on above: Performed By: #### P REGU, ERUR #### [facility] [address] [place] [address] Dr. Melchor Guillermo ERUAHD A micrscopic examination will be performed if indicated. Normal [facility] Comment on above: Performed By: #### P REGU, ERUR #### [facility] [address] [place] [address] Dr. Melchor Guillermo Glucose Ql (U) Negative Normal NEGATIVE [facility] Comment on above: Performed By: #### P REGU, ERUR #### [facility] [address] [place] [address] [address] Melchor Guillermo Hemoglobin Ql (U) Negative Normal NEGATIVE [facility] Comment on above: Performed By: #### P REGU, ERUR #### [facility] [address] [place] [address] Dr. Melchor Guillermo Ketones Ql (U) Negative Normal NEGATIVE [facility] Comment on above: Performed By: #### P REGU, ERUR #### [facility] [address] [place] [address] [address] Melchor Guillermo LEUKOCYTES Negative Normal NEGATIVE [facility] Comment on above: Performed By: #### P REGU, ERUR #### [facility] [address] [place] [address] Dr. Melchor Guillermo Nitrite Ql (U) Negative Normal NEGATIVE [facility] Comment on above: Performed By: #### P REGU, ERUR #### [facility] [address] [place] [address] Dr. Melchor Guillermo pH (U) 5.5 [pH] Normal 5-9 [facility] Comment on above: Performed By: #### P REGU, ERUR #### [facility] [address] [place] [address] Dr. Melchor Guillermo SPEC GRAVITY 1.025 Normal 1.005-<=1.02 5 [facility] Comment on above: Performed By: #### P REGU, ERUR #### [facility] [address] [place] [address] Dr. Melchor Guillermo UA PROTEIN Negative Normal NEGATIVE/ TRACE [facility] Comment on above: Performed By: #### P REGU, ERUR #### [facility] [address] [place] [address] Dr. Melchor Guillermo UR MICRO IND NOT INDICATED Normal [facility] Comment on above: Performed By: #### P REGU, ERUR #### [facility] [address] [place] [address] Dr. Melchor Guillermo Urobilinogen Qn (U) 0.2 {Onur'U}/dL Normal 0.2 - 1. 0 [facility] Comment on above: Performed By: #### P REGU, ERUR #### [facility] [address] [place] [address] Dr. Melchor Guillermo URon 07-17-2022 , QUAL Negative Normal NEGATIVE [place] Comment on above: Performed By: #### C VDTBH #### [facility] [address] [place] [address] Dr. Melchor Guillermo Coding Summary.on 06-17-2022 Coding Summary. CD:[id number] G h0bWw+PGhlYWQ+GE2IWCW xO02gsKOsiO0ZL4xAGC7D DZYXRTFOCA7DXZ1efOR2Z SpkH0QdbwIi KnyjaYQmTX63HIo3FOV5g UtdGUlgrH8wvVJvL8o0Fa FnBO93zG66CQfpVVAqRzL 3LjZpbjsgbWFy M4kbKoFcbGUpKrg+PHRhY mxlIHdpZHRoPScxMDAlJy YooSyfFK6mEw7dGPPsIPU vbGxhcHNlOiBj u7mjZIKqMMtyUY0rvKrmB 3QrdXL4FMQcz3v9Oc03iR I+WSLpMRH3jRlkIIrut79 4FbWht7bvUVH0 bXTiYUozWHF9P17dw0W1P RVuXHBtKTN5cJF5dI7iyO jmkqgdT2EckJPwLxN4CGF 7vUJtlC1cpNaa nkjfmA7fOkk+A79DBR4ZQ YPQMM0JNzi4A3FuBsyvkO I+AQ92FKLgKK74cIJdgKZ we0jrnIa1GzYg ULAsARO8oHxkNLnvo2BzP PSeL67dkPVkv2X5CDImzO bihTJmXzYhfXG5iB3tREi scgqma8axcueq Gavse0kwgo56gG58D87nF EsvCOByCGI5UGPdTRNejZ oowb8mnR5dUv5+RYfzb3i vh7qjlEl9OoZi UEQokwVrxRdlHKA9u2EqU d03J3CwmTsvk1KvKqh6xg 78fVXor8P1mQM1UWlsRBT geO8eDEhkXoM6 OBRfIeQrqY84mKSaQFhmB s7cnCqtsGhuAI6tLRAues eaXKWloG6sIDRqrJDqdWf pWF5nTKFcfqdz s140EeEqSBY3EPLtqJLqE 5IfrT1iIrGgGFNwAZYxL1 WobHBkSPclY249ERupJzU 2TZAkxtKaU4Ee VAMcxBtcRaU3q7C0Mb5Vq 6JfjbjiMML8SJttWTEoKt G7TgZjLoE5G4VsRkb6GAW yaGjsPC3pP5Fs TLFcqsmekfpofPJ7RFXrI DCtyW88cRNuQGugJs9bg5 K1i432INUrWAIdhT66Rv6 udDogMTBwdCBU kM6igyenz9vlqvdkUbPlE CGoBGg5HQe4NUMtrNevBw LkSHM7TnS4EJM7jWQmtJ8 opEyocxnubU9d Oyc+H24czF8nLXT4GBF8n gulKKYpikMaKA11QJ74W5 RyPjwvdGFibGU+PGRpdiB mbGhoIB6gFmLf i8wxg7PwODcqB6VtRLXhD AxoTvh5HDLeOZG6oYD0sP 0gDZAkGGpkc4L1dGU6F4J yiuIpki6pm4go FHXcNJkgF08boVLbf0C1P BYyoFK8MJSweWcgOvDfpF 93Oyc+YNAhsXmgc2CrVji hq4khs8xbrOb6 JeBlJNBpypKvkHjcOAI9u 8PpPn89J19oZItcZTEaWB UgVAHiPBYdySmimr6enJ6 wIi8+PGNvbCB3 sXY9cG5kUPYdWpG1JJslF 125HjBmlEWgKkjdp6zqa4 zozRc1SfMaMQCgooYpkGd nMSL9s4DnSm74 R38rOUoeGRCbZRFjNUAuS MTpxYmtbl8smO4iPv3+PC 3em0zkyx49sT96zJZ+PHR bOMX5zLpzVXps ZZWsjY7wIAnyOsY2FLHrZ qWglH83gIKqCPryRa8dfP gbfBsuBU6aPIPttobne45 6DrLjr1jxRZBv hHKsRAadIBM4D97yu6P3I VMpZRQpTGH0mMM4nN4ruM lnbjogbGVmdDsgdmVydGl kFVbmTCayN049 IHRvcDsnPlBhdGllbnQgT dRrNQh9N8JkBzq3SYMytJ acMY6jbGTpVXvsTe8ylMq boJwwBU5oSBEv fikvw992CfDqb8hgQNGpq MNmYMpvWSL3N11cu1G6HJ OcJAMoKTF2jIA1bW2cqJp nbjogbGVmdDsg tnSwkSjjLEdrTKnfY939V HRvcDsnPkJpcnRoIERhdG R2WO26RB63iFSxe9D8cFH 7A3SvNWNgnoin kmdshJM1XFIfCLWcsS48D f8fcTjpKc5wKWZiEEY0GN UpgGOgG8AaeS9tMnYzYEB gGRVfE5XosJEj WHonU545MSydRgD5GKMxx xUlQ0EyDDEqiWarUcL5b8 H7To9DV1H4BR62JW96uVZ tv2N4uYG1A7Kg TUNxdkvuqxojmRD5HPAmX VVxrI68Qi5msYrxZq6kNQ OlRNZ0OXGvgFLvS1NgyR8 yOiAjMDAwMDAw N5IujFWaTOsjP601MZdrD sR0NEBfdtFdY6CnOCUhpC qgRtL3h0P9Sv8SRRf1UW9 1BL87jLDpt1W3 oTW9S8TjQSUoukccyvghb IX9GRAqXXFnbR75Sw8dzG hkEv8iDBMpBQQ7AAFgzCP vZ2JdsT8zXbWh PCRkCYBbB4XidDZyKNgiL 282OEasFfA3RLSgjsLzW4 DhLUBmoBwfWiC2a8V4Ji3 AAYOzVI36CBN3 dZP5QR10WW97Z6XpClmji GFibGU+PHRhYmxlIHdpZH RoPScxMDAlJyBzdHlsZT0 eYc3cADEgIDDb aHinfKWeEoWmk8zmCVBxN CkvIX4kaTsuZ7JmsUL4VF Ibn4y8Xf68R65hO7BljXG +OLZsgZW0mYF1 tR0wXtGrGmK5SOswN858N xVcuWXuQqmbc4voz0vrrG m8KlZ0VOMltsEfuLetWQL 7a3KpYo06X56z IHdpZHRoPSIxNSUiIHZhb Qwjuz3trL1nEq2+PGNvbC G5fYD4tB4fEdFeOpS5CHi nU661SoPjpBIj Qunbx6pik6gulTi1JdBiB OSgrqFurMnnTXY7s1OyOp 52A3QmxWylj0FvSiy8se9 9eVJaq7Q8zHP0 M2EoYNOxyanuhQUhyXaaU B5uROVrrkeoUGYkhB4dVF HxF1h1EhDsHbA8GCxrQ7H rbzY2WQZytCCj WZqfFES0K73lp7X4VERqE FQuQID1uCZ2tX7cgYmmmo ogbGVmdDsgdmVydGljYWw dZYykV074VUEq sPiyVDIsiD4mDMSytTXcg DmlJC2hYIUlfpajGjMPCD FVUOgRWzqdZ4CSQqZ1Z7F kOpf4MXZreCzp QC6fuABaMIgiGl2ycIjxz ZbhFR3rKDEmdldzWORylK 1mJPOfpZSojFhuFI0uENG mhnsuu326IxTq XUH4VTJrsZGnX6QolA1rA iUxWSRxNNXsO5WokYWdZM kwZ330UWfaLeX3TPNlkiL xV9TsWTUbjCja YvE7t3L5Qq3nDj2hBU2nD Im8LK52ZZ80cRIos8M6eG Y6B5LbFSLkpoxeckllsAQ 4TTFgVREslA96 yWPyMCwiTa6kr1R6d067U EKvWVHevJ06Mk4uuHcyRU XfsHOIhN6esetnp0geibt gIzAwMDAwMDt0 ZIr5CRSxxAhuCzIvXRH8Y rY3WUL9kIJktH3pfFkgth itcX4nZyf+MjQgWWVhcnM 0Z7VcKkx0ZVFr dPzfYX6teUXuMNngEp0lc LoppKozOF1bYYGudedmBV GeaG3kUVEslMYpqIdsCG6 aNYWvgrcig048 VfKxBZT6QROuvOEyS1Xzz N8nFdQmLNHqRMEpE7VmvY SwZDjbH811XOrdJkA4CLZ yrmXpM0VwIASo aYauReZ0v3W1Tx8OEB6tg SS7O4IzFub7BZWflSksIL 9ttHNkGRkjLh6uaVmqoPe yYR2kMDOtlqoq DXOmaQ7xYFAojYMjdMlwS T3vXAVpgtnnb305QiIuCP H6XAOtoZAsG1AbfW2fTkY qZMWiOWXwN8Oo bFBpFSzyQ611UBwsTzS1Z TVcrfXwG3LdBEPmfHkbOr S6x7P0Po2UuHTuX2OtR2e 4I4WmFbidcPB+ GG73ZGXsHL75gGQnrDGhb 9glqCt5QjIfOPUmJGG3rA jbHNuuf8RvIWLfR25izKQ mw4G0RNMgfGte sYQuSrZvdUB3fJ1dAOulp vrhq2xmzwdwMakvb8kzex 68vR39A97hLGjdHHDbZPS zMCUiIHZhbGln dj6szV8zIn4+SJGpdLD6e FJ6wC4tJlWwHmJ4JSrxU9 89LbVxbUTjOigss3ccx2g izVp6GpItOLGs sgOslSnaRUP7x6YxTq72D 29sIHdpZHRoPSIyMCUiIH KhqKgwmd3maO0oHp8+PC9 eh5ypig83dQ13 dHI+HEStLTH2jNtoWPycL YSfbD6rSZzeUjN3HRGiTf KxeG67bJRpILjoNz2pcLh jxEgjXY8iMXXs yhexl126ZtSbj3pfYLKim VGhXKajVIM9R10af9Z1JT OcXDZdIOR1kNT4bK5yhQp nbjogbGVmdDsg brZypRepKSsdBIzbC341S LHroXfvEgXpgGJtA5sdge QZKI3xZwpzpPR+PHRkIHN 0eWxlPSdwYWRk tV2sRCQfS6c7TcYfTaS6S HhlE7GmfnJ2MACpxUXdYT ElpBZYeM9wmaxel1vyvea gIzAwMDAwMDt0 AAj2DAWrjEecMaMuSGW6P iW6PZR0xQOenO7fwUvsdg rdaQ6uEyu+RklOOjwvdGQ +MCDjMRG8iSyf XSaaDVSmnH0qGSRlH1n3X cGtJtY4JKtkG0MvarX3JS AhrNWbJEJvyDVLhB9pise cr3aaaekuFdFq ATVrXUj2MLz9ISAdwKegB gDnVWU6JrU7NAA2vLZrpG 3ziHjowdfgxG2dZzx+TVJ OOjwvdGQ+PHRk GAK0vJiuCHkgGPWnzU3pA ZZdE4u6ApSrHaL4VIdaD9 BwzaL5VPJgfTLsMEJnoZY DkB2wnnrki5tm jwizOxNnWKCuRTh1WJz8K WZetUrsYnTdPYA1UoF8QP K4xVKqtP1dgIaqrjzjrE6 wOyc+TRA5XOY0 RF76XA25X0EeHsaurMEjx +PHRhYmxlIHdpZHRoPS jaFNGfXcTwiRnbBE9xQn2 yZGVyLWNvbGxh cHNl (more content not included)... Normal [facility] Consent for Treatmenton 05-30 Consent for Treatment [id number] [email or web address]:[id number] Normal [facility] Discharge Instructionson Discharge Instructions [id number]# 1.00CD:127 [facility] ED Clinical Summaryon 2021 ED Clinical Summary [place] [id number] ED Clinical Summary Person Information Name: KAREN MACIEL/[facility] Age: 26 Years : 1995 Sex: Female Language: Jordanian PCP: Florecita Haynes DO Marital Status: Visit [...] 06/14/2022 09:40:23 06/14/2022 09:40:23 06/14/2022 09:40:23 ADDRESS: [address] [place] [id number] [facility] DOC NOTES: MEDICAL INFORMATION: Prescriptions Given: New Medications [facility]/pharmacy #[id number], [address] [place] [id number], [phone] brompheniramine/dextr omethorphan/PSE (Bromfed DM oral syrup) 10 Milliliter By Mouth 4 times a day as needed for cough and congestion for 7 Days. Refills: 0. PATIENT EDUCATION INFORMATION: Instructions: Pharyngitis; Upper Respiratory Infection, Adult Follow up: With: Address: When: Florecita Haynes [address], [place] [address] In 3 days 06/17/2022 DIAGNOSIS: Pharyngitis; Upper respiratory infection Normal [facility] ED Note-Physicianon 06-14-20 ED Note-Physician Basic Information Time Seen: Augie Jefferson PA-C 06/14/2022 08:44 Chief Complaint Cough, sore throat [...] PRN Follow-up With When Contact Information Florecita Haynes In 3 days 06/17/2022 EST [address] [place] [address] [place] [address]- Additional Instructions: Patient Education Pharyngitis Upper Respiratory Infection, Adult Attestation Patient seen and evaluated by the physician assistant at surgery. Attending physician was present in the emergency department and supervised care. This visit was performed by both the physician and an APC. I performed all aspects of the MDM as documented. This report was transcribed using voice recognition software. Every effort was made to ensure accuracy, however, inadvertently computerized jewel bearing grinder mistakes may be present. Appropriate healthcare PPE [...] Diagnostic Results No qualifying data available. Normal [facility] Comment on above: Result Comment: Elec tronically [...] Follow these instructions at home: ? Take mxro-fqe-fyrabap and prescription medicines only as told by [...] Document Reviewed: 07/22/2017 Elsevier Patient Education ? 2019 [employer]. Upper Respiratory Infection, Adult An upper respiratory [...] ? Yo (more content not included)... Normal [facility] ED Patient Summaryon 022 ED Patient Summary [place] [id number] Patient Discharge Instructions Person Information Name: KAREN MACIEL Age: 26 Years Arrival Date: 06/14/2022 08:41:22 Discharge Diagnosis: Pharyngitis; Upper respiratory infection Primary Care Physician: Florecita Haynes DO Provider Information Primary Provider: Juarez Wang DO Advanced Supervisor Cloth Winding:Augie Jefferson PA-C The exam and treatment you received in the Emergency Department were for an urgent problem and are not intended as complete care. It is important that you follow up with a doctor, nurse practitioner, or physician?s assistant at surgery for ongoing care. If your symptoms become worse or you do not improve as expected and you are unable to reach your usual health care provider, you should return to the Emergency Department. We are available 24 hours a day. KAREN MACIEL has been given the following list of patient education materials, prescriptions and follow-up instructions: Follow-up Instructions: With: Address: When: Florecita Haynes [address], [place] [address] In 3 days 06/17/2022 In the event that this physician does not participate in your insurance network, please consult with your insurance company to find a nearby participating provider. Patient Education Materials: Pharyngitis; Upper Respiratory Infection, Adult A MESSAGE TO ALL PATIENTS REGARDING OPIOIDS PRESCRIPTION OPIOIDS: WHAT YOU NEED TO KNOW Prescription opioids can be used to help relieve vbteyebv-ba-oirqll pain and are often prescribed following a [...] be struggling with addiction, tell your health urgent care physician assistant and ask for guidance or call [facility] National Helpline at 5-330-947-WK (more content not included)... Normal [facility] Grp A Strp PCRon 06-14-2022 Group A Strep Negative Normal [facility] Comment on above: Order Comment: Order Added on by Discern Rule. Result Comment: Test ing performed using DNA amplification. Performed By: #### 2 [id number] #### [facility] [address] [place] [address] Grp A Strp Intrl Ctrl Pass Normal [facility] Comment on above: Order Comment: Order Added on by Discern Rule. Performed By: #### 2 [id number], [id number] #### [facility] [address] [place] [address] MICRO OTHER TESTSOrdered By: Yuriy Valderrama on 06-14-2022 S. pyogenes Ag IA.rapid Ql (Throat) Negative (06/14/22 9:00 AM) Normal Negative [facility] Man Sero Rapid Strep w/rfxon 06-14-20 S. pyogenes Ag IA.rapid Ql (Throat) Negative Normal Negative [facility] Comment on above: Performed By: #### 2 [id number], [id number] #### [facility] [address] [place] [address] Covid-19 PCR ([facility])on 05-30 SARS-CoV-2 (COVID-19) RNA CHELE+probe Ql (Unsp spec) Not detected Normal NOT DETECTED [facility] Comment on above: Result Comment: This test is not yet approved or cleared by the [place] FDA. When there are no FDA-approved or cleared tests available, and other criteria are met, FDA can make tests available under an emergency access mechanism called an Emergency Use Authorization (EUA). The EUA for this test is supported by the [employer] of Health and Human Service's (HHS's) declaration [...] SARS-CoV-2. Performed By: #### C VDTBH #### [facility] [address] [place] [address] Dr. Melchor Guillermo INFLUENZA A AND B AGon 06-[facility] BEL[facility] Normal [facility] Comment on above: Result Comment: Nega tive for Flu A protein angiten. Infection due to Flu A cannot be ruled out. Flu A angiten in the sample may be below the detection limit of the test. Performed By: #### I NFLUAB #### [facility] [address] [place] [address] Dr. Melchor Guillermo INFLUBNEG SEE BELOW Normal [facility] Comment on above: Result Comment: Nega tive for Flu B protein antigen. Infection due to Flu B cannot be ruled out. Flu B antigen in the sample may be below the detection limit of the test. Performed By: #### I NFLUAB #### [facility] [address] [place] [address] Dr. Melchor Guillermo INFLUENZA A AG Negative Normal NEGATIVE SEE COMMENT [facility] Comment on above: Performed By: #### I NFLUAB #### [facility] [address] [place] [address] [address] Melchor Guillermo INFLUENZA B AG Negative Normal NEGATIVE SEE COMMENT [facility] Comment on above: Performed By: #### I NFLUAB #### [facility] [address] [place] [address] Dr. Melchor Guillermo INTERNAL CONTROLS Within Normal Limits Normal Wi thin Normal Limits [facility] Comment on above: Performed By: #### I NFLUAB #### [facility] [address] [place] [address] Dr. Melchor Guillermo XR CHEST 1 Von [...] VANESSA ALVARADO Date: 2022-06-11 10:04 Normal [facility] No Panel Informationon 11-13 WP No Trichomonas vaginalis present No fungal elements seen. No clue cells present [facility] CHEMISTRYOrdered By: SYSTEM SYSTEM on 11-12-2021 Albumin [Mass/Vol] 4.3 g/dL Normal 3.3 - 5.0 gm/dL [facility] Remisol Albumin/Globulin [Mass ratio] 1.4 {ratio} Normal 1.1 - 2.2 FT Remisol ALP [Catalytic activity/Vol] 71 [iU]/d Normal [...] 24 mmol/L Normal 21 - 31 mmol/L [facility] Remisol Creatinine [Mass/Vol] 0.6 mg/dL Normal 0.5 - 1.3 mg/dL [facility] Remisol CRP [Mass/Vol] 0.9 mg/dL Normal <=1.9mg/dL FT Remis ol GFR/1.73 sq M.predicted among blacks MDRD (S/P/Bld) [Vol rate/Area] mL/min/1.73 m2 Normal >=59mL/min/1 .73 m2 [facility] Chem S GFR/1.73 sq M.predicted among non-blacks MDRD (S/P/Bld) [Vol rate/Area] mL/min/1.73 m2 Normal >=59mL/min/1 .73 m2 [facility] Chem S Globulin (S) [Mass/Vol] 3.0 g/dL Normal 1.4 - 4.0 gm/dL [facility] Remisol Glucose [Mass/Vol] 105 mg/dL Normal 55 - 199 mg/dL [facility] Remisol HCG.beta subunit Qn mIU/mL Normal 1 [...] E9/L [facility] HemeAutoSS MICRO OTHER TESTSOrdered By: Abid Mei on 11-12-2021 Influenzae A Ag Negative (11/12/21 11:16 PM) Normal Negative [facility] Man Sero Influenzae B Ag Negative (11/12/21 11:16 PM) Normal Negative [facility] Man Sero Rapid COV Int NEG Ctl Pass (11/12/21 11:16 PM) Normal [facility] Man Sero Rapid COV Int POS Ctl Pass (11/12/21 11:16 PM) Normal [facility] Man Sero SARS-CoV+SARS-CoV-2 (COVID-19) Ag IA.rapid Ql (Resp) Not Detected (11/12/21 11:16 PM) Normal Not Detected [facility] Man Sero Reference Laboratory Testing Ordered By: Danelle KasperUseantonieta on 07-08-2021 SARS-CoV-2 (COVID-19) RNA CHELE+probe Ql (Resp) Not detected Invalid Interpretation Code Not Detected [facility]OutsSS Comment on above: Result Comment: This nucleic acid amplification test was developed and its performance characteristics determined by [employer]. Nucleic acid amplification tests include RT-PCR and [...] detected) result in this assay. Performed at: [address] [id number] PhD Delroy Hardwick Vital Signs Date Time Vital Sign Value Performing Clinician Facility 01-08-2024 14:46-0400 Diastolic blood pressure 95 mm[Hg] RUSH Gaetano [facility] Work [facility] 01-08-2024 14:46-0400 Heart rate 84 /min DIRECTOR OF ACCOUNTING Gaetano [facility] Work Phone: [facility] 01-08-2024 14:46-0400 Respiratory rate 16 /min DIRECTOR OF ACCOUNTING [facility] 01-08-2024 14:46-0400 SaO2% (BldA) [Mass fraction] 96 % DIRECTOR OF ACCOUNTING Gaetano Sutushartshorne Work Phone: [facility] 01-08-2024 14:46-0400 Systolic blood pressure 139 mm[Hg] RUSH Francis [facility] Work [facility] 01-08-2024 12:41-0400 Body height 165.1 cm DIRECTOR OF ACCOUNTINGTd Aldrich Work Phone: [facility] 01-08-2024 12:41-0400 Body weight 121.1 kg DIRECTOR OF ACCOUNTINGTd Aldrich Work Phone: [facility] 12-11-2023 10:34-0400 Body height 165.1 cm [facility] 12-11-2023 10:34-0400 Body mass index (BMI) [Ratio] 42.5 kg/m2 [facility] 12-11-2023 10:34-0400 Body weight 116.11 kg [facility] 12-09-2023 10:01-0400 Body height 165.1 cm [facility] 12-09-2023 10:01-0400 Body mass index (BMI) [Ratio] 43.4 kg/m2 [facility] 12-09-2023 10:01-0400 Body temperature 97.4 [degF] [facility] 12-09-2023 10:01-0400 Body weight 118.38 kg [facility] 12-09-2023 10:01-0400 Diastolic blood pressure 84 mm[Hg] [facility] 12-09-2023 10:01-0400 Heart rate 75 /min [facility] 12-09-2023 10:01-0400 Respiratory rate 20 /min [facility] 12-09-2023 10:01-0400 SaO2% (BldA) [Mass fraction] 99 % [facility] 12-09-2023 10:01-0400 Systolic blood pressure 126 mm[Hg] [facility] 11-13-2023 09:51-0400 Body height 165.1 cm [facility] 11-13-2023 09:51-0400 Body mass index (BMI) [Ratio] 42.7 kg/m2 [facility] 11-13-2023 09:51-0400 Body temperature 98 [degF] [facility] 11-13-2023 09:51-0400 Body weight 116.57 kg [facility] 11-13-2023 09:51-0400 Diastolic blood pressure 60 mm[Hg] [facility] 11-13-2023 09:51-0400 Heart rate 98 /min [facility] 11-13-2023 09:51-0400 Respiratory rate 20 /min [facility] 11-13-2023 09:51-0400 SaO2% (BldA) [Mass fraction] 98 % [facility] 11-13-2023 09:51-0400 Systolic blood pressure 100 mm[Hg] [facility] 09-25-2023 16:01-0400 Body height 165.1 cm [facility] 09-25-2023 16:01-0400 Body mass index (BMI) [Ratio] 43.4 kg/m2 [facility] 09-25-2023 16:01-0400 Body temperature 97.8 [degF] [facility] 09-25-2023 16:01-0400 Body weight 118.38 kg [facility] 09-25-2023 16:01-0400 Diastolic blood pressure 84 mm[Hg] [facility] 09-25-2023 16:01-0400 Heart rate 88 /min [facility] 09-25-2023 16:01-0400 Respiratory rate 20 /min [facility] 09-25-2023 16:01-0400 SaO2% (BldA) [Mass fraction] 98 % [facility] 09-25-2023 16:01-0400 Systolic blood pressure 130 mm[Hg] [facility] 08-21-2023 15:10-0500 Body height 165.1 cm [facility] 08-21-2023 15:10-0500 Body mass index (BMI) [Ratio] 43.43 kg/m2 [facility] 08-21-2023 15:10-0500 Body weight 118.39 kg [facility] 08-21-2023 15:10-0500 Diastolic blood pressure 62 mm[Hg] [facility] 08-21-2023 15:10-0500 Systolic blood pressure 102 mm[Hg] [facility] 07-29-2023 11:30-0500 Body height 165.1 cm Gaetano Bookererwood Other [facility] 07-29-2023 11:30-0500 Body mass index (BMI) [Ratio] 44.43 kg/m2 Gaetano Easterwood Other [employer] Other 07-29-2023 11:30-0500 Body temperature 97.8 [degF] Gaetano Jhonyerrafaela Other [facility] Other 07-29-2023 11:30-0500 Body weight 121.11 kg Gaetano Jhonyerrafaela Other [facility] Other 07-29-2023 11:30-0500 Body weight 121.1 kg [facility] 07-29-2023 11:30-0500 Diastolic blood pressure 82 mm[Hg] Gaetano Easterwood Other [facility] 07-29-2023 11:30-0500 Respiratory rate 20 /min Gaetano Jhonyerwood Other [facility] Other 07-29-2023 11:30-0500 SaO2% (BldA) [Mass fraction] 98 % Gaetano Easterwood Other [facility] Other 07-29-2023 11:30-0500 Systolic blood pressure 122 mm[Hg] Gaetano Easterwood Other [facility] 07-28-2023 09:09-0500 Body mass index (BMI) [Ratio] 45.6 kg/m2 Lucinda Arias MD Work Phone: [facility] [employer] [facility] 07-28-2023 09:09-0500 Body weight 124.29 kg Lucinda Arias MD Work Phone: [facility] [employer] [facility] 07-28-2023 09:09-0500 Diastolic blood pressure 80 mm[Hg] Lucinda Arias MD Work Phone: [facility] 07-28-2023 09:09-0500 Systolic blood pressure 124 mm[Hg] Lucinda Arias MD Work Phone: [facility] 07-14-2023 08:51-0500 Body height 165.1 cm [employer] [facility] 07-14-2023 08:51-0500 Diastolic blood pressure 90 mm[Hg] [employer] [facility] 07-14-2023 08:51-0500 Systolic blood pressure 130 mm[Hg] [facility] 12-11-2022 20:26-0400 Body temperature 98.06 [degF] Kaylinn Dokken [facility] 12-11-2022 20:26-0400 Diastolic blood pressure 81 mm[Hg] Kaylinn Dokken [facility] 12-11-2022 20:26-0400 Heart rate 104 /min Andrewinn Dokken [facility] 12-11-2022 20:26-0400 Respiratory rate 20 /min Cyrusylinn Dokken [facility] 12-11-2022 20:26-0400 SaO2% (BldA) [Mass fraction] 99 % Cyrusylinn Dokken [facility] 12-11-2022 20:26-0400 Systolic blood pressure 120 mm[Hg] Kaylinn Dokken [facility] 06-14-2022 08:46-0500 Body temperature 98.24 [degF] Juarez Wang [facility] 06-14-2022 08:46-0500 Diastolic blood pressure 79 mm[Hg] Juarez Wang [facility] 06-14-2022 08:46-0500 Heart rate 103 /min Juarez Wang [facility] 06-14-2022 08:46-0500 Respiratory rate 20 /min Juarez Wang [facility] 06-14-2022 08:46-0500 SaO2% (BldA) [Mass fraction] 98 % Juarez Wang [facility] 06-14-2022 08:46-0500 Systolic blood pressure 126 mm[Hg] Juarez Wang [facility] 03-06-2022 14:39-0400 Blood Pressure Location Lou Klonk [facility] 03-06-2022 14:39-0400 Body temperature 97.7 [degF] Lou Klonk [facility] 03-06-2022 14:39-0400 Diastolic blood pressure 82 mm[Hg] Lou Klonk [facility] 03-06-2022 14:39-0400 Heart rate 88 /min Lou Klonk [facility] 03-06-2022 14:39-0400 SaO2% (BldA) [Mass fraction] 99 % Lou Klonk [facility] 03-06-2022 14:39-0400 Systolic blood pressure 126 mm[Hg] Lou Klonk [facility] 11-13-2021 00:49-0400 Diastolic blood pressure 86 mm[Hg] Kaylinn Dokken [facility] 11-13-2021 00:49-0400 Heart rate 78 /min Kaylinn Dokken [facility] 11-13-2021 00:49-0400 Mean blood pressure 97 mm[Hg] Kaylinn Dokken [facility] 11-13-2021 00:49-0400 Respiratory rate 15 /min Kaylinn Dokken [facility] 11-13-2021 00:49-0400 SaO2% (BldA) [Mass fraction] 98 % Kaylinn Dokken [facility] 11-13-2021 00:49-0400 Systolic blood pressure 118 mm[Hg] Kaylinn Dokken [facility] 11-12-2021 22:38-0400 Body temperature 97.88 [degF] Kaylinn Dokken [facility] 11-12-2021 22:38-0400 Diastolic blood pressure 81 mm[Hg] Kaylinn Dokken [facility] 11-12-2021 22:38-0400 Heart rate 84 /min Kaylinn Dokken [facility] 11-12-2021 22:38-0400 Respiratory rate 16 /min Cyrusylinn Dokken [facility] 11-12-2021 22:38-0400 SaO2% (BldA) [Mass fraction] 97 % Andrewinn Dokken [facility] 11-12-2021 22:38-0400 Systolic blood pressure 114 mm[Hg] Cyrusylinn Dokken [facility] 09-25-2021 17:19-0400 Diastolic blood pressure 82 mm[Hg] Juarez Wang [facility] 09-25-2021 17:19-0400 Heart rate 82 /min Juarez Wang [facility] 09-25-2021 17:19-0400 Mean blood pressure 95 mm[Hg] Juarez Wang [facility] 09-25-2021 17:19-0400 Respiratory rate 17 /min Juarez Wang [facility] 09-25-2021 17:19-0400 SaO2% (BldA) [Mass fraction] 98 % Juarez Wang [facility] 09-25-2021 17:19-0400 Systolic blood pressure 120 mm[Hg] Juarez Molinae [facility] 09-25-2021 15:35-0400 Body temperature 98.6 [degF] Juarez Wang [facility] 09-25-2021 15:35-0400 Diastolic blood pressure 93 mm[Hg] Juarez Wang [facility] 09-25-2021 15:35-0400 Heart rate 83 /min Juarez Wang [facility] 09-25-2021 15:35-0400 Respiratory rate 18 /min Juarez Wang [facility] 09-25-2021 15:35-0400 SaO2% (BldA) [Mass fraction] 94 % Juarez Wnag [facility] 09-25-2021 15:35-0400 Systolic blood pressure 148 mm[Hg] Juarez Molinae [facility] Encounters Encounter Date Encounter Type Care Provider Facility Start: 05-20-2024 End: 05-20-2024 Bamboo flowsheet Estelita Ortega WHIRLEY OPERATOR [facility] Start: 05-20-2024 End: 05-20-2024 Bamboo flowsheet Estelita Ortega WHIRLEY OPERATOR [facility] Start: 05-20-2024 End: 05-20-2024 ambulatory ESTELITA ORTEGA [facility] Comment on above: Lumbar paraspinal mu scle spasm (Primary Dx) Start: 05-18-2024 End: 05-18-2024 Bamboo flowsheet Elmo Martinez PT Work Phone: [facility] Start: 05-18-2024 End: 05-18-2024 Bamboo flowsanastacia Martinez PT Work Phone: [facility] Start: 05-18-2024 End: 05-18-2024 ambulatory Elmo Martinez PT Work Phone: [facility] Comment on above: Lumbar paraspinal mu scle spasm (Primary Dx) Start: 05-06-2024 End: 05-07-2024 Telephone encounter Xiao Bone PT [facility] Comment on above: PT Initial Eval (Tri ed to contact to set up PT eval for low back pain; but had to lm requesting a call back.); Call back (She contacted and we scheduled PT Eval 05/18 w/ Elmo Martinez, PT./) Start: 01-08-2024 Non-patient / Non-visit RUSH Aldrich Work Phone: [facility] Gastroenterology Work Phone: Start: 01-08-2024 End: 01-08-2024 Admission to same day surgery center RUSH Aldrich Work Phone: [facility] Work Phone: Start: 01-08-2024 End: 01-08-2024 ambulatory RUSH Aldrich Work Phone: [facility] Work Phone: Start: 12-12-2023 End: 12-12-2023 Patient encounter procedure RUSH Aldrich Work Phone: [facility] [place] Work Phone: Start: 12-12-2023 End: 12-12-2023 ambulatory DIRECTOR OF ACCOUNTING Gaetano Zamorano [facility] Work Phone: [facility] Work Phone: Start: 12-11-2023 End: 12-11-2023 ambulatory [facility] Work Phone: Start: 12-11-2023 End: 12-11-2023 Patient encounter procedure [facility] Gastroenterology Work Phone: Start: 12-09-2023 End: 12-09-2023 ambulatory [facility] Work Phone: Start: 12-09-2023 End: 12-09-2023 Patient encounter procedure [facility] Family Medicine [place] Work Phone: Start: 12-01-2023 Non-patient / Non-visit [facility] [place] Work Phone: Start: 11-27-2023 Non-patient / Non-visit [facility] Family Medicine [place] Work Phone: Start: 11-26-2023 Non-patient / Non-visit [facility] Work Phone: Start: 11-20-2023 End: 11-21-2023 Emergency department patient visit TEDDY PEREZ [facility] Start: 11-20-2023 End: 11-20-[address] [facility] Start: 11-13-2023 End: 11-13-2023 Patient encounter procedure [facility] Family Medicine [place] Work Phone: Start: 09-25-2023 End: 09-25-2023 ambulatory [facility] Work Phone: Start: 09-25-2023 End: 09-25-2023 Patient encounter procedure [facility] Family Medicine [place] Work Phone: Start: 08-25-2023 Non-patient / Non-visit [facility] Work Phone: Start: 08-25-2023 End: 08-25-2023 [facility] Start: 08-21-2023 End: 08-21-2023 ambulatory [facility] Start: 08-21-2023 Encounter for gynecological examination (general) (routine) without abnormal findings [facility] Start: 08-21-2023 End: 08-21-2023 Encounter for gynecological examination (general) (routine) without abnormal findings [facility] Work Phone: Start: 08-21-2023 End: 08-21-2023 Patient encounter procedure [facility] Start: 08-21-2023 End: 08-21-2023 Periodic preventive med est patient 18-39 yrs [facility] Occupational Therapist Assistants [facility] [place] Comment on above: Well woman exam with routine gynecological exam (Primary Dx); Cervical smear, as part of routine gynecological examination; Standardized adult depression screening tool completed Start: 08-21-2023 End: 08-22-2023 ambulatory DIA TAM [facility] [facility] Start: 08-21-2023 Encounter for gynecological examination (general) (routine) without abnormal findings [facility] Start: 08-20-2023 End: 08-21-2023 Emergency department patient visit YASMANY GOFF FILEMON [facility] Start: 08-20-2023 Telephone encounter Skylar Appiah [facility] Start: 08-04-2023 End: 08-29-2023 ambulatory KARLA PEGUERO [facility] Start: 08-01-2023 Telephone encounter Valentina Dent [facility] Start: 07-29-2023 End: 07-29-2023 ambulatory [facility] Other [facility] Other Start: 07-29-2023 Office outpatient ne w 60 minutes [facility] [place] Start: 07-29-2023 Telephone encounter Lucinda fay MD Work Phone: [facility] Start: 07-29-2023 End: 07-29-2023 Patient encounter procedure [facility] Start: 07-28-2023 End: 07-28-2023 [facility] Start: 07-28-2023 End: 07-28-2023 Office outpatient visit 15 minutes Lucinda Arias MD Work Phone: [facility] Comment on above: Class 3 severe obesi ty due to excess calories without serious comorbidity with body mass index (BMI) of 45.0 to 49.9 in adult ([facility]) (Primary Dx) Start: 07-15-2023 End: 07-16-2023 Orders Only Dia Tam APRN-MANAGER PROTEIN Work Phone: [facility] Comment on above: Screen for STD (sexu ally transmitted disease) (Primary Dx); Accident caused by hypodermic needle, initial encounter Start: 07-14-2023 Encounter for genera l adult medical examination without abnormal findings [facility] Start: 07-14-2023 End: 07-15-2023 ambulatory [facility] Start: 07-14-2023 End: 07-14-2023 Office outpatient new 30 minutes [facility]ational Therapist [facility]ist[facility] Comment on above: Abnormal uterine ble eding (AUB) (Primary Dx); Wellness examination; Obesity, Class II, BMI 35-39.9 Start: 07-14-2023 End: 07-14-2023 Patient encounter status [facility] Therap[facility]ist[facility] Start: 06-17-2023 End: 06-17-2023 Emergency department patient visit NO PCP NO PCP [facility] Start: 12-11-2022 End: 12-11-2022 Emergency department patient visit [facility] Facility[facility] Start: 12-11-2022 End: 12-11-2022 Emergency department patient visit Luna Alvarez [facility] Start: 11-27-2022 ambulatory ZEYAD Schmidt y:H1 Start: 11-20-2022 End: 11-20-[address] NONE LISTED REQUEST Facility: Start: 07-21-2022 Emergency department patient visit [facility] Start: 07-17-2022 End: 07-18-2022 ambulatory PA ALBERTA VIERA . Facility: Start: 07-05-2022 End: 07-05-2022 Patient encounter procedure Lou Arceo [facility] Start: 06-14-2022 End: 06-14-2022 Emergency department patient visit Juarez Wang Facility[facility] Start: 06-14-2022 End: 06-14-2022 Emergency department patient visit Juarez Wang [facility] Start: 06-11-2022 End: 06-11-2022 ambulatory RAMAN BELTRAN . Facility: Start: 03-06-2022 End: 03-06-2022 Patient encounter procedure Lou Arceo [facility] Start: 11-12-2021 End: 11-13-2021 Emergency department patient visit Luna Corbin Dojosesimon [facility] Start: 09-25-2021 End: 09-25-2021 Emergency department patient visit Juarez Wang [facility] Start: 07-08-2021 End: 10-06-2021 Patient encounter procedure Melchor Guillermo [facility] Procedures Date Procedure Procedure Detail Performing Clinician Start: 01-08-2024 Esophagogastroduodenoscopy RUSH Aldrich Work Phone: Start: 08-21-2023 Adult depression screening assessment [facility] Therap[facility]istants Start: 09-26-2015 section Juarez Wang Comment on above: x3 History of tonsillectomy Clark Wang Tonsillectomy and adenoidectomy Lou Arceo Plan of Treatment Date Care Activity Detail Author Start: 12-16-2026 DTaP,Tdap and Td Vaccines (8 - Td or Tdap) DTaP,Tdap and Td Vaccines (8 - Td or Tdap) [facility] Start: 08-21-2024 Adult BMI Screening Adult BMI Screen ing [facility] Start: 08-21-2024 Depression Screening Depression Scre ening [facility] Start: 08-21-2024 Tobacco Screening Tobacco Screening [facility] Start: 08-20-2024 Tobacco Screening Tobacco Screening [facility] Start: 07-28-2024 Adult BMI Screening Adult BMI Screen ing [facility] Start: 07-28-2024 Tobacco Screening Tobacco Screening [facility] Start: 07-14-2024 Tobacco Screening Tobacco Screening [facility] Start: 06-03-2024 End: 06-03-2024 ambulatory 06/03/2024 9:30 AM EST Treatment [facility] [address] [facility] [address] [place] [address] Estelita Ortega, ADY [facility] Start: 05-31-2024 End: 05-31-2024 ambulatory 05/31/2024 9:30 AM EST Treatment [facility] [address] [facility] [address] [place] [address] Elmo Martinez, PT [address] [facility] [address] [place] [address] [facility] Start: 05-25-2024 End: 05-25-2024 ambulatory 05/25/2024 9:30 AM EST Treatment [facility] [address] [address] Estelita Ortega, ADY [facility] Start: 05-20-2024 End: 05-20-2024 ambulatory [facility] Comment on above: Arrived Start: 05-18-2024 End: 05-18-2024 ambulatory [facility] Comment on above: Arrived Start: 01-08-2024 [facility] Start: 12-12-2023 Hepatitis A virus Ab [Presence] in Serum by Immunoassay [facility] Start: 12-12-2023 Hepatitis B core antibody measurement [facility] Start: 12-12-2023 Hepatitis B virus surface Ab [Presence] in Serum [facility] Start: 12-12-2023 [facility] Start: 09-30-2023 Patient referral [facility] Work Phone: Start: 08-25-2023 End: 08-25-2023 Patient encounter procedure 08/25/2023 9:00 AM EST Office Visit [facility] [address] [place] [phone] Lucinda Arias MD [facility] [address] [place], [place] [id number] [facility] Start: 08-21-2023 End: 08-21-2023 Patient encounter procedure 08/21/2023 3:15 PM EST Office Visit [facility] [address] [place] [address] [facility] Start: 08-21-2023 End: 08-21-2024 Cytopathology procedure, preparation of smear, genital source Pap Smear Pathology and Cytology Routine Cervical smear, as part of routine gynecological examination Expected: 08/21/2023 (Approximate), Expires: 08/21/2024 [facility] Work Phone: Comment on above: Expected: 08/21/2023 (Approximate), Expires: 08/21/2024 Start: 08-07-2023 End: 08-07-2023 Patient encounter procedure 08/07/2023 9:00 AM EST Office Visit [facility] [place] [address] [place] [address] [facility] Start: 08-04-2023 End: 08-04-2023 Telemedicine consultation with patient 08/04/2023 9:30 AM EST Telemedicine [facility] - Outpatient Diabetes and Nutrition Education Program [address] [place] [phone] Karla Peguero, [address] [facility] [address] [place] [phone] [facility] Outpatient Diabetes and Nutrition Education Program Start: 07-28-2023 End: 07-28-2023 Patient encounter procedure 07/28/2023 9:30 AM EST Office Visit [facility] [place] [id number] Lucinda Arias MD [address] [facility] [place] [address] [facility] Start: 07-21-2023 End: 07-21-2023 Patient encounter procedure 07/21/2023 11:30 AM EST Office Visit [facility] [address] [id number] [facility] Start: 07-15-2023 End: 07-15-2023 Patient encounter procedure 07/15/2023 1:30 PM EST Appointment [facility] - Ultrasound [address] [place] [address] Dia Tam, DIRECTOR OF ACCOUNTING-MANAGER PROTEIN [address] [facility] [place] [address] [facility] - Ultrasound Start: 07-14-2023 End: 07-14-2024 US Pelvis transabdominal and transvaginal Ultrasound pelvic with transvaginal Imaging Routine Abnormal uterine bleeding (AUB) Expected: 07/14/2023, Expires: 07/14/2024 [facility] Work Phone: Comment on above: Expected: 07/14/2023 , Expires: 07/14/2024 Start: 04-05-2023 Adult BMI Screening Adult BMI Screen ing [facility] Start: 02-28-2023 Influenza vaccination Influenza Vacc ine [facility] Start: 2018 Screening for malign ant neoplasm of cervix Pap Smear [facility] Start: 2015 Adult BMI Follow Up Plan Adult BMI Follow Up Plan [facility] Start: 2009 Depression Screening Depression Scre ening [facility] Start: 1997 Tobacco Counseling Tobacco Counselin g [facility] End: 07-14-2024 CBC panel - Blood by Automated count CBC without diff Lab Routine Abnormal uterine bleeding (AUB) 1 Occurrences starting 07/14/2023 until 07/14/2024 [facility] Comment on above: 1 Occurrences starti ng 07/14/2023 until 07/14/2024 CBC panel - Blood by Automated count CBC without diff Lab Routine Abnormal uterine bleeding (AUB) 07/14/2023 12:[address] [facility] End: 07-14-2024 Comprehensive metabolic 2000 panel - Serum or Plasma Comprehensive metabolic panel Lab Routine Wellness examination 1 Occurrences starting 07/14/2023 until 07/14/2024 [facility] Comment on above: 1 Occurrences starti ng 07/14/2023 until 07/14/2024 Comprehensive metabo lic 2000 panel - Serum or Plasma Comprehensive metabolic panel Lab Routine Wellness examination 07/14/2023 12:[address] [facility] End: 07-14-2024 Hemoglobin A1c/Hemoglobin.total in Blood Hemoglobin A1c Lab Routine Wellness examination 1 Occurrences starting 07/14/2023 until 07/14/2024 [facility] Comment on above: 1 Occurrences starti ng 07/14/2023 until 07/14/2024 Hemoglobin A1c/Hemoglobin.total in Blood Hemoglobin A1c Lab Routine Wellness examination 07/14/2023 12:01 PM EST [facility] Hepatitis A virus Ab [Presence] in Serum by Immunoassay [facility] Hepatitis B core antibody measurement [facility] Hepatitis B virus surface Ab [Presence] in Serum [facility] Hepatitis B virus surface Ag [Presence] in Serum or Plasma by Immunoassay [facility] Hepatitis C virus Ig G Ab [Presence] in Serum or Plasma by Immunoassay [facility] End: 07-15-2024 Hepatitis panel, acute Hepatitis panel, acute Lab Routine Accident caused by hypodermic needle, initial encounter 1 Occurrences starting 07/15/2023 until 07/15/2024 [facility] Work Phone: Comment on above: 1 Occurrences starti ng 07/15/2023 until 07/15/2024 HIV 1+2 Ab+HIV1 p24 Ag [Presence] in Serum or Plasma by Immunoassay [facility] End: 07-14-2024 Lipid 1996 panel - Serum or Plasma Lipid profile Lab Routine Wellness examination 1 Occurrences starting 07/14/2023 until 07/14/2024 [facility] Comment on above: 1 Occurrences starti ng 07/14/2023 until 07/14/2024 Lipid 1996 panel - S deon or Plasma Lipid profile Lab Routine Wellness examination 07/14/2023 12:01 PM EST [facility] Patient Education [facility] Work Phone: Patient referral [facility] Work Phone: End: 07-14-2024 Prolactin Prolactin Lab Routine Abnormal uterine bleeding (AUB) 1 Occurrences starting 07/14/2023 until 07/14/2024 [facility] Comment on above: 1 Occurrences starti ng 07/14/2023 until 07/14/2024 Prolactin [Mass/volu me] in Serum or Plasma Prolactin Lab Routine Abnormal uterine bleeding (AUB) 07/14/2023 12:01 PM EST [facility] End: 07-14-2024 Testosterone [Mass/volume] in Serum or Plasma Testosterone Lab Routine Abnormal uterine bleeding (AUB) 1 Occurrences starting 07/14/2023 until 07/14/2024 [facility] Comment on above: 1 Occurrences starti ng 07/14/2023 until 07/14/2024 Testosterone [Mass/volume] in Serum or Plasma Testosterone Lab Routine Abnormal uterine bleeding (AUB) 07/14/2023 12:01 PM EST [facility] End: 07-13-2024 Thyroid profile includes TSH FT4 Thyroid profile includes TSH FT4 Lab Routine Abnormal uterine bleeding (AUB) 1 Occurrences starting 07/14/2023 until 07/13/2024 [facility] Comment on above: 1 Occurrences starti ng 07/14/2023 until 07/13/2024 Thyroid profile incl udes TSH FT4 Thyroid profile includes TSH FT4 Lab Routine Abnormal uterine bleeding (AUB) 07/14/2023 12:01 PM EST [facility] Immunizations Immunization Date Immunization Notes Care Provider Fa gary 03-23-2020 influenza virus vaccine, unspecified formulation [facility] Therapist [employer]ist[facility] 12-16-2016 tetanus toxoid, redu seymour diphtheria toxoid, and acellular pertussis vaccine, adsorbed; Translations: [Adacel (Tdap)] Juarez Wang [facility] Payers Date Payer Category Payer Unknown [facility] [place] ALESHACHECOAntonieta BRIAN [id number] 2023-Present [phone] [address] [place] [address] [id number] 2022 Medicaid [employer] [employer] [employer] [id number] 2022-Present [phone] [address] [place] [address] [id number] 2022 Medicaid (Managed Care) [facility] MEDICAID [id number] 2022 Unknown [id number] 2022 Self-pay 2021 Private Health Insurance [id number] 1997 Unknown [id number] 2.16.840.1.017408.3.579.2. 727 1997 Unknown [id number] 2.16.840.1.290358.3.579.2. 593 1997 Unknown [id number] 2.16.840.1.560039.3.579.2. 593 1997 Unknown [id number] 2.16.840.1.441669.3.579.2. 593 1997 Unknown [id number] 2.16.840.1.502568.3.579.2. 593 1997 Unknown [id number] 2.16.840.1.730143.3.579.2. 173 1997 Unknown [id number] 2.16.840.1.865917.3.579.2. 1286 1997 Unknown [id number] 2.16.840.1.003395.3.579.2. 1286 1997 Unknown [id number] 2.16.840.1.971290.3.579.2. 1286 1997 Unknown [id number] 2.16.840.1.556408.3.579.2. 1286 1997 Unknown [id number] 2.16.840.1.272527.3.579.2. 1286 1997 Unknown [id number] 2.16.840.1.507681.3.579.2. 727 1997 Unknown [id number] 2.16.840.1.236635.3.579.2. 1286 1997 Unknown [id number] 2.16.840.1.614463.3.579.2. 1286 1997 Unknown [id number] 2.16.840.1.470400.3.579.2. 128 1997 Unknown [id number] 2.16.840.1.961721.3.579.2. 1286 1997 Unknown [id number] 2.16.840.1.856555.3.579.2. 128 1997 Unknown [id number] 2.16840.1.563822.3.579.2. 128 1997 Unknown [id number] 2.16840.1.496444.3.579.2. 1285 1997 Unknown [id number] 2.16840.1.379232.3.579.2. 128 1997 Unknown [id number] 2.16840.1.564121.3.579.2. 1259 1997 Unknown [id number] 2.16840.1.007859.3.579.2. 1259 1959 Unknown [id number] 1959 Unknown [id number] Unknown [id number] 2.16840.1.221890.3.579.2. 531 Unknown [id number] 2.16840.1.133395.3.579.2. 531 Social History Date Type Detail Facility Start: 06-29-2020 End: 11-13-2023 Tobacco smoking status Ex-smoker (finding) [facility] Start: 08-10-2020 End: 07-14-2023 Sex Assigned At Female [facility] Tobacco Current vaping o r e-cigarette use Smokeless Tobacco Use:. [facility] Tobacco smoking status No Smokin g Status Entered [facility] Start: 07-14-2023 Tobacco smoking stat us NHIS Smokes tobacco daily [facility] History of tobacco use Tobacco U se Types Packs/Day Years Used Date Smoking Tobacco: Every Day Vaping/E-cigarettes Smokeless Tobacco: Never [facility] Start: 07-14-2023 Tobacco use and exposure Smokeless tobacco non-user [facility] Start: 07-14-2023 End: 08-21-2023 Alcohol intake Ex-drinker (finding) [facility] Start: 08-10-2020 End: 07-14-2023 History of Social function [facility] Housing Instability Unknown [facility] Start: 1997 Sex Assigned At Not on file P [facility] Start: 09-18-2023 Tobacco smoking stat [facility] Smoker (finding) [facility] Start: 1997 Sex Assigned At Female F [facility] Tobacco smoking stat [facility] Tobacco smoking consumption unknown [facility] Goals Date Patient Goal Desired Activity /State Functional Status Date Assessment Result Facility 12-11-2022 Functional Status N/A [facility] 06-14-2022 Functional Status N/A [facility] 03-06-2022 Functional Status N/A [facility] [place] Clinical Notes 09-25-2021 to 05-18-2024 Elmo Martinez, PT - 05/18/2024 10:30 AM ESTTelephone Encounter - Regina Pelaez - 05/06/2024 11:04 AM ESTTelephone Encounter - Regina Pelaez - 05/06/2024 11:04 AM EST Note Date & Type Note Facility 05-18-2024 History of Presen t illness Narrative Physical Therapy Evaluation Visit Patient Name: Karen Liu Today's Date: 05/18/2024 Encounter Diagnoses Name Primary? Lumbar paraspinal muscle spasm Yes Visit number: 1 Timed Code Treatment Minutes: 60 minutes Total Treatment Time: 60 minutes Time In: 1030 Time Out: 1130 History: Pt. Presents to PT with c/c of central to left low back pain which started couple years ago. No HAYDE of 3x kids and multiple spinal taps a child. Occasional Numbness in left toes. Walking increases her back pain. Dull pain mostly throughout the day. Sitting/sleeping really increases her low back pain. Unable to sleep at night, pain wakes her up 6+ times her night. Pt. Has pain management appointment next week. Precautions: universal Subjective Pain: 2/10 today; 10/10 worst at night while sleeping at night Objective: PT Evaluation (05/18/24) Lumbar ROM: flexion hands to floor, SB left increased pain decreased 50% Joint mobility: normal lumbar spine mobility Flexibility: severe left hamstring tightness (45 deg SLR), piriformis moderate (-) Strength: core 4-/5, lateral hip 4-/5, hip extension 4-/5 Palpation: TTP L4/5 segment with increase lumbar paraspinal muscle tone Treatment: PT evaluation (20 minutes) Education: HEP education with demonstration, Educated on Eval Findings and POC Manual Therapy: (10 minutes) lumbar paraspinal MFR bilateral, Passive ROM, Joint mobilization, Soft Tissue Mobilization, Myofascial Release, Muscle Energy Technique, Neural Mobilization, Myofascial Cupping, Dry Needling, IASTM, and Scar mobilization Therapeutic Exercise: (16 minutes) exercises in grid, Strength, Endurance, Flexibility, ROM, HEP, Neural Mobilization, Power, and Core Stability Therapeutic Activity: Exercises to improve dynamic activities, functional tasks, functional mobility to return to prior activity level Neuromuscular re-education: Balance Training, Muscle Facilitation, Dynamic Stability, Core Stabilization, and Blood Flow Restriction Training (BFRT) Modalities: (15 minutes) IFC with MHP to lumbar spine; Heat, Ice, Electrical Stimulation, Ultrasound, Cervical Mechanical Traction, Lumbar Mechanical Traction, Iontophoresis, and Fluidotherapy Assessment: Pt. Has participated in 1 PT session with start of POC on 05/18 for chronic low back pain. Pt. Will benefit from skilled PT services. Pt. Demonstrate lumbar hypermobility and will benefit from core/hip strengthening program to help decrease chronic pain. Outcome Measure: 42% back index Short Term Goal: To be met in 2 weeks Goal 1: Pt to be instructed in home exercise program. Correction Goals: To be met in 10 weeks Goal 1: Pt to report independence and compliance with home program. Goal 2: Pt. Will report of 2/10 or less back pain while sitting for long periods of time and sleep throughout the night without interruption. Goal 3: Pt. Will demonstrate normal left hamstring muscle flexibility to help decrease stress on lumbar spine to improve her functional mobility. Goal 4: Pt. Will demonstrate 5/5 core strength to allow her to sit/sleep for long periods of time to help improve her quality of life. Goal 5: Pt. Will demonstrate 5/5 bilateral hip strength to allow her to sit/sleep for long periods of time to help improve her quality of life. Pt will benefit from skilled PT for 1-2x/week from 05/18/24 to 07/27/24 to address the above impairments. I hereby deem this POC medically necessary. Please sign below. Date: documented in this encounter [facility] 05-06-2024 Telephone encount er Note No copay/ Auth after 8 PT's [facility] 05-06-2024 Miscellaneous Notes Formattin g of this note might be different from the original. No copay/ Auth after 8 PT's documented in this encounter [facility] 01-08-2024 Procedure note [facility] 12-11-2023 Evaluation note Authored December 11, 2023 [...] exercise ( >45 minutes X5 per week). [facility] Work Phone: 1(151) 935-491102-22-2024 History of Present illness Narrative* Dia Tam, DIRECTOR OF ACCOUNTING-MANAGER PROTEIN - 08/21/2023 3:15 PM EST Annual Well Woman Visit 08/21/2023 Subjective Karen Liu is a 28 y.o. 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 Periods are regular every 28-30days, lasting [...] September 26, 2015 deepika Bipolar 1 disorder ([facility]) Borderline personality disorder ([facility]) Chronic headache Eczema Migraine PTSD (post-traumatic stress [...] Follow up in 1 year for annual card dealer exam. Follow up as needed. Await pap. [...] Franco, APRN-CNP 08/21/23 [id number] [facility] Miscellaneous Notes* Telephone Encounter - Skylar Harris LPN - 08/20/2023 11:52 AM EST Pt called office back stating she is still having severe pain, nausea and chills. I advised Pt thatis her pain is that severe then she should be evaluated at the ER. Pt verbalized understanding. [facility] Telephone encounter Note* Telephone Encounter - Skylar Harris LPN - 08/20/2023 11:52 AM EST Pt called office back stating she is still having severe pain, nausea and chills. I advised Pt thatis her pain is that severe then she should be evaluated at the ER. Pt verbalized understanding. [facility] [id number] Miscellaneous Notes* Telephone Encounter - Valentina Dent - 08/01/2023 8:21 AM EST Patient called stating her PCP increased her dosage of her Seroquel to 50mg (not extended release) to 2 pills at bedtime. Yesterday was day 2 or 3 of the increased doseage. The patient picked up her 1st semaglutide prescription from [facility] yesterday. She took her 1st injection [...] advise. Thank you. * Telephone Encounter - SUPRIYA Santana - 08/01/2023 8:21 AM EST I would have her wait to see how she feels when taking her dose tonight and then call her PCP to see if she should continue the increased dose. * Telephone Encounter - Valentina Dent - 08/01/2023 8:21 AM EST Patient notified & voiced understanding [facility] Telephone encounter Note* Telephone Encounter - Valentina Dent - 08/01/2023 8:21 AM EST Patient called stating her PCP increased her dosage of her Seroquel to 50mg (not extended release) to 2 pills at bedtime. Yesterday was day 2 or 3 of the increased doseage. The patient picked up her 1st semaglutide prescription from [facility] yesterday. She took her 1st injection at 4pm yesterday. When she took her Seroquel around 8pm she got a flushed feeling in her face& it felt itchy & hot. It didn't last long & she is fine today. She is concerned if this is a reaction or if she needs to be concerned & not take the medication. Please advise. Thank you. [facility]02-02-2024 Telephone encounter Note* Telephone Encounter - SUPRIYA Santana - 08/01/2023 8:21 AM EST I would have her wait to see how she feels when taking her dose tonight and then call her PCP to see if she should continue the increased dose. [facility]02-02-2024 Telephone encounter Note* Telephone Encounter - Valentina Dent - 08/01/2023 8:21 AM EST Patient notified & voiced understanding [facility] Paddle8 [id number] Evaluation note* Encounter Date Diagnosis Assessment Notes Treatment Notes Treatment Clinical Notes Jun, Bipolar 1 disorder (ICD-10 - F31.9) Discussed increasing medication today. Lengthy discussion regarding mental health. She is stable today from a mental health perspective. Very kind patient and we do build good rapport initially. I would like her to keep up with counseling through [facility]. Patient is agreeable and without suicidal [...] will get the lab work done through [facility]. 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 Patient would like to defer echo of the heart today. Did not use heroin intravenously. Jun, Severe obesity (ICD-10 - E66.01) Discussed weight management and continuing to follow with weight management provider through [facility]. Much emotional and motivational support given today. [...] that were not corrected during review process. [employer] Other 01-30-2024 Miscellaneous Notes* Telephone Encounter - Janice Emerald Booth - 07/29/2023 7:44 AM EST We received a referral for education on Karen Liu 1995. However per CMS Guidelines we need to have the services requested marked as such on referral. Please see pended order and sign if you are agreeable. Thank you [facility] Telephone encounter Note* Telephone Encounter - Janice Booth - 07/29/2023 7:44 AM EST We received a referral for education on Karen Liu 1995. However per CMS Guidelines we need to have the services requested marked as such on referral. Please see pended order and sign if you are agreeable. Thank you [facility]01-29-2024 History of Present illness Narrative* Lucinda Arias [...] deepika Anxiety Back pain Bipolar 1 disorder (CMS-HCC) Borderline personality disorder (CMS-HCC) Chronic headache Depression Eczema Migraine Obesity According [...] EXTENSIVELY RX GIV[facility] FOR [facility] MD Yojana WILLIAMSON RN documented in this [facility]Mary [facility] Miscellaneous Notes* Addendum Note - SUPRIYA Santana - 07/15/2023 3:42 PM ESTAddended by: DIA TAM on: 07/15/2023 04:08 PM Modules accepted: Orders documented in this [facility]Mary [facility] Note* Addendum Note - SUPRIYA Santana - 07/15/2023 3:42 PM ESTAddended by: DIA TAM on: 07/15/2023 04:08 PM Modules accepted: Orders [facility]01-15-2024 History of Present illness Narrative* SUPRIYA Santana [...] deepika Anxiety Back pain Bipolar 1 disorder ([facility]) Borderline personality disorder ([facility]) Chronic headache Depression Eczema Migraine Obesity According [...] All questions answered. Educational material provided through [employer]. ROLLY Parra APRN-CNP Lisa M Franco, APRN-CNP 07/14/23 0948 documented in this encounterMary [facility]23 Hospital Discharge instructions Patient Education 12/11/2022 20:58:19 [...] Follow these instructions at home: Medicines Take bpxp-ffd-vkilfvy and prescription medicines only as told by your health care provider. Ask your health care provider if the medicine prescribed to you: ?Requires you to avoid driving or using heavy machinery. ?Can cause constipation. You may need to take these actions to prevent or treat constipation: ?Drink enough fluid to keep your urine pale yellow. ?Take psxo-pfn-gxjguzw or prescription medicines. ?Eat foods that are [...] provider. Document Revised: 07/05/2019 Document Reviewed: 07/05/2019 [facility] Patient Education 2022 [employer]. Follow Up Care 12/11/2022 20:19:03 With:XXXX NONE Address: [place] When:Within 3 Day(s) [facility]06-14-2023 Evaluation + Plan noteExtracted from: Title:ED [...] hours on and 12 hours off daily, [facility]/pharmacy #[id number], 165, cm, 12/11/22 20:29:00 EDT, Height/Length Dosing, 120, kg, 12/11/22 20:29:00 EDT, Weight Dosing naproxen, 500 mg = 1 tab(s), Oral, BID, # 20 tab(s), Refills(s) 0, Pharmacy: [facility]/pharmacy #[id number], 165, cm, 12/11/22 20:29:00 EDT, Height/Length Dosing, 120, kg, 12/11/22 20:29:00 EDT, Weight Dosing [facility]12-16-2022 Evaluation + Plan noteExtracted from: Title:ED [...] A Strep by PCR Rapid Strep w/rfx [facility]12-16-2022 Hospital Discharge instructions Patient Education 06/14/2022 [...] medicines. Follow these instructions at home: Take gqdi-tqw-kufhmjs and prescription medicines only as told by [...] 06/16/2006 Document Revised: 05/29/2018 Document Reviewed: 07/22/2017 [facility] Patient Education 2020 [employer]. 06/14/2022 09:40:23 Upper Respiratory Infection, Adult Upper [...] medicines to help relieve symptoms, such as: Wsnu-tqm-ktnresm cold medicines. Cough suppressants. Coughing is a [...] and other clear broths. General instructions Take kcim-fxi-hiazavq and prescription medicines only as told by [...] and water are not available, use hand human relations teacher. ?Avoid touching your mouth, face, eyes, or [...] 12/10/2001 Document Revised: 06/24/2019 Document Reviewed: 01/30/2018 [employer] [facility] Patient Education 2020 [employer]. Follow Up Care 06/14/2022 08:42:26 With:Florecita Haynes Address: [address] [place] [address]- When:06/17/2022 09:34:03 [facility]05-17-2022 Hospital Discharge instructions Patient Education 11/13/2021 02:11:11 Nausea and Vomiting, Adult, Psyj-dj-Ynyf Nausea and Vomiting, Adult Nausea is feeling [...] fruit juice). ?Low-calorie sports drinks. Eat bland, eejw-kc-optjdv foods in small amounts as you are able, such as: ?Bananas. ?Applesauce. ?Rice. ?Low-fat (lean) meats. ?Thatcher. ?Crackers. Avoid drinking fluids that have a lot of sugar or caffeine in them. This includes energy drinks, sports drinks, and soda. Avoid alcohol. Avoid spicy or fatty foods. General instructions Take frlv-vwm-ynogbrz and prescription medicines only as told by your doctor. Drink enough fluid to keep your pee (urine) pale yellow. Wash your hands often with soap and water. If you cannot use soap and water, use hand human relations teacher. Make sure that all people in your [...] too much water in your body. Take oxbh-apq-gnaiogj and prescription medicines only as told by [...] 12/02/2008 Document Revised: 10/08/2019 Document Reviewed: 11/24/2018 [facility] Patient Education 2020 [employer] 11/13/2021 02:11:11 Diarrhea, Adult, Vutw-vj-Rkyj Diarrhea, Adult Diarrhea is when you pass [...] sugar or caffeine in them. Eat bland, luwb-xm-juxqrc foods in small amounts as you are able. These foods include: ?Bananas. ?Applesauce. ?Rice. ?Low-fat (lean) meats. ?Thatcher. ?Crackers. Avoid alcohol. Avoid spicy or fatty foods. Medicines Take mnkn-iql-xvzqweh and prescription medicines only as told by your doctor. If you were prescribed an antibiotic medicine, take it as told by your doctor. Do not stop using the antibiotic even if you start to feel better. General instructions Wash your hands often using soap and water. If soap and water are not available, use a hand human relations teacher. Others in your home should wash their [...] sold at pharmacies and stores. Eat bland, qsho-sz-cdejva foods in small amounts as you are [...] 12/02/2008 Document Revised: 11/20/2018 Document Reviewed: 11/20/2018 [facility] Patient Education 2020 [employer]. Follow Up Care 11/12/2021 22:15:24 With:Russell Link Address: [address] [facility] [address] [place] [address]- Business (1) When:11/16/2021 Comments:Can use the pain medication, nausea medication as prescribed as needed for your symptoms. Please follow-up with your primary care doctor and BOOT AND SADDLE REPAIR PERSON for further evaluation of your symptoms. Please return to ED for any new or worsening symptoms. [facility]05-16-2022 Evaluation + Plan noteExtracted from: Title:ED Note Author:Luna Alvarez DO Date :11/12/21 Chills (R68.83: Chills (with out [...] A&B Ag Lipase Level Rapid COVID Antigen (FT) UA With Cult Reflex Diagnostic Tests Pending * Chlamydia/Gonococcus, CHELE 11/13/21 [facility]03-29-2022 Hospital Discharge instructions Patient Education 09/25/2021 [...] Follow these instructions at home: Medicines Take zear-sdw-efogyaw and prescription medicines only as told by your health care provider. Ask your health care provider if the medicine prescribed to you: ?Requires you to avoid driving or using heavy machinery. ?Can cause constipation. You may need to take these actions to prevent or treat constipation: ?Drink enough fluid to keep your urine pale yellow. ?Take hfjw-sub-ownoujd or prescription medicines. ?Eat foods that are [...] 06/16/2006 Document Revised: 10/08/2019 Document Reviewed: 07/29/2019 [facility] Patient Education 2020 [employer]. Follow Up Care 09/25/2021 15:29:43 With:Vanessa Araujo Address: [address] [place] [address]- Business (1) When:09/28/2021 17:15:39 With:Russell Vasquez Address: [address] [place] [address]- Business (1) When:09/28/2021 17:15:36 [facility]03-29-2022 Evaluation + Plan noteExtracted from: Title:ED Note Author:Augie Jefferson PA-C te:09/25/21 Headache (R51.9: Headache, u nspecified) Orders: [...] EDT CT Head or Brain w/o Contrast [facility] Future Appointments Appointment Date:04/05/2022 01:40:00 PM Scheduled Provider:Lou Arceo NP Location:[facility] Appointment Type:[facility] [place] Evaluation note* Diagnosis Abnormal uterine bleeding (AUB)- Primary Wellness examination Obesity, Class II, BMI 35-39.9 [facility]* Diagnosis Screen for STD (sexually transmitted disease)- Primary Screening examination for venereal disease Accident caused by hypodermic needle, initial encounter documented in this encounter [facility]* Diagnosis Class 3 severe obesity due to excess calories without serious comorbidity with body mass index (BMI) of 45.0 to 49.9 in adult ([facility])- Primary documented in this encounter [facility]* Diagnosis BMI 45.0-49.9, adult ([facility])- Primary [facility] in [facility]* Diagnosis Well woman exam with routine gynecological exam- Primary Routine gynecological examination Cervical smear, as part of routine gynecological examination Screening for malignant neoplasm of the cervix Standardized adult depression screening tool completed documented in this encounter [facility] noteNo assessment information available [facility] Work Phone: Evaluation note* Diagnosis Onset Date Resolution Status Bipolar 1 disorder acute Hepatitis C acute NAFLD (nonalcoholic fatty liver disease) acute Pancreatitis acute Bipolar 1 disorder acute Pancreatitis acute Severe obesity acute Social isolation in parenthood noneactive [facility] Work Phone: Evaluation note* Author [facility] Authored December 11, 2023 11:1 7am 28-year-old [...] exercise ( >45 minutes X5 per week). [facility] Work Phone: Evaluation note* Diagnosis Lumbar paraspinal muscle spasm- Primary Other symptoms referable to back [facility] Diagnosis Lumbar paraspinal muscle spasm- Primary Other symptoms referable to back documented in this encounter [facility] and [facility] Author Jos [facility] January 08, 2024 2:06pm Note Date/Time January 08, 2024 2:06 pm [facility] [address] [place] [address] Gastroenterology H&P Signed Patient: Karen Liu MR#: [id number] : 1995 Acct:[id number] Age/Sex: 28 / F Adm Date: 4 Loc: Room: Type: [facility] Attending Dr: Jos Lund MD Copies to: [...] M.D. Documented By: Jos Lund MD 01/08/24 1405 Signed By: <Electronically signed by Jos Lund MD> 01/08/24 1403 [facility] Work Phone: History general Narrative - Reported* [...] Reports having 7 spinal taps during childhood [employer] Other Hospital course Narrative No data available for this section [facility] Dis[facility] instructions No data available for this section [facility]* Attachments The following attachments cannot be sent through Care Everywhere. * Polycystic ovary syndrome (Jordanian) * Absent or irregular periods (Jordanian) * Semaglutide, ADULT (Jordanian) documented in this encounterProMedica [facility] SystemInstructionsNot on file documented in this encounterProMedica [facility] SystemInstructionsNot on file documented in this encounterProOhiohealth [facility] SystemInstructionsNot on file documented in this encounterProOhiohealth Van [facility] SystemInstructions* Attachments The following attachments cannot be sent through Care Everywhere. * How to Perform Breast Self-Examination (Jordanian) * Vaping (Jordanian) documented in this encounterProMedica [facility] SystemProgress note No data available for this section [facility] Rebpbz for referral (narrative) Referred by: Adis BARROS, Lou Fung [facility] Reikgk for referral (narrative)* Consultation (Routine) - Pending Review Specialty Diagnoses / Procedures Referred By Eduin t Referred To Contact Nutrition Diagnoses Class 3 severe obesity due to excess calories without serious comorbidity with body mass index (BMI) of 45.0 to 49.9 in adult ([facility]) Lucidna Arias MD [address] [place] [address] [facility] [address] [place] [address] Referral ID Status Reason Start Date Expiration Date V isits Requested Visits Authorized [id number] Pending Review 07/28/2023 07/27/2024 1 1 [facility] (narrative)* Consultation (Routine) - Pending Review Specialty Diagnoses / Procedures Referred By Contac t Referred To Contact Endocrinology, Diabetes & Metabolism Diagnoses BMI 45.0-49.9, adult ([facility]) Lucinda Arias MD [address] [place] [address] [facility]ut[facility] [address] [place] [address] Referral ID Status Reason Start Date Expiration Date Visits Requested Visits Authorized [id number] Pending Review Specialty Services Required 07/30/2023 07/29/2024 1 1 [facility] for visit Narrative* Rehabilitation - Outpatient (Routine) - Authorized Specialty Diagnoses / Procedures Referred By Contlei t Referred To Contact Physical Therapy Diagnoses Low back pain, unspecified Procedures [place] PHYSICAL THERAPY EVALUATION LOW COMPLEX 20 MINS Gaetano Aldrich MD [address] [facility] [place] [address] Phone: tel: fax: [facility] [address] [place] [address] Phone: tel: fax: Referral ID Status Reason Start Date Expiration Date V isits Requested Visits Authorized [id number] Authorized 05/06/2024 11/02/2024 8 8 [facility] Summary Purpose Family History Relationship Condition Age at Onset Recorded Date/T [...] Unknown sister Drug abuse Unknown Advance Directives Advance Directive Response Recorded Date/ Time Advance [...] Care Team (unrecognized sect ion and content) Reference Test Clerk Relationship Specialty Start Date End Date Gaetano Aldrich APRN-MANAGER PROTEIN [address] [address] PCP - General Family Medicine 07/14/23 Reference Test Clerk Relationship Specialty Start Date End Date Easterwood, Gaetano, DIRECTOR OF ACCOUNTING-MANAGER PROTEIN [address] [address] PCP - General Family Medicine 07/14/23 Reference Test Clerk Relationship Specialty Start Date End Date Easterwood, Gaetano, DIRECTOR OF ACCOUNTING-MANAGER PROTEIN [address] [address] PCP - General Family Medicine 07/14/23 Reference Test Clerk Relationship Specialty Start Date End Date Easterwood, Gaetano, DIRECTOR OF ACCOUNTING-MANAGER PROTEIN [address] [address] PCP - General Family Medicine 07/14/23 Reference Test Clerk Relationship Specialty Start Date End Date Easterwood, Gaetano, DIRECTOR OF ACCOUNTING-MANAGER PROTEIN [address] [address] PCP - General Family Medicine 07/14/23 Reference Test Clerk Relationship Specialty Start Date End Date Easterrafaela, Gaetano, DIRECTOR OF ACCOUNTING-MANAGER PROTEIN [address] [address] PCP - General Family Medicine 07/14/23 Reference Test Clerk Relationship Specialty Start Date End Date Easterwood, Gaetano, DIRECTOR OF ACCOUNTING-MANAGER PROTEIN [address] [address] PCP - General Family Medicine 07/14/23 Team [...] Dates Gaetano Aldrich APRN Primary Care Pr ovider, Attending Provider Active Start: September 25, 2023 End: September 25, 2023 Team Status: Inactive Member Role Status Dates Gaetano Aldrich APRN Primary Care Pr ovider, Attending Provider Active Start: November 13, 2023 [...] Dates Gaetano Aldrich APRN Primary Care Pr ovider, Attending Provider Active Start: December 09, 2023 [...] section and content) DATE CREATED AUTHOR 06/20/2022 [facility] DATE CREATED AUTHOR AUTHOR'S ORGANIZ ATION 12/06/2022 [facility] DATE CREATED AUTHOR AUTHOR'S ORGANIZ ATION 03/31/2023 [facility] DATE CREATED AUTHOR AUTHOR'S ORGANIZ ATION [facility]29/20[facility] DATE CREATED AUTHOR AUTHOR'S ORGANIZ ATION 08/31/2023 [facility] DATE CREATED AUTHOR AUTHOR'S ORGANIZ ATION 09/30/2023 [facility] DATE CREATED AUTHOR AUTHOR'S ORGANIZ ATION 11/22/2023 [facility] DATE CREATED AUTHOR AUTHOR'S ORGANIZ ATION 01/21/2024 [facility] DATE CREATED AUTHOR AUTHOR'S ORGANIZ ATION 05/20/2024 [facility]IC Reason for Visit (unrecogniz ed section and content) Reason Comments Weight loss Reason Comments Gynecologic Exam Pt is here for annua l exam. Reason Onset Date Comments PT Initial Eval 05/06/2024 Tried to contact to set up PT eval for low back pain; but had to lm requesting a call back. Call back 05/07/2024 She contacted an d we scheduled PT Eval 05/18 w/ Elmo Martinez PT. Goals (unrecognized section and content) Goals may [...] BE BASED ON THE PRIMARY CLINICAL RECORDS. [facility]. provides no warranty or guarantee of the accuracy or completeness of information in this document.
--- NOTE | 2024-05-24 13:26 | P.CN_ITS ---
Consult Note: HPI Data of Consult Patient: new to practice Consult date: 05/24/24 Requesting Physician: Mariola Chavarria MD Primary Care Provider: Penny Aldrich NP Consult Narrative Reason for consult: midback radiating pain Narrative: 28yof who presents for evaluation. several years of worsening pain that radiates from midback into left lateral aspect of thoracic back, under left breast. denies any rash. pain began more substantially after childbirth. previous CT showed mild degenerative changes. has been engaged in chiropractic therapy for several months, without benefit. has continue in physical therapy, without benefit. has tried flexeril and gabapentin, without much benefit. denies adverse med side effects. cc:: CC: Mariola Chavarria MD Review of Systems ROS Status of ROS 10 or more systems reviewed and unremark able except as noted in history and below PFSH PFSH Social History Smoking status: Current every day smoker Little interest or pleasure in doing things: not at all Feeling down, depressed, or hopeless: not at all Meds Home Medications and Allergies Home Medications ?Medication ?Instructions ?Recorded ?Confirmed ?Type prednisone 50 mg tablet 50 mg PO DAILY 5 days #5 tabs 03/22/24 Rx buspirone 7.5 mg tablet 7.5 mg PO BID 04/21/24 04/21/24 History cyclobenzaprine 10 mg tablet 10 mg PO TID 10 days #30 tabs 04/21/24 Rx gabapentin 100 mg capsule 100 mg PO Q8H 2 weeks #42 caps 04/21/24 Rx ketorolac 10 mg tablet 10 mg PO Q8H PRN pain 7 days #20 04/21/24 Rx tabs lamotrigine 150 mg tablet 300 mg PO DAILY 04/21/24 04/21/24 History methylprednisolone 4 mg tablets in 4 mg PO DAILY #21 ea 04/21/24 Rx a dose pack (Medrol ([place])) olanzapine 10 mg tablet 5 mg PO BID 04/21/24 04/21/24 History olanzapine 5 mg tablet 10 mg PO .qhs 04/21/24 04/21/24 History pantoprazole 20 mg tablet,delayed 20 mg PO DAILY 04/21/24 04/21/24 History release prazosin 1 mg capsule 1 mg PO .QHS 04/21/24 04/21/24 History Allergies Allergy/AdvReac Type Severity Reaction Status Date / Time bupropion (From Wellbutrin) Allergy Severe Hives Verified 04/21/24 08:42 acetaminophen (From Percocet) Allergy Mild Hives Verified 04/21/24 08:42 oxycodone (From Percocet) Allergy Mild Hives Verified 04/21/24 08:42 Exam Narrative Exam Narrative: Psych-alert and oriented x 3. Attentive and appropriate, constitutionally normal, displays normal mood and affect per situation. There are no obvious deficits in memory, reasoning, or intellect.? Skin-no obvious rashes, bruising, erythema noted to the patient's area of pain.? Extremities- extremities are warm with minimal edema and palpable pulses. Thoracic -tenderness to palpation noted in the left thoracic spine and paraspinal musculature. Range of motion is diminished with these motions. Facet loading maneuvers are positive.? Sensory-no notable sensory deficits to touch or pinprick in all dermatomal distributions with the exception to decreased sensation to the left T6, 7, 8 dermatomal distribution Coordination remains intact.? Gait remains non-antalgic. Assessment and Plan Assessment and Plan (1) Thoracic spinal stenosis: (2) Thoracic radiculopathy: Plan 28yof who presents for evaluation. failed conservative measures, as noted. imaging reviewed, as noted. given symptoms and imaging, coupled with failure to respond to conservative measures, prudent to obtain thoracic mri without contr ast for further eval. meds reviewed. will trial lyrica 50mg tid. follow up after imaging.
== END 2024-05-24 12:09 | disposition home or self-care (01) ==
PROVIDERS: PCP Nurse Practitioner Family; Visit Provider Anesthesiology
DX: M48.04 Spinal stenosis, thoracic region (principal); M54.14 Radiculopathy, thoracic region
CPT/HCPCS: G0463

== ENCOUNTER 2025-03-28 10:38 | Emergency (ER) | payer OTHER, SELFPAY ==
--- OUTSIDE RECORDS SUMMARY | 2025-02-04 13:52 | XMS_ITS ---
Author Name Auto Generated Organization [facility] Care Team Providers Care Motorcycle Engine Assembler Name Role Phone LEMO RITTER Attending Unavailable EASTERWOOD, GAETANO Referring Unavailable KELBLEY, DUY Attending Unavailable EASTERWOOD, GAETANO Referring Unavailable ELMO RITTER Attending Unavailable EASTERWOOD, GAETANO Referring Unavailable KELBLEY, DUY Attending Unavailable EASTERWOOD, GAETANO Referring Unavailable ARIADNA JEFFERS Attending Unavailable EASTERWOOD, GAETANO Referring Unavailable KELBLEY, DUY Attending Unavailable EASTERWOOD, GAETANO Referring Unavailable FRANCIS PAGE Attending Unavail able EASTERWOOD, GAETANO Referring Unavailable EASTERWOOD, GAETANO Primary Care Unavailable SLINGWINE, JAILYN Cruz Admitting Unavaila ble SLINGJUAN CARLOSEJAILYN Attending Unavaila ble SLINGWINE, JAILYN Cruz Admitting Unavaila ble SLINGWINE, JAILYN Cruz Attending Unavaila ble Aura MCFARLANE, Mariola Lima Attending Unavailable PROBLEMS DATE TYPE CONDITION / CODE ATTENDING STATUS KRISTY E 10/14/2024 Unknown New Patient / FREETEXT(AOF) KALANI PAGEFRANCISALEXANDRA MORLEY Active [facility] PROCEDURES No Procedure Records Found RESULTS EGFR Collected: 11:30 AM Status: F Source: [facility] TYPE CODE TESTS RESULT OUT OF RANGE REFERENCE UNITS LAB [id number]([facility]) eGFR 126 Normal >=59 mL/min/1 .7 3 m2 Performed By: #### [id number] #### [facility] [address] [place] [address] CMP Collected: 02/04/2025 11:30 AM Status: F Source: [facility] TYPE CODE TESTS RESULT OUT OF RANGE REFERENCE UNITS LAB [id number](INC) Glucose Lvl 129 Normal 55-199 mg/d L LAB 57677334(LOINC) BUN 9 Normal 5-21 mg/dL LAB 6745007(INC) Creatinine 0.6 Normal 0.5-1.3 mg/dL LAB 19909881(INC) Calcium Lvl 9.5 Normal 8.9-11.1 mg/ dL LAB 73870150(LOINC) Sodium Lvl 138 Normal 135-145 mmol/ L LAB 85831533(INC) Potassium Lvl 3.6 Normal 3.5-5.3 mm ol/L LAB 66382458(LOINC) Chloride 106 Normal 101-111 mmol/L LAB 08395388(LOINC) CO2 24 Normal 21-31 mmol/L LAB 69799060(INC) Alk Phos 82 Normal 21-98 Int._Un it /L LAB 97419078(LOINC) Bili Total 1.0 Normal 0.0-1.1 mg/dL LAB 14301981(LOINC) Albumin Lvl 4.5 Normal 3.3-5.0 gm/d L LAB 87760747(LOINC) Total Protein 7.2 Normal 6.0-7.8 gm /dL LAB 97675277(LOINC) ALT 136 High 6-46 Int._Uni t /L LAB 06604093([facility]) AST 141 High 5-43 Int._Uni t /L LAB 64374042([facility]) BUN/Creat Ratio 15 Normal 10-20 No Units LAB [id number]([facility]) AGAP 12 Normal 6-16 mEq/L LAB 17162248([facility]) Globulin 2.7 Normal 1.4-4.0 gm/dL LAB 56378026([facility]) A/G Ratio 1.7 Normal 1.1-2.2 Performed By: #### [id number] # ### [facility] [address] [place] [address] TSH Collected: 11:30 AM Status: F Source: [facility] TYPE CODE TESTS RESULT OUT OF RANGE REFERENCE UNITS LAB 79030925([facility]) TSH 1.42 Normal 0.34-5.60 mcIU/m L Performed By: #### [id number] # ### [facility] [address] [place] [address] CBC W/ AUTO DIFF Collected: 02/04/2025 11:30 AM Stat us: F Source: [facility] TYPE CODE TESTS RESULT OUT OF RANGE REFERENCE UNITS LAB 25525839([facility] ) WBC 8.3 Normal 4.0-11.0 E9/L LAB 22474964([facility] ) RBC 4.9 Normal 4.3-5.9 E12/L LAB 22838726([facility] ) HGB 10.9 Low 12.0-16.0 gm/dL LAB 48170665([facility] ) Hct 34.5 Normal 34.0-46.0 % LAB 02885298(INC ) RDW 17.4 High 10.9-14.2 % LAB 69804583(INC ) MCH 22.2 Low 27.0-34.0 pg LAB 01807680(LOINC ) MCHC 31.6 Normal 31.4-36.0 gm/dL LAB 67591910(INC ) MCV 70.2 Low 80.0-100.0 fL LAB 13945718(LO[facility] ) MPV 11.6 High 6.4-10.8 fL LAB 08343899(LOINC ) Platelet 230.0 Normal 150.0-500.0 E9/L LAB 71508386(LOINC ) Neutro Auto 71.7 Normal 36.0-75.0 % LAB 81390362(LOINC ) Lymph Auto 22.9 Normal 14.0-50.0 % LAB 38702012(LOINC ) Door Auto 4.9 Normal 4.0-14.0 % LAB 87674334(LOINC ) Eos Auto 0.0 Normal 0.0-8.0 % LAB 74215284(LOINC ) Basophil Auto 0.5 Normal 0.0-2.0 % LAB 24693330(LOINC ) Neutro Absolute 5.9 Normal 2.0-7.5 E9/L LAB 17459422(LOINC ) Lymph Absolute 1.9 Normal 1.0-4.0 E9/L LAB 75381517(LOINC ) Door Absolute 0.4 Normal 0.2-1.0 E9/L LAB 32789507(LOINC ) Eos Absolute 0.0 Normal 0.0-0.5 E9/L LAB 02399466(LOINC ) Basophil Absolute 0.0 Normal 0.0-0.2 E9/L LAB 99618530(LOINC ) RBC Morph SEE MORPHOLOGY Unknown LAB 71194223(LOINC ) Hypochromasia PRESENT Unknown LAB 26207896(LOINC ) Anisocytosis PRESENT Unknown LAB 55291530(LOINC ) Microcyte PRESENT Unknown LAB 35363204(LOINC ) Large Plt PRESENT Unknown Performed By: #### [id number] # ### [facility] [address] [place] [address] VIT D 1,25 Collected: 5 11:30 AM Status: F Source: [facility] TYPE CODE TESTS RESULT OUT OF RANGE REFERENCE UNITS LAB 70026192(INC) Vitamin D 1,25 41.4 Unknown 24.8-81.5 pg/mL Result Comment: Performed at : [facility] [address] [id number] MD Thang Francisco Performed By: #### [id number] #### [facility] [address] [place] [address] ALLERGIES DATE TYPE / CODE NAME / CODE REACTION SEVERITY SOURCE 03/18/2022 DRUG/[id number](S NOMED CT) OXYCODONE-ACETAMINOP HEN [facility] /[id number](SNO MED CT) Percocet Hives [facility] /[id number](SNO MED CT) No Known Allergies [facility] /[id number](SNO [facility]) Percocet 10/325 [facility] ENCOUNTERS ADMIT/DISCHARGE ACCOUNT NUMBER ADMITTING ENCOUNTER CLASS LOCATION SOURCE 02/04/2025 [id number] JAILYN DOUGLASS JOAN L. Ambulatory [facility]:FT LAB [facility] 02/04/2025/02/05/20 [id number] JAILYN DOUGLASSI L. Ambulatory [facility]:FT LAB [facility] 10/14/2024/10/15/19 [id number] [address] [place] [address] 06/29/2024/06/29/20 24 [id number] Ambulatory Building:NO [facility] EPIC 06/11/2024/06/11/20 24 [id number] Ambulatory Building:NO [facility] 06/09/2024/06/09/20 24 [id number] Ambulatory Building:NO [facility] 05/31/2024/05/31/20 24 [id number] Ambulatory Building:NO [facility] 05/24/2024/05/24/20 24 [id number] Ambulatory PM [facility] lding:PM [facility] 05/20/2024/05/20/20 24 [id number] Ambulatory Building:NO [facility] EPIC 05/18/2024/05/18/20 24 [id number] Ambulatory Building:NO [facility] EPIC PAYERS ENCOUNTER GUARANTOR PAYER SUBSCRIBER SOURCE 02/04/2025 GABBY IBANEZOB: KEEGAN STTel: [phone] ([phone]) Primary Insurance:[facility] Number: [id number] Date:1538-06-52[address] [address]WD: GABBY Appiah SHARI [facility] 10/14/2024 GABBY ANTHONY SAHILMANDOB: [place], [place] [address]Thb: (HP) Primary Insurance:[place] MEDICA[place] Number: [id number] Date:2022-06-30 GABBY LOVELLLE MACARENAHLMANDOB: [id number] [place] [address] [facility] 06/29/2024 GABBY SAHILMANDOB: [place], [place] [address]Jin: (HP) Primary Insurance:[place] [employer] MEDICAIDPolicy Number: [id number] Date:2022-06-30 GABBY BAXTERMANDOB: [id number] [place] [address] [facility] 06/29/2024 Secondary Insurance:RAMESH CASTILLOPolicy Number: [id number] Date:2023-06-30 GABBY BAXTERMANDOB: [id number] [place] [address] [facility] 06/11/2024 GABBY BAXTERMANDOB: [place], [place] [address]Zgp: (HP) Primary Insurance:[place] [employer] MEDICAIDPolicy Number: [id number] Date:2022-06-30 GABBY BAXTERMANDOB: [id number] [place] [address] [facility] 06/09/2024 GABBY BAXTERMANDOB: [place], [place] [address]Exa: (HP) Primary Insurance:[place] [employer] MEDICAIDPolicy Number: [id number] Date:2022-06-30 GABBY BAXTERMANDOB: [id number] [place] [address] [facility] 05/31/2024 GABBY MACARENAHLMANDOB: [place] [address]Qmo: (HP) Primary Insurance:[place] [employer] MEDICAIDPolicy Number: [id number] Date:2022-06-30 GABBY MACARENAHLMANDOB: [id number] [place] [address] [facility] 05/24/2024 Gabby MacarenahlmanDOB: [place] [address] Primary Insurance:[facility] HospitalPolic Number: Effective Date:9926-05-58Oepx Name:MEDYOANDY [address] [address]FY: Gabby SahilmanDOB: [id number] [place] [address] [facility] 05/20/2024 GABBY MACARENAROBBINMANDOB: [place], [place] [address]Pip: (HP) Primary Insurance:[place] [employer] MEDICAIDPolicy Number: [id number] Date:2022-06-30 GABBY MACARENAROBBINMANDOB: [id number] [place] [address] [facility] 05/18/2024 GABBY SAHILMANDOB: [place], [place] [address]Rhm: (HP) Primary Insurance:[place] [employer] MEDICAIDPolicy Number: [id number] Date:2022-06-30 GABBY SAHILMANDOB: [id number] [place] [address] [facility] EPIC
--- OUTSIDE RECORDS SUMMARY | 2025-02-14 08:30 | XMS_ITS ---
Author Organization [facility] Address [address] [place] [address] Care Team Providers Care Early Education Teacher Name Role Phone Eli Douglass Primary Care Provider [phone] Estelita Lopez Unavailable [phone] GAETANO ANGELES Unavailable Unavailable REASON FOR VISIT 3 mo Social History Sex Assigned At : Social History Observation Description Sex Assigned At Female Encounters Encounter Location Date Provider Diagnosis [facility] [address] [place] [address] 02/14/2025 Eli Douglass Plan Of Treatment Next Appt Details Provider Name:Eli coppola, 03/30/2025 09:30:00 AM, [address] [place], [address], Provider Name:Estelita julien, 03/30/2025 04:15:00 PM, [address] [place], [address], Progress Notes * BERNARDO DODGE:1995 (29 yo F)Acc No.[id number]:02/14/2025 Behavioral Health Patient: KAREN DELONG Appointment Provider: Lex DOUGLASS PMHNP-BC :1995 A ge:29 Y S ex:Female Date:02/14/2025 Address:[address] [place] [phone] Subjective: * Chief Complaints: * 1 . 3 mo. * Medical History: Objective: * Vitals: Assessment: Plan: * Treatment: * Images: * Electronic signature of YASMIN Jones i on 03/28/2025 at 11:04 AM EDT Sign off status: Pending * Appointment Provider: YASMIN MENDEZ- Date: 0 02/14/2025 Generated for Adilia schafer/Carlos/Danikasmitting on: 0 03/28/2025 11:04 AM EDT
--- OUTSIDE RECORDS SUMMARY | 2025-02-18 06:00 | XMS_ITS ---
Author Organization [facility] Address [address] [place] [address] Care Team Providers Care Senior Sales Associate Name Role Phone Eli Douglass Primary Care Provider [phone] Estelita Lopez [phone] GAETANO ANGELES Unavailable Unavailable REASON FOR VISIT 3 weeks Get dep level Social History Sex Assigned At : Social History Observation Description Sex Assigned At Female Encounters Encounter Location Date Provider Diagnosis [facility] [address] [place] [address] 02/18/2025 Eli Douglass Plan Of Treatment Next Appt Details Provider Name:Eli coppola, 03/30/2025 09:30:00 AM, [address] [place], [address], Provider Name:Estelita julien, 03/30/2025 04:15:00 PM, [address] [facility] [place], [address], Progress Notes * BERNARDO DODGE:1995 (29 yo F)Acc No.[id number]:02/18/2025 Behavioral Health Patient: KAREN DELONG Appointment Provider: Lex DOUGLASS PMHNP-BC :1995 A ge:29 Y S ex:Female Date:02/18/2025 Address:[address] [place] [address], [id number] Subjective: * Chief Complaints: * 1 . 3 weeks Get dep level. * Medical History: Objective: * Vitals: Assessment: Plan: * Treatment: Care Plan: * Problems: * Images: * Electronic signature of YASMIN Jones i on 03/28/2025 at 11:04 AM EDT Sign off status: Pending * Appointment Provider: NICOLAS MENDEZ Date: 0 02/18/2025 Generated for Adilia schafer/Carlos/Danikasmcata on: 0 03/28/2025 11:04 AM EDT
--- OUTSIDE RECORDS SUMMARY | 2025-03-04 08:30 | XMS_ITS ---
Author Organization [facility] Address [address] [place] [address] Care Team Providers Care Leach Tank Tender Name Role Phone EmirEli farnsworth Primary Care Provider [phone] Estelita Lopez [phone] GAETANO ANGELES Unavailable Unavailable REASON FOR VISIT [facility] Social History Sex Assigned At : Social History Observation Description Sex Assigned At Female Encounters Encounter Location Date Provider [facility] [address] [place] [address] 03/04/2025 Estelita Brar Plan Of Treatment Next Appt Details Provider Name:Eli coppola, 03/30/2025 09:30:00 AM, [address] [facility] [place], [address], Provider Name:Estelita julien, 03/30/2025 04:15:00 PM, [address] [facility] [place], [address], Progress Notes * SYLIVA DODGEB:1995 (29 yo F)Acc No.[id number]:03/04/2025 F/U - Family Patient: RENU DELONGA Provider: Ana Brar LPC :1995 A ge:29 Y S ex:Female Date:03/04/2025 Address:[address] [place], [place]-[address] Pcp:Eli Evans Subjective: * Chief Complaints: * 1 . Bh fu. Objective: Therapeutic Interventions: Assessment: Plan: * Images: Care Plan Details* * Electronic signature of Martha Brar LPC on 03/28/2025 at 11:04 AM EDT Sign off status: Pending * Provider: Ana Brar LPC Date: 03/04/2025 Generated for Adilia schafer/Carlos/Jonathan on: 03/28/2025 11:04 AM EDT
--- OUTSIDE RECORDS SUMMARY | 2025-03-10 05:00 | XMS_ITS ---
Author Organization [facility] Address [address] [place] [address] Care Team Providers Care Test Tube Maker Name Role Phone Eli Douglass Primary Care Provider [phone] Estelita Lopez [phone] GAETANO ANGELES Unavailable Unavailable REASON FOR VISIT 2 weeks Social History Sex Assigned At : Social History Observation Description Sex Assigned At Female Encounters Encounter Location Date Provider Diagnosis [facility] [address] [place] [address] 03/10/2025 Eli Douglass Plan Of Treatment Next Appt Details Provider Name:Eli coppola, 03/30/2025 09:30:00 AM, [address] [place], [address], Provider Name:Estelita julien, 03/30/2025 04:15:00 PM, [address] [place], [address], Progress Notes * BERNARDO DODGE:1995 (29 yo F)Acc No.[id number]:03/10/2025 Behavioral Health Patient: KAREN DELONG Appointment Provider: Lex DOUGLASS PMHNP-BC :1995 A ge:29 Y S ex:Female Date:03/10/2025 Address:[address] [place] [address] Subjective: * Chief Complaints: * 1 . 2 weeks. * Medical History: Objective: * Vitals: Assessment: Plan: * Treatment: Care Plan: * Problems: * Images: * Electronic signature of YASMIN Jones i on 03/28/2025 at 11:04 AM EDT Sign off status: Pending * Appointment Provider: NICOLAS MENDEZ Date: 03/10/2025 Generated for Adilia schafer/Carlos/Jonathan on: 03/28/2025 11:04 AM EDT
[2025-03-28 10:44] VITALS: BP 150/96; PULSE 102; TEMP 36.7; O2SAT 97; BMI 49.9
--- NOTE | 2025-03-28 10:55 | ECG_ITS ---
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
[2025-03-28] MEDS: IBUPROFEN 600 MG TABLET PO (10:59)
--- OUTSIDE RECORDS SUMMARY | 2025-03-28 11:04 | XMS_ITS | Encounter Summary ---
Author Organization [id number] [address] [place] [address] Care Team Providers Care Cover Remover Name Role Phone Penny Aldrich APRN-STRATEGIC MARKETING SPECIALIST Primary Care Provider Encounter Details Date Type Department Care Team (Late st Contact Info) Description 10/06/2023 Telephone [facility] [address] [place] [address] Valentina Dent Social History Tobacco Use Types Packs/Day Years Used Date Smoking Tobacco: Every Day Vaping/E-cigarettes Smokeless Tobacco: Never Alcohol Use Standard Drinks/Week Comments Not Currently 0 (1 standard drink = 0.6 oz pur e alcohol) PHQ-2 Answer Date Recorded Total Score 4 08/21/2023 Childcare Answer Date Recorded Childcare Unknown 09/03/2019 Employment Answer Date Recorded Employment Unknown 09/03/2019 Hunger Screening Answer Date Recorded Within the past 12 months we worried whether our food would run out before we got money to buy more. Never True 08/21/2023 Within the past 12 months th e food we bought just didn't last and we didn't have money to get more. Never True 08/21/2023 Purpose - Life Answer Date Recorded Purpose and direction in life Unknown Comments No Sex and Gender Information Value Date Recorded Sex Assigned at Not on file Legal Sex Female 11:28 PM EST Gender Identity Not on file Sexual Orientation Not on file documented as of this encounter Miscellaneous Notes * Telephone Encounter - Valentina Dent - 10/06/2023 1:33 PM EDT Patient saw her PCP. Her PCP started her on a low carb, low sugar diet. Her PCP wants to see how she does with that before prescribing anything for her liver. The patient is requesting lab work be ordered for hepatitis & liver. Please advise. Thank you. * Telephone Encounter - Lucinda Song MD - 10/06/2023 1:33 PM EDT CAN HAVE CMP AND HEPATITIS PANEL IF SHE DESIRES * Telephone Encounter - Valentina Dent - 10/06/2023 1:33 PM EDT Patient notified & voiced understanding. Can you please order labs for the patient? Thank you. * Telephone Encounter - Nhung Rawls CMA - 10/06/2023 1:33 PM EDT Pt already has labs entered from our office that she can go and get done documented in this encounter Plan of Treatment Not on file documented as of this encounter Visit Diagnoses Not on filedocumented in this encounter Additional Health Concerns Assessment Noted Time PHQ-9 Depression Total Score: 4 08/21/19 3:30 PM EST A Body Mass Index follow-up plan has been documented for the patient 08/21/2023 3:56 PM EST documented as of this encounter Care Teams Cover Remover Relationship Specialty Start Date End Date Penny Aldrich APRN-JAILYN [facility] MARII JOINER, [address] [address] PCP - General Family Medicine 07/14/23 documented as of this encounter
--- OUTSIDE RECORDS SUMMARY | 2025-03-28 11:04 | XMS_ITS | Patient Health Record ---
Author Organization [facility] Address [address] [place] [address] Care Team Providers Care Technology Administrator Name Role Phone Eli Douglass Primary Care Provider Estelita Brar Unavailable [phone] GAETANO ANGELES Unavailable Unavailable Allergies Allergen (clinical drug ingredient) Drug/Non Drug Allergy documented on EMR Reaction Allergy Type Onset Date Status acetaminophen / oxycodone Percocet hives Drug Allergy Active bupropion Bupropion agitation Drug Allergy Active semaglutide Semaglutide pancreatitis Drug Allergy Active Results Component Value Reference Range Notes eGFR Reviewed date:02/06/2025 04:47:12 PM Interpretation: Performing Lab: Notes/Report: [facility] [address] [place] [address] Original Ordering Provider: JAILYN DOUGLASS eGFR 126 >=59 mL/min/1.73 m2 Performing Lab see note [facility] - [facility] unless otherwise specified [address], [place] [address] Vit D 1,25 Reviewed date:02/08/2025 09:26:57 PM Interpretation: Performing Lab: Notes/Report: [facility] [address] [place] [address] Original Ordering Provider: JAILYN DOUGLASS Vitamin D 1,25 41.4 24.8-81.5 pg/mL Performed at: [facility] [id number] MD Thang Francisco Performing Lab see note [facility] unless otherwise specified [address] [place] [address] TSH Reviewed date:02/06/2025 04:47:44 PM Interpretation: Performing Lab: Notes/Report: [facility] [address] [place] [address] Original Ordering Provider: JAILYN FRANCO [employer] SPEARSSAMUEL TSH 1.42 0.34-5.60 mcIU/mL Performing Lab see note [facility] unless otherwise specified [address] [place] [address] CMP Reviewed date:02/06/2025 04:47:34 PM Interpretation: Performing Lab: Notes/Report: [facility] [address] [place] [address] Original Ordering Provider: JAILYN FRANCO [employer] SPEARSSAMUEL Glucose Lvl 129 55-199 mg/dL BUN 9 5-21 mg/dL Creatinine 0.6 0.5-1.3 mg/dL Calcium Lvl 9.5 8.9-11.1 mg/dL Sodium Lvl 138 135-145 mmol/L Potassium Lvl 3.6 3.5-5.3 mmol/L Chloride 106 101-111 mmol/L CO2 24 21-31 mmol/L Alk Phos 82 21-98 Int._Unit/L Bili Total 1.0 0.0-1.1 mg/dL Albumin Lvl 4.5 3.3-5.0 gm/dL Total Protein 7.2 6.0-7.8 gm/dL ALT 136 6-46 Int._Unit/L AST 141 5-43 Int._Unit/L BUN/Creat Ratio 15 10-20 No Units AGAP 12 6-16 mEq/L Globulin 2.7 1.4-4.0 gm/dL A/G Ratio 1.7 1.1-2.2 Performing Lab see note [facility] unless otherwise specified [address] [place] [address] CBC w/ Auto Diff Reviewed date:02/06/2025 04:48:33 PM Interpretation: Performing Lab: Notes/Report: [facility] [address] [place] [address] Original Ordering Provider: JAILYN ELI DOUGLASS WBC 8.3 4.0-11.0 E9/L RBC 4.9 4.3-5.9 E12/L HGB 10.9 12.0-16.0 gm/dL Hct 34.5 34.0-46.0 % RDW 17.4 10.9-14.2 % MCH 22.2 27.0-34.0 pg MCHC 31.6 31.4-36.0 gm/dL MCV 70.2 80.0-100.0 fL MPV 11.6 6.4-10.8 fL Platelet 230.0 150.0-500.0 E9/L Neutro Auto 71.7 36.0-75.0 % Lymph Auto 22.9 14.0-50.0 % [place] Auto 4.9 4.0-14.0 % Eos Auto 0.0 0.0-8.0 % Basophil Auto 0.5 0.0-2.0 % Neutro Absolute 5.9 2.0-7.5 E9/L Lymph Absolute 1.9 1.0-4.0 E9/L [place] Absolute 0.4 0.2-1.0 E9/L Eos Absolute 0.0 0.0-0.5 E9/L Basophil Absolute 0.0 0.0-0.2 E9/L RBC Morph SEE MORPHOLOGY Hypochromasia PRESENT Anisocytosis PRESENT Microcyte PRESENT Large Plt PRESENT Performing Lab see note [facility] - [facility] unless otherwise specified [address], [place] [address] Reason For Referral No Information Medications Medication SIG (Take, Route, Frequency, Duration) Notes Start Date End Date Status Sertraline HCl 50 MG 1 tablet Orally Onc e a day; Duration: 30 days 08/26/2024 Active lamoTRIgine 200 MG 1 tablet Orally twic e a day; Duration: 30 days Active busPIRone HCl 15 MG 1 tablet Orally 3 times a day; Duration: 30 days Active Ondansetron 4 MG 1 tablet on the tong ue and allow to dissolve Orally Once a day Active Prazosin HCl 2 MG 3 capsule at bedtime Orally Once a day; Duration: 30 days 06/21/2025 Active Cyclobenzaprine HCl 10 MG 1 tablet at be dtime as needed Orally Once a day Active Albuterol Sulfate HFA 108 (90 Base) MCG/ACT 1 puff as needed Inhalation every 4 hrs Active Pantoprazole Sodium 40 MG 1 tablet Orall y Once a day Active OLANZapine 10 MG 1 tablet Orally Once a day; Duration: 17 days 02/21/2025 Active Dicyclomine HCl 20 MG 1 tablet Orally tw o times a day Active Naproxen Sodium 550 MG 1 tablet with bob d or milk as needed Orally every 12 hrs Active Social History Tobacco Use: Social History Observation Description Date Details (start date - stop date) Former Smoker NA - NA Sex Assigned At : Social History Observation Description Sex Assigned At Female Depression Screening (PHQ-9): Question Answer Notes Little interest or pleasure in doing things More than half the days Feeling down, depressed, or hopeless More than h long-term the days Trouble falling or staying asleep, or sleeping t oo much Nearly every day Feeling tired or having little energy Nearly melo ry day Poor appetite or overeating Nearly every day Feeling bad about yourself-o r that you are a failure or have let yourself or your family down Several days Trouble concentrating on thi ngs, such as reading the newspaper or watching television Nearly every day Moving or speaking so slowly that other people could have noticed. Or the opposite being so fidgety or restless that you have been moving around a lot more than usual Nearly every day Thoughts that you would be b elvin off , or of hurting yourself in some way Not at all Total Score 20 Intepretation Severe Depression AUDIT-C (Standard) Question Answer Notes Did you have a drink containing alcohol in the p ast year? No Points 0 Interpretation Negative Tobacco Control (Standard) Question Answer Notes Tobacco use: Former smoker How long has it been since you last smoked? 1-5 years Problems Problem Type SNOMED Code ICD Code Onset Dates Problem Status W/U Status Risk Notes Problem Borderline personality disorder (68967696) Borderline personality disorder (F60.3) Active confirmed Problem Bipolar 1 disorder (302549345) Bipolar 1 disorder (F31.9) Active confirmed Problem Posttraumatic stress disorder (51109437) PTSD (post-traumatic stress disorder) (F43.10) Active confirmed Problem Obsessive-compuls sharee disorder (543130958) Obsessive-compul sive disorder, unspecified type (F42.9) Active confirmed Problem History of novel psychoactive substance misuse (situation) (628917396) Other psychoactive substance abuse, 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 Problem 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) Marijuana use (F12.90) Active confirmed Problem Generalized anxiety disorder (41197594) Generalized anxiety disorder (F41.1) Active confirmed Problem Other stimulant use, unspecified, 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 confirmed Problem Bipolar II disorder (75094239) Bipolar II, mixed, severe with psychotic behavior (F31.81) Active confirmed Vital Signs Heart Rate 100 /min 02/04/2025 Temperature 98.5 degrees Fahrenheit 04/08/2024 Blood pressure diastolic 75 mm Hg 02/04/2025 Oximetry 98 % 02/04/2025 Height 65 in 02/04/2025 Blood pressure systolic 115 mm Hg 02/04/2025 Weight 308.6 lbs 02/04/2025 BMI 51.35 kg/m2 02/04/2025 Encounters Encounter Location Date Provider Diagnosis [facility] [address] [place] [address] 04/09/2024 [facility] [place] [place] [address] 05/05/2024 [facility] [place] [place] [address] 05/19/2024 Eli Slingwine [address] [place] [address] 05/19/2024 Eli Slingwine Bipolar 1 disorder F31.9 [facility] [address] [place] [address] 05/31/2024 Eli Slingwine Generalized anxiety disorder F41.1 [facility] [address] [place] [address] 07/08/2024 Eli Slingwine [facility] [place] [place] [address] 07/08/2024 Eli Slingwine Generalized anxiety disorder F41.1 [facility] [address] [place] [address] 07/26/2024 Eli Slingwine [facility] [address] [place] [address] 09/07/2024 Eli Slingwine Bipolar 1 disorder F31.9 [facility] [address] [address] 11/01/2024 Eli Slingwine Generalized anxiety disorder F41.1 [facility] [address] [address] 11/15/2024 Eli Slingwine [facility] [address] [address] 02/16/2025 Eli Slingwine [facility] [address] [place] [address] 05/31/2024 Eli Slingwine [facility] [address] [place] [address] 04/08/2024 Estelita Hollada Bipolar II, mixed, severe with psychotic behavior F31.81 ; Marijuana use F12.90 and Other stimulant use, unspecified, in remission F15.91 [facility] [address] [facility] [place] [address] 04/22/2024 Estelita Hollada Bipolar 1 disorder F31.9 [facility] [address] [place] [address] 05/24/2024 Estelita Hollada Bipolar 1 disorder F31.9 [facility] [address] [place] [address] 06/01/2024 Estelita Hollada Bipolar 1 disorder F31.9 [facility] [address] [place] [address] 06/15/2024 Estelita Hollada Borderline personality disorder F60.3 [facility] [address] [place] [address] 11/02/2024 Estelita Hollada Borderline personality disorder F60.3 [facility] [address] [place] [address] 07/05/2024 Estelita Hollada Bipolar 1 disorder F31.9 [facility] [address] [place] [address] 05/06/2024 Estelita Hollada Bipolar 1 disorder F31.9 [facility] [address] [place] [address] 07/26/2024 Estelita Hollada Borderline personality disorder F60.3 [facility] [address] [place] [address] 08/16/2024 Estelita Hollada Bipolar 1 disorder F31.9 [facility] [address] [place] [address] 09/01/2024 Estelita Hollada Bipolar 1 disorder F31.9 [facility] [address] [place] [address] 09/16/2024 Estelita Hollada Borderline personality disorder F60.3 [facility] [address] [place] [address] 04/08/2024 Eli Slingwine Bipolar 1 disorder F31.9 ; Generalized anxiety disorder F41.1 ; PTSD (post-traumatic stress disorder) F43.10 and Obsessive-compulsive disorder, unspecified type F42.9 [address] [place] [address] 02/04/2025 Eli Slingwine Bipolar 1 disorder F31.9 ; Borderline personality disorder F60.3 ; Generalized anxiety disorder F41.1 ; PTSD (post-traumatic stress disorder) F43.10 and Obsessive-compulsive disorder, unspecified type F42.9 [address] [place] [address] 02/21/2025 Eli Slingwine Bipolar 1 disorder F31.9 ; Borderline personality disorder F60.3 ; Generalized anxiety disorder F41.1 ; Obsessive-compulsive disorder, unspecified type F42.9 and PTSD (post-traumatic stress disorder) F43.10 [address] [place] [address] 07/08/2024 Eli Slingwine Bipolar 1 disorder F31.9 ; Borderline personality disorder F60.3 ; Generalized anxiety disorder F41.1 ; PTSD (post-traumatic stress disorder) F43.10 and Obsessive-compulsive disorder, unspecified type F42.[address] [address] 09/27/2024 Eli Slingwine Bipolar 1 disorder F31.9 ; Borderline personality disorder F60.3 ; Generalized anxiety disorder F41.1 ; PTSD (post-traumatic stress disorder) F43.10 and Obsessive-compulsive disorder, unspecified type F42.[address] [address] 08/26/2024 Eli Slingwine Bipolar 1 disorder F31.9 ; Generalized anxiety disorder F41.1 ; Borderline personality disorder F60.3 ; PTSD (post-traumatic stress disorder) F43.10 and Obsessive-compulsive disorder, unspecified type F42.[address] [address] 07/29/2024 Eli Slingwine Bipolar 1 disorder F31.9 ; Generalized anxiety disorder F41.1 and Borderline personality disorder F60.[address] [address] 11/15/2024 Eli Slingwine Bipolar 1 disorder F31.9 ; Borderline personality disorder F60.3 ; Generalized anxiety disorder F41.1 ; PTSD (post-traumatic stress disorder) F43.10 and Obsessive-compulsive disorder, unspecified type F42.9 Assessments Encounter Date Diagnosis (ICD Code) Assessment Notes Treatment Notes Treatment Clinical Notes Section Notes 04/08/2024 Bipolar II, mixed, severe with psychotic behavior (ICD-10 - F31.81) 04/08/2024 Bipolar 1 disorder (ICD-10 - F31.9) 04/22/2024 Bipolar 1 disorder (ICD-10 - F31.9) 05/06/2024 Bipolar 1 disorder (ICD-10 - F31.9) 05/19/2024 Bipolar 1 disorder (ICD-10 - F31.9) 05/24/2024 Bipolar 1 disorder (ICD-10 - F31.9) 05/31/2024 Generalized anxiety disorder (ICD-10 - F41.1) 06/01/2024 Bipolar 1 disorder (ICD-10 - F31.9) 06/15/2024 Borderline personality disorder (ICD-10 - F60.3) 07/05/2024 Bipolar 1 disorder (ICD-10 - F31.9) 07/08/2024 Bipolar 1 disorder (ICD-10 - F31.9) Lamictal: Patient educated on dosing schedule of medication. Made aware to make prescriber aware of any unexplainable rash or flu-like symptoms. If outside of office hours patient should report to the ER. Made aware to contact the office with any questions or concerns. Provided crisis hotline number. Patient states has good support system. Will call office or report to the ER with suicidal ideations. prazosin Encouraged to call office or report to the if the patient experiences dizziness or lightheadedness Recommended treatment for Bipolar disorder includes FDA approved and OFF label medications: second generation antipsychotics and mood stabilizers. Discussed life threatening side effect of Lamotrigine. Pt is to monitor for new skin rashes or sensation of a sunburn or itchiness or redness, mouth sores or sores in mucus membranes, and call provider immediately and or go to ER, and stop the medication. Second generation antipsychotic medications can cause headache, drowsiness, agitation, dizziness, nausea, or extrapyramidal symptoms such as tremors, muscle spasms, slowness of movement or jerking of muscles. Stable The patient verbalizes understanding with all questions answered thoroughly and is in agreement with treatment plan. Continue current treatment. Call for problems . GOALS: . Maintain medication regimen _Improve mood stability _Improve anxiety control _Improve social and interpersonal functioning Patient/Guardian will call sooner if symptoms worsen. Patient understands to go to ER if needed if symptoms become severe. Crisis Intervention plan was discussed and agreed upon. Patient/Guardian will call 911 in case of emergency. Emergency contact information was provided to the patient/guardian. follow up 3 months Pharmacological management: . Alternative medication plans were discussed with the patient/guardian. All relevant side effects and potential adverse effects were discussed with the patient/guardian. Standard cautions and potential benefits were discussed. Patient/Guardian consented to the start/continuation of the treatment. 07/08/2024 Generalized anxiety disorder (ICD-10 - F41.1) 07/26/2024 Borderline personality disorder (ICD-10 - F60.3) 07/29/2024 Bipolar 1 disorder (ICD-10 - F31.9) Patient will continue current treatment plan. Patient verbally acknowledges understanding instructions including medication education and has no further questions comments or concerns at this time. . Follow in 1 Month . Recommended treatment for Bipolar disorder includes FDA approved and OFF label medications: second generation antipsychotics and mood stabilizers. Discussed life threatening side effect of Lamotrigine. Pt is to monitor for new skin rashes or sensation of a sunburn or itchiness or redness, mouth sores or sores in mucus membranes, and call provider immediately and or go to ER, and stop the medication. Second generation antipsychotic medications can cause headache, drowsiness, agitation, dizziness, nausea, or extrapyramidal symptoms such as tremors, muscle spasms, slowness of movement or jerking of muscles. . Stable . The patient verbalizes understanding with all questions answered thoroughly and is in agreement with treatment plan. . Continue current treatment. Call for problems . GOALS: . Maintain medication regimen . _Improve mood stability . _Improve anxiety control . _Improve social and interpersonal functioning . Patient/Guardian will call sooner if symptoms worsen. Patient understands to go to ER if needed if symptoms become severe. . Crisis Intervention plan was discussed and agreed upon. Patient/Guardian will call 911 in case of emergency. Emergency contact information was provided to the patient/guardian. . Pharmacological management: . Alternative medication plans were discussed with the patient/guardian. All relevant side effects and potential adverse effects were discussed with the patient/guardian. Standard cautions and potential benefits were discussed. Patient/Guardian consented to the start/continuation of the treatment. prazosin: Encouraged to call office or report to the if the patient experiences dizziness or lightheadedness 08/16/2024 Bipolar 1 disorder (ICD-10 - F31.9) 08/26/2024 Bipolar 1 disorder (ICD-10 - F31.9) Patient will continue current treatment plan. Patient verbally acknowledges understanding instructions including medication education and has no further questions comments or concerns at this time. . Follow in 1 Month . Recommended treatment for Bipolar disorder includes FDA approved and OFF label medications: second generation antipsychotics and mood stabilizers. Discussed life threatening side effect of Lamotrigine. Pt is to monitor for new skin rashes or sensation of a sunburn or itchiness or redness, mouth sores or sores in mucus membranes, and call provider immediately and or go to ER, and stop the medication. Second generation antipsychotic medications can cause headache, drowsiness, agitation, dizziness, nausea, or extrapyramidal symptoms such as tremors, muscle spasms, slowness of movement or jerking of muscles. . Stable . The patient verbalizes understanding with all questions answered thoroughly and is in agreement with treatment plan. . Continue current treatment. Call for problems . GOALS: . Maintain medication regimen . _Improve mood stability . _Improve anxiety control . _Improve social and interpersonal functioning . Patient/Guardian will call sooner if symptoms worsen. Patient understands to go to ER if needed if symptoms become severe. . Crisis Intervention plan was discussed and agreed upon. Patient/Guardian will call 911 in case of emergency. Emergency contact information was provided to the patient/guardian. . Pharmacological management: . Alternative medication plans were discussed with the patient/guardian. All relevant side effects and potential adverse effects were discussed with the patient/guardian. Standard cautions and potential benefits were discussed. Patient/Guardian consented to the start/continuation of the treatment. 09/01/2024 Bipolar 1 disorder (ICD-10 - F31.9) 09/07/2024 Bipolar 1 disorder (ICD-10 - F31.9) 09/16/2024 Borderline personality disorder (ICD-10 - F60.3) 09/27/2024 Bipolar 1 disorder (ICD-10 - F31.9) Patient will continue current treatment plan. Patient verbally acknowledges understanding instructions including medication education and has no further questions comments or concerns at this time. . . Recommended treatment for Bipolar disorder includes FDA approved and OFF label medications: second generation antipsychotics and mood stabilizers. Discussed life threatening side effect of Lamotrigine. Pt is to monitor for new skin rashes or sensation of a sunburn or itchiness or redness, mouth sores or sores in mucus membranes, and call provider immediately and or go to ER, and stop the medication. Second generation antipsychotic medications can cause headache, drowsiness, agitation, dizziness, nausea, or extrapyramidal symptoms such as tremors, muscle spasms, slowness of movement or jerking of muscles. . Stable . The patient verbalizes understanding with all questions answered thoroughly and is in agreement with treatment plan. . Continue current treatment. Call for problems . GOALS: . Maintain medication regimen . _Improve mood stability . _Improve anxiety control . _Improve social and interpersonal functioning . Patient/Guardian will call sooner if symptoms worsen. Patient understands to go to ER if needed if symptoms become severe. . Crisis Intervention plan was discussed and agreed upon. Patient/Guardian will call 911 in case of emergency. Emergency contact information was provided to the patient/guardian. . Pharmacological management: . Alternative medication plans were discussed with the patient/guardian. All relevant side effects and potential adverse effects were discussed with the patient/guardian. Standard cautions and potential benefits were discussed. Patient/Guardian consented to the start/continuation of the treatment. 11/01/2024 Generalized anxiety disorder (ICD-10 - F41.1) 11/02/2024 Borderline personality disorder (ICD-10 - F60.3) 11/15/2024 Bipolar 1 disorder (ICD-10 - F31.9) Patient will continue current treatment plan. Patient verbally acknowledges understanding instructions including medication education and has no further questions comments or concerns at this time. . . Recommended treatment for Bipolar disorder includes FDA approved and OFF label medications: second generation antipsychotics and mood stabilizers. Discussed life threatening side effect of Lamotrigine. Pt is to monitor for new skin rashes or sensation of a sunburn or itchiness or redness, mouth sores or sores in mucus membranes, and call provider immediately and or go to ER, and stop the medication. Second generation antipsychotic medications can cause headache, drowsiness, agitation, dizziness, nausea, or extrapyramidal symptoms such as tremors, muscle spasms, slowness of movement or jerking of muscles. . Stable . The patient verbalizes understanding with all questions answered thoroughly and is in agreement with treatment plan. . Continue current treatment. Call for problems . GOALS: . Maintain medication regimen . _Improve mood stability . _Improve anxiety control . _Improve social and interpersonal functioning . Patient/Guardian will call sooner if symptoms worsen. Patient understands to go to ER if needed if symptoms become severe. . Crisis Intervention plan was discussed and agreed upon. Patient/Guardian will call 911 in case of emergency. Emergency contact information was provided to the patient/guardian. . Pharmacological management: . Alternative medication plans were discussed with the patient/guardian. All relevant side effects and potential adverse effects were discussed with the patient/guardian. Standard cautions and potential benefits were discussed. Patient/Guardian consented to the start/continuation of the treatment. 02/04/2025 Bipolar 1 disorder (ICD-10 - F31.9) Patient will continue current treatment plan. Patient verbally acknowledges understanding instructions including medication education and has no further questions comments or concerns at this time. . . Recommended treatment for Bipolar disorder includes FDA approved and OFF label medications: second generation antipsychotics and mood stabilizers. Discussed life threatening side effect of Lamotrigine. Pt is to monitor for new skin rashes or sensation of a sunburn or itchiness or redness, mouth sores or sores in mucus membranes, and call provider immediately and or go to ER, and stop the medication. Second generation antipsychotic medications can cause headache, drowsiness, agitation, dizziness, nausea, or extrapyramidal symptoms such as tremors, muscle spasms, slowness of movement or jerking of muscles. . Stable . The patient verbalizes understanding with all questions answered thoroughly and is in agreement with treatment plan. . Continue current treatment. Call for problems . GOALS: . Maintain medication regimen . _Improve mood stability . _Improve anxiety control . _Improve social and interpersonal functioning . Patient/Guardian will call sooner if symptoms worsen. Patient understands to go to ER if needed if symptoms become severe. . Crisis Intervention plan was discussed and agreed upon. Patient/Guardian will call 911 in case of emergency. Emergency contact information was provided to the patient/guardian. . Pharmacological management: . Alternative medication plans were discussed with the patient/guardian. All relevant side effects and potential adverse effects were discussed with the patient/guardian. Standard cautions and potential benefits were discussed. Patient/Guardian consented to the start/continuation of the treatment. Depakote can cause sedation and weight gain. Report abdominal pain, diarrhea, reduced appetite and constipation. Medication with require frequent lab checks. 02/21/2025 Bipolar 1 disorder (ICD-10 - F31.9) Patient will continue current treatment plan. Patient verbally acknowledges understanding instructions including medication education and has no further questions comments or concerns at this time. . Follow in 1 Month . Recommended treatment for Bipolar disorder includes FDA approved and OFF label medications: second generation antipsychotics and mood stabilizers. Discussed life threatening side effect of Lamotrigine. Pt is to monitor for new skin rashes or sensation of a sunburn or itchiness or redness, mouth sores or sores in mucus membranes, and call provider immediately and or go to ER, and stop the medication. Second generation antipsychotic medications can cause headache, drowsiness, agitation, dizziness, nausea, or extrapyramidal symptoms such as tremors, muscle spasms, slowness of movement or jerking of muscles. . Stable . The patient verbalizes understanding with all questions answered thoroughly and is in agreement with treatment plan. . Continue current treatment. Call for problems . GOALS: . Maintain medication regimen . _Improve mood stability . _Improve anxiety control . _Improve social and interpersonal functioning . Patient/Guardian will call sooner if symptoms worsen. Patient understands to go to ER if needed if symptoms become severe. . Crisis Intervention plan was discussed and agreed upon. Patient/Guardian will call 911 in case of emergency. Emergency contact information was provided to the patient/guardian. . Pharmacological management: . Alternative medication plans were discussed with the patient/guardian. All relevant side effects and potential adverse effects were discussed with the patient/guardian. Standard cautions and potential benefits were discussed. Patient/Guardian consented to the start/continuation of the treatment. 02/21/2025 Borderline personality disorder (ICD-10 - F60.3) 02/04/2025 Borderline personality disorder (ICD-10 - F60.3) 11/15/2024 Borderline personality disorder (ICD-10 - F60.3) 08/26/2024 Generalized anxiety disorder (ICD-10 - F41.1) Recommended treatment is: _ FDA approved medication for this age group include Selective Serotonin Reuptake Inhibitors (SSRI) and Selective Norepinephrine Reuptake Inhibitors (SNRI). . Selective serotonin reuptake inhibitors? can cause nausea, headache, upset stomach, diarrhea, constipation, anxiety, irritability, and sexual dysfunction. . Please monitor for worsening of symptoms, especially suicidal ideations or morbid thoughts, and call office and or go to the emergency department immediately. Pt does not endorse exhibiting symptoms aligning with sean. . The patient verbalizes understanding with all questions answered thoroughly and is in agreement with treatment plan. . Continue current treatment plan Patient/Guardian will call sooner if symptoms worsen. Patient understands to go to ER if needed if symptoms become severe. Crisis Intervention plan was discussed and agreed upon. Patient/Guardian will call 911 in case of emergency. Emergency contact information was provided to the patient/guardian. 09/27/2024 Borderline personality disorder (ICD-10 - F60.3) 07/29/2024 Generalized anxiety disorder (ICD-10 - F41.1) Recommended treatment is: _ Buspar is a medication used for anxiety. The medication can cause dizziness, sedation, and restless. Please contact the office if you experience these symptoms. The medication typically takes 2-4 weeks to achieve efficacy. Made aware to contact office if symptoms worsen. Patient educated on antipsychotic dosing schedule and side effects. Made aware to not abruptly stop the medication. Made aware to notify the office or go to the ER if experience any abnormal repetitive movements. Also, made aware to notify office of any nausea, vomiting, or dizziness. Made aware to not stop medication abruptly. This is an FDA approved use for this medication. Discussed with patient crisis plan. Provided crisis hotline number. [place] has good support system. Made aware to contact office if has an increase in suicidal thoughts. If outside of office hours, patient to go to the ER. Patient will call the office with any questions or concerns. . Please monitor for worsening of symptoms, especially suicidal ideations or morbid thoughts, and call office and or go to the emergency department immediately. Pt does not endorse exhibiting symptoms aligning with sean. . The patient verbalizes understanding with all questions answered thoroughly and is in agreement with treatment plan. . Continue current treatment plan Patient/Guardian will call sooner if symptoms worsen. Patient understands to go to ER if needed if symptoms become severe. Crisis Intervention plan was discussed and agreed upon. Patient/Guardian will call 911 in case of emergency. Emergency contact information was provided to the patient/guardian. 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 Made aware to not abruptly stop the medication. Made aware to notify the office or go to the ER if experience any abnormal repetitive movements. Also, made aware to notify office of any nausea, vomiting, or dizziness. Made aware to not stop medication abruptly. This is an FDA approved use for this medication. Discussed with patient crisis plan. Provided crisis hotline number. [facility] has good support system. Made aware to contact office if has an increase in suicidal thoughts. If outside of office hours, patient to go to the ER. Patient will call the office with any questions or concerns. Buspar is a medication used for anxiety. The medication can cause dizziness, sedation, and restless. Please contact the office if you experience these symptoms. The medication typically takes 2-4 weeks to achieve efficacy. Made aware to contact office if symptoms worsen. Patient educated about the importance of adequate sleep to your mental health. The bedroom should be kept dark to promote restful sleep. The patient should not use their phone or watch TV while in bed, these behaviors can be stimulating and keep the patient awake. . Informed consent obtained: YES, we discussed the diagnosis/diagnoses , the treatment options, treatment(s) recommended vs. no treatment. We discussed risks and benefits of treatment options, treatment recommendations vs. no treatment. . . Pt is to continue current treatment plan Has good tolerability and compliance with medication Call for problems All questions and concerns discussed . 07/29/2024 Borderline personality disorder (ICD-10 - F60.3) 08/26/2024 Borderline personality disorder (ICD-10 - F60.3) 09/27/2024 Generalized anxiety disorder (ICD-10 - F41.1) Recommended treatment is: _ FDA approved medication for this age group include Selective Serotonin Reuptake Inhibitors (SSRI) and Selective Norepinephrine Reuptake Inhibitors (SNRI). . Selective serotonin reuptake inhibitors? can cause nausea, headache, upset stomach, diarrhea, constipation, anxiety, irritability, and sexual dysfunction. Patient educated on antipsychotic dosing schedule and side effects. Made aware to not abruptly stop the medication. Made aware to notify the office or go to the ER if experience any abnormal repetitive movements. Also, made aware to notify office of any nausea, vomiting, or dizziness. Made aware to not stop medication abruptly. This is an FDA approved use for this medication. Discussed with patient crisis plan. Provided crisis hotline number. [facility] has good support system. Made aware to contact office if has an increase in suicidal thoughts. If outside of office hours, patient to go to the ER. Patient will call the office with any questions or concerns. . Please monitor for worsening of symptoms, especially suicidal ideations or morbid thoughts, and call office and or go to the emergency department immediately. Pt does not endorse exhibiting symptoms aligning with sean. . The patient verbalizes understanding with all questions answered thoroughly and is in agreement with treatment plan. . Continue current treatment plan Patient/Guardian will call sooner if symptoms worsen. Patient understands to go to ER if needed if symptoms become severe. Crisis Intervention plan was discussed and agreed upon. Patient/Guardian will call 911 in case of emergency. Emergency contact information was provided to the patient/guardian. 11/15/2024 Generalized anxiety disorder (ICD-10 - F41.1) Recommended treatment is: _ FDA approved medication for this age group include Selective Serotonin Reuptake Inhibitors (SSRI) and Selective Norepinephrine Reuptake Inhibitors (SNRI). . Selective serotonin reuptake inhibitors? can cause nausea, headache, upset stomach, diarrhea, constipation, anxiety, irritability, and sexual dysfunction. . Please monitor for worsening of symptoms, especially suicidal ideations or morbid thoughts, and call office and or go to the emergency department immediately. Pt does not endorse exhibiting symptoms aligning with sean. . The patient verbalizes understanding with all questions answered thoroughly and is in agreement with treatment plan. . Continue current treatment plan Patient/Guardian will call sooner if symptoms worsen. Patient understands to go to ER if needed if symptoms become severe. Crisis Intervention plan was discussed and agreed upon. Patient/Guardian will call 911 in case of emergency. Emergency contact information was provided to the patient/guardian. 02/04/2025 Generalized anxiety disorder (ICD-10 - F41.1) Recommended treatment is: _ FDA approved medication for this age group include Selective Serotonin Reuptake Inhibitors (SSRI) and Selective Norepinephrine Reuptake Inhibitors (SNRI). . Selective serotonin reuptake inhibitors? can cause nausea, headache, upset stomach, diarrhea, constipation, anxiety, irritability, and sexual dysfunction. . Please monitor for worsening of symptoms, especially suicidal ideations or morbid thoughts, and call office and or go to the emergency department immediately. Pt does not endorse exhibiting symptoms aligning with sean. . The patient verbalizes understanding with all questions answered thoroughly and is in agreement with treatment plan. . Continue current treatment plan Patient/Guardian will call sooner if symptoms worsen. Patient understands to go to ER if needed if symptoms become severe. Crisis Intervention plan was discussed and agreed upon. Patient/Guardian will call 911 in case of emergency. Emergency contact information was provided to the patient/guardian. 02/21/2025 Generalized anxiety disorder (ICD-10 - F41.1) Recommended treatment is: _ FDA approved medication for this age group include Selective Serotonin Reuptake Inhibitors (SSRI) and Selective Norepinephrine Reuptake Inhibitors (SNRI). . Selective serotonin reuptake inhibitors? can cause nausea, headache, upset stomach, diarrhea, constipation, anxiety, irritability, and sexual dysfunction. . Please monitor for worsening of symptoms, especially suicidal ideations or morbid thoughts, and call office and or go to the emergency department immediately. Pt does not endorse exhibiting symptoms aligning with sean. . The patient verbalizes understanding with all questions answered thoroughly and is in agreement with treatment plan. . Continue current treatment plan Patient/Guardian will call sooner if symptoms worsen. Patient understands to go to ER if needed if symptoms become severe. Crisis Intervention plan was discussed and agreed upon. Patient/Guardian will call 911 in case of emergency. Emergency contact information was provided to the patient/guardian. Buspar is a medication used for anxiety. The medication can cause dizziness, sedation, and restless. Please contact the office if you experience these symptoms. The medication typically takes 2-4 weeks to achieve efficacy. Made aware to contact office if symptoms worsen. 02/21/2025 Obsessive-compu lsive disorder, unspecified type (ICD-10 - F42.9) 02/04/2025 PTSD (post-traumatic stress disorder) (ICD-10 - F43.10) prazosin Encouraged to call office or report to the if the patient experiences dizziness or lightheadedness . Informed consent obtained: YES, we discussed the diagnosis/diagnoses , the treatment options, treatment(s) recommended vs. no treatment. We discussed risks and benefits of treatment options, treatment recommendations vs. no treatment. . . Pt is to continue current treatment plan Has good tolerability and compliance with medication Call for problems All questions and concerns discussed . . Pt is to continue current treatment plan Has good tolerability and compliance with medication Call for problems All questions and concerns discussed . 09/27/2024 PTSD (post-traumatic stress disorder) (ICD-10 - F43.10) prazosin: Encouraged to call office or report to the if the patient experiences dizziness or lightheadedness . Informed consent obtained: YES, we discussed the diagnosis/diagnoses , the treatment options, treatment(s) recommended vs. no treatment. We discussed risks and benefits of treatment options, treatment recommendations vs. no treatment. . . Pt is to continue current treatment plan Has good tolerability and compliance with medication Call for problems All questions and concerns discussed . 11/15/2024 PTSD (post-traumatic stress disorder) (ICD-10 - F43.10) prazosin: Encouraged to call office or report to the if the patient experiences dizziness or lightheadedness . Informed consent obtained: YES, we discussed the diagnosis/diagnoses , the treatment options, treatment(s) recommended vs. no treatment. We discussed risks and benefits of treatment options, treatment recommendations vs. no treatment. . . Pt is to continue current treatment plan Has good tolerability and compliance with medication Call for problems All questions and concerns discussed . 08/26/2024 PTSD (post-traumatic stress disorder) (ICD-10 - F43.10) prazosin: Encouraged to call office or report to the if the patient experiences dizziness or lightheadedness . Informed consent obtained: YES, we discussed the diagnosis/diagnoses , the treatment options, treatment(s) recommended vs. no treatment. We discussed risks and benefits of treatment options, treatment recommendations vs. no treatment. . . Pt is to continue current treatment plan Has good tolerability and compliance with medication Call for problems All questions and concerns discussed . 07/08/2024 PTSD (post-traumatic stress disorder) (ICD-10 - F43.10) 04/08/2024 Obsessive-compu lsive disorder, unspecified type (ICD-10 - F42.9) 07/08/2024 Obsessive-compu lsive disorder, unspecified type (ICD-10 - F42.9) 08/26/2024 Obsessive-compu lsive disorder, unspecified type (ICD-10 - F42.9) 11/15/2024 Obsessive-compu lsive disorder, unspecified type (ICD-10 - F42.9) 09/27/2024 Obsessive-compu lsive disorder, unspecified type (ICD-10 - F42.9) 02/04/2025 Obsessive-compu lsive disorder, unspecified type (ICD-10 - F42.9) 02/21/2025 PTSD (post-traumatic stress disorder) (ICD-10 - F43.10) prazosin: Encouraged to call office or report to the if the patient experiences dizziness or lightheadedness . Informed consent obtained: YES, we discussed the diagnosis/diagnoses , the treatment options, treatment(s) recommended vs. no treatment. We discussed risks and benefits of treatment options, treatment recommendations vs. no treatment. . . Pt is to continue current treatment plan Has good tolerability and compliance with medication Call for problems All questions and concerns discussed . 04/08/2024 Other follow up in 2 weeks Patient educated on new antipsychotic dosing schedule and side effects. Made aware to not abruptly stop the medication. Made aware to notify the office or go to the ER if experience any abnormal repetitive movements. Also, made aware to notify office of any nausea, vomiting, or dizziness. Made aware to not stop medication abruptly. This is an FDA approved use for this medication. Discussed with patient crisis plan. Provided crisis hotline number. [place] has good support [place]. Made aware to contact office if has an increase in suicidal thoughts. If outside of office hours, patient to go to the ER. Patient will call the office with any questions or concerns. Buspar is a medication used for anxiety. The medication can cause dizziness, sedation, and restless. Please contact the office if you experience these symptoms. The medication typically takes 2-4 weeks to achieve efficacy. Made aware to contact office if symptoms worsen. Lamictal: Patient educated on dosing schedule of medication. Made aware to make prescriber aware of any unexplainable rash or flu-like symptoms. If outside of office hours patient should report to the ER. Made aware to contact the office with any questions or concerns. Provided crisis hotline number. Patient states has good support system. Will call office or report to the ER with suicidal ideations. prazosin: Encouraged to call office or report to the if the patient experiences dizziness or lightheadedness Patient educated about the importance of adequate sleep to your mental health. The bedroom should be kept dark to promote restful sleep. The patient should not use their phone or watch TV while in bed, these behaviors can be stimulating and keep the patient awake. . Informed consent obtained: YES, we discussed the diagnosis/diagnoses , the treatment options, treatment(s) recommended vs. no treatment. We discussed risks and benefits of treatment options, treatment recommendations vs. no treatment. . Plan Of Treatment Next Appt Details Provider Name:Eli coppola, 03/30/2025 09:30:00 AM, [address] [place] [address], [id number], Provider Name:Estelita julien, 03/30/2025 04:15:00 PM, [place], [id number], Insurance Providers Payer Name Payer Address Payer Phone Subscriber Number Group Number Insured Name Patient Relationship to Insured Coverage Start Date Coverage End Date [facility] [employer] [place] [employer] [address] [place] [address] [id number] DARKAREN Self - patient is the insured 3 [facility] [address] [place] [address] [id number] KAREN DODGE Self - patient is the insured 3 [employer] [place] [employer] [address] [place] [address] [id number] KAREN DODGE Self - patient is the insured 4 [facility] [address] [place] [address] [id number] DARKAREN PEGUERO Self - patient is the insured 4 5 Medical (General) History Medical History History ICD Code NAFLD PTSD PreDM ADHD Anxiety Bipolar 1 disorder IV Drug Abuse - in remission Borderline Personality Disorder Surgical History Surgery Date(Month/Year) tonsillectomy (x3) bilateral salpingectomy Hospitalization History Reason Date(Month/Year) possible meningitis 2004 See surgical hx.
--- OUTSIDE RECORDS SUMMARY | 2025-03-28 11:04 | XMS_ITS | Clinical Summary ---
Author Organization [facility] Address [id number] [address] [place] [address] Care Team Providers Care Fermentation Engineer Name Role Phone Penny Aldrich RUSH-ALLIGATOR TRAPPER Primary Care Provider Allergies Active Allergy Reactions Criticality Noted Date Comments Oxycodone-Acetaminophen Hives Medium 03/18/2022 Medications NON FORMULARY SEMIGLUTIDE INJECTIONS WEEKLY Active lamoTRIgine (LaMICtal) 100 mg tablet Take 1 tablet (100 mg total) by mouth in the morning. Active dicyclomine (BENTYL) 20 mg tablet Take 1 tablet (20 mg total) by mouth in the morning and 1 tablet (20 mg total) before bedtime. 20 tablet 11/20/19 Active Additional Information Patient not taking.Reported on 10/14/2024 ondansetron ODT (ZOFRAN ODT) 4 mg disintegrating tablet Dissolve 1 tablet (4 mg total) on tongue every 8 (eight) hours as needed for nausea. 20 tablet 11/20/19 Active Additional Information Patient not taking.Reported on 10/14/2024 OLANZapine (ZyPREXA) 10 mg tablet Take 1 tablet (10 mg total) by mouth 3 (three) times a day. 09/22/19 25 Active sertraline (ZOLOFT) 25 mg tablet Take 1 tablet (25 mg total) by mouth in the morning. 08/26/19 25 Active pantoprazole (PROTONIX) 40 mg EC tablet Take 1 tablet (40 mg total) by mouth every morning before breakfast. 09/20/19 25 Active prazosin (MINIPRESS) 2 mg capsule Take 2 capsules (4 mg total) by mouth nightly. 03/23/20 25 Active busPIRone (BUSPAR) 15 mg tablet Take 1 tablet (15 mg total) by mouth 3 (three) times a day. 09/23/19 Active albuterol (PROVENTIL HFA;VENTOLIN HFA) 90 mcg/actuation inhaler INHALE 2 PUFFS EVERY 4 TO 6 HOURS NEEDED FOR SHORTNESS OF BREATH OR WHEEZE 09/22/19 Active Active Problems Problem Noted Date Diagnosed Date History of drug abuse 11/20/2023 Intractable abdominal pain 11/20/2023 Marijuana use 11/20/2023 Vapes nicotine containing substance 07/14/2023 Degeneration of intervertebral disc at L5-S1 lev el 07/14/2023 Depression with anxiety 07/14/2023 Idiopathic scoliosis of thoracolumbar region Myofascial pain 07/14/2023 Pain in thoracic spine 07/14/2023 Morbid obesity with BMI of 40.0-44.9, adult 06/30 Encounters Date Type Department Care Team Description 01/26/2025 Telephone [facility] [address] [place] [address] Sushila Little RN from Last 3 Months Family History Medical History Relation Name Comments Arthritis Father Juarez Asthma Father Juarez COPD Father Juarez Diabetes Father Juarez Drug abuse Father Juarez Hypertension Father Juarez Mental illness Father Juarez Schizophrenia Father Juarez COPD Maternal Grandfather Maxwell COPD Maternal Grandmother Violeta Alcohol abuse Maternal Uncle Trevon Asthma Mother Dia Depression Mother Dia Mental illness Mother Dia COPD Paternal Grandfather Alberto Breast cancer Paternal Grandmother Kanika Alcohol abuse Sister Pat Relation Name Status Comments Father Juarez Alive Maternal Grandfather Maxwell Maternal Grandmother Violeta Maternal Uncle Trevon Mother Dia Alive Paternal Grandfather Alberto Paternal Grandmother Dupont Sister Pat Social History Tobacco Use Types Packs/Day Years Used Date Smoking Tobacco: Every Day Vaping/E-cigarettes Smokeless Tobacco: Never Tobacco Cessation:Ready to Q uit: Not Asked; Counseling Given: Not Answered Alcohol Use Standard Drinks/Week Comments Not Currently 0 (1 standard drink = 0.6 oz pur e alcohol) [facility] Utilities Answer Date Recorded In the past 12 months has [employer] gas, oil, or water [employer] threatened to shut off services in your home? No 11/20/2023 PHQ-2 Answer Date Recorded Total Score 4 08/21/2023 PRAPARE - Transportation Answer Date Re corded In the past 12 months, has l ack of transportation kept you from medical appointments or from getting medications? No 10/29 In the past 12 months, has l ack of transportation kept you from meetings, work, or from getting things needed for daily living? No 11/20/2023 Housing Instability Answer Date Recorde d Are you worried or concerned that in the next two months you may not have stable housing that you own, rent or stay in as a part of a household? No 11/20/2023 Childcare Answer Date Recorded Childcare Unknown 09/03/2019 Employment Answer Date Recorded Employment Unknown 09/03/2019 Hunger Screening Answer Date Recorded Within the past 12 months we worried whether our food would run out before we got money to buy more. Never True 11/20/2023 Within the past 12 months th e food we bought just didn't last and we didn't have money to get more. Never True 11/20/2023 Purpose - Life Answer Date Recorded Purpose and direction in life Unknown Comments No Sex and Gender Information Value Date Recorded Sex Assigned at Not on file Legal Sex Female 11:28 PM EST Gender Identity Not on file Sexual Orientation Not on file Last Filed Vital Signs Vital Sign Reading Time Taken Comments Blood Pressure 129/84 10/14/2024 3:39 PM EDT Pulse 98 10/14/2024 3:39 PM EDT Temperature 36.8 C (98.2 F) 10/14/2024 3:39 PM EDT Respiratory Rate 17 11/20/2023 7:00 AM EDT Oxygen Saturation 99% 11/20/2023 7:00 AM EDT Inhaled Oxygen Concentration - - Weight 118.8 kg (262 lb) 10/14/2024 3:39 PM EDT Height 165.1 cm (5' 5 ) 10/14/2024 3:39 PM EDT Body Mass Index 43.6 10/14/2024 3:39 PM EDT Plan of Treatment Health Maintenance Due Date Last Done Comments Tobacco Counseling 1995 Adult BMI Follow Up Plan 08/21/2024 08/21/2023 Depression Screening 08/21/2024 08/21/2023 Influenza Vaccine 02/28/2025 03/23/2020, , 04/12/2015, Additional history exists Adult BMI Screening 10/14/2025 10/14/2024 Tobacco Screening 10/14/2025 10/14/2024 Pap Smear 08/21/2026 08/21/2023 DTaP,Tdap and Td Vaccines (8 - Td or Tdap) 12/16/2026 12/16/2016, 02/24/2010, 03/02/2002, Additional history exists Medical Devices Not on file Procedures Procedure Name Priority Date/Time Associated Diagnosis Comments PAP SMEAR Routine 08/21/2023 6:54 AM EST Cervical smear, as part of routine gynecological examination from Last 3 Months or Most Recently Relevant to Health Maintenance Results * Pap Smear (08/21/2023 6:54 AM EST) 08/21/2023 6:54 AM EST 08/21/2023 6:54 AM EST Narrative COPATH - 09/01/2023 4:25 PM EST [facility] [address] [place] [address] Gynecologic Cytology Consultation Patient Name:GABBY DODGE:1995 (Age: 28)Gender:FTaken:4Reported:09/01/2023hysician(s):Dia Garvin APRN- CNPCopy To: Rec. #:[id number]: #[id number] Final Cytologic Interpretation ThinPrep Pap Test (Cervical): Satisfactory for evaluation. A transformation zone component is present. NEGATIVE FOR INTRAEPITHELIAL LESION OR MALIGNANCY. [facility]23 Interpretation performed at [facility], [address] [place] [address], License number: [id number]. 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: Z01.419 Plate Grainer Apprentice exam wo/abn findings Source of Specimen ThinPrep Pap Test (Cervical) Thin Prep Pap (ERP ANALYST) Fee Code(s): G0145 us Dia Wiley APRN-ALLIGATOR TRAPPER PATHOLOGY/CYTOLOGY ORDER SADAF Final Result COPATH from Last 3 Months or Most Recently Relevant to Health Maintenance Insurance [employer] Advance Directives * Full Code (Latest Code Status on File) Date Activated Date Inactivated Comments 11/20/2023 3:48 AM 11/20/2023 12:52 PM Care Teams Fermentation Engineer Relationship Specialty Start Date End Date Penny Aldrich APRN-CNP [facility] [address], [facility] [address] [place] [address] PCP - General Family Medicine 07/14/23
--- OUTSIDE RECORDS SUMMARY | 2025-03-28 11:04 | XMS_ITS | Encounter Summary ---
Author Organization [facility] Address [id number] [address] [place] [address] Care Team Providers Care Career Law Clerk Name Role Phone Penny Aldrich MISSILE TRACKING TECHNICIAN-REBAR WORKER Primary Care Provider Encounter Details Date Type Department Care Team (Late st Contact Info) Description 01/26/2025 Telephone [facility] [address] [place] [address] Sushila Little RN Social History Tobacco Use Types Packs/Day Years Used Date Smoking Tobacco: Every Day Vaping/E-cigarettes Smokeless Tobacco: Never Alcohol Use Standard Drinks/Week Comments Not Currently 0 (1 standard drink = 0.6 oz pur e alcohol) [facility] Utilities Answer Date Recorded In the past 12 months has th e electric, gas, oil, or water company threatened to shut off services in your [...] encounter Miscellaneous Notes * Telephone Encounter - Sushila Little RN - 01/26/2025 8:56 AM EDT Pts PCP RN calling into office wanting to know if her insurance covered her breast reduction surgery and when surgery could be scheduled. RN informed pts PCP RN that surgery's are booking out far due to MD seeing active breast cancer patients. Message sent to donor relations manager. - Sushila Little RN 01/26/25 8:57 AM documented in this encounter Plan of Treatment Not on file documented as of this encounter Visit Diagnoses Not on filedocumented in this encounter Additional Health Concerns Assessment Noted Time PHQ-9 Depression Total Score: 4 08/21/19 3:30 PM EST A Body Mass Index follow-up plan has been documented for the patient 08/21/2023 3:56 PM EST documented as of this encounter Care Teams Career Law Clerk Relationship Specialty Start Date End Date Penny Aldrich APRN-JAILYN [address] [place], [place] [address]Charlie, [address] [address] PCP - General Family Medicine 07/14/23 documented as of this encounter
--- OUTSIDE RECORDS SUMMARY | 2025-03-28 11:05 | XMS_ITS | Clinical Summary ---
Author Organization [facility] Address [address] [place] [address] Care Team Providers Care Freight Adjuster Name Role Phone Unavailable Primary Care Provider Unavailabl e Social History Tobacco Use Types Packs/Day Years Used Date Smoking Tobacco: Never Assessed Comments Unknown Sex and Gender Information Value Date Recorded Sex Assigned at Not on file Legal Sex Female 8:29 AM EST Gender Identity Not on file Sexual Orientation Not on file Plan of Treatment Not on file Insurance [employer] RAMESH CASTILLO
--- OUTSIDE RECORDS SUMMARY | 2025-03-28 11:05 | XMS_ITS | Encounter Summary ---
Author Organization [email or web address] Address [id number] [address] [place] [address] Care Team Providers Care Deputy Manager Name Role Phone Penny Aldrich RUSH-FEDERAL JUDGE Primary Care Provider Encounter Details Date Type Department Care Team (Late st Contact Info) Description 04/30/2024 Telephone [facility] [address] [place] [address] Jaylyn Davalos CMA Social History Tobacco Use Types Packs/Day Years Used Date Smoking Tobacco: Every Day Vaping/E-cigarettes Smokeless Tobacco: Never Alcohol Use Standard Drinks/Week Comments Not Currently 0 (1 standard drink = 0.6 oz pur e alcohol) [facility] Utilities Answer Date Recorded In [...] on file documented as of this encounter Plan of Treatment Not on file documented as of this encounter Visit Diagnoses Not on filedocumented in this encounter Additional Health Concerns Assessment Noted Time PHQ-9 Depression Total Score: 4 08/21/19 3:30 PM EST A Body Mass Index follow-up plan has been documented for the patient 08/21/2023 3:56 PM EST documented as of this encounter Care Teams Deputy Manager Relationship Specialty Start Date End Date Penny Aldrich APRN-JAILYN [facility] [address] [address] PCP - General Family Medicine 07/14/23 documented as of this encounter
--- OUTSIDE RECORDS SUMMARY | 2025-03-28 11:05 | XMS_ITS | Encounter Summary ---
Author Organization [facility] Address [id number] [address] [place] [address] Care Team Providers Care Soldering Machine Tender Name Role Phone Penny Aldrich RUSH-CUSTOMER BUSINESS MANAGER Primary Care Provider Encounter Details Date Type Department Care Team (Late st Contact Info) Description 11/09/2024 [facility]phone [facility] [address] [place] [address] Ceasar Segovia MD [address] [place] [address] Social History Tobacco Use Types Packs/Day Years Used Date Smoking Tobacco: Every Day Vaping/E-cigarettes Smokeless Tobacco: Never Alcohol Use Standard Drinks/Week Comments Not Currently 0 (1 standard drink = 0.6 oz pur e alcohol) [facility] Utilities Answer Date Recorded In the past 12 months has e [employer], gas, oil, or water [employer] threatened to shut off services in your [...] encounter Miscellaneous Notes * Telephone Encounter - Penelope Yi - 11/09/2024 1:19 PM EDT PATIENT CALLED TO INFORM US THAT SHE HAS [employer] INSURANCE AND WANTS TO HAVE HER BREAST REDUCTION. PATIENT ACTUALLY ASKED IF IT HAD BEEN APPROVED AND FROM MY UNDERSTANDING IT HAS TO BE SCHEDULED FIRST PER STEVEN IN PRECERT. COULD YOU PLEASE FOLLOW UP WITH PATIENT. * Telephone Encounter - Yudith Sabillon - 11/09/2024 1:19 PM EDT Unfortunately that is incorrect. Because we do not go through [facility] pre- cert department. Our office does all of our own authorizations, so for all elective surgeries we have to have an approval before we can schedule surgery. We are scheduling a year out from consult dates which can fluctuate for breast reductions. This is due to the active cancer and trauma volume that see Dr. Segovia. These patients take priority to his OR schedule as their diagnosis are life threatening. Thank you. * Telephone Encounter - Chioma Briceño - 11/09/2024 1:19 PM EDT Patient called back and was advised of previous message. Stated all that is fine with her. Would like a call back if insurance is approved or not. Please Advise documented in this encounter Plan of Treatment Not on file documented as of this encounter Visit Diagnoses Not on filedocumented in this encounter Additional Health Concerns Assessment Noted Time PHQ-9 Depression Total Score: 4 08/21/19 3:30 PM EST A Body Mass Index follow-up plan has been documented for the patient 08/21/2023 3:56 PM EST documented as of this encounter Care Teams Soldering Machine Tender Relationship Specialty Start Date End Date Penny Aldrich, RUSH-CUSTOMER BUSINESS MANAGER [address], [address] [address] PCP - General Family Medicine 07/14/23 documented as of this encounter
[2025-03-28 11:23] LABS: Hematocrit 32.6 % (36.0-48.0); Hemoglobin 10.3 g/dL (12.0-16.0); Immature Granulocytes Abs Auto 0.03 10^3/uL (0.00-0.03); Immature Granulocytes Pct Auto 0.5 % (0.0-0.5); Lymphocytes Absolute Auto 1.6 10^3/uL (1.2-3.8); Mean Corpuscular HGB Conc 31.6 g/dL (29.9-35.2); Mean Corpuscular Hemoglobin 23.2 pg (26.7-34.0); Mean Corpuscular Volume 73.4 fL (81.0-99.0); Platelet Count 205 10^3/uL (150-450); Red Blood Count 4.44 10^6/uL (4.20-5.40); White Blood Count 5.6 10^3/uL (4.0-11.0)
[2025-03-28 12:05] LABS: Anion Gap 12.5; Blood Urea Nitrogen 10.0 mg/dL (7.0-18.0); Calcium 8.6 mg/dL (8.5-10.1); Carbon Dioxide 28.9 mmol/L (21.0-32.0); Chloride 104 mmol/L (98-107); Estimated GFR (African America >60 (>=60 mL/min/1.73m^2); Estimated GFR (Non-African Ame >60 (>=60 mL/min/1.73m^2); Glucose 140 mg/dL (74-106); Potassium 3.4 mmol/L (3.5-5.1); Sodium 142 mmol/L (136-145)
--- NOTE | 2025-03-28 15:40 | ED.GENADUL1 ---
HPI HPI - General Adult General Chief complaint: Chest Pain Stated complaint: CHEST PAIN Time Seen by Provider: 03/28/25 10:45 Source: patient Mode of arrival: walk-in History of Present Illness HPI narrative: Patient is a 29-year-old female presenting to the emergency department for concerns of left-sided neck/arm/chest pain. Patient states her symptoms started a few days ago. She states the pain is intermittent throughout the day, not constant nature. She states the pain is located on the left side of her neck and radiates to her left arm and into her left chest. She denies any associated shortness of breath. She denies history of MS or DVT/PE. She denies any hemoptysis, leg swelling, recent mobilizations, recent surgical procedures. She is not on blood thinners and not on oral contraceptive pills. She denies history of smoking, alcohol, or drug use. No history of trauma. Related Data Home Medications ?Medication ?Instructions ?Recorded ?Confirmed lamotrigine 150 mg tablet 300 mg PO DAILY 04/21/24 03/28/25 pantoprazole 20 mg tablet,delayed 40 mg PO DAILY 04/21/24 03/28/25 release prazosin 1 mg capsule 2 mg PO .[facility] 04/21/24 03/28/25 Allergies Allergy/AdvReac Type Severity Reaction Status Date / Time bupropion (From Wellbutrin) Allergy Severe Hives Verified 03/28/25 10:42 acetaminophen (From Percocet) Allergy Mild Hives Verified 03/28/25 10:42 oxycodone (From Percocet) Allergy Mild Hives Verified 03/28/25 10:42 Opioid HPI Opioid Management Most Recent Opioid Data: Last Pain Scale 5 Today, 10:59 Last MAR Pain Assessment Today, 10:59 Review of Systems ROS Status of ROS 10 or more systems reviewed and unremarkable except as noted in history and below PFS PFS Social History Smoking status: Current every day smoker Little interest or pleasure in doing things: not at all Feeling down, depressed, or hopeless: not at all Exam Narrative Exam Narrative: CONSTITUTIONAL: Well-appearing, answering questions and following commands appropriately SKIN: Was warm and dry. EYES: Sclerae white. EARS, NOSE, THROAT: Moist oral mucosa. RESPIRATORY: Clear to auscultation bilaterally, no wheezes, crackles, or stridor, no use of accessory muscles CARDIOVASCULAR: Normal rate and regular rhythm. There is no S3, S4, murmur, rub. GASTROINTESTINAL: Abdomen is nondistended. MUSCULOSKELETAL: There is reproducible tenderness palpation throughout the paraspinal muscles of the left neck and into the left chest wall. Positive Spurling test on the left. No lower extremity edema. NEUROLOGIC: Patient is awake and alert. Ambulates with a steady gait. Constitutional Vital Signs, click to edit/add: Last Vital Signs Temp 98.1 F 03/28/25 10:44 Pulse 102 H 03/28/25 10:44 Resp 18 03/28/25 10:44 BP 150/96 H 03/28/25 10:44 Pulse Ox 97 03/28/25 10:44 O2 Del Method Room Air 03/28/25 10:44 Course Vital Signs Vital signs: Vital Signs Temperature 98.1 F 03/28/25 10:44 Pulse Rate 102 H 03/28/25 10:44 Respiratory Rate 18 03/28/25 10:44 Blood Pressure 150/96 H 03/28/25 10:44 Pulse Oximetry 97 03/28/25 10:44 Oxygen Delivery Method Room Air 03/28/25 10:44 Temperature 98.1 F 03/28/25 10:44 Pulse Rate 102 H 03/28/25 10:44 Respiratory Rate 18 03/28/25 10:44 Blood Pressure 150/96 H 03/28/25 10:44 Pulse Oximetry 97 03/28/25 10:44 Oxygen Delivery Method Room Air 03/28/25 10:44 Medical Decision Making MDM Narrative Medical decision making narrative: Patient is a 29-year-old female presenting to the emergency department with a 3-day history of intermittent left-sided neck/chest/arm pain. Her vital signs are significant for mild tachycardia and hypertension, otherwise were within normal limits. She is afebrile and hemodynamically stable. Examination as noted above, however was notable for reproducible tenderness to palpation throughout the musculature of the left neck/chest with a positive Spurling test. My clinical impression is of the patient's symptoms are secondary to musculoskeletal pain, torticollis, or cervical radiculopathy. Other potential etiologies, though of lower likelihood, include ACS, arrhythmia, or other electrolyte/metabolic derangement. I considered PE given her tachycardia, though she has a Wells score of 1, making her low risk. D-dimer is ordered to rule this out. 12 Lead EKG: Sinus tachycardia at a rate of 102. Normal axis. No ST segment elevations. QRS, [place], and QTc interval within normal limits. Final impression: Sinus tachycardia without evidence of acute myocardial ischemia. Laboratory studies were unremarkable. No significant electrolyte or metabolic derangement. No evidence of acute kidney injury. No anemia, leukocytosis, or thrombocytopenia. Troponin and D-dimer not elevated. I do believe the patient is stable for discharge. Patient's presentation is most likely consistent with musculoskeletal pain or cervical radiculopathy. They were instructed to follow up with their PCP for further care. Return precautions were given including any new or worsening symptoms. Patient understands and agrees to the plan. FINAL IMPRESSION: #Acute left-sided neck/arm/chest pain DISPOSITION: Discharged home CONDITION: Good Medical Records Medical records reviewed: Yes I reviewed the patient's medical records Lab Data Lab results reviewed: Yes I reviewed the patient's lab results Labs: Lab Results 03/28/25 Range/Units 11:16 WBC 5.6 (4.0-11.0) 10^3/uL RBC 4.44 (4.20-5.40) 10^6/uL Hgb 10.3 L (12.0-16.0) g/dL Hct 32.6 L (36.0-48.0) % MCV 73.4 L (81.0-99.0) fL MCH 23.2 L (26.7-34.0) pg MCHC 31.6 (29.9-35.2) g/dL RDW 16.8 H (11.0-15.0) % Plt Count 205 (150-450) 10^3/uL MPV 12.3 (9.5-13.5) fL Neut % (Auto) 63.0 (43.0-75.0) % Lymph % (Auto) 28.6 (20.5-60.0) % Hardy % (Auto) 7.0 (1.7-12.0) % Eos % (Auto) 0.2 L (0.9-7.0) % Baso % (Auto) 0.7 (0.2-2.0) % Neut # (Auto) 3.5 (1.4-6.5) 10^3/uL Lymph # (Auto) 1.6 (1.2-3.8) 10^3/uL Hardy # (Auto) 0.4 (0.3-0.8) 10^3/uL Eos # (Auto) 0.0 (0.0-0.7) 10^3/uL Baso # (Auto) 0.0 (0.0-0.1) 10^3/uL Abs Immat Gran (auto) 0.03 (0.00-0.03) 10^3/uL Imm/Tot Granulo (auto) 0.5 (0.0-0.5) % D-Dimer 0.32 (<=0.59) mg/L FEU Sodium 142 (136-145) mmol/L Potassium 3.4 L (3.5-5.1) mmol/L Chloride 104 (98-107) mmol/L Carbon Dioxide 28.9 (21.0-32.0) mmol/L Anion Gap 12.5 BUN 10.0 (7.0-18.0) mg/dL Creatinine 0.60 (0.55-1.02) mg/dL Est GFR ( Amer) >60 (>=60 mL/min/1.73m^2) Est GFR (Non-Af Amer) >60 (>=60 mL/min/1.73m^2) BUN/Creatinine Ratio 16.7 Glucose 140 H (74-106) mg/dL Calcium 8.6 (8.5-10.1) mg/dL Troponin I High Sens <4.0 L (4.0-51.3) pg/mL Serum HCG, Qual Negative (NEGATIVE) ECG Data Attestation: I personally reviewed and interpreted this ECG as follows: Discharge Plan Discharge Chief Complaint: Chest Pain Clinical Impression: Atypical chest pain Patient Disposition: Home, Self-Care Time of Disposition Decision: 12:14 Condition: Good Mode of Transportation: Private Vehicle Prescriptions / Home Meds: No Action lamotrigine 150 mg tablet 300 mg PO DAILY pantoprazole 20 mg tablet,delayed release (DR/EC) 40 mg PO DAILY prazosin 1 mg capsule [address] Print Language: Citizen [place] Instructions: Chest Wall Pain (ED) Referrals: Penny Aldrich NP [Primary Care Provider] - 1 week Discharge Date/Time: 03/28/25 12:37
== END 2025-03-28 12:37 | disposition home or self-care (01) ==
PROVIDERS: Emergency Provider Student in an Organized Health Care Education/Training Program; PCP Nurse Practitioner Family
DX: R07.89 Other chest pain (principal)
CPT/HCPCS: 36415; 80048; 84484; 84703; 85025; 85378; 93005; 99284